=== PATIENT | female | born 1935 | race Caucasian/White ===

== ENCOUNTER 2017-10-21 15:34 | Emergency (ER) | payer OTHER, BC ==
--- OUTSIDE RECORDS SUMMARY | 2017-10-21 16:06 | XMS REPORT | Clinical Summary ---
:1935 Author Organization [facility] Address [address] [place] [address] Care Team Providers Name Role Phone Laith Dillardio Judith MARINELLI Primary Care Provider Allergies Active Allergy Reactions Severity Noted Date Comments Bacitracin 02/06/2016 Unknown rxn Codeine Shortness Of Breath High 02/06/2016 Methylchloroisothiazolinone 02/06/2016 Unknown rxn Morphine Shortness Of Breath High 02/06/2016 Neomycin 02/06/2016 Unknown rxn Opioids - Morphine Analogues 08/03/2014 Current Medications Prescription Sig. Disp. Refills Start Date End Date Status atenolol (TENORMIN) 50 Take 50 mg by Active MG tablet mouth 2 (two) times a day. benazepril (LOTENSIN) Take 40 mg by Active 40 MG tablet mouth. cyanocobalamin, vitamin Place 2,500 mcg Active B-12, 2,500 mcg tablet, under the sublingual tongue 2 (two) times a day. DULoxetine (CYMBALTA) Take 60 mg by Active 60 MG capsule mouth daily. fluticasone-salmeterol Inhale 1 puff 2 Active (ADVAIR) 100-50 (two) times a mcg/dose DISKUS day. fluticasone (FLONASE) 2 sprays by Active 50 mcg/actuation nasal Each Nare route spray 2 (two) times a day. gabapentin (NEURONTIN) Take 300 mg by Active 300 mg capsule mouth 2 (two) times a day. hydrALAZINE Take 50 mg by Active (APRESOLINE) 50 MG mouth 2 (two) tablet times a day. hydrOXYzine (ATARAX) 50 Take 50 mg by Active MG tablet mouth 2 (two) times a day. levothyroxine Take 112 mcg by Active (SYNTHROID, LEVOXYL) mouth every 112 mcg tablet morning. omeprazole (PriLOSEC) Take 20 mg by Active 20 MG capsule mouth daily. doxepin 3 mg tablet Take 1 tablet Active by mouth daily. levocetirizine (XYZAL) Take 5 mg by Active 5 MG tablet mouth every evening. loratadine (CLARITIN) Take 10 mg by Active 10 mg tablet mouth daily. montelukast (SINGULAIR) Take 10 mg by Active 10 mg tablet mouth nightly. cholecalciferol, Take 1,000 Active vitamin D3, (VITAMIN Units by mouth D3) 1,000 unit tablet daily. cyanocobalamin 1000 MCG Take 1,000 mcg Active tablet by mouth daily. clonAZEPAM (KlonoPIN) Take 1 tablet 2 02/06/2017 Active 0.5 MG tablet by mouth daily. divalproex (DEPAKOTE) Take 1 tablet 2 01/23/2017 Active 250 MG 24 hr tablet by mouth daily. donepezil (ARICEPT) 5 Take 1 tablet 30 tablet 0 02/10/2017 02/10/2018 Active MG tablet (5 mg total) by mouth nightly. 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 (Primary Dx) 01/16/2017 Hospital Encounter Radiology Nona Agrawal MD Memory loss; Gait difficulty 01/16/2017 Lab Lab Nona Agrawal MD Idiopathic peripheral neuropathy 12/06/2016 Office Visit Neurology Nona Agrawal MD Memory loss (Primary Dx); Idiopathic peripheral neuropathy; Gait difficulty 12/06/2016 Procedure Pass Radiology after 10/20/2016 Family History Medical History Relation Name Comments Prostate cancer Father Hypertension Mother Relation Name Status Comments Father Mother Social History Tobacco Use Types Packs/Day Years Used Date Former Smoker 0.25 12 Quit: 1977 Smokeless Tobacco: Never Used Alcohol Use Drinks/Week oz/Week Comments Yes 7 Shots of liquor 4.2 Sex Assigned at Date Recorded Not on file Last Filed Vital Signs Vital Sign Reading Time Taken Blood Pressure 131/61 02/10/2017 10:44 AM CDT Pulse 69 02/10/2017 10:44 AM CDT Temperature - - Respiratory Rate - - Oxygen Saturation - - Inhaled Oxygen Concentration - - Weight 54.1 kg (119 lb 4.8 oz) 02/10/2017 10:44 AM CDT Height 162.6 cm (5' 4") 02/10/2017 10:44 AM CDT Body Mass Index 20.48 02/10/2017 10:44 AM CDT Plan of Treatment Health Maintenance Due Date Last Done Comments SHINGRIX VACCINE (#1) 1984 ZOSTER VACCINE 1994 PNEUMOCOCCAL POLYSACCHARIDE VACCINE AGE 65 AND OVER 1999 PNEUMOCOCCAL-13 1999 INFLUENZA VACCINE 11/12/2017 Procedures Procedure Name Priority Date/Time Associated Comments Diagnosis MRI BRAIN W WO Routine 01/16/2017 12:27 Memory loss Results for this CONTRAST PM CDT Gait difficulty procedure are in the results section. ESTIMATED GFR Routine 01/16/2017 11:51 Results for this AM CDT procedure are in the results section. CREATININE LEVEL Routine 01/16/2017 11:51 Results for this AM CDT procedure are in the results section. METHYLMALONIC ACID, Routine 01/16/2017 11:11 Idiopathic Results for this SERUM AM CDT peripheral procedure are in neuropathy the results section. after 10/20/2016 Results MRI Brain W Wo Contrast (01/16/2017 12:27 PM) Narrative Performed At EXAMINATION:MRI BRAIN W WO CONTRAST [facility] CLINICAL HISTORY:R41.3 Other amnesia, R26.9 Unspecified abnormalities of gait and mobility, hx of concussion memory decline COMPARISON:None. TECHNIQUE: Standard brain MRI without and with intravenous gadolinium contrast. FINDINGS: The study is somewhat limited by patient motion, more on postcontrast images. There is also susceptibility artifact that appear external to the patient overlying the right frontal scalp region. There is no evidence of acute infarction, hemorrhage, mass lesion, or abnormal enhancement. There are mild nonspecific areas of T2 prolongation in the periventricular white matter, likely sequela from chronic ischemic microangiopathy. There is mild-moderate cerebral volume loss disproportionately involving bilateral parietal and occipital lobes. The right hippocampus is slightly smaller than the left hippocampus, which is of uncertai n clinical significance but not grossly abnormal. There is no gross hydrocephalus or extra-axial fluid collection. Flow voids of the major intracranial vessels are intact. Visualized paranasal sinuses and mastoid air cells are clear. There is right intraocular lens implant. Bones and soft tissues are unremarkable. IMPRESSION: 1. Mild-moderate cerebral volume loss disproportionately involving bilateral parietal and occipital lobes, correlate for underlying neurodegenerative disease such as dementia with Lewy bodies, Parkinson 's dementia, and occipital pattern of Alzheimer's disease. 2. Mild nonspecific periventricular white matter changes, likely sequela from chronic ischemic microangiopathy. [facility]-[id number] Procedure Note Interface, Radiology Results Incoming - 01/16/2017 1:12 PM CDT EXAMINATION: MRI BRAIN W WO CONTRAST CLINICAL HISTORY: R41.3 Other amnesia, R26.9 Unspecified abnormalities of gait and mobility, hx of concussion memory decline COMPARISON: None. TECHNIQUE: Standard brain MRI without and with intravenous gadolinium contrast. FINDINGS: The study is somewhat limited by patient motion, more on postcontrast images. There is also susceptibility artifact that appear external to the patient overlying the right frontal scalp region. There is no evidence of acute infarction, hemorrhage, mass lesion, or abnormal enhancement. There are mild nonspecific areas of T2 prolongation in the periventricular white matter, likely sequela from chronic ischemic microangiopathy. There is mild-moderate cerebral volume loss disproportionately involving bilateral parietal and occipital lobes. The right hippocampus is slightly smaller than the left hippocampus, which is of uncertain clinical significance but not grossly abnormal. There is no gross hydrocephalus or extra-axial fluid collection. Flow voids of the major intracranial vessels are intact. Visualized paranasal sinuses and mastoid air cells are clear. There is right intraocular lens implant. Bones and soft tissues are unremarkable. IMPRESSION: 1. Mild-moderate cerebral volume loss disproportionately involving bilateral parietal and occipital lobes, correlate for underlying neurodegenerative disease such as dementia with Lewy bodies, Parkinson's dementia, and occipital pattern of Alzheimer's disease. 2. Mild nonspecific periventricular white matter changes, likely sequela from chronic ischemic microangiopathy. [facility]-[id number] Performing Organization Address City/State/Zipcode Phone Number [facility] [address] [place] [address] Estimated GFR (01/16/2017 11:51 AM) GFR Non Af Amer 31 (A) mL/min/1.73 m2 [facility] DEPARTMENT OF PATHOLOGY AND GENOMIC MEDICINE GFR Af Amer 37 (A) mL/min/1.73 m2 [facility] DEPARTMENT OF Comment: PATHOLOGY AND GENOMIC Chronic kidney disease: <60 mL/min/1.73m2 MEDICINE Kidney failure: <15 mL/min/1.73m2 The estimated GFR is calculated from the IDMS-traceable Modification of Diet in Renal Disease Equation. The accuracy of the calculation is poor when the creatinine is normal. Calculated values >90 mL/min/1.73m2 are not reported. This equation has not been validated in children (<18 years), women, the elderly (>70 years), or ethnic groups other than Caucasians and Americans. Specimen Plasma specimen Performing Organization Address City/[facility] Phone Number [facility] DEPARTMENT OF PATHOLOGY AND [address] [place], [place] [phone] [employer] Creatinine level (01/16/2017 11:51 AM) Creatinine 1.6 (H)Comment: Testing 0.5 - 0.9 mg/dL [facility] DEPARTMENT OF PATHOLOGY performed on the [employer] AND [employer] instrument by RN [id number]. Specimen Plasma specimen Performing Organization Address [facility] Phone Number [facility] DEPARTMENT OF PATHOLOGY AND [address] [place] [phone] [employer] Methylmalonic acid, serum (01/16/2017 11:11 AM) Methylmalonic acid 0.15 0.00 - 0.40 umol/L [facility] Comment: INTERPRETIVE INFORMATION: MMA Serum/Plasma, Vitamin B12 Status Test developed and characteristics determined by [facility]. See Compliance Statement B: [facility] Performed by [facility], [address] [place] [address] [email or web address], Goyo Burrows MD - Lab. Director Specimen Serum Performing Organization Address [facility] Phone Number [facility] [address] [place] [address] after 10/20/2016 Insurance Payer Benefit Plan / Group Subscriber ID Type Phone Address MEDICARE MEDICARE PART A AND B xxxxxxxxxx Medicare [place], [place] BCBS BCBS CHOICE PPO/[employer]ERAL EMPL PPO xxxxxxxxxxxx PPO [phone] [place], [place] [phone]
[2017-10-21 17:18] LABS: Absolute Lymphocytes (CBC) 1.2 K/uL (0.7-4.9); Absolute Monocytes 1.1 K/uL (0.1-1.3); Absolute Neutrophil 3.8 K/uL (1.8-8.0); Basophils % 0.6 % (0-1.3); Eosinophils % 1.6 % (0-4.4); Hematocrit 26.4 % (36.0-45.0); Lymphocytes % 19.7 % (15.3-44.8); MCV 100.3 fL (80-100); MPV 6.9 fL (7.6-11.3); Monocytes % 17.7 % (3.3-12.3); RBC Red Blood Cell Count 2.63 M/uL (3.86-4.86)
[2017-10-21 17:35] LABS: ALT/SGPT 17 U/L (12-78); AST/SGOT 25 U/L (15-37); Albumin 2.9 g/dL (3.4-5.0); Alkaline Phosphatase 64 U/L (45-117); BUN Blood Urea Nitrogen 97 mg/dL (7-18); Bicarbonate 26 mmol/L (21-32); Bilirubin Direct < 0.1 mg/dL (0-0.2); Bilirubin Total 0.2 mg/dL (0.2-1.0); Glucose Level 99 mg/dL (74-106); Potassium 4.7 mmol/L (3.5-5.1); Protein, Total 6.8 g/dL (6.4-8.2); Sodium Level 131 mmol/L (136-145)
[2017-10-21 17:36] LABS: Lipase 339 U/L (73-393); Magnesium 2.3 mg/dL (1.8-2.4)
[2017-10-21] MEDS ORDERED: NA CHLORIDE 0.9% 1,000 ML ONE (18:04)
[2017-10-21 18:26] LABS: Urine Blood NEGATIVE (NEG); Urine Glucose NEGATIVE (NEG); Urine Protein NEGATIVE (NEG)
[2017-10-21 18:50] LABS: Urine Bacteria <20 /HPF (<20); Urine Culture Reflex Order NOT NEEDED; Urine RBC NONE SEEN /HPF (NONE SEEN)
--- NOTE | 2017-10-21 19:12 | ER ---
Nurse's Notes [facility] Name: Nena Rosario Age: 82 yrs Sex: Female : 1935 Arrival Date: 10/21/2017 Time: 15:39 Bed 24 Private MD: Randall Dillard Diagnosis: Dehydration Presentation: 10/21 16:13 Presenting complaint: Patient states: Decreased appetite and thirst, with intermittent aj vomiting for 1 week. Transition of care: patient was not received from another setting of care. Onset of symptoms was October 14, 2017. Risk Assessment: Do you want to hurt yourself or someone else? Patient reports no desire to harm self or others. Initial Sepsis Screen: Does the patient meet any 2 criteria? No. Patient's initial sepsis screen is negative. Does the patient have a suspected source of infection? No. Patient's initial sepsis screen is negative. Care prior to arrival: None. 16:13 Method Of Arrival: Wheelchair aj 16:13 Acuity: SID 3 aj Triage Assessment: 16:18 General: Appears in no apparent distress. comfortable, Behavior is calm, cooperative, aj appropriate for age. Pain: Denies pain. Neuro: Level of Consciousness is awake, alert, obeys commands, Oriented to person, place, time, situation, Appropriate for age. Respiratory: Airway is patent Respiratory effort is even, unlabored, Respiratory pattern is regular, symmetrical. GI: Reports anorexia, nausea. Derm: Skin is intact, is healthy with good turgor, Skin is pink, warm \T\ dry. normal. Historical: - Allergies: 16:18 BACITRACIN; aj 16:18 Codeine; aj 16:18 methylisothiazolinone; aj 16:18 Morphine; aj - Home Meds: 16:18 atenolol 50 mg Oral tab twice a day [Active]; fluticasone 50 mcg/actuation nasal spsn aj [Active]; hydroxyzine HCl 10 mg Oral tab three times a day [Active]; ipratropium bromide nasal [Active]; levothyroxine 112 mcg oral tab [Active]; Hydralazine Oral [Active]; omeprazole 20 mg Oral cpDR 1 cap once daily [Active]; cyanocobalamin (vitamin B-12) oral oral [Active]; Claritin 10 mg Oral tab 1 tab once daily [Active]; - PMHx: 16:18 ABNORMAL GAIT; Arthritis; Chronic Kidney disease stage 3; EDEMA OF LOWER LEG; aj Hypertension; hyponatremia; Hypothyroidism; ITCHING OF SKIN - CHRONIC; UTI; - Immunization history:: Adult Immunizations up to date. - Social history:: Smoking status: Patient/guardian denies using tobacco. - Ebola Screening: : Patient negative for fever greater than or equal to 101.5 degrees Fahrenheit, and additional compatible Ebola Virus Disease symptoms Patient denies exposure to infectious person Patient denies travel to an Ebola-affected area in the 21 days before illness onset No symptoms or risks identified at this time. Screenin:45 Abuse screen: Denies threats or abuse. Denies injuries from another. Nutritional kr2 screening: No deficits noted. Tuberculosis screening: No symptoms or risk factors identified. Fall Risk None identified. Assessment: 16:42 General: Appears in no apparent distress. comfortable, well groomed, well developed, kr2 Behavior is calm, cooperative, appropriate for age. Pain: Denies pain. Neuro: Level of Consciousness is awake, alert, obeys commands, Oriented to person, place, time, situation. Cardiovascular: Reports fatigue, Capillary refill < 3 seconds in bilateral fingers Patient's skin is warm and dry. Respiratory: Airway is patent Respiratory effort is even, unlabored, Respiratory pattern is regular, symmetrical. GI: Abdomen is flat, non-distended, Bowel sounds present X 4 quads. Reports Decreased appetite. : Denies burning with urination, inability to void. EENT: Oral mucosa is moist. Derm: Skin is intact, is healthy with good turgor, Skin is pink, warm \T\ dry. Musculoskeletal: Circulation, motion, and sensation intact. 18:04 Reassessment: Patient appears in no apparent distress at this time. Patient and/or kr2 family updated on plan of care and expected duration. Pain level reassessed. Patient is alert, oriented x 3, equal unlabored respirations, skin warm/dry/pink. Patient denies pain at this time. 19:00 Reassessment: Patient appears in no apparent distress at this time. Patient and/or kr2 family updated on plan of care and expected duration. Pain level reassessed. Patient is alert, oriented x 3, equal unlabored respirations, skin warm/dry/pink. Patient denies pain at this time. Patient states feeling better. 19:52 Reassessment: Patient appears in no apparent distress at this time. Patient and/or kr2 family updated on plan of care and expected duration. Pain level reassessed. Patient is alert, oriented x 3, equal unlabored respirations, skin warm/dry/pink. Patient denies pain at this time. Patient states feeling better. Vital Signs: 16:18 BP 139 / 63; Pulse 84; Resp 17; Temp 98.2; Pulse Ox 100% on R/A; Weight 49.9 kg; Height aj 5 ft. 3 in. (160.02 cm); 17:25 BP 144 / 58; Pulse 66; Resp 17; Pulse Ox 99% on R/A; kr2 18:04 BP 135 / 83; Pulse 68; Resp 17; Pulse Ox 99% on R/A; kr2 19:53 BP 107 / 67; Pulse 70; Resp 18; Pulse Ox 97% ; kr2 16:18 Body Mass Index 19.49 (49.90 kg, 160.02 cm) aj ED Course: 15:39 Patient arrived in ED. mr 15:39 Randall Dillard DO is Private Physician. mr 16:14 Triage completed. aj 16:18 Arm band placed on right wrist. Patient placed in an exam room. aj 16:20 Lise Owusu, LEAH is Primary Nurse. kr2 16:25 Mando Casillas PA is PHCP. jr8 16:25 Max Olivares MD is Attending Physician. jr8 16:45 Patient has correct armband on for positive identification. Bed in low position. Call kr2 light in reach. Side rails up X 1. dog bather on. Pulse ox on. NIBP on. Door closed. Warm blanket given. Head of bed elevated. 17:00 Inserted saline lock: 20 gauge in left antecubital area, using aseptic technique. kr2 ,using aseptic technique. Performed by José Miguel Godfrey Blood collected. 19:55 No provider procedures requiring assistance completed. IV discontinued, intact, kr2 bleeding controlled, No redness/swelling at site. Pressure dressing applied. Administered Medications: 18:04 Drug: NS 0.9% 1000 ml Route: IV; Rate: 1000 ml; Site: left antecubital; kr2 19:54 Follow up: Response: No adverse reaction; IV Status: Completed infusion kr2 19:14 Drug: Atarax 25 mg Route: PO; kr2 19:54 Follow up: Response: No adverse reaction; No adverse reaction, itching decreased kr2 Outcome: 19:12 Discharge ordered by . jr8 19:55 Discharged to home via wheelchair, with family. kr2 19:55 Condition: good 19:55 Discharge instructions given to patient, family, Instructed on discharge instructions, follow up and referral plans. medication usage, Demonstrated understanding of instructions, follow-up care, medications, Prescriptions given X 2. 20:03 Patient left the ED. kr2 Signatures: Lissett Alvarenga, RN RN Jojo Arce Josh, PA PA jr8 Lise Owusu RN RN kr2
--- NOTE | 2017-10-21 19:12 | EDPHYS ---
Physician Documentation [facility] Name: Nena Rosario Age: 82 yrs Sex: Female : 1935 Arrival Date: 10/21/2017 Time: 15:39 Bed 24 Private MD: Randall Dillard ED Physician Max Olivares HPI: 10/21 17:19 This 82 yrs old Female presents to ER via Wheelchair with complaints of jr8 Decreased Appetite. 17:19 Patient stated that she goes through bouts of not wanting to eat and will become jr8 nauseated. Stated that she has had to have electrolyte replacement in the past. Stated that this time has been going on for 1 week. Denies abdominal pain, fevers, diarrhea, chest pain, or shortness of breath . Onset: The symptoms/episode began/occurred acutely, 1 week(s) ago. Severity of symptoms: At their worst the symptoms were mild in the emergency department the symptoms are unchanged. The patient has not experienced similar symptoms in the past. The patient has not recently seen a physician. Historical: - Allergies: 16:18 BACITRACIN; aj 16:18 Codeine; aj 16:18 methylisothiazolinone; aj 16:18 Morphine; aj - Home Meds: 16:18 atenolol 50 mg Oral tab twice a day [Active]; fluticasone 50 mcg/actuation nasal spsn aj [Active]; hydroxyzine HCl 10 mg Oral tab three times a day [Active]; ipratropium bromide nasal [Active]; levothyroxine 112 mcg oral tab [Active]; Hydralazine Oral [Active]; omeprazole 20 mg Oral cpDR 1 cap once daily [Active]; cyanocobalamin (vitamin B-12) oral oral [Active]; Claritin 10 mg Oral tab 1 tab once daily [Active]; - PMHx: 16:18 ABNORMAL GAIT; Arthritis; Chronic Kidney disease stage 3; EDEMA OF LOWER LEG; aj Hypertension; hyponatremia; Hypothyroidism; ITCHING OF SKIN - CHRONIC; UTI; - Immunization history:: Adult Immunizations up to date. - Social history:: Smoking status: Patient/guardian denies using tobacco. - Ebola Screening: : Patient negative for fever greater than or equal to 101.5 degrees Fahrenheit, and additional compatible Ebola Virus Disease symptoms Patient denies exposure to infectious person Patient denies travel to an Ebola-affected area in the 21 days before illness onset No symptoms or risks identified at this time. ROS: 17:19 Eyes: Negative for injury, pain, redness, and discharge, ENT: Negative for injury, jr8 pain, and discharge, Neck: Negative for injury, pain, and swelling, Cardiovascular: Negative for chest pain, palpitations, and edema, Respiratory: Negative for shortness of breath, cough, wheezing, and pleuritic chest pain, Back: Negative for injury and pain, MS/Extremity: Negative for injury and deformity, Skin: Negative for injury, rash, and discoloration, Neuro: Negative for headache, weakness, numbness, tingling, and seizure. 17:19 Abdomen/GI: Positive for nausea, Negative for abdominal pain, diarrhea, constipation, abdominal cramps, abdominal distension, anorexia, dysphagia, hematemesis, black/tarry stool, rectal pain, rectal bleeding, bowel incontinence, flatulence. Exam: 17:19 Eyes: Pupils equal round and reactive to light, extra-ocular motions intact. Lids and jr8 lashes normal. Conjunctiva and sclera are non-icteric and not injected. Cornea within normal limits. Periorbital areas with no swelling, redness, or edema. ENT: Nares patent. No nasal discharge, no septal abnormalities noted. Tympanic membranes are normal and external auditory canals are clear. Oropharynx with no redness, swelling, or masses, exudates, or evidence of obstruction, uvula midline. Mucous membranes moist. Neck: Trachea midline, no thyromegaly or masses palpated, and no cervical lymphadenopathy. Supple, full range of motion without nuchal rigidity, or vertebral point tenderness. No Meningismus. Cardiovascular: Regular rate and rhythm with a normal S1 and S2. No gallops, murmurs, or rubs. Normal PMI, no JVD. No pulse deficits. Respiratory: Lungs have equal breath sounds bilaterally, clear to auscultation and percussion. No rales, rhonchi or wheezes noted. No increased work of breathing, no retractions or nasal flaring. Abdomen/GI: Soft, non-tender, with normal bowel sounds. No distension or tympany. No guarding or rebound. No evidence of tenderness throughout. Back: No spinal tenderness. No costovertebral tenderness. Full range of motion. Skin: Warm, dry with normal turgor. Normal color with no rashes, no lesions, and no evidence of cellulitis. MS/ Extremity: Pulses equal, no cyanosis. Neurovascular intact. Full, normal range of motion. Neuro: Awake and alert, GCS 15, oriented to person, place, time, and situation. Cranial nerves II-XII grossly intact. Motor strength 5/5 in all extremities. Sensory grossly intact. Cerebellar exam normal. Normal gait. Vital Signs: 16:18 BP 139 / 63; Pulse 84; Resp 17; Temp 98.2; Pulse Ox 100% on R/A; Weight 49.9 kg; Height aj 5 ft. 3 in. (160.02 cm); 17:25 BP 144 / 58; Pulse 66; Resp 17; Pulse Ox 99% on R/A; kr2 18:04 BP 135 / 83; Pulse 68; Resp 17; Pulse Ox 99% on R/A; kr2 19:53 BP 107 / 67; Pulse 70; Resp 18; Pulse Ox 97% ; kr2 16:18 Body Mass Index 19.49 (49.90 kg, 160.02 cm) MDM: 16:25 Patient medically screened. jr8 19:10 Data reviewed: vital signs, nurses notes, lab test result(s), and as a result, I will jr8 discharge patient. Data interpreted: Pulse oximetry: on room air is 99 %. Interpretation: normal. Counseling: I had a detailed discussion with the patient and/or guardian regarding: the historical points, exam findings, and any diagnostic results supporting the discharge/admit diagnosis, lab results, the need for outpatient follow up, a family practitioner, to return to the emergency department if symptoms worsen or persist or if there are any questions or concerns that arise at home. Response to treatment: the patient's symptoms have markedly improved after treatment. ED course: Discussed with patient that she is dehydrated. Would recommend observation for continued hydration to insure BUN decreases. Patient wants to go home and try out patient hydration first. Will discharge to f/u. If worse to come back which patient is good with . 10/21 16:54 Order name: Basic Metabolic Panel; Complete Time: 17:51 10/21 16:54 Order name: CBC with Diff; Complete Time: 17:23 10/21 16:54 Order name: Creatinine for Radiology; Complete Time: 17:51 10/21 16:54 Order name: Hepatic Function; Complete Time: 17:51 10/21 16:54 Order name: Lipase; Complete Time: 17:51 10/21 16:54 Order name: Urine Microscopic Only; Complete Time: 19:04 10/21 16:54 Order name: IV Saline Lock; Complete Time: 17:22 10/21 16:54 Order name: Labs collected and sent; Complete Time: 17:22 10/21 16:54 Order name: Urine Dipstick-Ancillary (obtain specimen); Complete Time: 18:04 10/21 16:54 Order name: Magnesium; Complete Time: 17:51 10/21 18:16 Order name: Urine Dipstick--Ancillary (enter results); Complete Time: 18:33 eb Administered Medications: 18:04 Drug: NS 0.9% 1000 ml Route: IV; Rate: 1000 ml; Site: left antecubital; kr2 19:54 Follow up: Response: No adverse reaction; IV Status: Completed infusion kr2 19:14 Drug: Atarax 25 mg Route: PO; kr2 19:54 Follow up: Response: No adverse reaction; No adverse reaction, itching decreased kr2 Disposition: 10/22 06:58 Co-signature as Attending Physician, Max Olivares MD. rn Disposition: 10/21/17 19:12 Discharged to Home. Impression: Dehydration. - Condition is Stable. - Discharge Instructions: Dehydration, Adult. - Prescriptions for Zofran 4 mg Oral Tablet - take 1 tablet by ORAL route every 12 hours As needed; 20 tablet. Hydroxyzine HCl 25 mg Oral Tablet - take 1 tablet by ORAL route every 6 hours As needed; 30 tablet. - Medication Reconciliation Form, Thank You Letter, Antibiotic Education, Prescription Opioid Use form. - Follow up: Private Physician; When: 1 - 2 days; Reason: Recheck today's complaints, Continuance of care, Re-evaluation by your physician. - Problem is new. - Symptoms have improved. Signatures: Dispatcher [employer] Lissett Johnson RN RN aj Nieto, Roman, MD MD rn Roszak, Josh, PA PA jr8 Lise Owusu RN RN kr2 Corrections: (The following items were deleted from the chart) 10/21 20:03 19:12 10/21/2017 19:12 Discharged to Home. Impression: Dehydration. Condition is kr2 Stable. Forms are Medication Reconciliation Form, Thank You Letter, Antibiotic Education, Prescription Opioid Use. Follow up: Private Physician; When: 1 - 2 days; Reason: Recheck today's complaints, Continuance of care, Re-evaluation by your physician. Problem is new. Symptoms have improved. jr8
[2017-10-21] MEDS ORDERED: hydrOXYzine HCl 25 MG TAB ONE (19:14)
[2017-10-21 20:14] VITALS: TEMP 98.2
[2017-10-21 20:18] VITALS: BP 107/67; O2SAT 97
== END 2017-10-21 20:03 | disposition home or self-care (01) ==
LOC: ER 15:34
DX: E86.0 Dehydration (principal); I12.9 Hypertensive chronic kidney disease with stage 1 through stage 4 chronic kidney disease, or unspecified chronic kidney disease; N18.3 Chronic kidney disease, stage 3 (moderate); E03.9 Hypothyroidism, unspecified; Z88.1 Allergy status to other antibiotic agents; Z88.5 Allergy status to narcotic agent; Z88.8 Allergy status to other drugs, medicaments and biological substances
CPT/HCPCS: 36415; 80048; 80076; 83690; 83735; 85025; 96360; 96361; 99284; J7030; 81003; 81015

== ENCOUNTER 2018-08-01 14:15 | Emergency (ER) | payer MEDICARE ==
--- OUTSIDE RECORDS SUMMARY | 2018-08-01 14:17 | XMS REPORT | Clinical Summary ---
:1935 Author Organization [facility] Address [address] [place] [address] Care Team Providers Name Role Phone Randall Dillard DO Primary Care Provider Allergies Active Allergy Reactions Severity Noted Date Comments Bacitracin 02/06/2016 Unknown rxn Codeine Shortness Of Breath High 02/06/2016 Methylchloroisothiazolinone 02/06/2016 Unknown rxn Morphine Shortness Of Breath High 02/06/2016 Neomycin 02/06/2016 Unknown rxn Opioids - Morphine Analogues 08/03/2014 Medications Medication Sig Dispensed Refills Start Date End Date Status atenolol (TENORMIN) 50 Take 50 mg by 0 Active MG tablet mouth 2 (two) times a day. benazepril (LOTENSIN) Take 40 mg by 0 Active 40 MG tablet mouth. cyanocobalamin, vitamin Place 2,500 0 Active B-12, 2,500 mcg tablet, mcg under the sublingual tongue 2 (two) times a day. DULoxetine (CYMBALTA) Take 60 mg by 0 Active 60 MG capsule mouth daily. fluticasone-salmeterol Inhale 1 puff 0 Active (ADVAIR) 100-50 2 (two) times mcg/dose DISKUS a day. fluticasone (FLONASE) 2 sprays by 0 Active 50 mcg/actuation nasal Each Nare spray route 2 (two) times a day. gabapentin (NEURONTIN) Take 300 mg by 0 Active 300 mg capsule mouth 2 (two) times a day. hydrALAZINE Take 50 mg by 0 Active (APRESOLINE) 50 MG mouth 2 (two) tablet times a day. hydrOXYzine (ATARAX) 50 Take 50 mg by 0 Active MG tablet mouth 2 (two) times a day. levothyroxine Take 112 mcg 0 Active (SYNTHROID, LEVOXYL) by mouth every 112 mcg tablet morning. omeprazole (PriLOSEC) Take 20 mg by 0 Active 20 MG capsule mouth daily. doxepin 3 mg tablet Take 1 tablet 0 Active by mouth daily. levocetirizine (XYZAL) Take 5 mg by 0 Active 5 MG tablet mouth every evening. loratadine (CLARITIN) Take 10 mg by 0 Active 10 mg tablet mouth daily. montelukast (SINGULAIR) Take 10 mg by 0 Active 10 mg tablet mouth nightly. cholecalciferol, Take 1,000 0 Active vitamin D3, (VITAMIN Units by mouth D3) 1,000 unit tablet daily. cyanocobalamin 1000 MCG Take 1,000 mcg 0 Active tablet by mouth daily. clonAZEPAM (KlonoPIN) Take 1 tablet 2 02/06/2017 Active 0.5 MG tablet by mouth daily. divalproex (DEPAKOTE) Take 1 tablet 2 01/23/2017 Active 250 MG 24 hr tablet by mouth daily. donepezil (ARICEPT) 5 Take 1 tablet 30 tablet 0 02/10/2017 02/10/2018 MG tablet (5 mg total) by mouth nightly. Active Problems No known active problems Family History Medical History Relation Name Comments Prostate cancer Father Hypertension Mother Relation Name Status Comments Father Mother Social History Tobacco Use Types Packs/Day Years Used Date Former Smoker 0.25 12 Quit: 1977 Smokeless Tobacco: Never Used Alcohol Use Drinks/Week oz/Week Comments Yes 7 Shots of liquor 4.2 Sex Assigned at Date Recorded Not on file Job Start Date Occupation Industry Not on file Not on file Not on file Travel History Travel Start Travel End No recent travel history available. Last Filed Vital Signs Not on file Plan of Treatment Health Maintenance Due Date Last Done Comments SHINGLES VACCINES (#1) 1984 65+ PNEUMOCOCCAL VACCINE (1 of 2 - PCV13) 1999 PNEUMOCOCCAL POLYSACCHARIDE VACCINE AGE 65 AND OVER 1999 INFLUENZA VACCINE 11/12/2018 Results Not on fileafter 07/31/2017 Insurance Payer Benefit Plan / Group Subscriber ID Type Phone Address MEDICARE MEDICARE PART A AND B xxxxxxxxxx Medicare [place], [place] BCBS BCBS CHOICE PPO/FEDERAL EMPL PPO xxxxxxxxxxxx PPO Advance Directives Patient has advance care planning documents on file. For more information, please contact:Alejo [id number] [place] [address]
--- OUTSIDE RECORDS SUMMARY | 2018-08-01 14:18 | XMS REPORT | Continuity of Care Document ---
:1935 Author Organization Interface Problems Problem Status Onset Classification Date Comments Source Date Reported UTI Active 09/03/19 Finding 05/10/[address] [facility] Anemia Active 09/03/19 Finding 05/10/[address] [facility] Confusion Resolved 09/03/19 Finding 05/10/[address] [facility] Leucocytosis Active 09/03/19 Finding 05/10/[address] [facility] [place] Elevated troponin Active 09/03/19 Finding 05/10/[address] [facility] [place] Hypertension Active 09/03/19 Finding 05/10/[address] [facility] [place] Hypomagnesemia Active 09/03/19 Finding 05/10/[address] [facility] [place] Chronic pruritus Active 08/21/19 Finding 05/10/[address] [facility] [place] Dizziness Active 08/21/19 Finding 05/10/[address] [facility] Hyponatremia Active 08/21/19 Finding 05/10/[address] [facility] [place] Weakness Active 08/21/19 Finding 05/10/[address] [facility] [place] GERD Active 08/21/19 Finding 05/10/[address] [facility] Falls Active 08/21/19 Finding 05/10/[address] [facility] [place] Asthma Active 08/21/19 Finding 05/10/[address] [facility] [place] Acute renal Active 03/25/20 Finding 05/10/[address] [facility] [place] High anion gap Active 03/25/20 Finding 05/10/[address] [facility] [address] [facility] acid[facility] [place] GIB Active 03/25/20 Finding 05/10/[address] [facility] [place] Hypoglycemia Active 03/25/20 Finding 05/10/[address] [facility] [place] Hypothyroidism Active 03/25/20 Finding 05/10/[address] [facility] [place] Altered mental Active 03/25/20 Finding 05/10/[address] [facility] [address] status [facility] [place] History of TIA Active Finding 05/10/2017 [facility] [place] Diarrhea Active Finding 05/10/[address] [facility] Chronic renal Active Finding 05/10/2017 [facility] [place] Medications Medication Details Route Status Patient Ordering Order Source Instructions Provider Date Collagenase AT BEDTIME Active Cruz [facility] [place] Doxycycline TWICE DAILY Active Cruz [facility] St[facility] Hyclate [facility]18 [facility] [place] Donepezil DAILY Active [facility] [place] Cyanocobalamin AT BEDTIME Active [facility] St. (Vitamin B-12) 018 [facility] [place] Divalproex Er AT BEDTIME Active [facility] [place] Loratadine DAILY Active [facility] [place] Cholecalciferol DAILY Active [facility] (Vitamin D3) [facility] [place] Gabapentin TWICE DAILY Active [facility] [place] Furosemide DAILY Active [facility] [place] Levocetirizine AT BEDTIME Active [facility] St[facility] Dihydrochloride 018 [facility] [place] Montelukast AT BEDTIME Active [facility] [place] Atenolol TWICE DAILY Active [facility] 018 [facility] [place] Pantoprazole TWICE DAILY Active Voss [facility] St[facility] Sodium 017 [facility] [place] Doxepin Hcl DAILY Active [facility] [place] Levothyroxine DAILY AT Active [facility] [place] Hydralazine TWICE DAILY Active [facility] [place] Levothyroxine DAILY AT Active Divinsky [facility] 0600 017 [facility] [place] Clonazepam AT BEDTIME Active [facility] [place] Duloxetine Hcl DAILY [facility] [place] Fluticasone TWICE DAILY Active [facility] Propionate 0[facility] [place] Fluticasone/Salme TWICE DAILY Active [facility] St. terol PRN For [facility]17 [facility] Shortness [place] Of Breath Hydroxyzine Hcl TWICE DAILY Active [facility] [place] Benazepril Hcl DAILY AT Active [facility] 0600 017 [facility] [place] Atenolol TWICE DAILY Active [facility] [place] Benazepril Hcl DAILY Active [facility] [place] Atenolol DAILY Active [facility] 0[facility] [place] Furosemide DAILY Active [facility] 0[facility] [place] Hydroxyzine DAILY Active [facility] St[facility] Pamoate 016 [facility] [place] Levothyroxine DAILY Active [facility] 0[facility] [place] Allergies, Adverse Reactions, Alerts Substance Category Reaction Severity Reaction Status Date Comments Source type Reported bacitracin Itching Allergy to Active [facility] St[facility] Substance 8 [facility] [place] codeine Itching Allergy to Active [facility] St[facility] Substance [facility] [place] methylisothia Itching Allergy to Active [facility] zolinone Substance 8 [facility] [place] morphine Itching Allergy to Active [facility] St[facility] Substance [facility] [place] Immunizations Immunization Date Given Site Status Last Updated Comments Source Results Order Name Results Value Reference Date Interpretation Comments Source Range Laboratory Hemoglobin 8.3 12.0 - 15.0 St[facility] Studies g/dL [facility] Hematocrit 25.2 % 36.0 - 45.0 St. Studies 2018 [facility] Sodium Level 140 135 - 145 St. Studies mEq/L 2018 [facility] [place] [facility] Potassium 4.7 3.6 - 5.0 [facility] Studies Level mEq/L 2018 [facility] [place] [facility] Glucose Level 100 65 - 120 [facility] Studies mg/dL 2018 [facility] [place] [facility] Estimat 27 90 [facility] [address] Studies Glomerular mL/min 2018 [facility] [place] Rate Laboratory Creatinine 1.79 0.44 - 1.00 [facility] [address] Studies mg/dL 2018 [facility] [place] [facility] Chloride Level 113 101 - 111 [facility] [address] Studies mEq/L 2018 [facility] Laboratory Carbon Dioxide 21 21 - 31 [facility] Studies Level mEq/L 2018 [facility] Calcium Level 8.6 8.5 - 10.5 [facility] [address] Studies mg/dL 2018 [facility] [place] Laboratory Blood Urea 38 6 - 20 [facility] Studies Nitrogen mg/dL 2018 [facility] [place] [facility] White Blood 8.7 4.3 - 10.9 [facility]. Studies Count K/uL 2018 [facility] [place] [facility] Red Cell 13.1 % 12.1 - 15.2 [facility] [address]. Studies Distribution 2018 [facility] Width [place] Laboratory Red Blood 2.21 3.86 - 4.86 [facility] Studies Count M/uL 2018 [facility] [place] [facility] Platelet Count 359 152 - 406 [facility] [address] Studies K/uL 2018 [facility] [place] [facility] Neutrophils % 65.6 % 41.7 - 73.7 [facility] St. Studies 2018 [facility] [place] [facility] Monocytes % 12.3 % 3.3 - 12.3 [facility] Studies 2018 [facility] [place] [facility] Mean Platelet 7.8 fL 7.6 - 11.3 [facility] [address] Studies Volume 2018 [facility] [place] Laboratory Mean 99.1 fL 80 - 100 [facility] Studies Corpuscular 2018 [facility] Volume [place] Laboratory Mean 33.3 32.0 - 36.0 [facility] St. Studies Corpuscular g/dL 2018 [facility] Hemoglobin [place] [facility] Laboratory Mean 33.0 pg 27.0 - 35.0 St. Studies Corpuscular 2017 [facility] Hemoglobin [place] Laboratory Lymphocytes % 17.5 % 15.3 - 44.8 St[facility] Studies 2018 [facility] [place] [facility] Eosinophils % 3.9 % 0 - 4.4 St[facility] Studies 2018 [facility] [place] [facility] Basophils % 0.7 % 0 - 1.3 St[facility] Studies 2018 [facility] [place] Laboratory Absolute 5.7 1.8 - 8.0 St. Studies Neutrophil K/uL 2017 [facility] [place] Laboratory Absolute 1.1 0.1 - 1.3 St. Studies Monocytes K/uL 2018 [facility] (CBC) [place] Laboratory Absolute 1.5 0.7 - 4.9 St. Studies Lymphocytes K/uL 2017 [facility] ([facility] [place] Laboratory Absolute 0.3 0 - 0.5 St. Studies Eosinophils K/uL 2018 [facility] ([facility] [place] Laboratory Absolute 0.1 0 - 0.5 St. Studies Basophils K/uL 2017 [facility] ([facility]) [place] Vital Signs Vital Sign Value Date Comments Source Heart Rate 86 05/10/2017 [facility] [place] Systolic (mm Hg) 141 05/10/[address] [facility] [place] Diastolic (mm Hg) 60 05/10/[address] [facility] [place] Temperature Oral (F) 99.5 F 05/10/[address] [facility] [place] Respitory Rate 16 05/10/[address] [facility] [place] Height 62 05/10/[address] [facility] [place] Weight 111.60 05/10/[address] [facility] [place] Encounters Location Location Encounter Encounter Reason Attending ADM DC Status Source Details Type Number For Provider Date Date Visit [facility] St. Discharged [id number] 05/08 05/[address] [facility] Procedures Procedure Code Date Perfomer Comments Source DEBRIDEMENT [id number] 05/09/2017 Anika [facility] - MULTIPLE [place] WOUNDS-.. Anaerobic Blood [id number] 05/08/2017 [facility] - Culture [place] Aerobic Blood [id number] 05/08/2017 [facility] - Culture [place] Gram Stain [id number] 05/08/2017 [facility] [address] Fl[facility] Smith Culture & [id number] 05/08/2017 [facility] Sensitivity [facility] Foot Left 2 View [id number] 05/08/2017 [facility] [address] Florencia Smith Chest Single View [id number] 05/08/2017 [facility] [address] Florencia Smith
--- NOTE | 2018-08-01 15:20 | EDPHYS ---
Physician Documentation [facility] Name: Nena Rosario Age: 83 yrs Sex: Female : 1935 Arrival Date: 08/01/2018 Time: 14:16 Bed 19 Private MD: Randall Dillard ED Physician Sunny Shea HPI: 08/01 15:17 This 83 yrs old Female presents to ER via Wheelchair with complaints of Skin pm1 Tear(s). 15:17 The patient has a laceration related to: tripped and tore her skin against home pm1 furniture occurred at home, and there are no complicating factors. The laceration(s) is(are) located on the dorsal aspect of left forearm. Onset: The symptoms/episode began/occurred 1 week(s) ago. Associated signs and symptoms: Pertinent negatives: deformity, heavy bleeding. The patient has not recently seen a physician. Patient with skin tear to left forearm 1 week ago and she was concerned that it might be getting infected. No fever, or redness to site. Historical: - Allergies: 14:42 BACITRACIN; aj1 14:42 Codeine; aj1 14:42 methylisothiazolinone; aj1 14:42 Morphine; aj1 - Home Meds: 14:42 atenolol 50 mg Oral tab twice a day [Active]; gabapentin 300 mg oral cap 1 cap twice aj1 daily [Active]; cyanocobalamin (vitamin B-12) Oral [Active]; Hydralazine Oral [Active]; hydroxyzine HCl 10 mg Oral tab three times a day [Active]; levothyroxine 112 mcg tab [Active]; omeprazole 20 mg Oral cpDR 1 cap once daily [Active]; levocetirizine 5 mg oral tab 1 tab once daily [Active]; - PMHx: 14:42 ABNORMAL GAIT; Arthritis; Chronic Kidney disease stage 3; EDEMA OF LOWER LEG; aj1 Hypertension; hyponatremia; Hypothyroidism; ITCHING OF SKIN - CHRONIC; UTI; - Immunization history:: Flu vaccine is up to date. - Social history:: Smoking status: Patient/guardian denies using tobacco. - Ebola Screening: : Patient denies travel to an Ebola-affected area in the 21 days before illness onset. ROS: 15:17 Constitutional: Negative for fever, chills, and weight loss, Eyes: Negative for injury, pm1 pain, redness, and discharge, ENT: Negative for injury, pain, and discharge, Neck: Negative for injury, pain, and swelling, Cardiovascular: Negative for chest pain, palpitations, and edema, Respiratory: Negative for shortness of breath, cough, wheezing, and pleuritic chest pain, Abdomen/GI: Negative for abdominal pain, nausea, vomiting, diarrhea, and constipation, Back: Negative for injury and pain, : Negative for injury, bleeding, discharge, and swelling, MS/Extremity: Negative for injury and deformity. 15:17 Neuro: Negative for headache, weakness, numbness, tingling, and seizure. 15:17 Skin: Positive for skin tear left forearm, Negative for abrasions, cellulitis. Exam: 15:17 Constitutional: This is a well developed, well nourished patient who is awake, alert, pm1 and in no acute distress. Head/Face: Normocephalic, atraumatic. Eyes: Pupils equal round and reactive to light, extra-ocular motions intact. Lids and lashes normal. Conjunctiva and sclera are non-icteric and not injected. Cornea within normal limits. Periorbital areas with no swelling, redness, or edema. ENT: Nares patent. No nasal discharge, no septal abnormalities noted. Tympanic membranes are normal and external auditory canals are clear. Oropharynx with no redness, swelling, or masses, exudates, or evidence of obstruction, uvula midline. Mucous membranes moist. Neck: Trachea midline, no thyromegaly or masses palpated, and no cervical lymphadenopathy. Supple, full range of motion without nuchal rigidity, or vertebral point tenderness. No Meningismus. Chest/axilla: Normal chest wall appearance and motion. Nontender with no deformity. No lesions are appreciated. Cardiovascular: Regular rate and rhythm with a normal S1 and S2. No gallops, murmurs, or rubs. Normal PMI, no JVD. No pulse deficits. Respiratory: Lungs have equal breath sounds bilaterally, clear to auscultation and percussion. No rales, rhonchi or wheezes noted. No increased work of breathing, no retractions or nasal flaring. Abdomen/GI: Soft, non-tender, with normal bowel sounds. No distension or tympany. No guarding or rebound. No evidence of tenderness throughout. Back: No spinal tenderness. No costovertebral tenderness. Full range of motion. 15:17 Skin: Appearance: normal except for affected area, abscess, not appreciated, cellulitis, is not appreciated, injury, skin tear to left forearm. No drainage or erythema. What the patient perceives to be discharge is granulation tissue. Vital Signs: 14:42 BP 149 / 79; Pulse 77; Resp 18; Pulse Ox 99% on R/A; aj1 MDM: 15:10 Patient medically screened. pm1 15:17 Data reviewed: vital signs. Data interpreted: Pulse oximetry: on room air is 99 %. pm1 Interpretation: normal. Counseling: I had a detailed discussion with the patient and/or guardian regarding: the historical points, exam findings, and any diagnostic results supporting the discharge/admit diagnosis, the need for outpatient follow up, to return to the emergency department if symptoms worsen or persist or if there are any questions or concerns that arise at home. Administered Medications: 15:20 Drug: Tetanus-Diphtheria Toxoid Adult 0.5 ml {Senior Erp Consultant: [employer]. Exp: rv 05/28/2020. Lot #: [id number]. } Route: IM; Site: right deltoid; 15:31 Follow up: Response: No adverse reaction rv Disposition: 16:26 Co-signature as Attending Physician, Sunny Shea MD I agree with the assessment and kdr plan of care. Disposition: 08/01/18 15:19 Discharged to Home. Impression: Unspecified superficial injury of left forearm - skin tear. - Condition is Stable. - Discharge Instructions: Skin Tear Care. - Prescriptions for Bactroban 2 % Topical Ointment - Apply to affected area 1 application by TOPICAL route every 12 hours; 30 gram. - Medication Reconciliation Form, Thank You Letter, Antibiotic Education, Prescription Opioid Use form. - Follow up: Emergency Department; When: As needed; Reason: Worsening of condition. Follow up: Private Physician; When: 2 - 3 days; Reason: Recheck today's complaints, Continuance of care, Re-evaluation by your physician. - Problem is new. - Symptoms have improved. Signatures: Erma Bill RN RN aj1 Sunny Shea MD MD kdr Marinas, Patrick, NP FIELDWORK COORDINATOR pm1 Jonatan Richardson RN RN rv Corrections: (The following items were deleted from the chart) 15:33 15:19 08/01/2018 15:19 Discharged to Home. Impression: Unspecified superficial injury rv of left forearm - skin tear. Condition is Stable. Forms are Medication Reconciliation Form, Thank You Letter, Antibiotic Education, Prescription Opioid Use. Follow up: Emergency Department; When: As needed; Reason: Worsening of condition. Follow up: Private Physician; When: 2 - 3 days; Reason: Recheck today's complaints, Continuance of care, Re-evaluation by your physician. Problem is new. Symptoms have improved. pm1
--- NOTE | 2018-08-01 15:20 | ER ---
Nurse's Notes [facility] Name: Nena Rosario Age: 83 yrs Sex: Female : 1935 Arrival Date: 08/01/2018 Time: 14:16 Bed 19 Private MD: Randall Dillard Diagnosis: Unspecified superficial injury of left forearm-skin tear Presentation: 08/01 14:34 Presenting complaint: Patient states: "I fell a week ago and it looks like the cut on aj1 my arm is getting infected, it's itching and its red, and it has a little pus" skin to to left forearm and right AC. Transition of care: patient was not received from another setting of care. Onset of symptoms was July 30, 2018. Risk Assessment: Do you want to hurt yourself or someone else? Patient reports no desire to harm self or others. Initial Sepsis Screen: Does the patient meet any 2 criteria? No. Patient's initial sepsis screen is negative. Does the patient have a suspected source of infection? No. Patient's initial sepsis screen is negative. Care prior to arrival: None. 14:34 Method Of Arrival: Wheelchair aj1 14:34 Acuity: SID 3 aj1 Triage Assessment: 14:42 General: Appears in no apparent distress. comfortable, Behavior is calm, cooperative, aj1 appropriate for age. Pain: Complains of pain in right arm and left arm Pain currently is 5 out of 10 on a pain scale. Neuro: Level of Consciousness is awake, alert, obeys commands, Oriented to person, place, time, situation. Cardiovascular: Patient's skin is warm and dry. Respiratory: Airway is patent Respiratory effort is even, unlabored, Respiratory pattern is regular, symmetrical. Historical: - Allergies: 14:42 BACITRACIN; aj1 14:42 Codeine; aj1 14:42 methylisothiazolinone; aj1 14:42 Morphine; aj1 - Home Meds: 14:42 atenolol 50 mg Oral tab twice a day [Active]; gabapentin 300 mg oral cap 1 cap twice aj1 daily [Active]; cyanocobalamin (vitamin B-12) Oral [Active]; Hydralazine Oral [Active]; hydroxyzine HCl 10 mg Oral tab three times a day [Active]; levothyroxine 112 mcg tab [Active]; omeprazole 20 mg Oral cpDR 1 cap once daily [Active]; levocetirizine 5 mg oral tab 1 tab once daily [Active]; - PMHx: 14:42 ABNORMAL GAIT; Arthritis; Chronic Kidney disease stage 3; EDEMA OF LOWER LEG; aj1 Hypertension; hyponatremia; Hypothyroidism; ITCHING OF SKIN - CHRONIC; UTI; - Immunization history:: Flu vaccine is up to date. - Social history:: Smoking status: Patient/guardian denies using tobacco. - Ebola Screening: : Patient denies travel to an Ebola-affected area in the 21 days before illness onset. Screenin:32 Abuse screen: Denies threats or abuse. Denies injuries from another. Nutritional rv screening: No deficits noted. Tuberculosis screening: No symptoms or risk factors identified. Fall Risk None identified. Assessment: 15:31 General: Appears in no apparent distress. comfortable, Behavior is calm, cooperative. rv Pain: Complains of pain in left arm. Neuro: Level of Consciousness is awake, alert, obeys commands, Oriented to person, place, time, situation. Cardiovascular: Capillary refill < 3 seconds. Respiratory: Airway is patent. GI: No signs and/or symptoms were reported involving the gastrointestinal system. : No signs and/or symptoms were reported regarding the genitourinary system. EENT: No signs and/or symptoms were reported regarding the EENT system. Derm: Skin with poor turgor has skin tears on left forearm. Musculoskeletal: No signs and/or symptoms reported regarding the musculoskeletal system. Vital Signs: 14:42 BP 149 / 79; Pulse 77; Resp 18; Pulse Ox 99% on R/A; aj1 ED Course: 14:16 Patient arrived in ED. mr 14:16 Randall Dillard DO is Private Physician. mr 14:38 Triage completed. aj1 14:42 Arm band placed on Patient placed in waiting room, Patient notified of wait time. aj1 14:51 Jonatan Richardson, LEAH is Primary Nurse. rv 15:09 Rajinder Arzola NP is PHCP. pm1 15:09 Sunny Shea MD is Attending Physician. pm1 15:32 Patient has correct armband on for positive identification. Bed in low position. Call rv light in reach. Side rails up X 1. Pulse ox on. NIBP on. 15:32 No provider procedures requiring assistance completed. Patient did not have IV access rv during this emergency room visit. Administered Medications: 15:20 Drug: Tetanus-Diphtheria Toxoid Adult 0.5 ml {Ground Defence Officer: [employer]. Exp: rv 05/28/2020. Lot #: [id number]. } Route: IM; Site: right deltoid; 15:31 Follow up: Response: No adverse reaction rv Outcome: 15:19 Discharge ordered by MD. pm1 15:32 Discharged to home ambulatory. rv 15:32 Condition: good 15:32 Discharge instructions given to patient, family, Instructed on discharge instructions, follow up and referral plans. medication usage, wound care, Demonstrated understanding of instructions, follow-up care, medications, wound care, Prescriptions given X 1. 15:33 Patient left the ED. rv Signatures: Erma Bill, RN RN aj1 Nena RobertsonjosselineRajinder, CARDIAC CATHETERIZATION TECHNICIAN CARDIAC CATHETERIZATION TECHNICIAN pm1 Jonatan Richardson RN RN rv
[2018-08-01] MEDS ORDERED: TETANUS & DIPHTHERIA TOX,ADULT 0.5 ML VIAL ONE (15:31)
[2018-08-01 15:48] VITALS: BP 149/79; O2SAT 99
== END 2018-08-01 15:33 | disposition home or self-care (01) ==
LOC: ER 14:15
DX: S50.912A Unspecified superficial injury of left forearm, initial encounter (principal); W22.03XA Walked into furniture, initial encounter; Y92.009 Unspecified place in unspecified non-institutional (private) residence as the place of occurrence of the external cause; E03.9 Hypothyroidism, unspecified; I12.9 Hypertensive chronic kidney disease with stage 1 through stage 4 chronic kidney disease, or unspecified chronic kidney disease; N18.3 Chronic kidney disease, stage 3 (moderate)
CPT/HCPCS: 90714; 99283

== ENCOUNTER 2018-10-14 19:45 | Inpatient (IN) | payer MEDICARE ==
--- OUTSIDE RECORDS SUMMARY | 2018-10-14 19:48 | XMS REPORT | Clinical Summary ---
:1935 Author Organization [facility] Address [address] [place] [address] Care Team Providers Name Role Phone Randall [...] VACCINE (1 of 2 - PCV13) 1999 INFLUENZA VACCINE 11/12/2018 Results Not on fileafter 10/13/2017 Insurance Payer Benefit Plan / Subscriber ID Effective Dates Phone Address Type Group MEDICARE MEDICARE PART A xxxxxxxxxx 1999-Present [place], [place] Medicare AND B BCBS BCBS CHOICE xxxxxxxxxxxx 2011-Present PPO PPO/[employer] PPO Advance Directives Patient has advance care planning documents on file. For more information, please contact:Alejo [address] [place] [address]
--- OUTSIDE RECORDS SUMMARY | 2018-10-14 19:49 | XMS REPORT | Continuity of Care Document ---
:1935 Author Organization [employer] Information [facility] Care Team Providers Name Role Phone Catbird Unavailable Unavailable Problems Problem Status Onset Classification Date Comments [...] - [place] Hypothyroidism Active 03/25/20 Finding 05/10/[address] [facility] [place] Altered mental Active 03/25/20 Finding 05/10/[address] [facility] [facility] [place] History of TIA Active Finding 05/10/[address] [facility] [place] [facility] [place] Diarrhea Active Finding 05/10/[address] [facility] [facility] [place] Chronic renal Active Finding 05/10/[address] [facility] [facility] [place] Medications Medication Details Route Status Patient Ordering Order Source Instructions Provider Date Collagenase AT BEDTIME Active [facility] [place] Doxycycline TWICE DAILY Active [facility] Hyclate [facility]18 [facility] [place] Donepezil DAILY Active [facility] [place] Cyanocobalamin AT BEDTIME Active [facility] (Vitamin B-12) 018 [facility] [place] Divalproex Er AT BEDTIME Active [facility] [place] Loratadine DAILY Active [facility] [place] Cholecalciferol DAILY Active [facility] (Vitamin D3) 018 [facility] [place] Gabapentin TWICE DAILY Active [facility] [place] Furosemide DAILY Active [facility] [place] Levocetirizine AT BEDTIME Active [facility] Dihydrochloride 018 [facility] [place] Montelukast AT BEDTIME Active [facility] [place] Atenolol TWICE DAILY Active [facility] [place] Pantoprazole TWICE DAILY Active V[facility] S[facility] [place] Doxepin Hcl DAILY Active [facility] [place] Levothyroxine DAILY AT Active [facility] [place] Hydralazine TWICE DAILY Active Div[facility] [place] Levothyroxine DAILY AT Active [facility] [place] Clonazepam AT BEDTIME Active [facility] [place] Duloxetine Hcl DAILY Active [facility] [place] Fluticasone TWICE DAILY Active [facility] Propionate 017 [facility] [place] Fluticasone/Salme TWICE DAILY Active [facility] terol PRN For [facility] Shortness [place] Of Breath Hydroxyzine Hcl TWICE DAILY Active [facility] [place] Benazepril Hcl DAILY AT Active [facility]600 017 [facility] [place] Atenolol TWICE DAILY Active [facility] [place] Benazepril Hcl DAILY Active [facility] [place] Atenolol DAILY Active [facility] [place] Furosemide DAILY Active [facility] [place] Hydroxyzine DAILY Active [facility] [place] 016 [facility] [place] Levothyroxine DAILY Active [facility] [place] Allergies, Adverse Reactions, Alerts Substance Category Reaction Severity Reaction Status Date Comments Source type Reported bacitracin Itching Allergy to Active [facility] Substance 8 [facility] [place] codeine Itching Allergy to Active [facility] Substance [facility] [place] methylisothia Itching Allergy to Active [facility] zolinone Substance 8 [facility] [place] morphine Itching Allergy to Active [facility] St[facility] Substance 8 [facility] [place] Immunizations No Data Provided for This Section Results Order Name Results Value Reference Date Interpretation Comments Source Range Laboratory Hemoglobin 8.3 12.0 - 15.0 St[facility] Studies 2018 [facility] [place] Laboratory Hematocrit 25.2 36.0 - 45.0 St[facility] Studies 2018 [facility] [place] Laboratory Sodium Level 140 135 - [address] [facility] [address] Studies 2018 [facility] [place] Laboratory Potassium 4.7 3.6 - 5.[address] [facility] [address] Studies Level 2018 [facility] [place] Laboratory Glucose Level 100 65 - [address] [facility] [address] Studies 2018 [facility] [place] Laboratory Estimat 27 [address] [facility] [address] Studies Glomerular 2018 [facility] Filtration [place] Rate Laboratory Creatinine 1.79 0.44 - 1.[address] [facility] [address] Studies 2018 [facility] [place] Laboratory Chloride Level 113 101 - [address] [facility] [address] Studies 2018 [facility] [place] Laboratory Carbon Dioxide 21 21 - [address] [facility] [address] Studies Level 2018 [facility] [place] Laboratory Calcium Level 8.6 8.5 - 10.[address] [facility] [address] Studies 2018 [facility] [place] Laboratory Blood Urea 38 6 - [address] [facility] [address] Studies Nitrogen 2018 [facility] [place] Laboratory White Blood 8.7 4.3 - 10.9 [facility] Count 2018 [facility] [place] Laboratory Red Cell 13.1 12.1 - 15.[address] [facility] [address] Studies Distribution 2018 [facility] Width [place] Laboratory Red Blood 2.21 3.86 - 4.86 [facility]. Studies Count 2018 [facility] [place] Laboratory Platelet Count 359 152 - [address] [facility] [address] Studies 2018 [facility] [place] Laboratory Neutrophils % 65.6 41.7 - 73.[address] [facility] [address] Studies 2018 [facility] [place] Laboratory Monocytes % 12.3 3.3 - 12.[address] [facility] [address] Studies 2018 [facility] [place] Laboratory Mean Platelet 7.8 7.6 - 11.[address] [facility] [address] Studies Volume 2018 [facility] [place] Laboratory Mean 99.1 80 - [address] [facility] [address] Studies Corpuscular 2018 [facility] - Volume [place] Laboratory Mean 33.3 32.0 - 36.[address] [facility] [address] Studies Corpuscular 2018 [facility] Hemoglobin [place] Concent Laboratory Mean 33.0 27.0 - 35.[address] [facility] [address] Studies Corpuscular 2018 [facility] Hemoglobin [place] Laboratory Lymphocytes % 17.5 15.3 - 44.[address] [facility] [address] Studies 2018 [facility] [place] Laboratory Eosinophils % 3.9 0 - 4.[address] [facility] [address] Studies 2018 [facility] [place] Laboratory Basophils % 0.7 0 - 1.[address] [facility] [address] Studies 2018 [facility] [place] Laboratory Absolute 5.7 1.8 - 8.[address] [facility] [address] Studies Neutrophil 2018 [facility] [place] Laboratory Absolute 1.1 0.1 - 1.[address] [facility] [address] Studies Monocytes 2018 [facility] - (CBC) [place] Laboratory Absolute 1.5 0.7 - 4.[address] [facility] [address] Studies Lymphocytes 2018 [facility] - (CBC) [place] Laboratory Absolute 0.3 0 - 0.[address] [facility] [address] Studies Eosinophils 2018 [facility] (CBC) [place] Laboratory Absolute 0.1 0 - 0.[address] [facility] [address] Studies Basophils 2018 [facility] (CBC) [place] Pathology Reports No Data Provided for This Section Diagnostic Reports No Data Provided for This Section Consultation Notes No Data Provided for This Section Discharge Summaries No Data Provided for This Section History and Physicals No Data Provided for This Section Vital Signs Vital Sign Value Date Comments Source Heart Rate 86 05/10/[address] [facility] [place] Systolic (mm Hg) 141 05/10/[address] [facility] [address] [facility] [place] Diastolic (mm Hg) 60 05/10/[address] [facility] [place] Temperature Oral (F) 99.5 F 05/10/[address] [facility] [place] Respitory Rate 16 05/10/[address] [facility] [place] Height 62 [facility] [place] Weight 111.60 05/10/[address] [facility] [place] Encounters Location Location Encounter Encounter Reason Attending ADM DC Status Source Details Type Number For Provider Date [facility] [id number]08 [facility]10 [facility] [place] Procedures Procedure Code Date Perfomer Comments Source DEBRIDEMENT [id number] 05/09/2017 [facility] - MULTIPLE [place] WOUNDS-.. Anaerobic Blood [id number] 05/08/2017 RHONDA [facility] - Culture [place] Aerobic Blood [id number] 05/08/2017 [facility] - Culture [place] Gram Stain [id number] 05/08/[address] [facility] [place] Culture & [id number] 05/08/2017 ROHNDA [facility] - Sensitivity [place] Foot Left 2 View [id number] 05/08/[address] [facility] [place] Chest Single View [id number] 05/08/[address] [facility] [place] Assessment and Plan No Data Provided for This Section Plan of Care Plan of Care Date Source Instructions 05/10/2017 [facility]ONDA [facility] - [place] DI for Cellulitis -- Adult Instructions 05/10/[address] [facility] [place] DI for Cellulitis -- Adult Social History Social History Date Source Query Response Date Recorded Comment 04/14/2049 [facility] - [place] Alcohol Use? Yes May 08, 2017 10:01pm CD- Drugs? No May 08, 2017 10:01pm Query Response Start Date Stop Date Smoking Status Former smoker April 14, 2049 [birth year], 1964 Family History Value Date Source Query Response Instance Date Recorded Comment 05/10/2017 RHONDA Andrew Nurses notes prostate cancer Father May 08, 2017 10:01pm Medical History Hypertension Mother May 08, 2017 10:01pm Medical History Cancer Father May 08, 2017 10:01pm Medical History Cancer August 20, 2016 10:05pm Advance Directives Order Name Results Value Date Source Advance Directives Advance Directives Advance Directive Response Recorded Date/Time 05/10/2017 RHONDA Jung - Does Patient Have Living Will [place] Yes May 10, 2017 6:00am Durable Power of Television Mechanic for Health Care Yes May 08, 2017 10:01pm Would you like additional information No May 08, 2017 10:01pm Functional Status No Data Provided for This Section
[2018-10-14] MEDS ORDERED: IPRATROPIUM BROM 0.5MG/2.5ML ONE (20:27)
[2018-10-14] MEDS ORDERED: ALBUTEROL 2.5 MG/3 ML NEB SOL ONE (20:27)
--- NOTE | 2018-10-14 20:45 | RAD REPORT ---
EXAM DESCRIPTION: RAD - Chest Single View - 10/14/2018 8:17 pm CLINICAL HISTORY: DYSPNEA Chest pain. COMPARISON: Chest Single View dated 05/08/2017; Chest Single View dated 09/01/2016; Chest Single View dated 08/30/2016; Chest Single View dated 08/19/2016 FINDINGS: Portable technique limits examination quality. The lungs are emphysematous but grossly clear. Lung apices partially obscured by patient's chain. The heart is normal in size. No displaced fractures. IMPRESSION: No acute intrathoracic process suspected. COPD noted.
[2018-10-14 20:54] LABS: Absolute Lymphocytes (CBC) 0.8 K/uL (0.7-4.9); Basophils % 0.4 % (0-1.3); Eosinophils % 0.7 % (0-4.4); Hematocrit 31.3 % (36.0-45.0); Lymphocytes % 5.5 % (15.3-44.8); MPV 7.5 fL (7.6-11.3); Monocytes % 7.3 % (3.3-12.3); Protime INR 0.83; RBC Red Blood Cell Count 3.07 M/uL (3.86-4.86)
[2018-10-14 21:11] LABS: ALT/SGPT 20 U/L (12-78); AST/SGOT 29 U/L (15-37); Albumin 3.5 g/dL (3.4-5.0); Alkaline Phosphatase 65 U/L (45-117); BUN Blood Urea Nitrogen 71 mg/dL (7-18); Bicarbonate 21 mmol/L (21-32); Bilirubin Direct < 0.1 mg/dL (0-0.2); Bilirubin Total 0.2 mg/dL (0.2-1.0); Creatine Phosphokinase 41 U/L (26-192); Glucose Level 133 mg/dL (74-106); Lipase 135 U/L (73-393); Potassium 4.1 mmol/L (3.5-5.1); Protein, Total 7.3 g/dL (6.4-8.2); Sodium Level 139 mmol/L (136-145); Troponin (Emerg Dept Use Only) < 0.02 ng/mL (0.0-0.045)
[2018-10-14 21:30] LABS: Blood Gas Oxyhemoglobin 92.7 % (94-97); Blood O2 Saturation 94.1 % (92-98.5)
[2018-10-14 22:29] LABS: Blood Morphology Comment NOT SEEN (NOT SEEN); Platelet Estimate ADEQ
[2018-10-14] MEDS ORDERED: NA CHLORIDE 0.9% 1,000 ML ONE (23:56)
[2018-10-15] MEDS ORDERED: predniSONE 20 MG TAB ONE (00:11)
[2018-10-15 00:31] LABS: Urine Amorphous Sediment 1+ /HPF (NONE SEEN); Urine Bacteria 20-50 /HPF (<20); Urine Culture Reflex Order REFLEXED; Urine RBC NONE SEEN /HPF (NONE SEEN)
[2018-10-15] MEDS ORDERED: ALBUTEROL 2.5 MG/3 ML NEB SOL ONE (00:48)
[2018-10-15] MEDS ORDERED: IPRATROPIUM BROM 0.5MG/2.5ML ONE (00:48)
[2018-10-15 01:22] LABS: Urine Blood NEGATIVE (NEG); Urine Glucose NEGATIVE (NEG); Urine Protein NEGATIVE (NEG)
[2018-10-15] MEDS ORDERED: METHYLPREDNISOLONE 40 MG INJ ONE (01:27)
--- NOTE | 2018-10-15 01:36 | ER ---
Nurse's Notes [facility] Name: Nena Rosario Age: 83 yrs Sex: Female : 1935 Arrival Date: 10/14/2018 Time: 19:55 Bed 7 Private MD: Diagnosis: Chronic obstructive pulmonary disease with (acute) exacerbation;Acute kidney failure;Metabolic acidemia, unspecified Presentation: 10/14 19:56 Presenting complaint: EMS states: they were toned out for report of pt having bb difficulty breathing and general weakness x 2 hours. Transition of care: patient was not received from another setting of care. Onset of symptoms was October 14, 2018. Risk Assessment: Do you want to hurt yourself or someone else? Patient reports no desire to harm self or others. Initial Sepsis Screen: Does the patient meet any 2 criteria? No. Patient's initial sepsis screen is negative. Does the patient have a suspected source of infection? No. Patient's initial sepsis screen is negative. Care prior to arrival: Medication(s) given: Albuterol Neb x 1, Atrovent Neb x 1, Glucose check: 150 Oxygen administered. via a non-rebreather mask. 19:56 Method Of Arrival: EMS: [facility] bb 19:56 Acuity: SID 1 bb 20:00 Note EMS reports that pt O2 sat was 78% room air on their arrival and after A\T\A bb treatment the pt's O2 sats remained at 78% at which time they put her on a NRB at 15 Lpm. Triage Assessment: 20:09 General: Appears in no apparent distress. uncomfortable, Behavior is calm, cooperative, cc3 appropriate for age. Respiratory: Reports shortness of breath at rest on exertion Onset: The symptoms/episode began/occurred today, the patient has moderate shortness of breath. Historical: - Allergies: 19:59 BACITRACIN; bb 19:59 Codeine; bb 19:59 methylisothiazolinone; bb 19:59 Morphine; bb - Home Meds: 19:59 atenolol 50 mg Oral tab twice a day [Active]; cyanocobalamin (vitamin B-12) Oral bb [Active]; gabapentin 300 mg Oral cap 1 cap twice daily [Active]; Hydralazine Oral [Active]; hydroxyzine HCl 10 mg Oral tab three times a day [Active]; levocetirizine 5 mg Oral tab 1 tab once daily [Active]; levothyroxine 112 mcg tab [Active]; omeprazole 20 mg Oral cpDR 1 cap once daily [Active]; - PMHx: 19:59 ABNORMAL GAIT; Arthritis; Chronic Kidney disease stage 3; EDEMA OF LOWER LEG; bb Hypertension; hyponatremia; Hypothyroidism; ITCHING OF SKIN - CHRONIC; UTI; - Immunization history:: Adult Immunizations up to date. - Social history:: Smoking status: unknown. - Ebola Screening: : No symptoms or risks identified at this time. Screenin:09 Abuse screen: Denies threats or abuse. Denies injuries from another. Nutritional cc3 screening: No deficits noted. Tuberculosis screening: No symptoms or risk factors identified. Fall Risk Ambulatory Aid- None/Bed Rest/Nurse Assist (0 pts). Gait- Normal/Bed Rest/Wheelchair (0 pts) Mental Status- Oriented to own ability (0 pts). Assessment: 20:09 General: Appears distressed, uncomfortable, Behavior is calm, cooperative, appropriate cc3 for age. Pain: Denies pain. Neuro: Level of Consciousness is awake, alert, obeys commands, Oriented to person, place, time, situation, Appropriate for age. Cardiovascular: Rhythm is regular. Respiratory: Airway is patent Respiratory effort is even, labored, Respiratory pattern is regular, symmetrical, Breath sounds with wheezes bilaterally. the patient has severe shortness of breath. GI: Abdomen is round non-distended. : No signs and/or symptoms were reported regarding the genitourinary system. EENT: No signs and/or symptoms were reported regarding the EENT system. Derm: Skin is intact, is healthy with good turgor, Skin is pale, Skin temperature is cool. Musculoskeletal: Circulation, motion, and sensation intact. Range of motion: intact in all extremities. 21:15 Reassessment: Patient appears in no apparent distress at this time. Patient and/or cc3 family updated on plan of care and expected duration. Pain level reassessed. Patient is alert, oriented x 3, equal unlabored respirations, skin warm/dry/pink. RT took ABG, results shown to Dr. Diaz. Patient denies pain at this time. Patient states feeling better. Patient states symptoms have improved. 22:18 Reassessment: Patient appears in no apparent distress at this time. Patient and/or cc3 family updated on plan of care and expected duration. Pain level reassessed. Patient is alert, oriented x 3, equal unlabored respirations, skin warm/dry/pink. Patient denies pain at this time. Patient states feeling better. Patient states symptoms have improved. 23:40 Reassessment: Patient appears in no apparent distress at this time. Patient and/or cc3 family updated on plan of care and expected duration. Pain level reassessed. Patient is alert, oriented x 3, equal unlabored respirations, skin warm/dry/pink. Patient wants to have some snacks, Dr. Diaz informed and said patient can eat. Patient now off BiPap saturating 94% on 2 LPM oxygen therapy by nasal cannula, Dr. Diaz informed. 10/15 00:25 Reassessment: Patient and/or family updated on plan of care and expected duration. Pain cc3 level reassessed. Patient is alert, oriented x 3, equal unlabored respirations, skin warm/dry/pink. 01:15 Reassessment: Patient and/or family updated on plan of care and expected duration. Pain cc3 level reassessed. Dr. Voss at bedside assessing the patient. Patient said she's having difficulty breathing now, new orders made by Dr. Voss and he increased the BiPap FiO2 to 40%. 01:35 Reassessment: Dr. Voss ordered patient for admission. cc3 02:00 Reassessment: Patient appears in no apparent distress at this time. Patient and/or cc3 family updated on plan of care and expected duration. Pain level reassessed. Patient is alert, oriented x 3, equal unlabored respirations, skin warm/dry/pink. Patient said she feels better now, Dr. Voss informed. Patient denies pain at this time. Patient states feeling better. Patient states symptoms have improved. 02:10 Reassessment: Laboratory staff named Marcell called and relayed critical lab result of 3 D-Dimer 1,249; informed Dr. Diaz and he said he'll not order for anything. Called Dr. Voss but no answer and was not able to leave a voice message because his voice mailbox is full. 02:25 Reassessment: Dr. Voss called back and relayed to him the critical result of D-Dimer, 3 relayed also to him the result of repeat H\T\H and pro-BNP. Charge nurse Juliana informed, [employer] was checked but no new orders has been made yet by Dr. Voss for the patient. 03:30 Reassessment: Patient appears in no apparent distress at this time. Patient comfortably cc3 sleeping. 04:15 Reassessment: Patient appears in no apparent distress at this time. Room available in 3 [facility], called for report but as per in charge Delmar the nurse who will receive will just call me back. 04:30 Reassessment: LEAH Lomax called and report given to her for continuity of care and cc3 management. 05:00 Reassessment: Patient appears in no apparent distress at this time. Patient and/or cc3 family updated on plan of care and expected duration. Pain level reassessed. RT came and put the patient on nasal cannula at 2 LPM saturating 98% in preparation for transfer to the telemetry unit but charge nurse Juliana said the patient will be going now to ICU as per Dr. Voss. RT kept the patient on nasal cannula as the patient tolerates without breathing difficulty. Patient denies pain at this time. 05:20 Reassessment: Room available in ICU Bed 6, report called and handed over to LEAH reddy for continuity of care. 06:10 Reassessment: Patient appears in no apparent distress at this time. Patient and/or cc3 family updated on plan of care and expected duration. Pain level reassessed. Patient is alert, oriented x 3, equal unlabored respirations, skin warm/dry/pink. Patient left ER for admission to ICU Bed 6 vitally stable by stretcher escorted by neurodiagnostic technician Godfrey and tx. Patient denies pain at this time. Patient states feeling better. Patient states symptoms have improved. Vital Signs: 10/14 19:59 BP 103 / 73; Pulse 86; Resp 20 S; Temp 96.3(A); Pulse Ox 98% on 15% Non-rebreather bb mask; Weight 57.15 kg (R); Height 5 ft. 3 in. (160.02 cm) (R); 20:15 BP 114 / 99; Pulse 86; Resp 18 S; Pulse Ox 100% ; cc3 21:00 BP 113 / 58; Pulse 79; Resp 20 S; Pulse Ox 100% ; cc3 21:30 BP 96 / 57; Pulse 100; Resp 21 S; Pulse Ox 98% ; cc3 22:18 BP 129 / 79; Pulse 116; Resp 21 S; Pulse Ox 96% ; cc3 23:30 BP 112 / 47; Pulse 82; Resp 17 S; Pulse Ox 97% ; cc3 23:45 BP 109 / 57; Pulse 92; Resp 20 S; Pulse Ox 94% on 2 lpm NC; cc3 10/15 00:30 BP 114 / 59; Pulse 86; Resp 22 S; Temp 97.3(A); Pulse Ox 94% on 2 lpm NC; cc3 01:15 BP 142 / 114; Pulse 86; Resp 21 S; Pulse Ox 100% ; cc3 02:45 BP 110 / 52; Pulse 84; Resp 19 S; Pulse Ox 100% ; cc3 03:18 BP 120 / 59; Pulse 85; Resp 21 S; Pulse Ox 100% ; cc3 04:15 BP 103 / 51; Pulse 84; Resp 14 S; Temp 97.8(A); Pulse Ox 100% ; cc3 05:00 BP 99 / 44; Pulse 75; Resp 16 S; Pulse Ox 98% on 2 lpm NC; cc3 05:15 BP 120 / 50; Pulse 77; Resp 16 S; Temp 98(O); Pulse Ox 97% on 2 lpm NC; cc3 06:00 BP 121 / 53; Pulse 75; Resp 18 S; Pulse Ox 96% on 2 lpm NC; cc3 10/14 19:59 Body Mass Index 22.32 (57.15 kg, 160.02 cm) bb 10/14 20:15 on BiPap cc3 21:00 on BiPap 12/6 FiO2 30% cc3 21:30 on BiPap 12/6 FiO2 30% cc3 22:18 on BiPap 12/6 FiO2 30% cc3 23:30 On BiPap 12/6 FiO2 30% cc3 10/15 01:15 on BiPap FiO2 40% increased by Dr. Voss cc3 02:45 on BiPap FiO2 40% cc3 03:18 on BiPap FiO2 40% cc3 04:15 on BiPap FiO2 40% cc3 ED Course: 10/14 19:55 Patient arrived in ED. bb 19:57 Triage completed. bb 19:58 Dung Diaz MD is Attending Physician. gs 19:59 Arm band placed on Patient placed in an exam room, on a stretcher, on oxygen, on bb environmental monitoring specialist, on pulse oximetry. Family accompanied patient. 20:09 Blanca Jerry is Primary Nurse. cc3 20:09 Patient has correct armband on for positive identification. Placed in gown. Bed in low cc3 position. Call light in reach. Side rails up X2. gambling monitor on. Pulse ox on. NIBP on. 20:17 Chest Single View XRAY In Process Unspecified. EDMS 20:35 Inserted saline lock: 20 gauge in right antecubital area, using aseptic technique. oe Blood collected. 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 bb 10/15 01:34 Priya Voss MD is Hospitalizing Provider. 05:20 Patient admitted, IV remains in place. cc3 Administered Medications: 10/14 20:10 Drug: Albuterol - atroVENT (3:1) (2.5 mg - 0.5 mg) 3 ml Route: Nebulizer; cc3 20:45 Follow up: Response: No adverse reaction; Marked relief of symptoms cc3 23:44 Drug: NS 0.9% 1000 ml Route: IV; Rate: 1 bolus; Site: right antecubital; ea 10/15 01:00 Follow up: Response: No adverse reaction; IV Status: Completed infusion; IV Intake: cc3 1000ml 10/14 23:58 Drug: predniSONE 40 mg Route: PO; ea 10/15 00:15 Follow up: Response: No adverse reaction cc3 00:30 Drug: Albuterol 2.5 mg Route: Inhalation; cc3 01:15 Follow up: Response: No adverse reaction cc3 00:30 Drug: AtroVENT Aerosol 0.5 mg Route: Inhalation; cc3 01:15 Follow up: Response: No adverse reaction cc3 01:10 Drug: SOLU-Medrol 60 mg Route: IVP; Site: right antecubital; cc3 02:00 Follow up: Response: No adverse reaction; Marked relief of symptoms cc3 01:30 Drug: Sodium Bicarbonate 1 amp Route: IVP; Site: right antecubital; cc3 02:00 Follow up: Response: No adverse reaction; Marked relief of symptoms cc3 01:45 Drug: Ativan 0.5 mg Route: IVP; Site: right antecubital; cc3 02:00 Follow up: Response: No adverse reaction; Marked relief of symptoms cc3 Point of Care Testing: Blood Glucose: 10/14 20:34 Blood Glucose: 152 mg/dL; oe Ranges: Intake: 10/15 01:00 IV: 1000ml; Total: 1000ml. cc3 Outcome: 01:35 Decision to Hospitalize by Provider. 05:20 Admitted to ICU accompanied by nurse, accompanied by tech, via stretcher, room 6, with cc3 oxygen, on monitor, with chart, Report called to LEAH Guerra 05:20 Condition: stable 05:20 Instructed on the need for admit, Demonstrated understanding of instructions. 06:23 Patient left the ED. cc3 Signatures: Dispatcher [employer] EDMS Juliana Wright RN RN bb Espinosa, Orlando oe Antunez, Elena, RN RN ea Starr, Gregory, MD MD gs Cordel, Charlene cc3 Corrections: (The following items were deleted from the chart) 10/14 21:52 20:09 Derm: Skin is intact, is healthy with good turgor, Skin is pale, cc3 cc3 : 21:00 BP 113 / 58; Pulse 79bpm; Resp 20bpm; Spontaneous; Pulse Ox 100%; on BiPap; cc3 cc3 22: 21:30 BP 96 / 57; Pulse 100bpm; Resp 21bpm; Spontaneous; Pulse Ox 98%; on BiPap; cc3 cc3 10/15 03:28 07 20:09 Respiratory: Airway is patent Respiratory effort is even, labored, cc3 Respiratory pattern is regular, symmetrical, Breath sounds are clear bilaterally. cc3 10/15 03:28 10/14 20:09 General: Appears in no apparent distress. uncomfortable, Behavior is calm, cc3 cooperative, appropriate for age, cc3 10/15 03:39 02:25 Reassessment: Dr. Voss called back and relayed to him the critical result of cc3 D-Dimer, relayed also to him the result of repeat H\T\H and pro-BNP. cc3 : 00:30 BP 114 / 59; Pulse 86bpm; Resp 22bpm; Spontaneous; Pulse Ox 94% 2 lpm Nasal cc3 Cannula; cc3 : 04:15 BP 103 / 51; Pulse 84bpm; Resp 14bpm; Spontaneous; Pulse Ox 100%; on BiPap FiO2 cc3 40%; cc3 05:48 05:15 BP 120 / 50; Pulse 77bpm; Resp 16bpm; Spontaneous; Pulse Ox 97% 2 lpm Nasal cc3 Cannula; cc3
--- NOTE | 2018-10-15 01:36 | EDPHYS ---
Physician Documentation [facility] Name: Nena Rosario Age: 83 yrs Sex: Female : 1935 Arrival Date: 10/14/2018 Time: 19:55 Bed 7 Private MD: ED Physician Dung Diaz HPI: 10/15 02:19 This 83 yrs old Female presents to ER via EMS with complaints of Breathing gs Difficulty. 02:19 The patient has shortness of breath at rest. Onset: The symptoms/episode began/occurred gs acutely, yesterday. Duration: The symptoms are continuous, and are steadily getting worse. The patient's shortness of breath is aggravated by exertion, talking, walking. Associated signs and symptoms: Pertinent positives: non-productive cough, diaphoresis, Pertinent negatives: dizziness, fever. Severity of symptoms: At their worst the symptoms were severe in the emergency department the symptoms are unchanged. The patient has experienced similar episodes in the past, a few times. The patient has not recently seen a physician. Historical: - Allergies: 10/14 19:59 BACITRACIN; bb 19:59 Codeine; bb 19:59 methylisothiazolinone; bb 19:59 Morphine; bb - Home Meds: 19:59 atenolol 50 mg Oral tab twice a day [Active]; cyanocobalamin (vitamin B-12) Oral bb [Active]; gabapentin 300 mg Oral cap 1 cap twice daily [Active]; Hydralazine Oral [Active]; hydroxyzine HCl 10 mg Oral tab three times a day [Active]; levocetirizine 5 mg Oral tab 1 tab once daily [Active]; levothyroxine 112 mcg tab [Active]; omeprazole 20 mg Oral cpDR 1 cap once daily [Active]; - PMHx: 19:59 ABNORMAL GAIT; Arthritis; Chronic Kidney disease stage 3; EDEMA OF LOWER LEG; bb Hypertension; hyponatremia; Hypothyroidism; ITCHING OF SKIN - CHRONIC; UTI; - Immunization history:: Adult Immunizations up to date. - Social history:: Smoking status: unknown. - Ebola Screening: : No symptoms or risks identified at this time. ROS: 10/15 02:19 All other systems are negative. gs Exam: 02:19 Head/Face: Normocephalic, atraumatic. gs 02:19 Eyes: Pupils equal round and reactive to light, extra-ocular motions intact. Lids and lashes normal. Conjunctiva and sclera are non-icteric and not injected. Cornea within normal limits. Periorbital areas with no swelling, redness, or edema. ENT: Nares patent. No nasal discharge, no septal abnormalities noted. Tympanic membranes are normal and external auditory canals are clear. Oropharynx with no redness, swelling, or masses, exudates, or evidence of obstruction, uvula midline. Mucous membranes moist. Neck: Trachea midline, no thyromegaly or masses palpated, and no cervical lymphadenopathy. Supple, full range of motion without nuchal rigidity, or vertebral point tenderness. No Meningismus. Chest/axilla: Normal chest wall appearance and motion. Nontender with no deformity. No lesions are appreciated. 02:19 Abdomen/GI: Soft, non-tender, with normal bowel sounds. No distension or tympany. No guarding or rebound. No evidence of tenderness throughout. Back: No spinal tenderness. No costovertebral tenderness. Full range of motion. Skin: Warm, dry with normal turgor. Normal color with no rashes, no lesions, and no evidence of cellulitis. MS/ Extremity: Pulses equal, no cyanosis. Neurovascular intact. Full, normal range of motion. Neuro: Awake and alert, GCS 15, oriented to person, place, time, and situation. Cranial nerves II-XII grossly intact. Motor strength 5/5 in all extremities. Sensory grossly intact. Cerebellar exam normal. Normal gait. 02:19 Constitutional: The patient appears alert, awake, in obvious distress, severely distressed. 02:19 Cardiovascular: Rate: tachycardic, Rhythm: regular, Pulses: no pulse deficits are appreciated, Edema: 1+ edema to level of left ankle and right ankle. 02:19 ECG was reviewed by the Attending Physician. 02:19 Respiratory: severe repiratory distress is noted, Respirations: normal, tachypnea, that is moderate, Breath sounds: wheezing: that is moderate, is heard diffusely. 02:19 Abdomen/GI: Rectal exam: Stool: normal, guaiac positive. Vital Signs: 10/14 19:59 BP 103 / 73; Pulse 86; Resp 20 S; Temp 96.3(A); Pulse Ox 98% on 15% Non-rebreather bb mask; Weight 57.15 kg (R); Height 5 ft. 3 in. (160.02 cm) (R); 20:15 BP 114 / 99; Pulse 86; Resp 18 S; Pulse Ox 100% ; cc3 21:00 BP 113 / 58; Pulse 79; Resp 20 S; Pulse Ox 100% ; cc3 21:30 BP 96 / 57; Pulse 100; Resp 21 S; Pulse Ox 98% ; cc3 22:18 BP 129 / 79; Pulse 116; Resp 21 S; Pulse Ox 96% ; cc3 23:30 BP 112 / 47; Pulse 82; Resp 17 S; Pulse Ox 97% ; cc3 23:45 BP 109 / 57; Pulse 92; Resp 20 S; Pulse Ox 94% on 2 lpm NC; cc3 10/15 00:30 BP 114 / 59; Pulse 86; Resp 22 S; Temp 97.3(A); Pulse Ox 94% on 2 lpm NC; cc3 01:15 BP 142 / 114; Pulse 86; Resp 21 S; Pulse Ox 100% ; cc3 02:45 BP 110 / 52; Pulse 84; Resp 19 S; Pulse Ox 100% ; cc3 03:18 BP 120 / 59; Pulse 85; Resp 21 S; Pulse Ox 100% ; cc3 04:15 BP 103 / 51; Pulse 84; Resp 14 S; Temp 97.8(A); Pulse Ox 100% ; cc3 05:00 BP 99 / 44; Pulse 75; Resp 16 S; Pulse Ox 98% on 2 lpm NC; cc3 05:15 BP 120 / 50; Pulse 77; Resp 16 S; Temp 98(O); Pulse Ox 97% on 2 lpm NC; cc3 06:00 BP 121 / 53; Pulse 75; Resp 18 S; Pulse Ox 96% on 2 lpm NC; cc3 10/14 19:59 Body Mass Index 22.32 (57.15 kg, 160.02 cm) bb 10/14 20:15 on BiPap cc3 21:00 on BiPap 12/6 FiO2 30% cc3 21:30 on BiPap 12/6 FiO2 30% cc3 22:18 on BiPap 12/6 FiO2 30% cc3 23:30 On BiPap 12/6 FiO2 30% cc3 10/15 01:15 on BiPap FiO2 40% increased by Dr. Voss cc3 02:45 on BiPap FiO2 40% cc3 03:18 on BiPap FiO2 40% cc3 04:15 on BiPap FiO2 40% cc3 MDM: 10/14 20:02 Patient medically screened. 10/15 02:19 Differential diagnosis: CHF exacerbation, Chronic Obstructive Pulmonary Disease gs Myocardial Infarction pneumonia, pulmonary edema, Pulmonary Embolism. Data reviewed: vital signs, nurses notes, lab test result(s), EKG, radiologic studies. Data interpreted: Pulse oximetry: Interpretation: hypoxia. Test interpretation: by ED physician or midlevel provider: ECG. Response to treatment: the patient's symptoms have markedly improved after treatment, and as a result, I will admit patient. 10/14 20:02 Order name: Basic Metabolic Panel 10/14 20:02 Order name: Blood Culture Adult (2) 10/14 20:02 Order name: CBC with Diff 10/14 20:02 Order name: CPK 10/14 20:02 Order name: Lactate 10/14 20:02 Order name: LFT's 10/14 20:02 Order name: Lipase; Complete Time: 23:11 10/14 20:02 Order name: Procalcitonin; Complete Time: 23:11 10/14 20:02 Order name: Protime (+inr); Complete Time: 23:11 10/14 20:02 Order name: Troponin (emerg Dept Use Only); Complete Time: 23:11 10/14 20:02 Order name: Urine Microscopic Only 10/14 20:02 Order name: ABG; Complete Time: 23:11 10/14 20:03 Order name: Basic Metabolic Panel; Complete Time: 23:11 [facility] 10/14 20:03 Order name: Blood Culture [facility] 10/14 20:03 Order name: CBC with Automated Diff; Complete Time: 23:11 [facility] 10/14 20:04 Order name: Creatine Phosphokinase; Complete Time: 23:11 [facility] 10/14 20:04 Order name: Lactate; Complete Time: 23:11 [facility] 10/14 20:04 Order name: Liver (Hepatic) Function; Complete Time: 23:11 [facility] 10/14 21:00 Order name: Manual Differential; Complete Time: 23:11 [facility] 10/14 22:36 Order name: Urine Dipstick--Ancillary (enter results) ar5 10/15 00:33 Order name: Urine Culture EDMS 10/15 01:19 Order name: Hematocrit EDMS 10/15 01:19 Order name: Hemoglobin EDMS 10/15 01:38 Order name: D-Dimer EDMS 10/15 01:38 Order name: NT PRO-BNP EDMS 10/15 04:01 Order name: Vitamin B12 Level EDMS 10/15 04:02 Order name: Lipid Profile EDMS 10/15 04:02 Order name: Retic Count EDMS 10/15 04:02 Order name: T4 Free EDMS 10/15 04:02 Order name: Thyroid Stimulating Hormone EDMS 10/14 20:02 Order name: Chest Single View XRAY; Complete Time: 23:11 gs 10/14 20:02 Order name: Accucheck; Complete Time: 21:59 gs 10/14 20:02 Order name: Cardiac monitoring; Complete Time: 20:17 10/14 20:02 Order name: EKG - Nurse/Tech; Complete Time: 20:17 10/14 20:02 Order name: IV Saline Lock - Large Bore; Complete Time: 20:17 10/14 20:02 Order name: Labs collected and sent; Complete Time: 22:00 gs 10/14 20:02 Order name: O2 Per Protocol; Complete Time: 20:17 gs 10/14 20:02 Order name: O2 Sat Monitoring; Complete Time: 20:17 gs 10/14 20:02 Order name: Urine Dipstick-Ancillary (obtain specimen); Complete Time: 22:54 10/14 20:02 Order name: BIPAP 10/15 03:50 Order name: CONS Physician Consult EDAZ 10/15 03:50 Order name: CONS Physician Consult EDAZ 10/15 03:50 Order name: NPO EDAZ 10/15 03:53 Order name: Echo with Doppler EDMS 10/15 03:54 Order name: Extrem Venous W Compress [place] EDMS 10/15 03:55 Order name: Renal Ultrasound-Complete EDMS 10/15 04:02 Order name: Folic Acid, (Folate) EDMS 10/15 04:02 Order name: Basic Metabolic Panel EDMS 10/15 04:02 Order name: CBC with Automated Diff EDMS EC:19 Rate is 80 beats/min. Rhythm is regular. [place] interval is normal. QRS interval is normal. gs T waves are Normal. No ST changes noted. Clinical impression: Abnormal EKG without significant change. Interpreted by me. Administered Medications: 10/14 20:10 Drug: Albuterol - atroVENT (3:1) (2.5 mg - 0.5 mg) 3 ml Route: Nebulizer; cc3 20:45 Follow up: Response: No adverse reaction; Marked relief of symptoms cc3 23:44 Drug: NS 0.9% 1000 ml Route: IV; Rate: 1 bolus; Site: right antecubital; ea 10/15 01:00 Follow up: Response: No adverse reaction; IV Status: Completed infusion; IV Intake: cc3 1000ml 10/14 23:58 Drug: predniSONE 40 mg Route: PO; ea 10/15 00:15 Follow up: Response: No adverse reaction cc3 00:30 Drug: Albuterol 2.5 mg Route: Inhalation; cc3 01:15 Follow up: Response: No adverse reaction cc3 00:30 Drug: AtroVENT Aerosol 0.5 mg Route: Inhalation; cc3 01:15 Follow up: Response: No adverse reaction cc3 01:10 Drug: SOLU-Medrol 60 mg Route: IVP; Site: right antecubital; cc3 02:00 Follow up: Response: No adverse reaction; Marked relief of symptoms cc3 01:30 Drug: Sodium Bicarbonate 1 amp Route: IVP; Site: right antecubital; cc3 02:00 Follow up: Response: No adverse reaction; Marked relief of symptoms cc3 01:45 Drug: Ativan 0.5 mg Route: IVP; Site: right antecubital; cc3 02:00 Follow up: Response: No adverse reaction; Marked relief of symptoms cc3 Point of Care Testing: Blood Glucose: 10/14 20:34 Blood Glucose: 152 mg/dL; oe Ranges: Critical Glucose Levels:Adult <50 mg/dl or >400 mg/dl <40 mg/dl or >180 mg/dl Disposition: 10/15 02:19 Critical Care:. Disposition: 10/15/18 01:35 Hospitalization ordered by Priya Voss for Inpatient Admission. Preliminary diagnosis are Chronic obstructive pulmonary disease with (acute) exacerbation, Acute kidney failure, Metabolic acidemia, unspecified. - Bed requested for Intensive Care Unit. - Status is Inpatient Admission. cc3 - Condition is Stable. - Problem is new. - Symptoms have improved. UTI on Admission? No Critical care time excluding procedures: 02:19 Critical care time: Bedside Care: 10 minutes, Consultation: 10 minutes, Family gs Intervention: 10 minutes. Total time: 30 minutes Signatures: Dispatcher [employer] Juliana Yadav RN Anastasia Dempsey RN RN cg Antunez, Elena, RN RN ea Starr, Gregory, MD MD gs Cordel, Charlene cc3 Corrections: (The following items were deleted from the chart) 04:03 01:35 Hospitalization Ordered by Priya Voss MD for Inpatient Admission. Preliminary cg diagnosis is Chronic obstructive pulmonary disease with (acute) exacerbation; Acute kidney failure; Metabolic acidemia, unspecified. Bed requested for Telemetry/MedSurg (Inpatient). Status is Inpatient Admission. Condition is Stable. Problem is new. Symptoms have improved. UTI on Admission? No. gs 04:59 04:03 10/15/2018 01:35 Hospitalization Ordered by Priya Voss MD for Inpatient cg Admission. Preliminary diagnosis is Chronic obstructive pulmonary disease with (acute) exacerbation; Acute kidney failure; Metabolic acidemia, unspecified. Bed requested for Telemetry/MedSurg (Inpatient). Status is Inpatient Admission. Condition is Stable. Problem is new. Symptoms have improved. UTI on Admission? No. cg 06:23 04:59 10/15/2018 01:35 Hospitalization Ordered by Priya Voss MD for Inpatient cc3 Admission. Preliminary diagnosis is Chronic obstructive pulmonary disease with (acute) exacerbation; Acute kidney failure; Metabolic acidemia, unspecified. Bed requested for Intensive Care Unit. Status is Inpatient Admission. Condition is Stable. Problem is new. Symptoms have improved. UTI on Admission? No. cg
[2018-10-15] MEDS ORDERED: LORazepam 2 MG/ML VIAL ONE (01:57)
[2018-10-15 02:06] LABS: Hematocrit 29.4 % (36.0-45.0)
[2018-10-15] MEDS ORDERED: ACETAMINOPHEN 500 MG TAB PO PRN (03:39)
[2018-10-15] MEDS ORDERED: ONDANSETRON 4 MG/2 ML VIAL IV PRN (03:39)
[2018-10-15] MEDS ORDERED: D5W 1,000 ML with NA BICARB 8.4% 50 MEQ IV SCH ×4 (04:00→08:00)
[2018-10-15] MEDS ORDERED: CEFTRIAXONE/SWI 1gm 1 GM/10 ML SYR IV SCH (05:00)
[2018-10-15] MEDS ORDERED: ENOXAPARIN 60 MG/0.6 ML SQ ONE (05:00)
[2018-10-15] MEDS: IPRATROPIUM BROM 0.5MG/2.5ML NEB SCH ×4 (06:00→19:50)
[2018-10-15] MEDS: ALBUTEROL 2.5 MG/3 ML NEB SOL NEB SCH ×2 (06:00→07:38)
[2018-10-15] MEDS ORDERED: METHYLPREDNISOLONE 125 MG INJ IV SCH (06:00)
[2018-10-15] MEDS: ATENOLOL 50 MG TAB PO SCH ×2 (06:39→17:13)
[2018-10-15] MEDS: LEVOTHYROXINE SOD 0.112 MG TAB PO SCH (06:40)
[2018-10-15 07:56] LABS: Absolute Lymphocytes (CBC) 0.4 K/uL (0.7-4.9); Hematocrit 30.2 % (36.0-45.0); Lymphocytes % 1.9 % (15.3-44.8); MPV 7.6 fL (7.6-11.3); Monocytes % 1.9 % (3.3-12.3); RBC Red Blood Cell Count 3.02 M/uL (3.86-4.86)
[2018-10-15 08:44] LABS: Blood Morphology Comment NOT SEEN (NOT SEEN); Platelet Estimate ADEQ
[2018-10-15] MEDS: DOXEPIN HCL 3 MG PO SCH (09:00)
[2018-10-15 09:15] LABS: BUN Blood Urea Nitrogen 67 mg/dL (7-18); Bicarbonate 22 mmol/L (21-32); Glucose Level 211 mg/dL (74-106); HDL Cholesterol 102 mg/dL (40-60); LDL Cholesterol, Calculated 69 (<130); Potassium 4.1 mmol/L (3.5-5.1); Sodium Level 141 mmol/L (136-145)
--- NOTE | 2018-10-15 09:34 | P.HP ---
Certification for Inpatient Patient admitted to: Inpatient With expected LOS: >2 Midnights Patient will require the following post-hospital care: Home Health Services Practitioner: I am a practitioner with admitting privileges, knowledge of patient current condition, hospital course, and medical plan of care. Services: Services provided to patient in accordance with Admission requirements found in Title 42 Section 412.3 of the Code of Federal Regulations Patient History Date of Service: 10/15/18 Reason for admission: Respiratory distress History of Present Illness: Patient is an 83-year-old female who presents to the hospital with shortness of breath. Patient has a history of COPD and she uses a Combivent inhaler daily. She also has some renal insufficiency. Her primary care provider is Dr. Dillard. He also follows her for her renal insufficiency. Her renal function has been stable; however, over the last few days her respiratory status has worsened and she has not been feeling like herself. She came into the emergency room and her workup revealed that she was hypoxic and tachycardic. Blood gases showed that she had metabolic acidosis. This is most likely from her renal insufficiency. She also has some chronic anemia with macrocytosis. Will check vitamin B12 and folate level. She she denies any active bleeding. Otherwise, patient was placed on BiPAP. She is still complaining of difficulty with breathing. Will add IV steroids and IV antibiotics to her regimen. She may also need an anxiolytic. She will be admitted to the hospital on BiPAP and to the intensive care unit for further evaluation. Allergies bacitracin Allergy (Verified 05/08/17 21:01) Itching codeine Allergy (Verified 05/08/17 21:01) Itching methylisothiazolinone Allergy (Verified 05/08/17 21:01) Itching morphine Allergy (Verified 05/08/17 21:01) Itching Home Medications: Atenolol 1 tab PO BID 10/15/18 Bromfenac Sodium [Prolensa] 1 gtt EACH EYE DAILY 10/15/18 Cyanocobalamin (Vitamin B-12) [Vitamin B12] 2,500 mcg PO BID 10/15/18 Dexlansoprazole [Dexilant] 1 cap PO DAILY 10/15/18 Difluprednate [Durezol 0.05%] 1 gtt LEFT EYE TID 10/15/18 Divalproex Sodium [Divalproex Sodium ER] 250 mg PO BEDTIME 10/15/18 Gabapentin 2 cap PO BID 10/15/18 Hydralazine HCl 2 tab PO BID 10/15/18 Hydroxyzine HCl [Atarax] 1 tab PO BID 10/15/18 Levocetirizine Dihydrochloride [24Hr Allergy Relief] 1 tab PO BEDTIME 10/15/18 Levothyroxine Sodium 1 tab PO DAILY 10/15/18 Omeprazole 20 mg PO BIDP PRN 10/15/18 Polymyxin B Sulf/Trimethoprim [Polymyxin B-Tmp Eye Drops] 1 gtt LEFT EYE TID 07/31 - Past Medical/Surgical History Has patient received pneumonia vaccine in the past: Yes Diabetic: No -: Hypothyroidism -: HTN -: Chronic hyponatremia -: Chronic pruritus -: Arthritis -: Edema of right lower extemity -: History of UTIs -: History of TIAs -: Chronic renal disease -: Asthma -: High risk for falls -: Back Surgery -: hysterectomy -: neck sx -: R eye sx for shingles Psychosocial/ Personal History: Patient is of 59 years. She has 3 children. She does not work - Family History Father Medical History: Cancer Notes: prostate cancer Mother Medical History: Hypertension - Social History Smoking Status: Former smoker Alcohol use: No CD- Drugs: No Caffeine use: Yes Place of Residence: Home Review of Systems 10-point ROS is otherwise unremarkable Physical Examination - Vital Signs Temperature: 97.8 F Blood Pressure: 132/61 Pulse: 79 Respirations: 21 Pulse Ox (%): 99 - Physical Exam General: Alert, In no apparent distress, Oriented x3, Moderate distress HEENT: Atraumatic, PERRLA, Mucous membr. moist/pink, EOMI, Sclerae nonicteric Neck: Supple, 2+ carotid pulse no bruit, No LAD, Without JVD or thyroid abnormality Respiratory: Diminished, Expiratory wheezes Cardiovascular: Regular rate/rhythm, Normal S1 S2, No murmurs Gastrointestinal: Normal bowel sounds, Soft and benign, Non-distended, No tenderness Musculoskeletal: No clubbing, No swelling, No tenderness Integumentary: No rashes Neurological: Normal gait, Normal speech, Normal tone, Sensation intact, Cranial nerves 3-12 intact, Normal affect, Abnormal strength Lymphatics: No axilla or inguinal lymphadenopathy - Studies Laboratory Data (last 24 hrs) 10/15/18 01:49: Hgb 10.2 L, Hct 29.4 L 10/14/18 20:30: PT 9.9, INR 0.83 10/14/18 20:30: WBC 14.9 H, Hgb 10.2 L, Hct 31.3 L, Plt Count 374 10/14/18 20:30: Sodium 139, Potassium 4.1, BUN 71 H, Creatinine 2.41 H, Glucose 133 H, Total Bilirubin 0.2, AST 29, ALT 20, Alkaline Phosphatase 65, Lipase 135 Assessment & Plan - Problems (Diagnosis) (1) Acute respiratory distress Current Visit: Yes Status: Acute (2) COPD with acute exacerbation Current Visit: Yes Status: Acute (3) Metabolic acidosis Current Visit: Yes Status: Acute (4) Anemia, chronic renal failure Current Visit: Yes Status: Acute (5) Macrocytic anemia Current Visit: Yes Status: Acute (6) Hypothyroidism Onset Date: 03/25/16 Current Visit: No Status: Chronic Qualifiers: Hypothyroidism type: acquired Qualified Code(s): E03.9 - Hypothyroidism, unspecified - Plan 1. Continue with IV antibiotics 2. Awaiting sputum and blood culture 3. Repeat chest x-ray 4. Will proceed with CT scan of the chest if pneumonia is not improved 5. Pulmonary consultation 6. Continue with nebs as needed 7. O2 per protocol 8. Continue with gentle hydration 9. Repeat labs including CBC and renal function in a.m. 10. Wean off BiPAP 11. GI and DVT prophylaxis Discharge Plan: Home Plan to discharge in: Greater than 2 days - Advance Directives Does patient have a Living Will: Yes Does patient have a Durable POA for Healthcare: Yes - Code Status/Comfort Care Code Status Assessed: Yes Code Status: Full Code Critical Care: No Time Spent Managing PTS Care (In Minutes): 45
[2018-10-15] MEDS ORDERED: CALCIUM CARBONATE CHEW 500MG TAB PO PRN (10:31)
[2018-10-15] MEDS: DULOXETINE 30 MG CAP PO SCH (10:35)
--- NOTE | 2018-10-15 10:35 | P.CNS ---
Date of Consult: 10/15/18 patient seen/examined. briefly discussed with pulmonary and rounding hospitalist and Patient's RN. her creatinine is reasonablly stable from 2018. she is alert but hard of hearing and poor historian (? memory/? baseline). looks comfortable. breathing comfortably. o2 sats are good on 2 litre nc. cxray without any clear pneumonia or chf reported. allergies: reviewed meds: reviewed. labs: reviewed socail: no ivda/no alcohol abuse family hx: non-contributory vs: stable. sbp 110-120 range. lungs: decreased bs b/l. cvs: regular abd: nt/nd/bs+ ext: no edema labs/cxray report/ua report reviewed. cultures pending. a/p: ckd/creatinine seems stable. resp distress...? due to copd/bronchitis...s/ p steroids. bp is ok currently and breathing comfortably. avoid nephrotoxins/ and dye (unless necessary for critical evaluation). may need PE eval if sob worsens, re-occurs...pulmonary to opine. does not look septic clinically. volume status close to euvolemic...consider ivf if patient stays npo. d/c ivf with bicarb for now...discussed with RN. once acute issues resolved, would benefit from baseline monitoring of renal function for CKD. Thanks for consultation and do not hesitate to call if any questions. .
[2018-10-15] MEDS: DONEPEZIL HCL 5 MG TAB PO SCH (10:36)
[2018-10-15] MEDS: FUROSEMIDE 20 MG TABLET PO SCH (10:36)
[2018-10-15] MEDS: PANTOPRAZOLE 40MG TABLET PO SCH ×2 (10:36→20:55)
[2018-10-15] MEDS: GABAPENTIN 300 MG CAP PO SCH ×2 (10:36→20:55)
--- NOTE | 2018-10-15 10:41 | P.CNS ---
Date of Consult: 10/15/18 Chief Complaint: Respiratory distress History of Present Illness: Patient is 83 years of age, presented to the emergency room with shortness of breath. History of COPD is quit smoking has chronic renal insufficiency patient was hypoxic tachycardic currently stable here in the ICU not responding patient's white count is mildly elevated appears to have a metabolic acidosis normal CO2 Allergies bacitracin Allergy (Verified 05/08/17 21:01) Itching codeine Allergy (Verified 05/08/17 21:01) Itching methylisothiazolinone Allergy (Verified 05/08/17 21:01) Itching morphine Allergy (Verified 05/08/17 21:01) Itching Home Medications: Atenolol 1 tab PO BID 10/15/18 Cyanocobalamin (Vitamin B-12) [Vitamin B12] 2,500 mcg PO BID 10/15/18 Dexlansoprazole [Dexilant] 1 cap PO DAILY 10/15/18 Divalproex Sodium [Divalproex Sodium ER] 250 mg PO BEDTIME 10/15/18 Gabapentin 2 cap PO BID 10/15/18 Hydralazine HCl 2 tab PO BID 10/15/18 Hydroxyzine HCl [Atarax] 1 tab PO BID 10/15/18 Levocetirizine Dihydrochloride [24Hr Allergy Relief] 1 tab PO BEDTIME 10/15/18 Levothyroxine Sodium 1 tab PO DAILY 10/15/18 Omeprazole 20 mg PO BIDP PRN 10/15/18 - Past Medical/Surgical History Diabetic: No -: Hypothyroidism -: HTN -: Chronic hyponatremia -: Chronic pruritus -: Arthritis -: Edema of right lower extemity -: History of UTIs -: History of TIAs -: Chronic renal disease -: Asthma -: High risk for falls -: Back Surgery -: hysterectomy -: neck sx -: R eye sx for shingles Psychosocial/ Personal History: Patient is of 59 years. She has 3 children. She does not work - Family History Father Medical History: Cancer Notes: prostate cancer Mother Medical History: Hypertension - Social History Smoking Status: Unknown if ever smoked Alcohol use: No CD- Drugs: No Caffeine use: Yes Place of Residence: Home Review of Systems is unable to be obtained Physical Examination Temp Pulse Resp BP Pulse Ox 97.8 F 79 21 H 132/61 99 10/15/18 09:48 10/15/18 09:48 10/15/18 09:48 10/15/18 09:48 10/15/18 09:48 General: Unresponsive Respiratory: Clear to auscultation bilaterally, Diminished Cardiovascular: No edema, Regular rate/rhythm, Normal S1 S2 Gastrointestinal: Normal bowel sounds, Soft and benign Laboratory Data (last 24 hrs) 10/15/18 01:49: Hgb 10.2 L, Hct 29.4 L 10/14/18 20:30: PT 9.9, INR 0.83 10/14/18 20:30: WBC 14.9 H, Hgb 10.2 L, Hct 31.3 L, Plt Count 374 10/14/18 20:30: Sodium 139, Potassium 4.1, BUN 71 H, Creatinine 2.41 H, Glucose 133 H, Total Bilirubin 0.2, AST 29, ALT 20, Alkaline Phosphatase 65, Lipase 135 - Problems (1) COPD exacerbation Current Visit: Yes Status: Acute Plan: Patient is 83 years of age admitted with respiratory distress presume COPD exacerbation white count is mildly elevated. Patient has chronic renal insufficiency baseline anemia D-dimer is significantly elevated chest x-rays clear urinalysis no evidence of sepsis vital signs satisfactory is possible that she had a pulmonary embolism venous Dopplers and echocardiogram has been ordered empiric anticoagulation patient is stable to be transferred to the floor continue with Rocephin cultures pending
--- NOTE | 2018-10-15 11:34 | RAD REPORT ---
EXAM DESCRIPTION: USExtrem Venous W Compress Bil10/15/2018 11:25 am CLINICAL HISTORY: Leg pain COMPARISON: none FINDINGS: The common femoral, superficial femoral, popliteal and posterior tibial veins bilaterally are compressible and demonstrate augmentation. Doppler demonstrates good flow. A 5 centimeter left Horn's cyst IMPRESSION: No evidence of deep venous thrombosis involving either lower extremity. A 5 centimeter left Horn's cyst
--- NOTE | 2018-10-15 11:36 | RAD REPORT ---
EXAM DESCRIPTION: US - Renal Ultrasound-Complete - 10/15/2018 11:25 am CLINICAL HISTORY: Acute renal insufficiency COMPARISON: None. FINDINGS: The right kidney measures 10 cm with an increased echotexture. The left kidney measures 8 cm with an increased echotexture. Mild renal cortical thinning bilaterally Hydronephrosis is not seen. No gross abnormality of bladder is seen IMPRESSION: Increased renal echotexture consistent with parenchymal disease
[2018-10-15] MEDS: METHYLPREDNISOLONE 125 MG INJ IV SCH (17:13)
[2018-10-15] MEDS: ARFORMOTEROL TARTRATE 15 MCG/2 ML VIAL.NEB NEB SCH (19:50)
[2018-10-15] MEDS: DIVALPROEX ER 250 MG TAB PO SCH (20:55)
[2018-10-16] MEDS: METHYLPREDNISOLONE 125 MG INJ IV SCH ×2 (00:58→08:05)
[2018-10-16] MEDS: IPRATROPIUM BROM 0.5MG/2.5ML NEB SCH ×2 (01:00→09:40)
[2018-10-16] MEDS: LORazepam 2 MG/ML VIAL IV PRN ×2 (01:00→13:46)
[2018-10-16] MEDS: ALBUTEROL 2.5 MG/3 ML NEB SOL NEB PRN ×2 (01:00→17:45)
[2018-10-16] MEDS: ATENOLOL 50 MG TAB PO SCH ×2 (05:48→17:42)
[2018-10-16] MEDS: LEVOTHYROXINE SOD 0.112 MG TAB PO SCH (05:48)
[2018-10-16 06:04] LABS: Absolute Lymphocytes (CBC) 0.7 K/uL (0.7-4.9); Hematocrit 27.1 % (36.0-45.0); Lymphocytes % 3.1 % (15.3-44.8); MPV 7.8 fL (7.6-11.3); Monocytes % 2.6 % (3.3-12.3); RBC Red Blood Cell Count 2.72 M/uL (3.86-4.86)
[2018-10-16 06:07] LABS: Protime INR 0.79
[2018-10-16 06:18] LABS: Albumin 3.2 g/dL (3.4-5.0); Bilirubin Total 0.3 mg/dL (0.2-1.0); Magnesium 2.2 mg/dL (1.8-2.4); Phosphorus 3.8 mg/dL (2.5-4.9); Potassium 3.9 mmol/L (3.5-5.1); Protein, Total 6.8 g/dL (6.4-8.2)
[2018-10-16 06:34] VITALS: BMI 19.8
[2018-10-16] MEDS: MAGNESIUM HYDROXIDE 8% 30 ML PO PRN (08:05)
[2018-10-16] MEDS: FUROSEMIDE 20 MG TABLET PO SCH (08:06)
[2018-10-16] MEDS: PANTOPRAZOLE 40MG TABLET PO SCH ×2 (08:06→20:14)
[2018-10-16] MEDS: DONEPEZIL HCL 5 MG TAB PO SCH (08:06)
[2018-10-16] MEDS: GABAPENTIN 300 MG CAP PO SCH ×2 (08:06→20:08)
[2018-10-16] MEDS: DULOXETINE 30 MG CAP PO SCH (08:06)
--- NOTE | 2018-10-16 08:57 | EKG ---
Test Date: 2018-10-14 Test Time: 20:01:30 Information Management Specialist: BONG MEASUREMENT RESULTS: Intervals: Rate: 80 VT: 228 QRSD: 66 QT: 410 QTc: 472 [place]: P: 75 VT: 228 QRS: 63 T: 75 INTERPRETIVE STATEMENTS: Sinus rhythm with 1st degree AV block Otherwise normal ECG Compared to ECG 05/08/2017 13:30:18 No significant changes Electronically Signed On 10-16-18 08:53:45 CDT by Arnaldo Link
[2018-10-16] MEDS: DOXEPIN HCL 3 MG PO SCH (09:00)
[2018-10-16] MEDS ORDERED: POTASSIUM CL SA 10 MEQ TAB PO ONE (09:00)
[2018-10-16] MEDS: ARFORMOTEROL TARTRATE 15 MCG/2 ML VIAL.NEB NEB SCH ×2 (09:40→20:50)
--- NOTE | 2018-10-16 11:55 | P.PN ---
Subjective Date of Service: 10/16/18 Primary Care Provider: Dr. Dillard Chief Complaint: Respiratory distress Subjective: Improving Physical Examination - Vital Signs Temperature: 97.8 F Blood Pressure: 132/61 Pulse: 79 Respirations: 21 Pulse Ox (%): 99 - Physical Exam General: Alert, In no apparent distress, Oriented x3, Cooperative HEENT: Atraumatic Neck: Supple Respiratory: Clear to auscultation bilaterally, Normal air movement Cardiovascular: Normal pulses, Regular rate/rhythm Gastrointestinal: Normal bowel sounds, Soft and benign, Non-distended Neurological: Normal speech, Normal strength at 5/5 x4 extr, Normal tone, Normal affect - Studies Medications List Reviewed: Yes Assessment & Plan Discharge Plan: Home Plan to discharge in: 24 Hours Physician Review Additional Text: Impression: Acute respiratory failure with hypoxia secondary to COPD exacerbation HTN Hypothyroidism Chronic renal disease, stage IV Depression with anxiety Plan: Acute respiratory failure with hypoxia secondary to COPD exacerbation: Will change IV steroids to oral. Case discussed with pulmonology. Will try to wean off oxygen. Patient not on oxygen at home. Will have physical therapy and occupational therapy evaluate patient. Patient will likely require home health and physical therapy at discharge. Anticipate discharge in the next 24-48 hr once the patient is off oxygen. Will check chest x-ray. HTN: Continue the medication. Will monitor and adjust appropriately. Hypothyroidism: Continue medication. Chronic renal disease, stage IV: Overall stable. Will monitor this closely. Will adjust medication per renal function. Depression with anxiety: Continue medication. Anemia likely of chronic disease: Will check iron and B12 studies. Time Spent Managing Pts Care (In Minutes): 55
--- NOTE | 2018-10-16 12:39 | RAD REPORT ---
EXAM DESCRIPTION: [facility] Single View10/16/2018 12:33 pm CLINICAL HISTORY: Chest pain COMPARISON: October 15, 2018 FINDINGS: The lungs appear clear of acute infiltrate. The heart is normal size Moderate hiatal hernia is present IMPRESSION: No acute abnormalities displayed
[2018-10-16] MEDS: POLYMYXIN B SULF LEFT EYE SCH ×2 (13:34→20:10)
[2018-10-16] MEDS: TRIMETHOPRIM LEFT EYE SCH ×2 (13:34→20:10)
[2018-10-16] MEDS ORDERED: DIFLUPREDNATE OPHTHALMIC 5 ML BOT LEFT EYE SCH (14:00)
--- NOTE | 2018-10-16 17:23 | ECHO ---
HEIGHT: 5 ft 3 in WEIGHT: 112 lb 0 oz DATE OF STUDY: 10/16/[address]: Priya Voss MD 2-DIMENSIONAL: YES M.MODE: YES DOPPLER: YES COLOR FLOW: YES TDS: NO PORTABLE: NO DEFINITY: NO BUBBLE STUDY: NO DIAGNOSIS: RESPIRATORY DISTRESS CARDIAC HISTORY: CATHERIZATION: NO SURGERY: NO PROSTHETIC VALVE: NO PACEMAKER: NO MEASUREMENTS (cm) DIASTOLIC (NORMALS) SYSTOLIC (NORMALS) IVSd 1.0 (0.6-1.2) LA Diam (1.9-4.0) LVEF 79% LVIDd 4.1 (3.5-5.7) LVIDs 2.1 (2.0-3.5) %FS 48% LVPWd 1.0 (0.6-1.2) Ao Diam 2.4 (2.0-3.7) 2 DIMENSIONAL ASSESSMENT: RIGHT ATRIUM: NORMAL LEFT ATRIUM: NORMAL RIGHT VENTRICLE: NORMAL LEFT VENTRICLE: NORMAL TRICUSPID VALVE: NORMAL MITRAL VALVE: NORMAL PULMONIC VALVE: NORMAL AORTIC VALVE: NORMAL PERICARDIAL EFFUSION: NONE AORTIC ROOT: NORMAL LEFT VENTRICULAR WALL MOTION: NORMAL. DOPPLER/COLOR FLOW: MILD TRICUSPID REGURGITATION. COMMENTS: MILD TRICUSPID REGURGITATION- NORMAL RIGHT VENTRICULAR SYSTOLIC PRESSURE. NORMAL LEFT VENTRICULAR SIZE AND FUNCTION. NO WALL MOTION ABNORMALITIES. NO EFFUSION. TECHNOLOGIST: OSEI AGARWAL
[2018-10-16] MEDS: IPRATROPIUM BROM 0.5MG/2.5ML NEB PRN (17:45)
[2018-10-16] MEDS: predniSONE 20 MG TAB PO SCH (20:08)
[2018-10-16] MEDS: DIVALPROEX ER 250 MG TAB PO SCH (20:09)
[2018-10-16] MEDS: HYDRALAZINE HCL 25 MG TABLET PO SCH (20:09)
[2018-10-16] MEDS: HOME MED 1 EA UNK (Levocetirizine Dihydrochloride [24hr Allergy Relief] 1 TAB) PO SCH (20:09)
[2018-10-16] MEDS: CYANOCOBALAMIN 1,000 MCG TAB PO SCH (20:14)
[2018-10-17] MEDS: IPRATROPIUM BROM 0.5MG/2.5ML NEB PRN ×3 (05:05→13:50)
[2018-10-17] MEDS: ALBUTEROL 2.5 MG/3 ML NEB SOL NEB PRN ×3 (05:05→13:50)
[2018-10-17 05:40] LABS: Absolute Lymphocytes (CBC) 0.4 K/uL (0.7-4.9); Basophils % 0.1 % (0-1.3); Hematocrit 30.8 % (36.0-45.0); Lymphocytes % 2.3 % (15.3-44.8); MPV 7.3 fL (7.6-11.3); Monocytes % 4.9 % (3.3-12.3); RBC Red Blood Cell Count 3.08 M/uL (3.86-4.86)
[2018-10-17 05:59] LABS: Magnesium 2.6 mg/dL (1.8-2.4); Potassium 4.5 mmol/L (3.5-5.1)
[2018-10-17] MEDS: LEVOTHYROXINE SOD 0.112 MG TAB PO SCH (06:10)
[2018-10-17] MEDS: ATENOLOL 50 MG TAB PO SCH ×2 (06:10→17:18)
[2018-10-17] MEDS: PANTOPRAZOLE 40MG TABLET PO SCH ×2 (08:34→21:33)
[2018-10-17] MEDS: GABAPENTIN 300 MG CAP PO SCH ×2 (08:34→21:33)
[2018-10-17] MEDS: CYANOCOBALAMIN 1,000 MCG TAB PO SCH ×2 (08:35→21:33)
[2018-10-17] MEDS: FUROSEMIDE 20 MG TABLET PO SCH (08:35)
[2018-10-17] MEDS: DULOXETINE 30 MG CAP PO SCH (08:36)
[2018-10-17] MEDS: HYDRALAZINE HCL 25 MG TABLET PO SCH ×2 (08:36→21:33)
[2018-10-17] MEDS: DONEPEZIL HCL 5 MG TAB PO SCH (08:36)
[2018-10-17] MEDS: TRIMETHOPRIM LEFT EYE SCH (08:37)
[2018-10-17] MEDS: POLYMYXIN B SULF LEFT EYE SCH (08:37)
[2018-10-17] MEDS: predniSONE 20 MG TAB PO SCH ×2 (08:37→21:32)
[2018-10-17] MEDS: DOXEPIN HCL 3 MG PO SCH (08:37)
[2018-10-17] MEDS: ARFORMOTEROL TARTRATE 15 MCG/2 ML VIAL.NEB NEB SCH ×2 (08:45→20:25)
--- NOTE | 2018-10-17 08:53 | P.PN ---
Date of Service: 10/16/18 Vital Signs Temp Pulse Resp BP Pulse Ox 98.6 F 93 H 16 154/81 H 95 10/17/18 04:00 10/17/18 08:35 10/17/18 04:00 10/17/18 08:35 10/17/18 04:00 Medications Acetaminophen (Tylenol -Extra Strength) 500 mg PO Q4HP PRN PRN Reason: pain/fever Stop: 11/14/18 03:40 Albuterol Sulfate (Proventil 0.083% Neb Soln) 2.5 mg NEB Q6HP PRN PRN Reason: SHORTNESS OF BREATH Stop: 11/14/18 10:42 Last Admin: 10/17/18 05:05 Dose: 2.5 mg Arformoterol Tartrate (Brovana) 15 mcg NEB BIDRESP [facility]Z Stop: 11/14/18 20:01 Last Admin: 10/16/18 20:50 Dose: 15 mcg Atenolol (Tenormin) 50 mg PO BID 6AM 6PM [facility] Stop: 11/14/18 06:01 Last Admin: 10/17/18 06:10 Dose: 50 mg Calcium Carbonate/Glycine (Tums Regular) 500 mg PO QID PRN PRN Reason: INDIGESTION Stop: 11/14/18 10:32 Cyanocobalamin (Vitamin B-12) 2,500 mcg PO BID [facility] Stop: 11/15/18 21:01 Last Admin: 10/17/18 08:35 Dose: 2,500 mcg Divalproex Sodium (Depakote *Er*) 250 mg PO BEDTIME [facility] Stop: 11/14/18 21:01 Last Admin: 10/16/18 20:09 Dose: 250 mg Donepezil HCl (Aricept) 5 mg PO DAILY [facility] Stop: 11/14/18 09:01 Last Admin: 10/17/18 08:36 Dose: 5 mg Duloxetine HCl (Cymbalta Delayed Release Pellets) 60 mg PO DAILY [facility] Stop: 11/14/18 09:01 Last Admin: 10/17/18 08:36 Dose: 60 mg Furosemide (Lasix) 20 mg PO DAILY [facility] Stop: 11/14/18 09:01 Last Admin: 10/17/18 08:35 Dose: 20 mg Gabapentin (Neurontin) 300 mg PO BID [facility] Stop: 11/14/18 09:01 Last Admin: 10/17/18 08:34 Dose: 300 mg Home Med (Doxepin Hcl [Silenor]) 3 mg PO DAILY [facility] Stop: 11/14/18 09:01 Last Admin: 10/17/18 08:37 Dose: Not Given Home Med (Bromfenac Sodium [Prolensa]) 1 gtt EACH EYE DAILY [facility] Stop: 11/16/18 09:01 Home Med (Levocetirizine Dihydrochloride [24hr Allergy Relief]) 1 tab PO BEDTIME [facility] Stop: 11/15/18 21:01 Last Admin: 10/16/18 20:09 Dose: Not Given Home Med (Polymyxin B Sulf/Trimethoprim [Polymyxin B-Tmp Eye Drops]) 1 gtt LEFT EYE TID [facility] Stop: 11/15/18 14:01 Last Admin: 10/17/18 08:37 Dose: Not Given Hydralazine HCl (Apresoline) 50 mg PO BID [facility] Stop: 11/15/18 21:01 Last Admin: 10/17/18 08:36 Dose: 50 mg Ipratropium Zenia (Atrovent Neb) 0.5 mg NEB Q6HP PRN PRN Reason: SHORTNESS OF BREATH Stop: 11/15/18 11:55 Last Admin: 10/17/18 05:05 Dose: 0.5 mg Levothyroxine Sodium (Synthroid) 0.112 mg PO [id number] [facility] Stop: 11/14/18 06:01 Last Admin: 10/17/18 06:10 Dose: 0.112 mg Lorazepam (Ativan) 0.5 mg IV Q12H PRN PRN Reason: AGITATION Stop: 11/14/18 03:54 Last Admin: 10/16/18 13:46 Dose: 0.5 mg Magnesium Hydroxide (Milk Of Magnesia) 30 ml PO DAILYPRN PRN PRN Reason: CONSTIPATION Stop: 11/14/18 03:40 Last Admin: 10/16/18 08:05 Dose: 30 ml Ondansetron HCl (Zofran) 4 mg IV Q6HP PRN PRN Reason: NAUSEA / VOMITING Stop: 11/14/18 03:40 Pantoprazole Sodium (Protonix Tab) 40 mg PO BID [facility]; Protocol Stop: 11/14/18 09:01 Last Admin: 10/17/18 08:34 Dose: 40 mg Prednisone (Deltasone) 20 mg PO BID [facility] Stop: 11/15/18 21:01 Last Admin: 10/17/18 08:37 Dose: 20 mg Sodium Chloride (Normal Saline Flush) 10 ml IV BID [facility] Stop: 11/14/18 09:01 Last Admin: 10/17/18 08:37 Dose: 10 ml Microbiology Results 10/14/18 22:32 Clean Catch Urine [place] Count - Final 10/14/18 22:32 Clean Catch Urine - Final No growth. 10/14/18 20:50 Blood - Blood Aerobic Blood Culture - Preliminary No growth in 24 hours. 10/14/18 20:50 Blood - Blood Anaerobic Blood Culture - Preliminary No growth in 24 hours. 10/14/18 20:30 Blood - Blood Aerobic Blood Culture - Preliminary No growth in 24 hours. 10/14/18 20:30 Blood - Blood Anaerobic Blood Culture - Preliminary No growth in 24 hours. Assessment/ Plan: Nephrology. Feeling better today. CPS improved without CP or SOB. No acute events overnight. Vitals, medications, blood work and imaging reviewed in the chart. NAD. Cachectic. MMM. Neck supple. CTA. RRR. Soft Abd. No C/C/E. No rash. AAO. Normal speech. A/ CKD IV. HTN with CKD/ CHF. DM II with CKD. Diastolic CHF, chronic. Anemia in chronic illness. Iron deficiency. Acute respiratory failure/ COPD exacerbation. P/ Continue current POC and Medications. Continue furosemide. Potassium as ordered. Monitor potassium. Continue abx. Continue prednisone therapy. No NSAIDs. AM labs. Daily weight.
[2018-10-17] MEDS ORDERED: DEXLANSOPRAZOLE PO SCH (09:00)
[2018-10-17] MEDS ORDERED: BROMFENAC SODIUM EACH EYE SCH (09:00)
[2018-10-17] MEDS: MAGNESIUM HYDROXIDE 8% 30 ML PO PRN (09:02)
--- NOTE | 2018-10-17 10:04 | P.PN ---
Subjective Date of Service: 10/17/18 Primary Care Provider: Dr. Dillard Chief Complaint: Respiratory distress Subjective: Improving (Patient is slowly improving. Patient still requiring oxygen.) Physical Examination - Vital Signs Temperature: 97.8 F Blood Pressure: 154/81 Pulse: 93 Respirations: 16 Pulse Ox (%): 94 - Physical Exam General: Alert, In no apparent distress, Cooperative, Other (Room-air saturations around 86%) HEENT: Atraumatic Neck: Supple Respiratory: Clear to auscultation bilaterally, Normal air movement Cardiovascular: Normal pulses, Regular rate/rhythm Gastrointestinal: Normal bowel sounds, Soft and benign, Non-distended, No tenderness, No masses, No rebound, No guarding Musculoskeletal: No erythema, No tenderness, No warmth Neurological: Normal speech, Normal strength at 5/5 x4 extr, Normal tone, Normal affect - Studies Microbiology Data (last 24 hrs): 10/14/18 22:32 Clean Catch Urine [place] Count - Final 10/14/18 22:32 Clean Catch Urine - Final No growth. Medications List Reviewed: Yes Assessment & Plan Discharge Plan: Home Plan to discharge in: 24 Hours Physician Review Additional Text: Impression: Acute respiratory failure with hypoxia secondary to COPD exacerbation HTN Hypothyroidism Chronic renal disease, stage IV Depression with anxiety Plan: Acute respiratory failure with hypoxia secondary to COPD exacerbation: Continue with oral steroids and COPD medication. Room-air saturations around 86 %. Patient may require home oxygen at discharge. If home oxygen and home health/physical therapy can be arranged today then possible discharge later today if improved after lunch. Otherwise patient to remain in the hospital for another 1-2 more days. Will continue to monitor closely. Will continue with physical therapy. Chest x-ray unremarkable. Will continue to reassess. HTN: Continue the medication. Will monitor and adjust appropriately. Hypothyroidism: Continue medication. Chronic renal disease, stage IV: Overall stable. Will monitor this closely. Continue to adjust medication per renal function. Depression with anxiety: Continue medication. Anemia likely of chronic disease: Will check iron and B12 studies. Time Spent Managing Pts Care (In Minutes): 55
[2018-10-17] MEDS: HOME MED 1 EA UNK (Levocetirizine Dihydrochloride [24hr Allergy Relief] 1 TAB) PO SCH (19:39)
[2018-10-17] MEDS: DIVALPROEX ER 250 MG TAB PO SCH (21:34)
[2018-10-18] MEDS: LEVOTHYROXINE SOD 0.112 MG TAB PO SCH (06:00)
[2018-10-18] MEDS: ATENOLOL 50 MG TAB PO SCH ×2 (06:00→17:39)
[2018-10-18 06:54] LABS: Absolute Lymphocytes (CBC) 0.5 K/uL (0.7-4.9); Basophils % 0.2 % (0-1.3); Hematocrit 28.3 % (36.0-45.0); Lymphocytes % 4.7 % (15.3-44.8); MPV 8.1 fL (7.6-11.3); Monocytes % 4.1 % (3.3-12.3); RBC Red Blood Cell Count 2.83 M/uL (3.86-4.86)
[2018-10-18 07:09] LABS: Magnesium 2.6 mg/dL (1.8-2.4)
[2018-10-18] MEDS: ARFORMOTEROL TARTRATE 15 MCG/2 ML VIAL.NEB NEB SCH (08:40)
[2018-10-18] MEDS ORDERED: PROLENSA EYE OPTH SCH (09:00)
[2018-10-18] MEDS: DOXEPIN HCL 3 MG PO SCH (09:00)
[2018-10-18] MEDS: GABAPENTIN 300 MG CAP PO SCH (09:10)
[2018-10-18] MEDS: HYDRALAZINE HCL 25 MG TABLET PO SCH (09:11)
[2018-10-18] MEDS: FUROSEMIDE 20 MG TABLET PO SCH (09:11)
[2018-10-18] MEDS: PANTOPRAZOLE 40MG TABLET PO SCH (09:12)
[2018-10-18] MEDS: DULOXETINE 30 MG CAP PO SCH (09:12)
[2018-10-18] MEDS: CYANOCOBALAMIN 1,000 MCG TAB PO SCH (09:12)
[2018-10-18] MEDS: DONEPEZIL HCL 5 MG TAB PO SCH (09:12)
[2018-10-18] MEDS: predniSONE 20 MG TAB PO SCH (09:27)
--- NOTE | 2018-10-18 10:22 | P.DS ---
Admission Date: 10/15/18 Discharge Date: 10/18/18 Primary Care Provider: Dr. Dillard Disposition: ROUTINE DISCHARGE Discharge Condition: GOOD Reason for Admission: Respiratory distress Consultations: Pulmonary-Dr. Lopes Nephrology-Dr. Dillard Procedures: ECHO: Ejection fraction 79% LEFT VENTRICULAR WALL MOTION: NORMAL. DOPPLER/COLOR FLOW: MILD TRICUSPID REGURGITATION. COMMENTS: MILD TRICUSPID REGURGITATION- NORMAL RIGHT VENTRICULAR SYSTOLIC PRESSURE. NORMAL LEFT VENTRICULAR SIZE AND FUNCTION. NO WALL MOTION ABNORMALITIES. NO EFFUSION. CXR: COMPARISON: October 15, 2018 FINDINGS: The lungs appear clear of acute infiltrate. The heart is normal size Moderate hiatal hernia is present IMPRESSION: No acute abnormalities displayed Renal US: FINDINGS: The right kidney measures 10 cm with an increased echotexture. The left kidney measures 8 cm with an increased echotexture. Mild renal cortical thinning bilaterally Hydronephrosis is not seen. No gross abnormality of bladder is seen IMPRESSION: Increased renal echotexture consistent with parenchymal disease Venous doppler: FINDINGS: The common femoral, superficial femoral, popliteal and posterior tibial veins bilaterally are compressible and demonstrate augmentation. Doppler demonstrates good flow. A 5 centimeter left Horn's cyst IMPRESSION: No evidence of deep venous thrombosis involving either lower extremity. A 5 centimeter left Horn's cyst Medical Problem List: Acute respiratory failure with hypoxia secondary to COPD exacerbation HTN Hypothyroidism Chronic renal disease, stage IV Depression with anxiety 5 cm left Horn's cyst GERD Brief History of Present Illness: 83-year-old female with history of COPD, hypertension, hypothyroidism , and chronic renal disease. Patient presented with shortness of breath. Patient was admitted for COPD exacerbation. Hospital Course: Patient presented with shortness of breath secondary to acute respiratory failure with hypoxia secondary to COPD exacerbation. Patient was admitted for further evaluation and treatment. Patient seen and evaluated by pulmonology. Patient was weaned from a BiPAP to oxygen per nasal cannula. Patient has responded well to therapy. At discharge patient without any significant shortness of breath. Patient requires home oxygen at discharge. This will be set up to maintain sats above 90%. At discharge she will continue with prednisone 20 mg 1 pill twice daily for 5 days then 1 pill once daily for 5 days. Patient will continue with COPD medication-Symbicort 2 puffs twice daily and Pro air 2 puffs 3 times a day as needed for shortness of breath. Recommend follow up with her manager front in 1 week to follow up this hospitalization. Oxygen can be further weaned off as an outpatient by manager front. Patient with hypertension. This has remained stable. Patient will continue with her medications-hydralazine 50 mg 1 pill twice daily and atenolol 50 mg 1 pill twice daily. Recommend to maintain blood pressures less 150/80. Further adjustment can be done by her PCP. Patient with hypothyroidism. This has remained stable. Patient will continue with her medication-levothyroxine 112 mcg daily. Patient with chronic renal disease, stage IV. Patient seen and evaluated by her sueding machine operator. This has remained stable. Recommend no further use of nonsteroidal anti-inflammatories in the future. Future medications will need to be renally dosed. Recommend to recheck lab-BMP in 1 week and follow up with nephrology in 1-2 weeks. Patient with anemia of chronic disease. This be further monitored as an outpatient. Patient with GERD. Patient will continue with Dexilant 30 mg daily. Venous Doppler showed left Horn cyst. This can be further evaluated by orthopedics as an outpatient. Vital Signs/Physical Exam: Temp Pulse Resp BP Pulse Ox 96.8 F 67 16 189/83 H 99 10/18/18 04:00 10/18/18 09:11 10/18/18 04:00 10/18/18 09:11 10/18/18 04:00 General: Alert, In no apparent distress, Oriented x3, Cooperative HEENT: Atraumatic Neck: Supple Respiratory: Clear to auscultation bilaterally, Normal air movement Cardiovascular: Normal pulses, Regular rate/rhythm Gastrointestinal: Normal bowel sounds, Soft and benign, Non-distended Neurological: Normal speech, Normal strength at 5/5 x4 extr, Normal tone, Normal affect Laboratory Data at Discharge: WBC 11.6 K/uL (4.3-10.9) H D 10/18/18 05:40 Hgb 9.5 g/dL (12.0-15.0) L 10/18/18 05:40 Hct 28.3 % (36.0-45.0) L 10/18/18 05:40 Plt Count 324 K/uL (152-406) 10/18/18 05:40 PT 9.4 SECONDS (9.5-12.5) L 10/16/18 05:41 INR 0.79 10/16/18 05:41 APTT 24.1 SECONDS (24.3-36.9) L 10/16/18 05:41 Sodium 137 mmol/L (136-145) 10/18/18 05:40 Potassium 4.0 mmol/L (3.5-5.1) 10/18/18 05:40 BUN 65 mg/dL (7-18) H 10/18/18 05:40 Creatinine 2.03 mg/dL (0.55-1.3) H 10/18/18 05:40 Glucose 136 mg/dL (74-106) H 10/18/18 05:40 Phosphorus 3.8 mg/dL (2.5-4.9) 10/16/18 05:41 Magnesium 2.6 mg/dL (1.8-2.4) H 10/18/18 05:40 Total Bilirubin 0.3 mg/dL (0.2-1.0) 10/16/18 05:41 AST 19 U/L (15-37) 10/16/18 05:41 ALT 18 U/L (12-78) 10/16/18 05:41 Alkaline Phosphatase 58 U/L (45-117) 10/16/18 05:41 Triglycerides 59 mg/dL (<150) 10/15/18 07:26 Cholesterol 183 mg/dL (<200) 10/15/18 07:26 HDL Cholesterol 102 mg/dL (40-60) H 10/15/18 07:26 Cholesterol/HDL Ratio 1.79 10/15/18 07:26 Lipase 135 U/L (73-393) 10/14/18 20:30 Home Medications: Atenolol 1 tab PO BID 10/15/18 Bromfenac Sodium [Prolensa] 1 gtt EACH EYE DAILY 10/15/18 Cyanocobalamin (Vitamin B-12) [Vitamin B12] 2,500 mcg PO BID 10/15/18 Dexlansoprazole [Dexilant] 1 cap PO DAILY 10/15/18 Difluprednate [Durezol 0.05%] 1 gtt LEFT EYE TID 10/15/18 Divalproex Sodium [Divalproex Sodium ER] 250 mg PO BEDTIME 10/15/18 Gabapentin 2 cap PO BID 10/15/18 Hydralazine HCl 2 tab PO BID 10/15/18 Hydroxyzine HCl [Atarax] 1 tab PO BID 10/15/18 Levocetirizine Dihydrochloride [24Hr Allergy Relief] 1 tab PO BEDTIME 10/15/18 Levothyroxine Sodium 1 tab PO DAILY 10/15/18 Polymyxin B Sulf/Trimethoprim [Polymyxin B-Tmp Eye Drops] 1 gtt LEFT EYE TID 07/31 Albuterol Sulfate [Proair Hfa] 8.5 gm IH TID PRN #1 hfa.aer.ad 10/18/18 Budesonide/Formoterol Fumarate [Symbicort 160-4.5 Mcg Inhaler] 2 puff IH BID #1 hfa.aer.ad 10/18/18 predniSONE [Prednisone*] 20 mg PO SEECOM #15 tab 10/18/18 New Medications: Albuterol Sulfate [Proair Hfa] 8.5 gm IH TID PRN #1 hfa.aer.ad PRN Reason: Shortness Of Breath Budesonide/Formoterol Fumarate [Symbicort 160-4.5 Mcg Inhaler] 2 puff IH BID #1 hfa.aer.ad predniSONE [Prednisone*] 20 mg PO SEECOM #15 tab Patient Discharge Instructions: 1. Recommend follow up with her PCP in 1 week to follow up this hospitalization. 2. Patient presented with shortness of breath secondary to acute respiratory failure with hypoxia secondary to COPD exacerbation. Patient was admitted for further evaluation and treatment. Patient seen and evaluated by pulmonology. Patient was weaned from a BiPAP to oxygen per nasal cannula. Patient has responded well to therapy. At discharge patient without any significant shortness of breath. Patient requires home oxygen at discharge. This will be set up to maintain sats above 90%. At discharge she will continue with prednisone 20 mg 1 pill twice daily for 5 days then 1 pill once daily for 5 days. Patient will continue with COPD medication- Symbicort 2 puffs twice daily and Pro air 2 puffs 3 times a day as needed for shortness of breath. Recommend follow up with her manager front in 1 week to follow up this hospitalization. Oxygen can be further weaned off as an outpatient by manager front. Will recommend home health and physical therapy at discharge. This will be arranged by her PCP as an outpatient. 3. Patient with hypertension. This has remained stable. Patient will continue with her medications-hydralazine 50 mg 1 pill twice daily and atenolol 50 mg 1 pill twice daily. Recommend to maintain blood pressures less 150/80. Further adjustment can be done by her PCP. 4. Patient with hypothyroidism. This has remained stable. Patient will continue with her medication-levothyroxine 112 mcg daily. 5. Patient with chronic renal disease, stage IV. Patient seen and evaluated by her sueding machine operator. This has remained stable. Recommend no further use of nonsteroidal anti-inflammatories in the future. Future medications will need to be renally dosed. Recommend to recheck lab-BMP in 1 week and follow up with nephrology in 1-2 weeks. 6. Patient with anemia of chronic disease. This be further monitored as an outpatient. 7. Patient with GERD. Patient will continue with Dexilant 30 mg daily. Diet: Renal Activity: Fall precautions Time spent managing pt's care (in minutes): 55
[2018-10-18 10:50] VITALS: O2SAT 88
[2018-10-18 17:40] VITALS: TEMP 97.9
[2018-10-18 17:49] VITALS: BP 139/67
== END 2018-10-18 18:50 | disposition home or self-care (01) | DRG 190 ==
LOC: ER 19:45 → 4TH 10-15 04:18 → 3RD-ICU 10-15 04:56 → 4TH 10-15 14:15
PROVIDERS: ADMIT Hospitalist; ATTEND Hospitalist
PROC: 5A09357 Assistance with Respiratory Ventilation, Less than 24 Consecutive Hours, Continuous Positive Airway Pressure (ICD-10-PCS; principal; 2018-10-15)
DX: J44.1 Chronic obstructive pulmonary disease with (acute) exacerbation (principal); J96.01 Acute respiratory failure with hypoxia; N18.4 Chronic kidney disease, stage 4 (severe); I13.0 Hypertensive heart and chronic kidney disease with heart failure and stage 1 through stage 4 chronic kidney disease, or unspecified chronic kidney disease; I50.32 Chronic diastolic (congestive) heart failure; E03.9 Hypothyroidism, unspecified; I12.9 Hypertensive chronic kidney disease with stage 1 through stage 4 chronic kidney disease, or unspecified chronic kidney disease; F41.8 Other specified anxiety disorders; M71.20 Synovial cyst of popliteal space [Baker], unspecified knee; K21.9 Gastro-esophageal reflux disease without esophagitis; D63.1 Anemia in chronic kidney disease; E11.22 Type 2 diabetes mellitus with diabetic chronic kidney disease
CPT/HCPCS: 36415; 71045; 76770; 80048; 80053; 80061; 80076; 81003; 81015; 82550; 82607; 82746; 82805; 82962; 83605; 83690; 83735; 83880; 84100; 84145; 84439; 84443; 84484; 85014; 85018; 85025; 85044; 85379; 85610; 85730; 87040; 87070; 87077; 87086; 87088; 87186; 87205; 93005; 93306; 93970; 94640; 94660; 96361; 96374; 96375; 97116; 97161; 99291; 99292; J0696; J1650; J2920; J2930; J7030; J7512; J7605

== ENCOUNTER 2018-11-09 11:40 | Emergency (ER) | payer MEDICARE ==
--- OUTSIDE RECORDS SUMMARY | 2018-11-09 11:42 | XMS REPORT | Clinical Summary ---
:[address] [facility] Address [address] [place] [address] Care Team Providers Name Role Phone Carter Zhao MD Primary Care Provider Allergies Active Allergy Reactions Severity Noted Date Comments Bacitracin 02/06/2016 Unknown rxn Codeine Shortness Of Breath High 02/06/2016 Methylchloroisothiazolinone 02/06/2016 Unknown rxn Methylisothiazolinone 02/06/2016 Unknown rxn Morphine Shortness Of Breath High 02/06/2016 Neomycin 02/06/2016 Unknown rxn Medications Medication Sig Dispensed Refills Start Date End Date Status fluticasone-salmeterol Inhale 2 puffs 0 Active (ADVAIR HFA) 115-21 by mouth via mcg/actuation inhaler inhaler 2 (two) times daily. atenolol (TENORMIN) 50 Take 50 mg by 0 Active MG tablet mouth daily. benazepril (LOTENSIN) Take 40 mg by 0 Active 40 MG tablet mouth daily. difluprednate (DUREZOL) Apply to eye(s). 0 Active 0.05 % Drop fluticasone (FLONASE) 1 spray by Nasal 0 Active 50 mcg/actuation nasal route daily. spray clonazePAM (KLONOPIN) Take 0.5 mg by 0 Active 0.5 MG tablet mouth 2 (two) times daily as needed for Anxiety. valACYclovir (VALTREX) Take 500 mg by 0 Active 500 MG tablet mouth. levothyroxine Take 100 mcg by 0 Active (SYNTHROID, LEVOTHROID) mouth Every 100 MCG tablet morning on an empty stomach. montelukast (SINGULAIR) Take 10 mg by 0 Active 10 mg tablet mouth nightly. hydrOXYzine (ATARAX) 10 Take 1 tablet 30 tablet 3 02/08/2016 Active MG tablet (10 mg total) by mouth 3 (three) times daily as needed for Itching. pregabalin (LYRICA) 25 Take 1 capsule 90 capsule 3 02/08/2016 Active MG capsule (25 mg total) by mouth 3 (three) times daily. Max Daily Amount: 75 mg Active Problems Problem Noted Date Anemia of chronic disease 02/08/2016 CKD (chronic kidney disease) stage 3, GFR 30-59 ml/min 02/08/2016 Gait disturbance 02/07/2016 General weakness 02/06/2016 Pruritic condition 02/06/2016 Rash 02/06/2016 Ataxia 02/06/2016 Encounters Date Type Specialty Care Team Description 10/14/2018 Hospital Encounter after 11/08/2017 Immunizations Name Dates Previously Given Next Due Influenza High Dose Preservative Free IM 02/08/2016 Social History Tobacco Use Types Packs/Day Years Used Date Former Smoker Alcohol Use Drinks/Week oz/Week Comments Yes 5 Glasses of wine 3.0 Sex Assigned at Date Recorded Not on file Job Start Date Occupation Industry Not on file Not on file Not on file Travel History Travel Start Travel End No recent travel history available. Last Filed Vital Signs Not on file Plan of Treatment Not on file Results Not on fileafter 11/08/2017 Insurance Payer Benefit Plan / Group Subscriber ID Type Phone Address MEDICARE MEDICARE A B xxxxxxxxxx Medicare (Home) [place] [address] [id number] Advance Directives For more information, please contact:[place] [address] [address] [facility] [place] [phone] Code Status Date Activated Date Inactivated Comments Full Code 02/06/2016 10:28 PM 02/09/2016 4:26 PM This code status was determined by: Patient
--- OUTSIDE RECORDS SUMMARY | 2018-11-09 11:42 | XMS REPORT | Clinical Summary ---
:1935 Author Organization [facility] Address [address] [place] [address] Care Team Providers Name Role Phone Randall [...] INFLUENZA VACCINE 11/12/2018 Results Not on fileafter 11/08/2017 Insurance Payer Benefit Plan / Subscriber ID Effective Dates Phone Address Type Group MEDICARE MEDICARE PART A xxxxxxxxxx 1999-Present [place], [place] Medicare AND B BCBS BCBS CHOICE xxxxxxxxxxxx 2011-Present PPO PPO/[employer] PPO Advance Directives Patient has advance care planning documents on file. For more information, please contact:[address] [place] [address]
--- OUTSIDE RECORDS SUMMARY | 2018-11-09 11:44 | XMS REPORT | Continuity of Care Document ---
:1935 Author Organization [employer] [facility] Care Team Providers Name Role Phone [employer] Unavailable Unavailable Problems Problem Status Onset Classification Date Comments Source Date Reported Osteoarthritis, Active 05/12/19 Finding 10/18/[address] [facility] generalized [facility] [place] Cellulitis of Active 05/12/19 Finding 10/18/[address] [facility] left lower 18 [facility] [place] Hypertension, Active 05/12/19 Finding 10/18/[address] [facility] essential 18 [facility] [place] Recurrent falls Active 05/12/19 Finding 10/18/[address] [facility] [place] Skin laceration Active 05/12/19 Finding 10/18/[address] [facility] [place] Skin avulsion Active 05/12/19 Finding 10/18/[address] [facility] [place] UTI Active 09/03/19 Finding 10/18/[address] [facility] [place] Anemia Active 09/03/19 Finding 10/18/[address] [facility] [place] Confusion Resolved 09/03/19 Finding 10/18/[address] [facility] [place] Leucocytosis Active 09/03/19 Finding 10/18/[address] [facility] [place] Elevated troponin Active 09/03/19 Finding 10/18/[address] [facility] [place] Hypertension Active 09/03/19 Finding 10/18/[address] [facility] [place] Hypomagnesemia Active 09/03/19 Finding 10/18/[address] [facility] [place] Chronic pruritus Active 08/21/19 Finding 10/18/[address] [facility] [place] Dizziness Active 08/21/19 Finding 10/18/[address] [facility] [place] Hyponatremia Active 08/21/19 Finding 10/18/[address] [facility] [place] Weakness Active 08/21/19 Finding 10/18/[address] [facility] [place] GERD Active 08/21/19 Finding 10/18/[address] [facility] [place] Falls Active 08/21/19 Finding 10/18/[address] [facility] [place] Asthma Active 08/21/19 Finding 10/18/[address] [facility] [place] Acute renal Active 03/25/20 Finding 10/18/[address] [facility] injury 16 [facility] [place] High anion gap Active 03/25/20 Finding 10/18/[address] [facility] metabolic 16 [facility] acidosis [place] GIB Active 03/25/20 Finding 10/18/[address] [facility] [place] Hypoglycemia Active 03/25/20 Finding 10/18/[address] [facility] [place] Hypothyroidism Active 03/25/20 Finding 10/18/[address] [facility] [facility] [place] Altered mental Active 03/25/20 Finding 10/18/2018 [facility] status 16 [facility] [place] History of TIA Active Finding 10/18/2018 [facility] [place] Diarrhea Active Finding 10/18/2018 [facility] [place] Chronic renal Active Finding 10[facility]18/2018 [facility] disease [facility] [place] COPD with acute Active Finding 10/18/2018 [facility] exacerbation [facility] [place] Macrocytic anemia Active Finding 10[facility]18/2018 [facility] [place] Anemia, chronic Active Finding 10/18/2018 [facility] renal failure [facility] [place] Metabolic Active Finding 10/18/2018 [facility] acidosis [facility] [place] Acute respiratory Active Finding 10/18/2018 [facility] distress [facility] [place] COPD exacerbation Active Finding 10/18/2018 [facility] [place] Anemia of chronic Active Finding 10/18/2018 [facility] renal failure [facility] [place] Acute Active Finding 10/18/2018 [facility] exacerbation of [facility] chronic [place] obstructive pulmonary disease Chronic Active Finding 10/18/2018 [facility] obstructive [facility] - pulmonary disease [place] with acute exacerbation Medications Medication Details Route Status Patient Ordering Order Source Instructions Provider Date Prednisone SEE COMMENT ORAL Active Prezas 10/18/ [facility] 2019 [facility] [place] Albuterol THREE TIMES INHALATION Active [facility] Sulfate A DAY PRN 2019 [facility] - Melissa Smith Shortness Of Breath Budesonide/Formo TWICE DAILY INHALATION Active [facility] terol Fumarate 2019 Fl[facility] - Sarah Atenolol TWICE DAILY ORAL Active St. 2019 [facility] - Sarah Cyanocobalamin TWICE DAILY ORAL Active St. (Vitamin B-12) 2019 [facility] - Erlindat Gabapentin TWICE DAILY ORAL Active St. 2019 Fl[facility] - Sarah Hydralazine Hcl TWICE DAILY ORAL Active St. 2019 Florencia - Sarah Dexlansoprazole DAILY ORAL Active St. 2019 Florencia Smith Divalproex AT BEDTIME ORAL Active St. Sodium 2019 Florencia - Sarah Hydroxyzine Hcl TWICE DAILY ORAL Active St. 2019 Florencia Smith Levothyroxine DAILY ORAL Active St. Sodium 2019 Florencia - Sarah Levocetirizine AT BEDTIME ORAL Active St. Dihydrochloride 2019 Florencia Smith Omeprazole TWICE DAILY ORAL Active [facility] NEEDED 2019 Florencia - PRN For Sarah Indigestion Bromfenac Sodium DAILY EACH EYE Active [facility] 2019 Florencia Smith Difluprednate THREE TIMES LEFT EYE Active St. A DAY 2019 Florencia Smith Polymyxin B THREE TIMES LEFT EYE Active St. Sulf/Trimethopri A DAY 2019 Florencia Smith Collagenase AT BEDTIME Active [facility] 2018 [facility] - Sarah Doxycycline TWICE DAILY Active [facility] Hyclate 2018 Florencia Smith Donepezil DAILY Active [facility] 2018 Fl[facility] - Sarah Cyanocobalamin AT BEDTIME Active [facility] (Vitamin B-12) 2018 Florencia Smith Divalproex Er AT BEDTIME Active [facility] 2018 Florencia Smith Loratadine DAILY Active [facility] 2018 [facility] [place] Cholecalciferol DAILY Active [facility]. (Vitamin D3) 2018 [facility] [place] Gabapentin TWICE DAILY Active [facility] 2018 [facility] [place] Furosemide DAILY Active [facility] 2018 [facility] [place] Levocetirizine AT BEDTIME Active [facility] Dihydrochloride 2018 [facility] [place] Montelukast AT BEDTIME Active [facility] 2018 [facility] [place] Atenolol TWICE DAILY Active [facility] 2018 [facility] [place] Pantoprazole TWICE DAILY Active Voss [facility] Sodium 2017 [facility] [place] Doxepin Hcl DAILY Active [facility] [place] Levothyroxine DAILY AT Active [facility] 0600 2017 [facility] [place] Hydralazine TWICE DAILY Active Divinsky [facility] 2017 [facility] [place] Levothyroxine DAILY AT ORAL Active Divinsky [facility] 0600 2017 [facility] [place] Clonazepam AT BEDTIME ORAL Active [facility] 2017 [facility] [place] Duloxetine Hcl DAILY Active [facility] 2017 [facility] [place] Fluticasone TWICE DAILY Active [facility] Propionate 2017 [facility] [place] Fluticasone/Salm TWICE DAILY Active [facility] eterol PRN For 2017 Lumarcie - Shortness Of [place] Breath Hydroxyzine Hcl TWICE DAILY Active [facility] 2017 [facility] [place] Benazepril Hcl DAILY AT Active [facility] 0600 2017 [facility] [place] Atenolol TWICE DAILY ORAL Active [facility] 2017 [facility] [place] Benazepril Hcl DAILY ORAL Active [facility] 2016 [facility] [place] Atenolol DAILY ORAL Active [facility] 2016 [facility] [place] Furosemide DAILY Active [facility] 2016 [facility] [place] Hydroxyzine DAILY ORAL Active [facility] Pamoate 2016 [facility] [place] Levothyroxine DAILY ORAL Active [facility] 2015 [facility] [place] Furosemide DAILY ORAL Active [facility] 2016 [facility] [place] Allergies, Adverse Reactions, Alerts Substance Category Reaction Severity Reaction Status Date Comments Source type Reported bacitracin Itching Allergy to Active [facility] Substance 8 [facility] [place] codeine Itching Allergy to Active [facility] Substance 8 [facility] [place] methylisothia Itching Allergy to Active [facility] zolinone Substance 8 [facility] [place] morphine Itching Allergy to Active [facility]. Substance 8 [facility] [place] Immunizations No Data Provided for This Section Results Order Name Results Value Reference Date Interpretation Comments Source Range Laboratory White Blood 11.6 4.3 - 10.9 10/18 [facility]. Studies Count /2018 [facility] [place] Laboratory Red Cell 12.7 12.1 - 10/18 [facility] Studies Distribution 15.2 [facility] - Width [place] Laboratory Red Blood 2.83 3.86 - 10/18 [facility] Studies Count 4.86 [facility] [place] Laboratory Platelet 324 152 - 406 10/18 [facility]. Studies Count /2018 [facility] [place] Laboratory Neutrophils % 91.0 41.7 - 10/18 [facility]. Studies 73.7 /2018 [facility] [place] Laboratory Monocytes % 4.1 3.3 - 12.3 10/18 [facility]. Studies /2018 [facility] [place] Laboratory Mean Platelet 8.1 7.6 - 11.3 10/18 [facility] Studies Volume /2019 [facility] [place] Laboratory Mean 99.9 80 - 100 10/18 [facility] Studies Corpuscular /2019 [facility] Volume [place] Laboratory Mean 33.5 32.0 - 10/18 [facility] Studies Corpuscular 36.0 /2018 [facility] - Hemoglobin [place] Concent Laboratory Mean 33.5 27.0 - 10/18 [facility] Studies Corpuscular 35.0 /2018 [facility] - Hemoglobin [place] Laboratory Lymphocytes % 4.7 15.3 - 10/18 [facility]. Studies 44.8 /2018 [facility] [place] Laboratory Hemoglobin 9.5 12.0 - 10/18 [facility] Studies 15.0 /2018 [facility] [place] Laboratory Hematocrit 28.3 36.0 - 10/18 [facility] St[facility] Studies 45.0 /2018 [facility] [place] Laboratory Eosinophils % 0.0 0 - 4.4 10/[address] Studies /2019 [facility] [place] Laboratory Basophils % 0.2 0 - 1.3 10/18 [facility] Studies /2019 [facility] [place] Laboratory Absolute 10.6 1.8 - 8.0 10/18 [facility] Studies Neutrophil /2019 [facility] [place] Laboratory Absolute 0.5 0.1 - 1.3 10/18 [facility]. Studies Monocytes /2019 [facility] - (CBC) [place] Laboratory Absolute 0.5 0.7 - 4.9 10/18 [facility]. Studies Lymphocytes /2018 [facility] (CBC) [place] Laboratory Absolute 0.0 0 - 0.5 10/18 [facility]. Studies Eosinophils /2018 [facility] (CBC) [place] Laboratory Absolute 0.0 0 - 0.5 10/18 [facility]. Studies Basophils /2018 [facility] (CBC) [place] Laboratory Sodium Level 137 136 - 145 10/18 [facility] Studies /2019 [facility] [place] Laboratory Potassium 4.0 3.5 - 5.1 10/18 [facility]. Studies Level /2018 [facility] [place] Laboratory Magnesium 2.6 1.8 - 2.4 10/18 [facility]. Studies Level /2019 [facility] [place] Laboratory Glucose Level 136 74 - 106 10/18 [facility] Studies /2019 [facility] [place] Laboratory Estimat 23 90 10/18 [facility]. Studies Glomerular /2018 [facility] - Filtration [place] Rate Laboratory Creatinine 2.03 0.55 - 1.3 10/18 [facility]. Studies /2019 [facility] [place] Laboratory Chloride 105 98 - 107 10/18 [facility]. Studies Level /2019 [facility] [place] Laboratory Carbon 25 21 - 32 10/18 [facility]. Studies Dioxide Level /2019 [facility] [place] Laboratory Calcium Level 8.2 8.5 - 10.1 10/18 [facility] Studies /2019 [facility] [place] Laboratory Blood Urea 65 7 - 18 10/18 [facility] Studies Nitrogen /2019 [facility] [place] Laboratory Bedside 151 65 - 120 10/[address] Studies Glucose /2018 [facility] [place] Laboratory Total 0.3 0.2 - 1.0 10/16 [facility]. Studies Bilirubin /2018 [facility] [place] Laboratory Serum Total 6.8 6.4 - 8.2 10/16 [facility] Studies Protein /2018 [facility] [place] Laboratory Phosphorus 3.8 2.5 - 4.9 10/16 [facility]. Studies Level /2018 [facility] [place] Laboratory Globulin 3.6 2.3 - 3.5 10/16 [facility] Studies /2018 [facility] [place] Laboratory Aspartate 19 15 - 37 10/16 [facility]. Studies Amino Transf /2018 [facility] - (AST/SGOT) [place] Laboratory Alkaline 58 45 - 117 10/16 [facility]. Studies Phosphatase /2018 [facility] [place] Laboratory Albumin/Globu 0.9 1.1 - 1.8 10/16 [facility] Studies thomas Ratio /2018 [facility] [place] Laboratory Albumin 3.2 3.4 - 5.0 10/16 [facility]. Studies /2018 [facility] [place] Laboratory Alanine 18 12 - 78 10/16 [facility] Studies Aminotransfer /2018 [facility] ase [place] (ALT/SGPT) Laboratory Prothrombin 9.4 9.5 - 12.5 10/16 [facility]. Studies Time /2018 [facility] [place] Laboratory INR 0.79 10/16 [facility]. Studies International /2018 [facility] Normalized [place] Ratio Laboratory Activated 24.1 24.3 - 10/16 [facility] Studies Partial 36.9 [facility] - Thromboplast [place] Time Laboratory Vitamin B12 >2000 193 - 986 10/15 [facility]. Studies Level /2018 [facility] [place] Laboratory Triglycerides 59 07 [facility]. Studies Level /2018 [facility] [place] Laboratory Thyroid 1.230 0.360 - 07 [facility] Studies Stimulating 3.740 /2018 [facility] - Hormone (TSH) [place] Laboratory Serum Folate 11.0 3.1 - 17.5 10/15 [facility] Studies /2018 [facility] [place] Laboratory LDL 69 07/ [facility]. Studies Cholesterol, /2018 [facility] Calculated [place] Laboratory HDL 102 40 - 60 07 [facility]. Studies Cholesterol /2018 [facility] [place] Laboratory Free 0.95 0.76 - 07 [facility] Studies Thyroxine 1.46 /2018 [facility] [place] Laboratory Cholesterol/H 1.79 10/15 [facility]. Studies DL Ratio /2018 [facility] [place] Laboratory Cholesterol 183 10/15 [facility]. Studies Level /2018 [facility] [place] Laboratory Segmented 97 40 - 80 10/15 [facility]. Studies Neutrophils /2018 [facility] [place] Laboratory Percent 1.14 0.4 - 2.05 10/15 [facility]. Studies Reticulocyte /2018 [facility] - Count [place] Laboratory Monocytes 1 0 - 10 10/15 [facility]. Studies /2018 [facility] [place] Laboratory Lymphocytes 2 15 - 42 10/15 [facility]. Studies /2018 [facility] [place] Laboratory Blood Blood 10/15 [facility] Studies Morphology Morphology /2018 [facility] - Comment Comment [place] Laboratory Absolute 0.03 0.02 - 10/15 [facility] Studies Reticulocyte 0.11 [facility] - Count [place] Laboratory LC-Sab-E-Type 309 10/15 [facility] Studies Natriuretic [facility] - Peptide [place] Laboratory D-Dimer 1249 0 - 500 10/15 [facility]. Studies [facility] [place] Laboratory Urine pH 5.0 10/14 [facility]. Studies [facility] [place] Laboratory Urine Total Urine Total 10/14 [facility] Studies Protein Protein /2018 [facility] [place] Laboratory Urine 1.020 10/14 [facility] Studies Specific /2018 [facility] - [place] Laboratory Urine Nitrite Urine 10/14 [facility] Studies Nitrite /2018 [facility] [place] Laboratory Urine Urine 10/14 [facility] Studies Leukocyte Leukocyte [facility] - Esterase Esterase [place] Laboratory Urine Ketones Urine 10/14 [facility] Studies Ketones /2018 [facility] [place] Laboratory Urine Glucose Urine 10/14 [facility] Studies Glucose [facility] [place] Laboratory Urine Blood Urine Blood 10/14 [facility]. Studies [facility] [place] Laboratory Urine WBC <5 10/14 [facility]. Studies /2018 [facility] [place] Laboratory Urine <5 10/14 [facility]. Studies Urothelial /2018 [facility] - Cells [place] Laboratory Urine <5 10/14 [facility]. Studies Squamous [facility] Epithelial [place] Cells Laboratory Urine RBC Urine RBC 10/14 [facility] Studies [facility] [place] Laboratory Urine Hyaline >20 10/14 [facility]. Studies Casts [facility] [place] Laboratory Urine Culture Urine 10/14 [facility]. Studies Reflexed Culture [facility] - Reflexed [place] Laboratory Urine Urine 10/14 [facility]. Studies Bacteria Bacteria [facility] [place] Laboratory Urine Urine 10/14 [facility]. Studies Amorphous Amorphous [facility] - Sediment Sediment [place] Laboratory Other Total 10.1 12 - 18 10/14 [facility]. Studies Hemoglobin [facility] - (Blood Gas) [place] Laboratory Blood Gas pH 7.27 7.35 - 07 [facility] Studies 7.45 [facility] [place] Laboratory Blood Gas PO2 81.2 75 - 100 10/14 [facility] Studies /2018 [facility] [place] Laboratory Blood Gas 38.1 35 - 45 10/14 [facility]. Studies PCO2 [facility] [place] Laboratory Blood Gas 92.7 94 - 97 10/14 [facility]. Studies Oxyhemoglobin [facility] [place] Laboratory Blood Gas 30.0 10/14 [facility]. Studies Inspired [email or web address] - Oxygen [place] Laboratory Blood Gas 16.9 22 - 28 10/14 [facility]. Studies HCO3 [facility] [place] Laboratory Blood Gas -8.7 10/14 [facility]. Studies Base Excess [facility] [place] Laboratory Arterial 0.5 0 - 1.5 10/14 [facility]. Studies Blood [facility] - Methemoglobin [place] Laboratory Arterial 1.0 0 - 1.5 10/14 [facility]. Studies Blood [employer] - Carboxyhemogl [place] obin Laboratory Arterial Bld 94.1 92 - 98.5 10/14 [facility]. Studies O2 Saturation /2018 [facility] - (Measur) [place] Laboratory Band 2 0 - 1 10/14 [facility]. Studies Neutrophils [facility] [place] Laboratory Procalcitonin 0.07 10/14 [facility] Studies /2018 [facility] [place] Laboratory Rapid <0.02 0.0 - 10/14 [facility]. Studies Troponin I 0.045 [facility] [place] Laboratory Lipase 135 73 - 393 10/14 [facility] Studies /2018 [facility] [place] Laboratory Direct <0.1 0 - 0.2 10/14 [facility] Studies Bilirubin /2019 [facility] [place] Laboratory Creatine 41 26 - 192 10/14 [facility]. Studies Kinase /2018 [facility] [place] Laboratory Lactic Acid 1.1 0.4 - 2.0 10/14 [facility]. Studies Level /2018 [facility] [place] Laboratory Hemoglobin 8.3 12.0 - 05/10 [facility]. Studies 15.0 /2017 [facility] [place] Laboratory Hematocrit 25.2 36.0 - 05/10 [facility]. Studies 45.0 /2017 [facility] [place] Laboratory Sodium Level 140 135 - 145 05/10 [facility]. Studies /2017 [facility] [place] Laboratory Potassium 4.7 3.6 - 5.0 05/10 [facility] Studies Level /2017 [facility] [place] Laboratory Glucose Level 100 65 - 120 05/10 [facility]. Studies /2017 [facility] [place] Laboratory Estimat 27 90 05/10 [facility] Studies Glomerular /2017 [facility] - Filtration [place] Rate Laboratory Creatinine 1.79 0.44 - 05/10 [facility] Studies 1.00 /2017 [facility] [place] Laboratory Chloride 113 101 - 111 05/10 [facility]. Studies Level /2017 [facility] [place] Laboratory Carbon 21 21 - 31 05/10 [facility] Studies Dioxide Level /2017 [facility] [place] Laboratory Calcium Level 8.6 8.5 - 10.5 05/10 [facility]. Studies /2017 [facility] [place] Laboratory Blood Urea 38 6 - 20 05/10 [facility]. Studies Nitrogen /2017 [facility] [place] Laboratory White Blood 8.7 4.3 - 10.9 05/10 [facility] Studies Count /2017 [facility] [place] Laboratory Red Cell 13.1 12.1 - 05/10 [facility]. Studies Distribution 15.2 /2017 [facility] - Width [place] Laboratory Red Blood 2.21 3.86 - 05/10 [facility] Studies Count 4.86 /2017 [facility] [place] Laboratory Platelet 359 152 - 406 05/10 [facility]. Studies Count /2017 [facility] [place] Laboratory Neutrophils % 65.6 41.7 - 05/10 [facility]. Studies 73.7 /2017 [facility] [place] Laboratory Monocytes % 12.3 3.3 - 12.3 05/10 [facility] Studies [facility] [place] Laboratory Mean Platelet 7.8 7.6 - 11.3 05/10 [facility] Studies Volume [facility] [place] Laboratory Mean 99.1 80 - 100 05/10 [facility]. Studies Corpuscular /2017 [facility] - Volume [place] Laboratory Mean 33.3 32.0 - 05/10 [facility]. Studies Corpuscular 36.0 [facility] - Hemoglobin [place] Concent Laboratory Mean 33.0 27.0 - 05/10 [facility]. Studies Corpuscular 35.0 [facility] - Hemoglobin [place] Laboratory Lymphocytes % 17.5 15.3 - 05/10 [facility] Studies 44.8 [facility] [place] Laboratory Eosinophils % 3.9 0 - 4.4 05/10 [facility]. Studies [facility] [place] Laboratory Basophils % 0.7 0 - 1.3 05/10 [facility]. Studies [facility] [place] Laboratory Absolute 5.7 1.8 - 8.0 05/10 [facility] Studies Neutrophil [facility] [place] Laboratory Absolute 1.1 0.1 - 1.3 05/10 [facility] [facility] Monocytes [facility] - (CBC) [place] [facility] Absolute 1.5 0.7 - 4.9 05/10 [facility]. Studies Lymphocytes [facility] - (CBC) [place] [facility] Absolute 0.3 0 - 0.5 05/10 [facility]. Studies Eosinophils [facility] - (CBC) [place] [facility] Absolute 0.1 0 - 0.5 05/10 [facility]. Studies Basophils [facility] - (CBC) [place] Pathology Reports No Data Provided for This Section Diagnostic Reports No Data Provided for This Section Consultation Notes No Data Provided for This Section Discharge Summaries No Data Provided for This Section History and Physicals No Data Provided for This Section Vital Signs Vital Sign Value Date Comments Source Heart Rate 64 10/18/2018 [facility] [place] Systolic (mm Hg) 139 10/18/2018 [facility] [place] Diastolic (mm Hg) 67 10/18/2018 [facility] [place] Temperature Oral (F) 97.9 F 10/18/2018 [facility] [place] Respitory Rate 16 10/18/2018 [facility] [place] Height 63 10/17/2018 [facility] [place] Weight 112 10/17/2018 [facility] [place] Heart Rate 86 05/10/2017 [facility] [place] Systolic (mm Hg) 141 05/10/2017 [facility] [place] Diastolic (mm Hg) 60 05/10/2017 [facility] [place] Temperature Oral (F) 99.5 F 05/10/2017 [facility] [place] Respitory Rate 16 05/10/2017 [facility] [place] Height 62 05/10/2017 [facility] [place] Weight 111.60 05/10/2017 [facility] [place] Encounters Location Location Encounter Encounter Reason Attending ADM DC Status Source Details Type Number For Provider Date Date Visit [facility] Discharged [id number] 05/08 05/10 [facility] 53 /2017 [facility] [place] [facility] Registered [id number] 07/30 [facility] [place] [facility] Departed [id number] 08/01 08/01 [facility] Emergency [facility] [place] [facility] Discharged [id number] 10/15 10/18 [facility] Inpatient 57 /2018 [facility] [place] Procedures Procedure Code Date Perfomer Comments Source Gram Stain [id number] 10/17/2018 [facility] [place] Culture & [id number] 10/17/2018 [facility] [place] - Sensitivity [place] Chest Single View [id number] 10/16/2018 [facility] [place] Anaerobic Blood [id number] 10/14/2018 [facility] - [facility] [place] Aerobic Blood [id number] 10/14/2018 [facility] - [facility] [place] [id number] 10/14/2018 [facility] [place] Count [id number] 10/14/2018 [facility] [place] Chest Single View [id number] 10/14/2018 [facility] [place] DEBRIDEMENT [id number] 05/09/2017 [facility] - MULTIPLE [place] WOUNDS-.. Anaerobic Blood [id number] 05/08/2017 [facility] - Culture [place] Aerobic Blood [id number] 05/08/2017 [facility] - Culture [place] Gram Stain [id number] 05/08/2017 [facility] - [place] Culture & [id number] 05/08/2017 [facility] - Sensitivity [place] Foot Left 2 View [id number] 05/08/2017 [facility] [place] Chest Single View [id number] 05/08/2017 [facility] - [place] Assessment and Plan No Data Provided for This Section Plan of Care Plan of Care Date Source Instructions 10/18/2018 RHONDA Jung - [place] Chronic Obstructive Pulmonary Disease Exacerbation, Qfti-[id number] Budesonide; Formoterol Inhalation Albuterol inhalation aerosol Prednisone tablets PROBLEM: COPD with Acute Exacerbation GOAL: Clear understanding of disease process INSTRUCTIONS: 1. Recommend follow up with her PCP in 1 week to follow up this hospitalization. 2. Patient presented with shortness of breath secondary to acute respiratory failure with hypoxia secondary to COPD exacerbation. Patient was admitted for further evaluation and treatment. Patient se en and evaluated by pulmonology. Patient was weaned from a BiPAP to oxygen per nasal cannula. Patient has responded well to therapy. At discharge patient without any significant shortness of breath. Patient requires home oxygen at discharge. This will be set up to maintain sats above 90 %. At discharge she will continue with prednisone 20 mg 1 pill twice daily for 5 days then 1 pill once daily for 5 days. Patient will continue with COPD medication-Symbicort 2 puffs twice daily and Pro ai r 2 puffs 3 times a day as needed for shortness of breath. Recommend follow up with her recreation worker in 1 week to follow up this hospitalization. Oxygen can be further weaned off as an outpatient by recreation worker. Will recommend home health and geophysical observer apy at discharge. This will be arranged by her PCP as an outpatient. 3. Patient with hypertension. This has remained stable. Patient will continue with her medications-hydralazine 50 mg 1 pill twice daily and atenolol 50 mg 1 pill twice daily. Recommend to maintain b lood pressures less 150/80. Further adjustment can be done by her PCP. 4. Patient with hypothyroidism. This has remained stable. Patient will continue with her medication-levothyroxine 112 mcg daily. 5. Patient with chronic renal disease, stage IV. Patient seen and evaluated by her hay chopper. This has remained stable. Recommend no further use of nonsteroidal anti-inflammatories in the future. Future medications will need to be renally dosed. Recommend to recheck lab- BMP in 1 week and follow up with nephrology in 1-2 weeks. 6. Patient with anemia of chronic disease. This be further monitored as an outpatient. 7. Patient with GERD. Patient will continue with Dexilant 30 mg daily. Diet: Renal Activity: Fall precautions DME DME: Home Oxygen Date Ordered: 10/18/18 Name of Company: [employer] Patient Instructions 10/18/2018 RHONDA Andrew Chronic Obstructive Pulmonary Disease Exacerbation, Rjwc-[id number] Budesonide; Formoterol Inhalation Albuterol inhalation aerosol Prednisone tablets PROBLEM: COPD with Acute Exacerbation GOAL: Clear understanding of disease process INSTRUCTIONS: 1. Recommend follow up with her PCP in 1 week to follow up this hospitalization. 2. Patient presented with shortness of breath secondary to acute respiratory failure with hypoxia secondary to COPD exacerbation. Patient was admitted for further evaluation and treatment. Patient se en and evaluated by pulmonology. Patient was weaned from a BiPAP to oxygen per nasal cannula. Patient has responded well to therapy. At discharge patient without any significant shortness of breath. Patient requires home oxygen at discharge. This will be set up to maintain sats above 90 %. At discharge she will continue with prednisone 20 mg 1 pill twice daily for 5 days then 1 pill once daily for 5 days. Patient will continue with COPD medication-Symbicort 2 puffs twice daily and Pro ai r 2 puffs 3 times a day as needed for shortness of breath. Recommend follow up with her recreation worker in 1 week to follow up this hospitalization. Oxygen can be further weaned off as an outpatient by recreation worker. Will recommend home health and geophysical observer apy at discharge. This will be arranged by her PCP as an outpatient. 3. Patient with hypertension. This has remained stable. Patient will continue with her medications-hydralazine 50 mg 1 pill twice daily and atenolol 50 mg 1 pill twice daily. Recommend to maintain b lood pressures less 150/80. Further adjustment can be done by her PCP. 4. Patient with hypothyroidism. This has remained stable. Patient will continue with her medication-levothyroxine 112 mcg daily. 5. Patient with chronic renal disease, stage IV. Patient seen and evaluated by her hay chopper. This has remained stable. Recommend no further use of nonsteroidal anti-inflammatories in the future. Future medications will need to be renally dosed. Recommend to recheck lab- BMP in 1 week and follow up with nephrology in 1-2 weeks. 6. Patient with anemia of chronic disease. This be further monitored as an outpatient. 7. Patient with GERD. Patient will continue with Dexilant 30 mg daily. Diet: Renal Activity: Fall precautions DME DME: Home Oxygen Date Ordered: 10/18/18 Name of Company: [employer] Patient Instructions 05/10/2017 RHONDA Jung - [facility] for Cellulitis -- Adult Instructions 05/10/2017 [facility] [place] [facility] for Cellulitis -- Adult Social History Social History Date Source Query Response Date Recorded Comment 04/14/2049 RHONDA Andrew Alcohol Use? No October 16, 2018 9:19am CD- Drugs? No October 16, 2018 9:19am Query Response Start Date Stop Date Smoking Status Former smoker April 14, 2049 [birth year] 14, 1960 Family History Value Date Source Query Response Instance Date Recorded Comment 10/18/2018 RHONDA Andrew Nurses notes prostate cancer Father October 16, 2018 9:19am Medical History Hypertension Mother October 16, 2018 9:19am Medical History Cancer Father October 16, 2018 9:19am Nurses notes prostate cancer May 08, 2017 10:01pm Medical History Cancer August 20, 2016 10:05pm Query Response Instance Date Recorded Comment 05/10/2017 RHONDA Andrew Nurses notes prostate cancer Father May 08, 2017 10:01pm Medical History Hypertension Mother May 08, 2017 10:01pm Medical History Cancer Father May 08, 2017 10:01pm Medical History Cancer August 20, 2016 10:05pm Advance Directives Order Name Results Value Date Source Advance Directives Advance Directives Advance Directive Response Recorded Date/Time 10/18/2018 RHONDA Jung - Does Patient Have Living Will [place] Yes October 18, 2018 5:31am Durable Power of Lead Ingot Molder for Health Care Yes October 16, 2018 9:19am Would you like additional information No October 15, 2018 6:29am Advance Directives Advance Directives Advance Directive Response Recorded Date/Time 05/10/2017 RHONDA Jung - Does Patient Have Living Will [place] Yes May 10, 2017 6:00am Durable Power of Lead Ingot Molder for Health Care Yes May 08, 2017 10:01pm Would you like additional information No May 08, 2017 10:01pm Functional Status No Data Provided for This Section
--- NOTE | 2018-11-09 12:50 | EDPHYS ---
Physician Documentation [facility] Name: Nena Rosario Age: 83 yrs Sex: Female : 1935 Arrival Date: 11/09/2018 Time: 11:42 Bed 20 Private MD: Randall Dillard ED Physician Sunny Shea HPI: 11/09 12:40 This 83 yrs old Female presents to ER via Wheelchair with complaints of Back kdr Pain - fell x2 days ago, Itching. 12:40 The patient presents with pain that is acute, and an abrasion, and contusion, and an kdr injury, and tenderness. The symptoms are located in the left scapular area, left subscapular area and left mid back. Onset: The symptoms/episode began/occurred suddenly, 2 day(s) ago. The pain does not radiate. Associated signs and symptoms: The patient has no apparent associated signs or symptoms. The problem was sustained during a fall, while standing, scrapped down wall on her back. Modifying factors: The patient symptoms are alleviated by nothing, the patient symptoms are aggravated by nothing. Severity of symptoms: At their worst the symptoms were mild, in the emergency department the symptoms are unchanged. The patient has not experienced similar symptoms in the past. The patient has not recently seen a physician. ROS: 12:40 Constitutional: Negative for fever, chills, and weight loss, Eyes: Negative for injury, kdr pain, redness, and discharge, Neck: Negative for injury, pain, and swelling, Cardiovascular: Negative for chest pain, palpitations, and edema, Respiratory: Negative for shortness of breath, cough, wheezing, and pleuritic chest pain, Abdomen/GI: Negative for abdominal pain, nausea, vomiting, diarrhea, and constipation, Back: Negative for injury and pain, : Negative for injury, bleeding, discharge, and swelling, MS/Extremity: Negative for injury and deformity, Neuro: Negative for headache, weakness, numbness, tingling, and seizure activity. Psych: Negative for depression, anxiety, suicide ideation, homicidal ideation, and hallucinations, Allergy/Immunology: Negative for hives, rash, and allergies, Endocrine: Negative for neck swelling, polydipsia, polyuria, polyphagia, and marked weight changes, Hematologic/Lymphatic: Negative for swollen nodes, abnormal bleeding, and unusual bruising. 12:40 Skin: Positive for abrasion(s), multiple small skin tears on her upper extremities and left back. Exam: 12:40 Constitutional: This is a well developed, well nourished patient who is awake, alert, kdr and in no acute distress. Head/Face: Normocephalic, atraumatic. Eyes: Pupils equal round and reactive to light, extra-ocular motions intact. Lids and lashes normal. Conjunctiva and sclera are non-icteric and not injected. Cornea within normal limits. Periorbital areas with no swelling, redness, or edema. Neck: Trachea midline, no thyromegaly or masses palpated, and no cervical lymphadenopathy. Supple, full range of motion without nuchal rigidity, or vertebral point tenderness. No Meningismus. 12:40 Skin: Appearance: normal except for affected area, injury, abrasion(s), moderate sized abrasion noted, large abrasion noted, laceration(s), The patient has multiple small skin tears on her upper extremities. All look in good condition without evidence of infection. Vital Signs: 11:49 BP 196 / 99; Pulse 105; Resp 20; Temp 98.6; Pulse Ox 97% on R/A; Weight 51.26 kg; aj Height 5 ft. 1 in. (154.94 cm); 11:49 Body Mass Index 21.35 (51.26 kg, 154.94 cm) aj Hal Coma Score: 11:49 Eye Response: spontaneous(4). Verbal Response: oriented(5). Motor Response: obeys aj commands(6). Total: 15. Trauma Score (Adult): 11:49 Eye Response: spontaneous(1); Verbal Response: oriented(1); Motor Response: obeys aj commands(2); Systolic BP: > 89 mm Hg(4); Respiratory Rate: 10 to 29 per min(4); Hal Score: 15; Trauma Score: 12 MDM: 12:40 Data reviewed: vital signs, nurses notes. Counseling: I had a detailed discussion with kdr the patient and/or guardian regarding: the historical points, exam findings, and any diagnostic results supporting the discharge/admit diagnosis, the need for outpatient follow up. 12:48 Patient medically screened. [facility] 11/09 12:47 Order name: [facility] [place], [place]. Order: Clean and dress all wounds kdr Administered Medications: No medications were administered Disposition: 11/09/18 12:48 Discharged to Home. Impression: Abrasion of back wall of thorax. - Condition is Stable. - Discharge Instructions: Abrasion, Nlvo-[id number]-Dlyu, Skin Tear Care, Akat-[id number]-Gyqp. - Prescriptions for Keflex 500 mg Oral Capsule - take 1 capsule by ORAL route every 6 hours for 3 days; 12 capsule. Zyrtec 10 mg Oral Tablet - take 1 tablet by ORAL route once daily As needed; 20 tablet. - Medication Reconciliation Form, Thank You Letter, Antibiotic Education form. - Follow up: Randall Dillard DO; When: 2 - 3 days; Reason: If symptoms return, Further diagnostic work-up, Recheck today's complaints, Continuance of care, Re-evaluation by your physician. - Problem is new. - Symptoms have improved. Signatures: Lewis Neil RN RN sg Sunny Shea MD MD kdr Corrections: (The following items were deleted from the chart) 13:32 12:48 11/09/2018 12:48 Discharged to Home. Impression: Abrasion of back wall of thorax. sg Condition is Stable. Forms are Medication Reconciliation Form, Thank You Letter, Antibiotic Education, Prescription Opioid Use. Follow up: Randall Dillard; When: 2 - 3 days; Reason: If symptoms return, Further diagnostic work-up, Recheck today's complaints, Continuance of care, Re-evaluation by your physician. Problem is new. Symptoms have improved. kdr
--- NOTE | 2018-11-09 12:50 | ER ---
Nurse's Notes [facility] Name: Nena Rosario Age: 83 yrs Sex: Female : 1935 Arrival Date: 11/09/2018 Time: 11:42 Bed 20 Private MD: Randall Dillard Diagnosis: Abrasion of back wall of thorax Presentation: 11/09 11:49 Presenting complaint: Patient states: Patient fell backwards into a rock wall scraping aj her back 2 days ago. Also reports feeling as if her left leg is twisted. Care prior to arrival: None. Mechanism of Injury: Fall. Trauma event details: Injury occurred in the [facility], Injury occurred: at home. Injury occurred: November 07, 2018. 11:49 Acuity: SID 2 aj 11:49 Method Of Arrival: Wheelchair aj Trauma Activation: Not Applicable Physician: ED Physician; Name: ; Notified At: ; Arrived At: Physician: General Surgeon; Name: ; Notified At: ; Arrived At: Physician: Radiology; Name: ; Notified At: ; Arrived At: Physician: Respiratory; Name: ; Notified At: ; Arrived At: Physician: Lab; Name: ; Notified At: ; Arrived At: Assessment: 11:49 General: Appears in no apparent distress. uncomfortable, Behavior is calm, cooperative, aj appropriate for age. Pain: Complains of pain in back, right hand and left leg. Respiratory: Airway is patent Respiratory effort is even, unlabored, Respiratory pattern is regular, symmetrical. Injury Description: Abrasion sustained to back. Vital Signs: 11:49 BP 196 / 99; Pulse 105; Resp 20; Temp 98.6; Pulse Ox 97% on R/A; Weight 51.26 kg; aj Height 5 ft. 1 in. (154.94 cm); 11:49 Body Mass Index 21.35 (51.26 kg, 154.94 cm) aj Rainelle Coma Score: 11:49 Eye Response: spontaneous(4). Verbal Response: oriented(5). Motor Response: obeys aj commands(6). Total: 15. Trauma Score (Adult): 11:49 Eye Response: spontaneous(1); Verbal Response: oriented(1); Motor Response: obeys aj commands(2); Systolic BP: > 89 mm Hg(4); Respiratory Rate: 10 to 29 per min(4); Hal Score: 15; Trauma Score: 12 ED Course: 11:42 Patient arrived in ED. as 11:43 Randall Dillard DO is Private Physician. as 11:49 Patient has correct armband on for positive identification. aj 11:50 Triage completed. aj 11:52 Arm band placed on left wrist. Patient placed in an exam room. aj 11:59 Sunny Shea MD is Attending Physician. kdr 12:09 Lewis Neil, LEAH is Primary Nurse. sg 12:48 Randall Dillard DO is Referral Physician. kdr Administered Medications: No medications were administered Outcome: 12:48 Discharge ordered by MD. kdr 13:32 Patient left the ED. sg Signatures: Lewis Neil RN RN sg Lissett Alvarenga RN RN Sunny Ramirez MD MD kdr Ashlee Robles as
[2018-11-09 13:34] VITALS: BP 196/99; TEMP 98.6; O2SAT 97
== END 2018-11-09 13:32 | disposition home or self-care (01) ==
LOC: ER 11:40
DX: S20.419A Abrasion of unspecified back wall of thorax, initial encounter (principal); W19.XXXA Unspecified fall, initial encounter; Y93.9 Activity, unspecified; Y92.9 Unspecified place or not applicable
CPT/HCPCS: 99281

== ENCOUNTER 2019-03-17 14:05 | Emergency (ER) | payer MEDICARE ==
--- NOTE | 2019-03-17 15:35 | RAD REPORT ---
EXAM DESCRIPTION: US - Extremity Nonvascular Limited - 03/17/2019 3:02 pm CLINICAL HISTORY: PAIN COMPARISON: No comparisons TECHNIQUE: Real-time sonographic evaluation of the area of interest was performed left popliteal reg ion. FINDINGS: Left popliteal vein is compressible without thrombus. A moderate sized cyst is present in the popliteal region measuring 4.9 x 2.7 cm. IMPRESSION: Left popliteal cyst.
--- NOTE | 2019-03-17 16:01 | ER ---
Nurse's Notes [facility] Name: Nena Rosario Age: 83 yrs Sex: Female : 1935 Arrival Date: 03/17/2019 Time: 14:10 Bed 25 Private MD: Randall Dillard Diagnosis: Synovial cyst of popliteal space [Horn], left knee Presentation: 03/17 14:15 Presenting complaint: Pain behind left knee x 3-4 days. Denies fever/injury. Transition hb of care: patient was not received from another setting of care. Onset of symptoms was March 14, 2019. Risk Assessment: Do you want to hurt yourself or someone else? Patient reports no desire to harm self or others. Initial Sepsis Screen:. Care prior to arrival: None. 14:15 Method Of Arrival: Wheelchair hb 14:15 Acuity: SID 3 hb Historical: - Allergies: 14:17 BACITRACIN; hb 14:17 Codeine; hb 14:17 methylisothiazolinone; hb 14:17 Morphine; hb - Home Meds: 14:17 atenolol 50 mg Oral tab twice a day [Active]; cyanocobalamin (vitamin B-12) Oral hb [Active]; gabapentin 300 mg Oral cap 1 cap twice daily [Active]; Hydralazine Oral [Active]; hydroxyzine HCl 10 mg Oral tab three times a day [Active]; levocetirizine 5 mg Oral tab 1 tab once daily [Active]; levothyroxine 112 mcg tab [Active]; omeprazole 20 mg Oral cpDR 1 cap once daily [Active]; - PMHx: 14:17 Arthritis; Chronic Kidney disease stage 3; EDEMA OF LOWER LEG; Hypertension; ABNORMAL hb GAIT; Hypothyroidism; hyponatremia; ITCHING OF SKIN - CHRONIC; UTI; - Immunization history:: Adult Immunizations up to date. - Social history:: Smoking status: Patient/guardian denies using tobacco. - Ebola Screening: : No symptoms or risks identified at this time. Screenin:25 Abuse screen: Denies threats or abuse. Denies injuries from another. Nutritional aj1 screening: No deficits noted. Tuberculosis screening: No symptoms or risk factors identified. Assessment: 14:25 General: Appears in no apparent distress. comfortable, Behavior is calm, cooperative, aj1 appropriate for age. Pain: Complains of pain in posterior aspect of left knee. Neuro: Level of Consciousness is awake, alert, obeys commands, Oriented to person, place, time, situation. Cardiovascular: Patient's skin is warm and dry. Respiratory: Airway is patent Respiratory effort is even, unlabored, Respiratory pattern is regular, symmetrical. GI: No signs and/or symptoms were reported involving the gastrointestinal system. : No signs and/or symptoms were reported regarding the genitourinary system. EENT: No signs and/or symptoms were reported regarding the EENT system. Derm: No signs and/or symptoms reported regarding the dermatologic system. Skin is pink, warm \T\ dry. normal. Musculoskeletal: Range of motion: intact in all extremities. 15:07 Reassessment: Patient appears in no apparent distress at this time. No changes from aj1 previously documented assessment. Patient and/or family updated on plan of care and expected duration. Pain level reassessed. Patient is alert, oriented x 3, equal unlabored respirations, skin warm/dry/pink. Vital Signs: 14:17 BP 127 / 68; Pulse 75; Resp 20; Temp 97.7; Pulse Ox 100% on R/A; Weight 44.45 kg; hb Height 5 ft. 3 in. (160.02 cm); Pain 6/10; 14:17 Body Mass Index 17.36 (44.45 kg, 160.02 cm) hb ED Course: 14:10 Patient arrived in ED. mr 14:11 Randall Dillard DO is Private Physician. mr 14:15 Triage completed. hb 14:17 Arm band placed on. hb 14:25 Patient has correct armband on for positive identification. Bed in low position. Call aj1 light in reach. 14:25 No provider procedures requiring assistance completed. aj1 14:28 Devon Quesada MD is Attending Physician. ps1 14:58 rEma Bill, LEAH is Primary Nurse. aj1 15:03 Extrmty Nonvasular Limited In Process Unspecified. EDMS 16:00 Randall Dillard DO is Referral Physician. ps1 16:21 Patient did not have IV access during this emergency room visit. tr5 Administered Medications: No medications were administered Outcome: 16:00 Discharge ordered by . ps1 16:21 Discharged to home ambulatory. tr5 16:21 Condition: stable 16:21 Discharge instructions given to patient, Instructed on discharge instructions, follow up and referral plans. Demonstrated understanding of instructions, follow-up care. 16:31 Patient left the ED. tr5 Signatures: Dispatcher [employer] Erma Fajardo, RN RN aj1 Nena Robertson mr AnivalSasha RN RN hb Devon Quesada MD MD ps1 Rodriguez, Tommie, RN RN tr5 Corrections: (The following items were deleted from the chart) 14:18 14:15 Acuity: SID 4 hb hb
--- NOTE | 2019-03-17 16:01 | EDPHYS ---
Physician Documentation [facility] Name: Nena Rosario Age: 83 yrs Sex: Female : 1935 Arrival Date: 03/17/2019 Time: 14:10 Bed 25 Private MD: Randall Dillard ED Physician Devon Quesada HPI: 03/17 15:57 This 83 yrs old Female presents to ER via Wheelchair with complaints of Cyst. ps1 15:57 patient has a left cyst on back of knee. intermittent pain. No fever. No swelling. Pain ps1 moderate. . Historical: - Allergies: 14:17 BACITRACIN; hb 14:17 Codeine; hb 14:17 methylisothiazolinone; hb 14:17 Morphine; hb - Home Meds: 14:17 atenolol 50 mg Oral tab twice a day [Active]; cyanocobalamin (vitamin B-12) Oral hb [Active]; gabapentin 300 mg Oral cap 1 cap twice daily [Active]; Hydralazine Oral [Active]; hydroxyzine HCl 10 mg Oral tab three times a day [Active]; levocetirizine 5 mg Oral tab 1 tab once daily [Active]; levothyroxine 112 mcg tab [Active]; omeprazole 20 mg Oral cpDR 1 cap once daily [Active]; - PMHx: 14:17 Arthritis; Chronic Kidney disease stage 3; EDEMA OF LOWER LEG; Hypertension; ABNORMAL hb GAIT; Hypothyroidism; hyponatremia; ITCHING OF SKIN - CHRONIC; UTI; - Immunization history:: Adult Immunizations up to date. - Social history:: Smoking status: Patient/guardian denies using tobacco. - Ebola Screening: : No symptoms or risks identified at this time. ROS: 15:57 Constitutional: Negative for fever, chills, and weight loss, Cardiovascular: Negative ps1 for chest pain, palpitations, and edema, Respiratory: Negative for shortness of breath, cough, wheezing, and pleuritic chest pain, Abdomen/GI: Negative for abdominal pain, nausea, vomiting, diarrhea, and constipation, Skin: Negative for injury, rash, and discoloration. 15:57 MS/extremity: Positive for horn cyst. Exam: 15:57 Constitutional: This is a well developed, well nourished patient who is awake, alert, ps1 and in no acute distress. Head/Face: Normocephalic, atraumatic. Eyes: Pupils equal round and reactive to light, extra-ocular motions intact. Lids and lashes normal. Conjunctiva and sclera are non-icteric and not injected. Cardiovascular: Regular rate and rhythm. No gallops, murmurs, or rubs. Normal PMI, no JVD. No pulse deficits. Respiratory: Lungs have equal breath sounds bilaterally, clear to auscultation and percussion. No rales, rhonchi or wheezes noted. No increased work of breathing, no retractions or nasal flaring. Abdomen/GI: Soft, non-tender, with normal bowel sounds. No distension or tympany. No guarding or rebound. No evidence of tenderness throughout. 15:57 Musculoskeletal/extremity: Extremities: grossly normal except: noted in the posterior aspect of left knee: appears to be 4cm horn cyst. Vital Signs: 14:17 BP 127 / 68; Pulse 75; Resp 20; Temp 97.7; Pulse Ox 100% on R/A; Weight 44.45 kg; hb Height 5 ft. 3 in. (160.02 cm); Pain 6/10; 14:17 Body Mass Index 17.36 (44.45 kg, 160.02 cm) hb MDM: 14:36 Patient medically screened. ps1 03/17 14:37 Order name: US Decker Nonvasular Limited; Complete Time: 15:55 ps1 Administered Medications: No medications were administered Disposition: 03/17/19 16:00 Discharged to Home. Impression: Synovial cyst of popliteal space [Horn], left knee. - Condition is Stable. - Discharge Instructions: Horn Cyst. - Medication Reconciliation Form, Thank You Letter, Antibiotic Education, Prescription Opioid Use form. - Follow up: Emergency Department; When: As needed; Reason: Fever > 102 F, Worsening of condition. Follow up: Randall Dillard DO; When: As needed; Reason: Recheck today's complaints, Continuance of care, Re-evaluation by your physician. - Problem is new. - Symptoms are unchanged. Signatures: Dispatcher [employer] EDMS Sasha Florian RN RN Devon Quesada MD MD ps1 Rodo Odom RN RN tr5 Corrections: (The following items were deleted from the chart) 16:31 16:00 03/17/2019 16:00 Discharged to Home. Impression: Synovial cyst of popliteal space tr5 [Horn], left knee. Condition is Stable. Forms are Medication Reconciliation Form, Thank You Letter, Antibiotic Education, Prescription Opioid Use. Follow up: Emergency Department; When: As needed; Reason: Fever > 102 F, Worsening of condition. Follow up: Randall Dillard; When: As needed; Reason: Recheck today's complaints, Continuance of care, Re-evaluation by your physician. Problem is new. Symptoms are unchanged. ps1
[2019-03-17 17:25] VITALS: BP 127/68; TEMP 97.7; O2SAT 100
== END 2019-03-17 16:31 | disposition home or self-care (01) ==
LOC: ER 14:05
DX: I77.89 Other specified disorders of arteries and arterioles (principal); M71.22 Synovial cyst of popliteal space [Baker], left knee; Z88.6 Allergy status to analgesic agent; Z88.1 Allergy status to other antibiotic agents; N18.3 Chronic kidney disease, stage 3 (moderate); I10 Essential (primary) hypertension; E03.9 Hypothyroidism, unspecified
CPT/HCPCS: 76882; 99283

== ENCOUNTER 2019-04-22 11:51 | Emergency (ER) | payer MEDICARE ==
[2019-04-22] MEDS ORDERED: METHYLPREDNISOLONE 125 MG INJ ONE (14:05)
[2019-04-22] MEDS ORDERED: DIPHENHYDRAMINE 50 MG/ML VIAL ONE ×2 (14:05→14:39)
[2019-04-22 14:28] LABS: Basophils % 1.2 % (0-1.3); Hematocrit 27.1 % (36.0-45.0); Lymphocytes % 15.6 % (15.3-44.8); MPV 7.1 fL (7.6-11.3); RBC Red Blood Cell Count 2.63 M/uL (3.86-4.86)
[2019-04-22 14:47] LABS: Albumin 3.3 g/dL (3.4-5.0); Bilirubin Direct 0.3 mg/dL (0-0.2); Bilirubin Total 0.7 mg/dL (0.2-1.0); Potassium 4.2 mmol/L (3.5-5.1); Protein, Total 6.6 g/dL (6.4-8.2)
[2019-04-22 15:41] LABS: Urine Blood NEGATIVE (NEG); Urine Glucose NEGATIVE (NEG); Urine Protein NEGATIVE (NEG); Urine Specific Gravity 1.015 (1.005-1.030)
[2019-04-22 16:06] LABS: Urine Bacteria <20 /HPF (<20); Urine Culture Reflex Order NOT NEEDED; Urine RBC NONE SEEN /HPF (NONE SEEN)
--- NOTE | 2019-04-22 16:24 | ER ---
Nurse's Notes [facility] Name: Nena Rosario Age: 83 yrs Sex: Female : 1935 Arrival Date: 04/22/2019 Time: 12:00 Bed 27 Private MD: Randall Dillard Diagnosis: Pruritus Presentation: 04/22 12:31 Presenting complaint: Patient states: Itching skin, denies any rash or bumps, reports sg having the itchiness off and on for about 4 years, the itching is causing her to stay up at night with discomfort, pt reports feeling weak and believes that may be related to her infection in her liver, pt denies any pain nausea vomiting or diarrhea at this time. Transition of care: patient was not received from another setting of care. Onset of symptoms was April 22, 2019. Risk Assessment: Do you want to hurt yourself or someone else? Patient reports no desire to harm self or others. Initial Sepsis Screen: Does the patient meet any 2 criteria? No. Patient's initial sepsis screen is negative. Does the patient have a suspected source of infection? No. Patient's initial sepsis screen is negative. Care prior to arrival: None. 12:31 Method Of Arrival: Wheelchair sg 12:31 Acuity: SID 3 sg Historical: - Allergies: 12:25 BACITRACIN; sg 12:25 methylisothiazolinone; sg 12:25 Codeine; sg 12:25 Morphine; sg - PMHx: 12:25 ABNORMAL GAIT; Arthritis; Chronic Kidney disease stage 3; EDEMA OF LOWER LEG; sg Hypertension; hyponatremia; Hypothyroidism; ITCHING OF SKIN - CHRONIC; UTI; - Immunization history:: Adult Immunizations up to date. - Social history:: Smoking status: Patient/guardian denies using tobacco. - Ebola Screening: : Patient negative for fever greater than or equal to 101.5 degrees Fahrenheit, and additional compatible Ebola Virus Disease symptoms Patient denies exposure to infectious person Patient denies travel to an Ebola-affected area in the 21 days before illness onset No symptoms or risks identified at this time. Screenin:10 Abuse screen: Denies threats or abuse. Nutritional screening: No deficits noted. aa5 Tuberculosis screening: No symptoms or risk factors identified. 14:00 Fall Risk Fall in past 12 months (25 points). Secondary diagnosis (15 points) impaired aa5 mobility, IV access (20 points). Assessment: 13:10 General: Appears comfortable, Behavior is calm, cooperative. Pain: Denies pain. Neuro: aa5 Level of Consciousness is awake, alert, obeys commands, Oriented to person, place, time, situation, Hydrology Teacher are equal bilaterally Moves all extremities. Speech is normal, Facial symmetry appears normal, Reports generalized weakness . Cardiovascular: Heart tones S1 S2 present Rhythm is regular. Respiratory: Airway is patent Respiratory effort is even, unlabored, Respiratory pattern is regular, symmetrical, Breath sounds are clear bilaterally. GI: Abdomen is flat, non-distended, Bowel sounds present X 4 quads. Abd is soft and non tender X 4 quads. : Reports urinary frequency, Denies burning with urination. EENT: No signs and/or symptoms were reported regarding the EENT system. Derm: Skin is pink, warm \T\ dry. Redness noted to left flank area. Musculoskeletal: Range of motion: intact in all extremities. 14:36 Reassessment: Patient is alert, oriented x 3, equal unlabored respirations, skin aa5 warm/dry/pink. Pt reports itching has not improved, PA was notified . 15:30 Reassessment: Patient is alert, oriented x 3, equal unlabored respirations, skin aa5 warm/dry/pink. Patient states feeling better. 16:45 Reassessment: Patient is alert, oriented x 3, equal unlabored respirations, skin aa5 warm/dry/pink. Patient states feeling better. Vital Signs: 12:32 BP 131 / 79; Pulse 72; Resp 17; Temp 98.7; Pulse Ox 100% on R/A; Weight 47.63 kg (R); sg Height 5 ft. 3 in. (160.02 cm); Pain 0/10; 13:20 BP 170 / 77; Pulse 85; Resp 16 S; Pulse Ox 98% on R/A; aa5 15:00 BP 174 / 78; Pulse 68; Resp 16 S; Pulse Ox 98% on R/A; aa5 16:20 BP 158 / 78; Pulse 73; Resp 18 S; Temp 98.0(TE); Pulse Ox 98% on R/A; aa5 12:32 Body Mass Index 18.60 (47.63 kg, 160.02 cm) ED Course: 12:00 Patient arrived in ED. am2 12:00 Randall Dillard DO is Private Physician. am2 12:25 Arm band placed on. sg 12:32 Triage completed. sg 13:10 [facility]illas [facility]. jr8 13:10 Leonardo Cramer MD is Attending Physician. jr8 13:10 Miroslava Salas, RN is Primary Nurse. aa5 13:10 Patient has correct armband on for positive identification. Placed in gown. Bed in low aa5 position. Call light in reach. Side rails up X2. 14:00 Initial lab(s) drawn, by me, sent to lab. Inserted saline lock: 22 gauge in right aa5 forearm, using aseptic technique. Blood collected. 16:23 Randall Dillard DO is Referral Physician. jr8 16:40 IV discontinued, intact, bleeding controlled, No redness/swelling at site. Pressure aa5 dressing applied. 16:40 No provider procedures requiring assistance completed. aa5 Administered Medications: 14:04 Drug: Benadryl 12.5 mg Route: IVP; Site: right forearm; aa5 14:15 Follow up: Response: No adverse reaction aa5 14:05 Drug: SOLU-Medrol 125 mg Route: IVP; Site: right forearm; aa5 14:15 Follow up: Response: No adverse reaction aa5 14:38 Drug: Benadryl 12.5 mg Route: IVP; Site: right forearm; aa5 15:30 Follow up: Response: No adverse reaction; Marked relief of symptoms aa5 Outcome: 16:23 Discharge ordered by . jr8 16:45 Discharged to home via wheelchair, with significant other. aa5 16:45 Condition: improved 16:45 Discharge instructions given to patient, Instructed on discharge instructions, follow up and referral plans. medication usage, Demonstrated understanding of instructions, follow-up care, medications, Prescriptions given X 1. 16:50 Patient left the ED. Signatures: Lewis Neil RN RN sg Miroslava Salas, RN RN aa5 Mando Casillas PA PA jr8 Lissett Shultz am2 Corrections: (The following items were deleted from the chart) 18:42 18:42 No provider procedures requiring assistance completed. aa5 aa5 18:42 18:42 IV discontinued, intact, bleeding controlled, No redness/swelling at site. aa5 Pressure dressing applied, aa5
--- NOTE | 2019-04-22 16:24 | EDPHYS ---
Physician Documentation [facility] Name: Nena Rosario Age: 83 yrs Sex: Female : 1935 Arrival Date: 04/22/2019 Time: 12:00 Bed 27 Private MD: Randall Dillard ED Physician Leonardo Cramer HPI: 04/22 13:57 This 83 yrs old Female presents to ER via Wheelchair with complaints of jr8 itching, unable to sleep. 13:57 Patient stated that she has on/off itching episodes that are not going away. Causing jr8 her not to sleep. Severity of symptoms: At their worst the symptoms were moderate in the emergency department the symptoms are unchanged. The patient has experienced similar episodes in the past, several times. The patient has not recently seen a physician. Historical: - Allergies: 12:25 BACITRACIN; sg 12:25 methylisothiazolinone; sg 12:25 Codeine; sg 12:25 Morphine; sg - PMHx: 12:25 ABNORMAL GAIT; Arthritis; Chronic Kidney disease stage 3; EDEMA OF LOWER LEG; sg Hypertension; hyponatremia; Hypothyroidism; ITCHING OF SKIN - CHRONIC; UTI; - Immunization history:: Adult Immunizations up to date. - Social history:: Smoking status: Patient/guardian denies using tobacco. - Ebola Screening: : Patient negative for fever greater than or equal to 101.5 degrees Fahrenheit, and additional compatible Ebola Virus Disease symptoms Patient denies exposure to infectious person Patient denies travel to an Ebola-affected area in the 21 days before illness onset No symptoms or risks identified at this time. ROS: 13:57 Eyes: Negative for injury, pain, redness, and discharge, ENT: Negative for injury, jr8 pain, and discharge, Neck: Negative for injury, pain, and swelling, Cardiovascular: Negative for chest pain, palpitations, and edema, Respiratory: Negative for shortness of breath, cough, wheezing, and pleuritic chest pain, Abdomen/GI: Negative for abdominal pain, nausea, vomiting, diarrhea, and constipation, Back: Negative for injury and pain, MS/Extremity: Negative for injury and deformity, Neuro: Negative for headache, weakness, numbness, tingling, and seizure. 13:57 Skin: Negative for erythema, jaundice, rash. Exam: 13:57 Eyes: Pupils equal round and reactive to light, extra-ocular motions intact. Lids and jr8 lashes normal. Conjunctiva and sclera are non-icteric and not injected. Cornea within normal limits. Periorbital areas with no swelling, redness, or edema. ENT: Nares patent. No nasal discharge, no septal abnormalities noted. Tympanic membranes are normal and external auditory canals are clear. Oropharynx with no redness, swelling, or masses, exudates, or evidence of obstruction, uvula midline. Mucous membranes moist. Neck: Trachea midline, no thyromegaly or masses palpated, and no cervical lymphadenopathy. Supple, full range of motion without nuchal rigidity, or vertebral point tenderness. No Meningismus. Cardiovascular: Regular rate and rhythm with a normal S1 and S2. No gallops, murmurs, or rubs. Normal PMI, no JVD. No pulse deficits. Respiratory: Lungs have equal breath sounds bilaterally, clear to auscultation and percussion. No rales, rhonchi or wheezes noted. No increased work of breathing, no retractions or nasal flaring. Abdomen/GI: Soft, non-tender, with normal bowel sounds. No distension or tympany. No guarding or rebound. No evidence of tenderness throughout. Back: No spinal tenderness. No costovertebral tenderness. Full range of motion. MS/ Extremity: Pulses equal, no cyanosis. Neurovascular intact. Full, normal range of motion. Neuro: Awake and alert, GCS 15, oriented to person, place, time, and situation. Cranial nerves II-XII grossly intact. Motor strength 5/5 in all extremities. Sensory grossly intact. Cerebellar exam normal. Normal gait. 13:57 Skin: Patient has generalized dry skin noted to chest and back without specific erythema or rash noted . Vital Signs: 12:32 BP 131 / 79; Pulse 72; Resp 17; Temp 98.7; Pulse Ox 100% on R/A; Weight 47.63 kg (R); sg Height 5 ft. 3 in. (160.02 cm); Pain 0/10; 13:20 BP 170 / 77; Pulse 85; Resp 16 S; Pulse Ox 98% on R/A; aa5 15:00 BP 174 / 78; Pulse 68; Resp 16 S; Pulse Ox 98% on R/A; aa5 16:20 BP 158 / 78; Pulse 73; Resp 18 S; Temp 98.0(TE); Pulse Ox 98% on R/A; aa5 12:32 Body Mass Index 18.60 (47.63 kg, 160.02 cm) sg MDM: 13:17 Patient medically screened. 16:22 Data reviewed: vital signs, nurses notes, lab test result(s), and as a result, I will jr8 discharge patient. Data interpreted: Pulse oximetry: on room air is 100 %. Interpretation: normal. Counseling: I had a detailed discussion with the patient and/or guardian regarding: the historical points, exam findings, and any diagnostic results supporting the discharge/admit diagnosis, lab results, the need for outpatient follow up, a family practitioner, to return to the emergency department if symptoms worsen or persist or if there are any questions or concerns that arise at home. Response to treatment: the patient's symptoms have markedly improved after treatment. 04/22 13:55 Order name: Basic Metabolic Panel; Complete Time: 14:58 04/22 13:55 Order name: CBC with Diff; Complete Time: 14:31 04/22 13:55 Order name: Creatinine for Radiology; Complete Time: 14:58 04/22 13:55 Order name: Hepatic Function; Complete Time: 14:58 04/22 13:55 Order name: Lipase; Complete Time: 14:58 04/22 15:22 Order name: Urine Dipstick--Ancillary (enter results); Complete Time: 16:03 04/22 13:55 Order name: IV Saline Lock; Complete Time: 14:16 04/22 13:55 Order name: Labs collected and sent; Complete Time: 14:16 04/22 15:28 Order name: Urine Microscopic Only; Complete Time: 16:22 04/22 15:28 Order name: Urine Dipstick-Ancillary (obtain specimen); Complete Time: 15:32 Administered Medications: 14:04 Drug: Benadryl 12.5 mg Route: IVP; Site: right forearm; aa5 14:15 Follow up: Response: No adverse reaction aa5 14:05 Drug: SOLU-Medrol 125 mg Route: IVP; Site: right forearm; aa5 14:15 Follow up: Response: No adverse reaction aa5 14:38 Drug: Benadryl 12.5 mg Route: IVP; Site: right forearm; aa5 15:30 Follow up: Response: No adverse reaction; Marked relief of symptoms aa5 Disposition: 04/23 08:04 Co-signature as Attending Physician, Leonardo Cramer MD I agree with the assessment and [place] plan of care. Disposition: 04/22/19 16:23 Discharged to Home. Impression: Pruritus. - Condition is Stable. - Discharge Instructions: Pruritus. - Prescriptions for Hydroxyzine HCl 25 mg Oral Tablet - take 1 tablet by ORAL route every 6 hours As needed; 30 tablet. - Medication Reconciliation Form, Thank You Letter, Antibiotic Education, Prescription Opioid Use form. - Follow up: Randall Dillard DO; When: 2 - 3 days; Reason: Recheck today's complaints, Continuance of care, Re-evaluation by your physician. - Problem is new. - Symptoms have improved. Signatures: Dispatcher [employer] EDMS Lewis Neil RN RN sg Anderson, Corey, MD MD cha Calderon, Audri RN RN aa5 Mando Casillas PA PA jr8 Corrections: (The following items were deleted from the chart) 04/22 16:50 16:23 04/22/2019 16:23 Discharged to Home. Impression: Pruritus. Condition is Stable. sg Forms are Medication Reconciliation Form, Thank You Letter, Antibiotic Education, Prescription Opioid Use. Follow up: Randall Dillard; When: 2 - 3 days; Reason: Recheck today's complaints, Continuance of care, Re-evaluation by your physician. Problem is new. Symptoms have improved. jr8
[2019-04-22 16:57] VITALS: BP 131/79; TEMP 98.7; O2SAT 100
== END 2019-04-22 16:50 | disposition home or self-care (01) ==
LOC: ER 11:51
DX: L29.9 Pruritus, unspecified (principal); I12.9 Hypertensive chronic kidney disease with stage 1 through stage 4 chronic kidney disease, or unspecified chronic kidney disease; N18.3 Chronic kidney disease, stage 3 (moderate); Z88.1 Allergy status to other antibiotic agents; Z88.5 Allergy status to narcotic agent; Z88.8 Allergy status to other drugs, medicaments and biological substances
CPT/HCPCS: 85025; 80048; 36415; 80076; 83690; 96375; 96374; 99284; J1200 ×2; J2930; 81003; 81015

== ENCOUNTER 2019-04-23 07:18 | Observation (INO) | payer MEDICARE ==
[2019-04-23 07:54] LABS: Absolute Lymphocytes (CBC) 0.4 K/uL (0.7-4.9); Basophils % 0.3 % (0-1.3); Hematocrit 27.4 % (36.0-45.0); Lymphocytes % 3.3 % (15.3-44.8); MPV 7.1 fL (7.6-11.3); Protime INR 0.85; RBC Red Blood Cell Count 2.62 M/uL (3.86-4.86)
[2019-04-23 08:12] LABS: ALT/SGPT 44 U/L (12-78); AST/SGOT 66 U/L (15-37); Albumin 3.3 g/dL (3.4-5.0); Alkaline Phosphatase 84 U/L (45-117); BUN Blood Urea Nitrogen 56 mg/dL (7-18); Bicarbonate 18 mmol/L (21-32); Bilirubin Direct 0.2 mg/dL (0-0.2); Bilirubin Total 0.5 mg/dL (0.2-1.0); Glucose Level 177 mg/dL (74-106); Magnesium 1.6 mg/dL (1.8-2.4); NT PRO-BNP 2495 pg/mL (<450); Potassium 4.3 mmol/L (3.5-5.1); Protein, Total 7.1 g/dL (6.4-8.2); Sodium Level 127 mmol/L (136-145); Troponin (Emerg Dept Use Only) < 0.02 ng/mL (0.0-0.045)
--- NOTE | 2019-04-23 08:30 | RAD REPORT ---
EXAM DESCRIPTION: CT - [id number] - 04/23/2019 8:01 am CLINICAL HISTORY: Fall, head and neck injury COMPARISON: CT head and cervical July 2016 stomach: MRI cervical spine August 2016 TECHNIQUE: Axial 5 mm thick images of the head were obtained. Axial 2 mm thick images of the cervic al spine were obtained with sagittal and coronal reconstruction images generated and reviewed. All CT scans are performed using dose optimization technique as appropriate and may include automated exposure control or mA/KV adjustment according to patient size. FINDINGS: No intracranial hemorrhage, mass, edema or acute intracranial finding. No acute cortical based infarc tion. No cortical edema or sulcal effacement. Patient has prominent atrophy and chronic ischemic wong ge. Ventricles are in proportion to the volume loss. Both atrophy and chronic ischemic change have sh own measurable progression from 2017. No extra-axial fluid collections. Mastoid air cells and paranas al sinuses are clear. No globe or orbit abnormality seen. Cervical bodies are normal in height. C4-C7 fusion changes are present matching comparison. There is very slight anterior subluxation of C7 on T1. This matches the comparison CT study. Wedge compression of T2 is present believed stable compared to the MRI examination of 2017. Facet joint degenerative c hanges are present at multiple levels. Mild left foraminal encroachment at C3-4. Left foraminal encro achment present at C4-5 and bilaterally at C5-6. More mild foraminal encroachment at C6-7. No paraspinal mass or hematoma. IMPRESSION: No hemorrhage, edema or acute intracranial finding. Patient has significant atrophy and chronic ischemic change that are progressive from 2017. Cervical spine degenerative and surgical changes similar to comparison. No acute finding . Negative CT cervical spine examination for acute or significant finding.
--- NOTE | 2019-04-23 09:19 | ER ---
Nurse's Notes [facility] Name: Nena Rosario Age: 83 yrs Sex: Female : 1935 Arrival Date: 04/23/2019 Time: 07:21 Bed 5 Private MD: Diagnosis: Syncope and collapse Presentation: 04/23 07:16 Presenting complaint: EMS states: pt was seen here yesterday for her fall, was sv discharged and stated she had a syncopal episode about 2 hours after being home. Pt went to lay down and thought she would feel better but has been having increasing generalized weakness. Transition of care: patient was not received from another setting of care. Onset of symptoms was April 23, 2019. Risk Assessment: Do you want to hurt yourself or someone else? Patient reports no desire to harm self or others. Initial Sepsis Screen: Does the patient meet any 2 criteria? No. Patient's initial sepsis screen is negative. Does the patient have a suspected source of infection? No. Patient's initial sepsis screen is negative. Care prior to arrival: None. 07:16 Method Of Arrival: EMS: [facility] sv 07:16 Acuity: SID 3 sv Triage Assessment: 07:20 General: Appears in no apparent distress. uncomfortable, Behavior is calm, cooperative, sv appropriate for age. Pain: Complains of pain in right arm and left arm Pain currently is 5 out of 10 on a pain scale. Quality of pain is described as tender, throbbing, Pain began 2-3 days ago. Is intermittent. Neuro: Level of Consciousness is awake, alert, obeys commands, Oriented to person, place, time, situation, Moves all extremities. Reports a syncopal episode yesterday. Neuro: Reports weakness. Cardiovascular: Patient's skin is warm and dry. Pulses are palpable in right radial artery and left radial artery. Respiratory: Airway is patent Respiratory effort is even, unlabored, Respiratory pattern is regular, symmetrical. Derm: Skin is fragile, is thin, with poor turgor has skin tears on left and right upper arms Skin is pale. Musculoskeletal: Range of motion: intact in all extremities. Injury Description: Laceration sustained to left bicep is full thickness, 2.6 to 7.5 cm long, was sustained unknown, pt does not remember if this is a new laceration from her syncopal episode yesterday after being discharged. moderate bleeding noted at this time. Pt has non-adherent dressing applied to left and right upper arms. Historical: - Allergies: 07:24 BACITRACIN; sv 07:24 Codeine; sv 07:24 methylisothiazolinone; sv 07:24 Morphine; sv - PMHx: 07:24 ABNORMAL GAIT; Chronic Kidney disease stage 3; Arthritis; EDEMA OF LOWER LEG; sv Hypertension; hyponatremia; Hypothyroidism; ITCHING OF SKIN - CHRONIC; UTI; - Immunization history:: Adult Immunizations up to date. - Social history:: Smoking status: Patient/guardian denies using tobacco. - Ebola Screening: : No symptoms or risks identified at this time. Screenin:24 Abuse screen: Denies threats or abuse. Denies injuries from another. Nutritional sv screening: No deficits noted. Tuberculosis screening: No symptoms or risk factors identified. Fall Risk Fall in past 12 months (25 points). No secondary diagnosis (0 pts). No IV (0 pts). Ambulatory Aid- None/Bed Rest/Nurse Assist (0 pts). Gait- Weak (10 pts.). Mental Status- Oriented to own ability (0 pts). Total Jimenez Fall Scale indicates Low Risk Score (25-44 pts). Fall prevention measures have been instituted. Side Rails Up X 2 Placed close to Nursing Station Frequent Obs/Assesments occuring As available Patient and Family Educated on Fall Prevention Program and strategies. Assessment: 08:20 Reassessment: Patient appears in no apparent distress at this time. No changes from sv previously documented assessment. Patient and/or family updated on plan of care and expected duration. Pain level reassessed. Patient is alert, oriented x 3, equal unlabored respirations, skin warm/dry/pink. 09:38 Reassessment: Patient appears in no apparent distress at this time. No changes from sv previously documented assessment. Patient and/or family updated on plan of care and expected duration. Pain level reassessed. Patient is alert, oriented x 3, equal unlabored respirations, skin warm/dry/pink. 10:30 Reassessment: Patient appears in no apparent distress at this time. No changes from sv previously documented assessment. Patient and/or family updated on plan of care and expected duration. Pain level reassessed. Patient is alert, oriented x 3, equal unlabored respirations, skin warm/dry/pink. 11:53 Reassessment: Patient appears in no apparent distress at this time. No changes from previously documented assessment. Patient and/or family updated on plan of care and expected duration. Pain level reassessed. Patient is alert, oriented x 3, equal unlabored respirations, skin warm/dry/pink. Vital Signs: 07:24 BP 125 / 54; Pulse 72; Resp 16; Temp 97.6(TE); Pulse Ox 100% on R/A; Weight 47.63 kg; sv Height 5 ft. 3 in. (160.02 cm); Pain 3/10; 08:43 BP 148 / 75; Pulse 81; Resp 17; Pulse Ox 95% on 2 lpm NC; sv 09:15 BP 126 / 84; Pulse 76; Resp 17; Pulse Ox 100% ; sv 10:00 BP 131 / 81; Pulse 79; Resp 18; Pulse Ox 100% ; sv 10:46 BP 120 / 88; Pulse 79; Resp 18; Pulse Ox 100% on R/A; sv 11:30 BP 136 / 59; Pulse 72; Resp 16; Pulse Ox 100% ; sv 12:15 BP 152 / 74; Pulse 78; Resp 18; Pulse Ox 100% ; sv 07:24 Body Mass Index 18.60 (47.63 kg, 160.02 cm) sv ED Course: 07:21 Patient arrived in ED. sv 07:21 Cornelia Heard, RN is Primary Nurse. sv 07:22 Leonardo Cramer MD is Attending Physician. [place] 07:23 Triage completed. sv 07:24 Nurse Practitioner and/or Physician Bobbin Washer to see patient. sv 07:24 Arm band placed on. sv 07:25 Patient has correct armband on for positive identification. Bed in low position. Call light in reach. Side rails up X2. Pulse ox on. NIBP on. Door closed. Head of bed elevated. 07:29 Leonardo Baker PA is PHCP. cp 07:40 Inserted saline lock: 22 gauge in right forearm, using aseptic technique. ,using aseptic technique. diffusics Blood collected. Flushed right forearm with 5 ml normal saline. 07:47 XRAY Chest (1 view) In Process Unspecified. EDMS 07:55 EKG done, by ED staff, reviewed by Leonardo Cramer MD. ms 08:01 CT Head C Spine In Process Unspecified. EDMS 09:18 Buzombo, Dio, MD is Hospitalizing Provider. cp 09:35 Urine collected: straight cath specimen, clear, Amount Returned: 20mL. Straight cath ms inserted, using sterile technique, 16 Fr. Specimen obtained. Returned clear yellow urine. Patient tolerated well. 10:30 Assist provider with laceration repair on left bicep that was between 2.6 to 7.5 cm sv using sutures. Set up tray. Performed by Leonardo RASHID Dressed with Adaptic, Ellyn, and steri strips applied to the areas that could use where the skin tears were on the left and right upper arm. Pt had multiple skin tears. Patient tolerated well. 11:53 Patient admitted, IV remains in place. intact. sv Administered Medications: 09:38 Drug: Magnesium Sulfate 1 grams Route: IVPB; Infused Over: 1 hrs; Site: right forearm; sv 10:35 Follow up: Response: No adverse reaction; IV Status: Completed infusion; IV Intake: ss 100ml 10:30 Drug: Lidocaine-Epinephrine -1%: (1:100,000) 10 ml {Note: given to Leonardo RASHID for sv procedure.} Volume: 20 ml; Route: Infiltration; 11:23 Drug: NS 0.9% 250 ml Route: IV; Rate: bolus; Site: right forearm; sv 11:30 Follow up: Response: No adverse reaction; IV Status: Completed infusion; IV Intake: ss 250ml 11:23 Drug: NS 0.9% 1000 ml Route: IV; Rate: 75 ml/hr; Site: right forearm; sv 11:53 Follow up: Response: No adverse reaction; IV Status: Infusion continued upon admission sv Intake: 10:35 IV: 100ml; Total: 100ml. ss 11:30 IV: 250ml; Total: 350ml. ss Outcome: 09:19 Decision to Hospitalize by Provider. cp 11:53 Admitted to Tele accompanied by tech, via stretcher, room 429, with chart, Report sv called to Elle LYNN 11:53 Condition: stable 11:53 Instructed on the need for admit. 12:30 Patient left the ED. sv Signatures: Dispatcher [employer] Cornelia Miranda RN RN sv Anderson, Corey, MD MD cha Villarreal, Maria ms Smirch, Shelby, RN RN ss Page, Corey, PA PA cp Corrections: (The following items were deleted from the chart) 09:39 09:38 Magnesium Sulfate 1 grams IVPB in right wrist over 1 hrs sv sv 19:40 11:53 No provider procedures requiring assistance completed. sv sv
--- NOTE | 2019-04-23 09:20 | EDPHYS ---
Physician Documentation [facility] Name: Nena Rosario Age: 83 yrs Sex: Female : 1935 Arrival Date: 04/23/2019 Time: 07:21 Bed 5 Private MD: SARAH Physician Leonardo Cramer HPI: 04/23 07:50 This 83 yrs old Female presents to ER via EMS with complaints of Syncope, cp Fall and General Weakness. 07:50 The patient has experienced syncope, lost consciousness. Onset: The symptoms/episode cp began/occurred yesterday. Duration: This was a single episode, that lasted an unknown period of time. 07:50 Context: occurred at home, occurred while the patient was sitting, Just prior to the cp episode the patient experienced dizziness, lightheadedness. Associated injury: Left upper extremity: laceration, Right upper extremity: laceration. Associated signs and symptoms: Pertinent positives: weakness, Pertinent negatives: abdominal pain, chest pain, seizure, vomiting. Current symptoms: general weakness. Historical: - Allergies: 07:24 BACITRACIN; sv 07:24 Codeine; sv 07:24 methylisothiazolinone; sv 07:24 Morphine; sv - PMHx: 07:24 ABNORMAL GAIT; Chronic Kidney disease stage 3; Arthritis; EDEMA OF LOWER LEG; sv Hypertension; hyponatremia; Hypothyroidism; ITCHING OF SKIN - CHRONIC; UTI; - Immunization history:: Adult Immunizations up to date. - Social history:: Smoking status: Patient/guardian denies using tobacco. - Ebola Screening: : No symptoms or risks identified at this time. ROS: 07:55 Constitutional: Negative for body aches, chills, fever, poor PO intake. cp 07:55 Eyes: Negative for injury, pain, redness, and discharge. cp 07:55 ENT: Negative for drainage from ear(s), ear pain, sore throat, difficulty swallowing, difficulty handling secretions. 07:55 Cardiovascular: Negative for chest pain, edema, palpitations. 07:55 Respiratory: Negative for cough, shortness of breath, wheezing. 07:55 Abdomen/GI: Negative for abdominal pain, vomiting, diarrhea, constipation, black/tarry stool, rectal bleeding. 07:55 Back: Negative for pain at rest, pain with movement. 07:55 : Negative for urinary symptoms. 07:55 Skin: Positive for of the right arm and left arm, skin tears. 07:55 Neuro: Positive for syncope, weakness, Negative for altered mental status, headache, speech changes. 07:55 All other systems are negative. Exam: 08:03 ECG was reviewed by the Attending Physician. cp 08:05 Constitutional: The patient appears in no acute distress, alert, awake, cp non-diaphoretic, non-toxic, well developed, frail. 08:05 Head/Face: Normocephalic, atraumatic. cp 08:05 Eyes: Periorbital structures: appear normal, Pupils: equal, round, and reactive to light and accomodation, Extraocular movements: intact throughout, Conjunctiva: normal, no exudate, no injection, Sclera: no appreciated abnormality, Lids and lashes: appear normal, bilaterally. 08:05 ENT: External ear(s): are unremarkable, Ear canal(s): are normal, clear, TM's: Nose: is normal, Mouth: Lips: moist, Oral mucosa: moist, Posterior pharynx: is normal, airway is patent, no erythema, no exudate. 08:05 Neck: C-spine: vertebral tenderness, is not appreciated, diffusely, crepitus, is not appreciated, ROM/movement: pain, that is mild, with flexion, limited range of motion, is not appreciated, nuchal rigidity, is not appreciated. 08:05 Chest/axilla: Inspection: normal, Palpation: is normal, no crepitus, no tenderness. 08:05 Cardiovascular: Rate: normal, Rhythm: regular, Edema: is not appreciated, JVD: is not appreciated. 08:05 Respiratory: the patient does not display signs of respiratory distress, Respirations: normal, no use of accessory muscles, no retractions, no splinting, no tachypnea, labored breathing, is not present, Breath sounds: are clear throughout, no decreased breath sounds, no stridor, no wheezing. 08:05 Abdomen/GI: Inspection: abdomen appears normal, Bowel sounds: active, all quadrants, Palpation: abdomen is soft and non-tender, in all quadrants, voluntary guarding, is not appreciated, involuntary guarding, is not appreciated. 08:05 Back: pain, is absent, vertebral tenderness, is not appreciated. 08:05 Musculoskeletal/extremity: Exam is negative for bony tenderness, deformity. 08:05 Skin: injury, laceration(s), the wound is approximately 6 cm(s), of the left lateral upper arm, that can be described as no foreign body, irregular, with mild bleeding, large skin tears noted right elbow and left upper arm. 08:05 Neuro: Orientation: to person, place \T\ time. Mentation: is normal. Vital Signs: 07:24 BP 125 / 54; Pulse 72; Resp 16; Temp 97.6(TE); Pulse Ox 100% on R/A; Weight 47.63 kg; sv Height 5 ft. 3 in. (160.02 cm); Pain 3/10; 08:43 BP 148 / 75; Pulse 81; Resp 17; Pulse Ox 95% on 2 lpm NC; sv 09:15 BP 126 / 84; Pulse 76; Resp 17; Pulse Ox 100% ; sv 10:00 BP 131 / 81; Pulse 79; Resp 18; Pulse Ox 100% ; sv 10:46 BP 120 / 88; Pulse 79; Resp 18; Pulse Ox 100% on R/A; sv 11:30 BP 136 / 59; Pulse 72; Resp 16; Pulse Ox 100% ; sv 12:15 BP 152 / 74; Pulse 78; Resp 18; Pulse Ox 100% ; sv 07:24 Body Mass Index 18.60 (47.63 kg, 160.02 cm) sv Laceration: 10:00 Wound Repair of 6cm ( 2.4in ) subcutaneous laceration to left lateral upper arm. cp Irregularly shaped.. Distal neuro/vascular/tendon intact. Anesthesia: Wound infiltrated with 8 mls of 1% lidocaine w/ Epi. Wound prep: Moderate cleansing by nurse, Wound irrigation by nurse. Subcutaneous tissue closed with 2 4-0 Vicryl using running sutures. Dressed with non-adherent dressing. Patient tolerated well. MDM: 07:22 Patient medically screened. [place] 09:00 Data reviewed: vital signs, nurses notes, lab test result(s), EKG, radiologic studies, cp CT scan, plain films. 09:00 Test interpretation: by ED physician or midlevel provider: ECG, plain radiologic cp studies. Counseling: I had a detailed discussion with the patient and/or guardian regarding: the historical points, exam findings, and any diagnostic results supporting the discharge/admit diagnosis, lab results, radiology results, the need for further work-up and treatment in the hospital. Response to treatment: the patient's symptoms have mildly improved after treatment. 04/23 07:31 Order name: Basic Metabolic Panel; Complete Time: 08:45 cp 04/23 08:50 Interpretation: Normal except: NA 127; CL 91; CO2 18; GLUC 177; BUN 56; CRE 3.04; GFR cp 15; CA 8.1. 04/23 07:31 Order name: CBC with Diff cp 04/23 08:46 Interpretation: Normal except: WBC 10.6; RBC 2.62; HGB 9.3; HCT 27.4; MCV 104.5; MCH cp 35.6; MPV 7.1; WOODY% 91.9; LYM% 3.3; NEUT A 9.7; LYMA 0.4. 04/23 07:31 Order name: LFT's; Complete Time: 08:45 cp 04/23 07:31 Order name: Magnesium; Complete Time: 08:45 cp 04/23 07:31 Order name: NT PRO-BNP; Complete Time: 08:45 cp 04/23 07:32 Order name: PT-INR; Complete Time: 08:45 cp 04/23 07:32 Order name: Troponin (emerg Dept Use Only); Complete Time: 08:45 cp 04/23 08:50 Interpretation: Within normal limits: TROPED < 0.02. cp 04/23 07:32 Order name: XRAY Chest (1 view) cp 04/23 07:32 Order name: CT Head C Spine; Complete Time: 08:45 cp 04/23 07:32 Order name: Urine Microscopic Only cp 04/23 09:18 Order name: CK cp 04/23 09:38 Order name: Urine Dipstick--Ancillary (enter results) eb 04/23 10:02 Order name: CBC Smear Scan EDMS 04/23 07:32 Order name: EKG; Complete Time: 07:32 cp 04/23 07:32 Order name: Cardiac monitoring; Complete Time: 07:56 cp 04/23 07:32 Order name: EKG - Nurse/Tech; Complete Time: 07:56 cp 04/23 07:32 Order name: IV Saline Lock; Complete Time: 07:45 cp 04/23 07:32 Order name: Labs collected and sent; Complete Time: 07:45 cp 04/23 07:32 Order name: O2 Per Protocol; Complete Time: 07:33 cp 04/23 07:32 Order name: O2 Sat Monitoring; Complete Time: 07:33 cp 04/23 07:32 Order name: Urine Dipstick-Ancillary (obtain specimen); Complete Time: 09:35 cp 04/23 07:39 Order name: Wound dressing: dress skin tears; Complete Time: 07:45 cp 04/23 08:50 Order name: Dressing - Wound; Complete Time: 09:21 cp 04/23 08:50 Order name: Gloves, Sterile; Complete Time: 09:21 cp 04/23 08:50 Order name: Setup Suture Tray; Complete Time: 09:21 cp 04/23 11:30 Order name: Diet Heart Healthy; Complete Time: 11:30 ss 04/23 09:18 Order name: Cath; Complete Time: 09:35 cp EC:03 Rate is 72 beats/min. Rhythm is regular. UT interval is normal. QRS interval is normal. cp QT interval is normal. Interpreted by me. Reviewed by me. Administered Medications: 09:38 Drug: Magnesium Sulfate 1 grams Route: IVPB; Infused Over: 1 hrs; Site: right forearm; sv 10:35 Follow up: Response: No adverse reaction; IV Status: Completed infusion; IV Intake: ss 100ml 10:30 Drug: Lidocaine-Epinephrine -1%: (1:100,000) 10 ml {Note: given to Leonardo RASHID for sv procedure.} Volume: 20 ml; Route: Infiltration; 11:23 Drug: NS 0.9% 250 ml Route: IV; Rate: bolus; Site: right forearm; sv 11:30 Follow up: Response: No adverse reaction; IV Status: Completed infusion; IV Intake: ss 250ml 11:23 Drug: NS 0.9% 1000 ml Route: IV; Rate: 75 ml/hr; Site: right forearm; sv 11:53 Follow up: Response: No adverse reaction; IV Status: Infusion continued upon admission sv Disposition: 12:38 Co-signature as Attending Physician, Leonardo Cramer MD I agree with the assessment and [place] plan of care. Disposition: 04/23/19 09:19 Hospitalization ordered by Prince Valery for Observation. Preliminary diagnosis is Syncope and collapse. - Bed requested for Telemetry/MedSurg (Inpatient). - Status is Observation. sv - Condition is Stable. - Problem is new. - Symptoms have improved. UTI on Admission? No Signatures: Dispatcher [employer] Cornelia Miranda RN RN Leonardo Gao MD MD cha Page, Corey, PA PA cp Botello, Elizabeth eb Smirch, Shelby RN ss Corrections: (The following items were deleted from the chart) 08:50 08:45 Normal except: NA 127; CL 91; CO2 18; GLUC 177; BUN 56; CRE 3.04; GFR 15. cp cp 09:35 09:19 Hospitalization Ordered by Prince Valery COTE for Observation. Preliminary eb diagnosis is Syncope and collapse. Bed requested for Telemetry/MedSurg (observation). Status is Observation. Condition is Stable. Problem is new. Symptoms have improved. UTI on Admission? No. cp 11:35 09:35 04/23/2019 09:19 Hospitalization Ordered by Prince Valery COTE for Observation. eb Preliminary diagnosis is Syncope and collapse. Bed requested for [facility] ER HOLD. Status is Observation. Condition is Stable. Problem is new. Symptoms have improved. UTI on Admission? No. eb 12:30 11:35 04/23/2019 09:19 Hospitalization Ordered by Prince Valery COTE for Observation. sv Preliminary diagnosis is Syncope and collapse. Bed requested for Telemetry/MedSurg (Inpatient). Status is Observation. Condition is Stable. Problem is new. Symptoms have improved. UTI on Admission? No. eb
[2019-04-23] MEDS ORDERED: MAGNESIUM SULFATE 1 gm IVPB 1 GM/100 ML BAG IV ONE (09:24)
--- NOTE | 2019-04-23 09:50 | RAD REPORT ---
EXAM DESCRIPTION: RAD - Chest Single View - 04/23/2019 7:49 am CLINICAL HISTORY: Fall, syncope COMPARISON: October 2018 TECHNIQUE: AP portable chest image was obtained 0745 hours . FINDINGS: Lungs are clear. Heart and vasculature are normal. No measurable pleural effusion and no p neumothorax. No acute bone findings seen. Old rib trauma noted on the right. Fusion hardware the cerv ical spine noted. Mediastinal silhouette is similar to comparison. No acute aortic findings suspected . IMPRESSION: No acute cardiopulmonary process. No significant change from comparison.
[2019-04-23 10:01] LABS: Blood Morphology Comment NOT SEEN (NOT SEEN); Platelet Estimate ADEQ; Urine White Blood Cell Casts OK
[2019-04-23] MEDS ORDERED: NA CHLORIDE 0.9% 1,000 ML ONE (10:33)
[2019-04-23 10:57] LABS: Urine Blood NEGATIVE (NEG); Urine Glucose NEGATIVE (NEG); Urine Protein 1+ (NEG); Urine Specific Gravity 1.015 (1.005-1.030); Urine pH 5.5 (5.0-7.0)
--- NOTE | 2019-04-23 12:18 | EKG ---
Test Date: 2019-04-23 Test Time: 07:49:19 Incoming Freight Clerk: FRANCISCO MEASUREMENT RESULTS: Intervals: Rate: 72 DE: 200 QRSD: 74 QT: 432 QTc: 473 [place]: P: 81 DE: 200 QRS: 52 T: 63 INTERPRETIVE STATEMENTS: Normal sinus rhythm Normal ECG Compared to ECG 10/14/2018 20:01:30 First degree AV block no longer present Electronically Signed On 04-23-19 12:16:41 JOURNALIST by Gio Morrison
--- NOTE | 2019-04-23 14:54 | P.HP ---
Certification for Inpatient Patient admitted to: Observation With expected LOS: <2 Midnights Practitioner: I am a practitioner with admitting privileges, knowledge of patient current condition, hospital course, and medical plan of care. Services: Services provided to patient in accordance with Admission requirements found in Title 42 Section 412.3 of the Code of Federal Regulations Patient History Date of Service: 04/23/19 Reason for admission: recurrent fall, possibly syncope History of Present Illness: Patient is a 83-year-old female with a past medical history of dementia and chronic kidney disease who presents to the ER from home following an episode of recurrent falls. The patient had an episode of unwitnessed fall 1 day prior to presentation. , who was next door, came. She had evidence of bilateral upper extremity lacerations and skin tear. She is a poor historian. Therefore it is unclear to determine whether this was also a syncopal episode. Allergies bacitracin Allergy (Verified 05/08/17 21:01) Itching codeine Allergy (Verified 05/08/17 21:01) Itching methylisothiazolinone Allergy (Verified 05/08/17 21:01) Itching morphine Allergy (Verified 05/08/17 21:01) Itching Home Medications: Divalproex Sodium [Divalproex Sodium ER] 250 mg PO BEDTIME 10/15/18 Gabapentin 1 cap PO BID 10/15/18 Hydroxyzine HCl [Atarax] 1 tab PO BID 10/15/18 Levocetirizine Dihydrochloride [24Hr Allergy Relief] 1 tab PO BEDTIME 10/15/18 Levothyroxine Sodium 1 tab PO DAILY 10/15/18 atenoloL [Atenolol] 1 tab PO BID 10/15/18 Hydralazine HCl 1 tab PO BID 04/23/19 Montelukast [Singulair*] 1 tab PO BEDTIME 04/23/19 - Past Medical/Surgical History Has patient received pneumonia vaccine in the past: Yes Diabetic: No -: Hypothyroidism -: HTN -: Chronic hyponatremia -: Chronic pruritus -: Arthritis -: Edema of right lower extemity -: History of UTIs -: History of TIAs -: Chronic renal disease -: Asthma -: High risk for falls -: Back Surgery -: hysterectomy -: neck sx -: R eye sx for shingles Psychosocial/ Personal History: Patient is of 59 years. She has 3 children. She does not work - Family History Father -: Cancer Notes: prostate cancer Mother -: Hypertension - Social History Smoking Status: Never smoker Alcohol use: No CD- Drugs: No Caffeine use: Yes Place of Residence: Home Review of Systems 10-point ROS is otherwise unremarkable Physical Examination - Vital Signs Temperature: 98.2 F Blood Pressure: 157/65 Pulse: 69 Respirations: 18 Pulse Ox (%): 98 - Physical Exam General: Alert, In no apparent distress HEENT: Atraumatic, Normocephalic, Other (alopecia), EOMI Neck: Supple Respiratory: Clear to auscultation bilaterally, Normal air movement Cardiovascular: No edema, Normal pulses, Regular rate/rhythm, Normal S1 S2 Gastrointestinal: Normal bowel sounds, Soft and benign, Non-distended Musculoskeletal: No swelling, No contractures, No erythema, Tenderness, Other ( Upper extremity abrasions) Integumentary: Warmth (Upper extremity skin tears) Neurological: Normal speech, Normal affect - Studies Laboratory Data (last 24 hrs) 04/23/19 07:40: PT 10.1, INR 0.85 04/23/19 07:40: WBC 10.6 D, Hgb 9.3 L, Hct 27.4 L, Plt Count 331 04/23/19 07:40: Sodium 127 L, Potassium 4.3, BUN 56 H, Creatinine 3.04 H, Glucose 177 H, Magnesium 1.6 L D, Total Bilirubin 0.5, AST 66 H, ALT 44, Alkaline Phosphatase 84 Assessment and Plan - Problems (Diagnosis) (1) Dementia Current Visit: Yes Status: Acute (2) Anemia, chronic renal failure Current Visit: No Status: Acute (3) Dizziness Onset Date: 08/20/16 Current Visit: No Status: Acute (4) Falls Onset Date: 08/20/16 Current Visit: No Status: Acute Qualifiers: (5) Osteoarthritis, generalized Onset Date: 05/12/17 Current Visit: No Status: Acute (6) Recurrent falls Onset Date: 05/12/17 Current Visit: No Status: Acute (7) Skin avulsion Onset Date: 05/12/17 Current Visit: No Status: Acute (8) Skin laceration Onset Date: 05/12/17 Current Visit: No Status: Acute (9) Chronic pruritus Onset Date: 08/20/16 Current Visit: No Status: Chronic (10) Hypertension Onset Date: 09/02/16 Current Visit: No Status: Chronic Qualifiers: (11) Hyponatremia Current Visit: Yes Status: Acute - Advance Directives Does patient have a Living Will: Yes Does patient have a Durable POA for Healthcare: Yes Physician Review Additional Text: Impression: Patient is a 83-year-old female with a known past medical history of hypertension, CKD and recurrent fall so presented with another traumatic for the resulted in bilateral upper extremity abrasions. She presented to the ER hemodynamically stable. EKG was unremarkable except for mildly elevated QTC at 473. Basic labs was significant for acute on chronic CKD 4 and hyponatremia with a sodium 127. Last echocardiogram from October 2018 revealed a normal RVSP and ejection fraction. 1. Recurrent fall with possible syncope 2. Hyponatremia 3. Acute on chronic CKD 4 4. Hypertension 5. Possible dementia 6. Chronic pruritus Plan: 1. Admit with telemetry 2. Check orthostatics hypotension Q shift and treat as indicated 3. Start patient on IV normal saline infusion 4. Resume home dose of hydroxyzine for itching 5. Check thyroid function test, vitamins D and B12. 6. PT/OT
[2019-04-23] MEDS: NA CHLORIDE 0.9% 1,000 ML IV SCH ×2 (16:00→20:31)
[2019-04-23 16:18] LABS: Thyroid Stimulating Hormone 3.74 uIU/mL (0.360-3.740)
[2019-04-23] MEDS ORDERED: DIVALPROEX ER 250 MG TAB PO SCH (21:00)
[2019-04-23] MEDS ORDERED: MONTELUKAST 10 MG TAB PO SCH (21:00)
[2019-04-24] MEDS ORDERED: ACETAMINOPHEN 500 MG TAB PO PRN (00:20)
[2019-04-24] MEDS ORDERED: MAGNESIUM HYDROXIDE 8% 30 ML PO ONE (00:21)
[2019-04-24] MEDS: LEVOTHYROXINE SOD 0.112 MG TAB PO SCH (05:36)
--- NOTE | 2019-04-24 10:23 | P.CNS ---
Date of Consult: 04/24/19 Reason for Consult: JOY/ CKD Requesting Physician: Prince Sigrid Rasmussen Chief Complaint: recurrent fall, possibly syncope History of Present Illness: Patient is a 83-year-old female with a past medical history of dementia and chronic kidney disease who presents to the ER from home following an episode of recurrent falls. The patient had an episode of unwitnessed fall 1 day prior to presentation. , who was next door, came. She had evidence of bilateral upper extremity lacerations and skin tear. She is a poor historian. Therefore it is unclear to determine whether this was also a syncopal episode. 07:50 This 83 yrs old Female presents to ER via EMS with complaints of Syncope, cp Fall and General Weakness. Allergies bacitracin Allergy (Verified 05/08/17 21:01) Itching codeine Allergy (Verified 05/08/17 21:01) Itching methylisothiazolinone Allergy (Verified 05/08/17 21:01) Itching morphine Allergy (Verified 05/08/17 21:01) Itching Home medications list reviewed: Yes Home Medications: Divalproex Sodium [Divalproex Sodium ER] 250 mg PO BEDTIME 10/15/18 Gabapentin 1 cap PO BID 10/15/18 Hydroxyzine HCl [Atarax] 1 tab PO TID PRN 10/15/18 Levocetirizine Dihydrochloride [24Hr Allergy Relief] 1 tab PO BEDTIME 10/15/18 Levothyroxine Sodium 1 tab PO DAILY 10/15/18 atenoloL [Atenolol] 1 tab PO BID 10/15/18 Galantamine HBr [Razadyne] 4 mg PO BID 04/23/19 Hydralazine HCl 1 tab PO BID 04/23/19 Montelukast [Singulair*] 1 tab PO BEDTIME 04/23/19 - Past Medical/Surgical History Diabetic: No -: Hypothyroidism -: HTN -: Chronic hyponatremia -: Chronic pruritus -: Arthritis -: Edema of right lower extemity -: History of UTIs -: History of TIAs -: Chronic renal disease -: Asthma -: High risk for falls -: Back Surgery -: hysterectomy -: neck sx -: R eye sx for shingles Psychosocial/ Personal History: Patient is of 59 years. She has 3 children. She does not work - Family History Father Medical History: Cancer Notes: prostate cancer Mother Medical History: Hypertension - Social History Smoking Status: Unknown if ever smoked Alcohol use: No CD- Drugs: No Caffeine use: Yes Place of Residence: Home Review of Systems 10-point ROS is otherwise unremarkable General: Weakness, Malaise Cardiovascular: Edema Musculoskeletal: Back Pain Physical Examination Temp Pulse Resp BP Pulse Ox 97.6 F 77 16 152/72 H 94 04/24/19 08:00 04/24/19 08:00 04/24/19 08:00 04/24/19 08:00 04/24/19 08:00 General: Oriented x3, Cooperative HEENT: Atraumatic Neck: Supple Respiratory: Clear to auscultation bilaterally Cardiovascular: Regular rate/rhythm Gastrointestinal: Soft and benign, Non-distended Musculoskeletal: No clubbing, No contractures Integumentary: No rashes, No cyanosis Neurological: Normal speech Blood work reviewed in the chart. Imagings Data: EXAM DESCRIPTION: CT - [id number] - 04/23/2019 8:01 am CLINICAL HISTORY: Fall, head and neck injury COMPARISON: CT head and cervical July 2016 stomach: MRI cervical spine August 2016 TECHNIQUE: Axial 5 mm thick images of the head were obtained. Axial 2 mm thick images of the cervical spine were obtained with sagittal and coronal reconstruction images generated and reviewed. All CT scans are performed using dose optimization technique as appropriate and may include automated exposure control or mA/KV adjustment according to patient size. FINDINGS: No intracranial hemorrhage, mass, edema or acute intracranial finding. No acute cortical based infarction. No cortical edema or sulcal effacement. Patient has prominent atrophy and chronic ischemic change. Ventricles are in proportion to the volume loss. Both atrophy and chronic ischemic change have shown measurable progression from 2017. No extra-axial fluid collections. Mastoid air cells and paranasal sinuses are clear. No globe or orbit abnormality seen. Cervical bodies are normal in height. C4-C7 fusion changes are present matching comparison. There is very slight anterior subluxation of C7 on T1. This matches the comparison CT study. Wedge compression of T2 is present believed stable compared to the MRI examination of 2017. Facet joint degenerative changes are present at multiple levels. Mild left foraminal encroachment at C3-4. Left foraminal encroachment present at C4-5 and bilaterally at C5-6. More mild foraminal encroachment at C6-7. No paraspinal mass or hematoma. IMPRESSION: No hemorrhage, edema or acute intracranial finding. Patient has significant atrophy and chronic ischemic change that are progressive from 2017. Cervical spine degenerative and surgical changes similar to comparison. No acute finding . Negative CT cervical spine examination for acute or significant finding. EXAM DESCRIPTION: RAD - Chest Single View - 04/23/2019 7:49 am CLINICAL HISTORY: Fall, syncope COMPARISON: October 2018 TECHNIQUE: AP portable chest image was obtained 0745 hours . FINDINGS: Lungs are clear. Heart and vasculature are normal. No measurable pleural effusion and no pneumothorax. No acute bone findings seen. Old rib trauma noted on the right. Fusion hardware the cervical spine noted. Mediastinal silhouette is similar to comparison. No acute aortic findings suspected. IMPRESSION: No acute cardiopulmonary process. No significant change from comparison. Conclusions/Impression: A/ JOY likely due to hypovolemia. Hyponatremia Acidosis Hypomagnesemia. CKD IV with proteinuria. DM II with CKD. HTN with CKD. Anemia in chronic illness. P/ Continue current POC and Medications. Continue IVF. Oral fluid restriction. Start oral bicarb. Start Vitamin D3. No NSIADs. AM labs. Daily weight. Thank you kindly for the consultation. Case reviewed with Dr. Rasmussen.
[2019-04-24] MEDS: CALCITROL 0.25 MCG CAP PO SCH (11:24)
[2019-04-24] MEDS: VITAMIN D 5,000 UNIT CAP PO SCH (11:24)
[2019-04-24] MEDS: SODIUM CHLORIDE 1 GM TAB PO SCH ×3 (11:24→17:00)
[2019-04-24] MEDS: NA CHLORIDE 0.9% 1,000 ML IV SCH ×2 (12:00→14:05)
--- NOTE | 2019-04-24 14:54 | P.PN ---
Subjective Date of Service: 04/24/19 Chief Complaint: recurrent fall, possibly syncope Subjective: No new changes, Tolerating diet (seen , no new issues) Review of Systems 10-point ROS is otherwise unremarkable Physical Examination - Vital Signs Temperature: 97.3 F Blood Pressure: 189/77 Pulse: 62 Respirations: 16 Pulse Ox (%): 98 - Physical Exam General: Alert, Oriented x3, Other HEENT: Normocephalic, PERRLA Neck: Supple, 2+ carotid pulse no bruit Respiratory: Clear to auscultation bilaterally, Normal air movement Cardiovascular: No edema, Regular rate/rhythm, Normal S1 S2 Gastrointestinal: Normal bowel sounds, Soft and benign, Non-distended Musculoskeletal: No clubbing, No swelling Neurological: Normal speech, Normal strength at 5/5 x4 extr Assessment & Plan - Problems (Diagnosis) (1) Dementia Current Visit: Yes Status: Acute (2) Hyponatremia Current Visit: Yes Status: Acute (3) Acute renal injury Onset Date: 03/25/16 Current Visit: No Status: Acute (4) Anemia, chronic renal failure Current Visit: No Status: Acute (5) COPD exacerbation Current Visit: No Status: Acute Physician Review: Patient Assessed, Agree with Above Assessment and Plan Physician Review Additional Text: hypertension, CKD and recurrent fall so presented with another traumatic for the resulted in bilateral upper extremity abrasions. She presented to the ER hemodynamically stable. EKG was unremarkable except for mildly elevated QTC at 473. Basic labs was significant for acute on chronic CKD 4 and hyponatremia with a sodium 127. Last echocardiogram from October 2018 revealed a normal RVSP and ejection fraction. A/P 1. Recurrent fall with possible syncope- may be due to hyponatremia - follow gait after sodium corrected -follow pt/ot 2. Hyponatremia- follow repeat -- START LASIX WITH THE SALT TABS TO increase free water loss -c/w salt tabs - possible cardiorenal compoent since elvated bnp , follow echo 3. Acute on chronic CKD 4- follow repeat today 4. Hypertension 5. Possible dementia 6. Chronic pruritus Plan: - follow repeat labs today - restart BP meds , avoid ACEI - obtain PT/ot
[2019-04-24 15:46] LABS: Potassium 3.5 mmol/L (3.5-5.1)
[2019-04-24] MEDS: FUROSEMIDE 40 MG/4 ML VIAL IV SCH (18:13)
[2019-04-24] MEDS ORDERED: POTASSIUM 25 MEQ EFFERV TAB PO ONE (18:24)
[2019-04-24] MEDS ORDERED: DIVALPROEX ER 250 MG TAB PO SCH (21:00)
[2019-04-24] MEDS ORDERED: MONTELUKAST 10 MG TAB PO SCH (21:00)
[2019-04-24 22:02] VITALS: O2SAT 95
[2019-04-25 04:22] LABS: Absolute Lymphocytes (CBC) 0.9 K/uL (0.7-4.9); Basophils % 0.5 % (0-1.3); Hematocrit 26.9 % (36.0-45.0); Lymphocytes % 12.9 % (15.3-44.8); MPV 7.4 fL (7.6-11.3); RBC Red Blood Cell Count 2.63 M/uL (3.86-4.86)
[2019-04-25 04:35] LABS: Albumin 3.1 g/dL (3.4-5.0); Bilirubin Total 0.5 mg/dL (0.2-1.0)
[2019-04-25] MEDS: LEVOTHYROXINE SOD 0.112 MG TAB PO SCH (05:39)
[2019-04-25 07:33] VITALS: BMI 20.5
[2019-04-25] MEDS: VITAMIN D 5,000 UNIT CAP PO SCH (09:46)
[2019-04-25] MEDS: CALCITROL 0.25 MCG CAP PO SCH (09:46)
[2019-04-25] MEDS: SODIUM CHLORIDE 1 GM TAB PO SCH ×3 (09:46→16:54)
[2019-04-25] MEDS: FUROSEMIDE 40 MG/4 ML VIAL IV SCH ×2 (09:47→16:54)
--- NOTE | 2019-04-25 13:52 | P.DS ---
Admission Date: 04/23/19 Discharge Date: 04/25/19 Disposition: DC HOME/HOME HEALTH CARE Discharge Condition: GOOD Reason for Admission: recurrent fall, possibly syncope - Problems (1) Dementia Current Visit: Yes Status: Acute (2) Hyponatremia Current Visit: Yes Status: Acute (3) Acute renal injury Onset Date: 03/25/16 Current Visit: No Status: Acute (4) Anemia, chronic renal failure Current Visit: No Status: Acute (5) COPD exacerbation Current Visit: No Status: Acute Brief History of Present Illness: History of Present Illness: Patient is a 83-year-old female with a past medical history of dementia and chronic kidney disease who presents to the ER from home following an episode of recurrent falls. The patient had an episode of unwitnessed fall 1 day prior to presentation. , who was next door, came. She had evidence of bilateral upper extremity lacerations and skin tear. She is a poor historian. Therefore it is unclear to determine whether this was also a syncopal episode. Hospital Course: Patient on admission was moderate with hyponatremia, history of recurrent falls. She was initially placed on telemetry but was not noted with any cardiac arrhythmia. Her sodium improved with normal saline. She was noted with mild elevated pro BNP. Furosemide was added to her medications for mild SOB and NS switched to salt tabs . patient diereses well with continued improvement in serum sodium to 135 today. She also have a potassium repleted. Since she have baseline dementia , we will hold off diuretics for now and patient will be discharged with sodium tablets. She was also noted with a total chronic renal insufficiency with syndromes creatinine of 3.0. Her creatinine continued to improve to 1.93 now which is within her baseline of 1.9-2.2. She continued to have intermittent confusion but was stable and self ambulating . She will be discharged home today to continue follow up with Nephrology Vital Signs/Physical Exam: Temp Pulse Resp BP Pulse Ox 97.5 F 98 H 18 146/69 H 96 04/25/19 12:00 04/25/19 12:00 04/25/19 12:00 04/25/19 12:00 04/25/19 12:00 General: Alert, Oriented x3, Cooperative HEENT: Atraumatic, Normocephalic, Other (dry mouth , bald scalp ) Neck: Supple, 2+ carotid pulse no bruit Respiratory: Clear to auscultation bilaterally, Normal air movement Cardiovascular: Normal pulses, Regular rate/rhythm, Normal S1 S2 Gastrointestinal: Normal bowel sounds, Soft and benign Musculoskeletal: No clubbing, No swelling, Erythema (fading ecchymosis over elbow and chest) Neurological: Normal gait, Normal speech, Sensation intact Laboratory Data at Discharge: WBC 6.8 K/uL (4.3-10.9) D 04/25/19 03:58 Hgb 9.3 g/dL (12.0-15.0) L 04/25/19 03:58 Hct 26.9 % (36.0-45.0) L 04/25/19 03:58 Plt Count 293 K/uL (152-406) 04/25/19 03:58 PT 10.1 SECONDS (9.5-12.5) 04/23/19 07:40 INR 0.85 04/23/19 07:40 Sodium 135 mmol/L (136-145) L 04/25/19 03:58 Potassium 4.0 mmol/L (3.5-5.1) 04/25/19 03:58 BUN 42 mg/dL (7-18) H 04/25/19 03:58 Creatinine 1.97 mg/dL (0.55-1.3) H 04/25/19 03:58 Glucose 99 mg/dL (74-106) 04/25/19 03:58 Magnesium 1.9 mg/dL (1.8-2.4) 04/24/19 15:15 Total Bilirubin 0.5 mg/dL (0.2-1.0) 04/25/19 03:58 AST 45 U/L (15-37) H 04/25/19 03:58 ALT 33 U/L (12-78) 04/25/19 03:58 Alkaline Phosphatase 73 U/L (45-117) 04/25/19 03:58 Home Medications: Divalproex Sodium [Divalproex Sodium ER] 250 mg PO BEDTIME 10/15/18 Gabapentin 1 cap PO BID 10/15/18 Hydroxyzine HCl [Atarax] 1 tab PO TID PRN 10/15/18 Levocetirizine Dihydrochloride [24Hr Allergy Relief] 1 tab PO BEDTIME 10/15/18 Levothyroxine Sodium 1 tab PO DAILY 10/15/18 atenoloL [Atenolol] 1 tab PO BID 10/15/18 Galantamine HBr [Razadyne] 4 mg PO BID 04/23/19 Hydralazine HCl 1 tab PO BID 04/23/19 Montelukast [Singulair*] 1 tab PO BEDTIME 04/23/19 Calcitrol [Rocaltrol*] 0.5 mcg PO DAILY #30 cap 04/25/19 Cholecalciferol (Vitamin D3) [Vitamin D 5,000 IU Cap*] 5,000 unit PO DAILY #30 cap 04/25/19 Sodium Chloride Tab [Sodium Chloride*] 1 gm PO TIDWM #90 tab 04/25/19 New Medications: Calcitrol [Rocaltrol*] 0.5 mcg PO DAILY #30 cap Cholecalciferol (Vitamin D3) [Vitamin D 5,000 IU Cap*] 5,000 unit PO DAILY #30 cap Sodium Chloride Tab [Sodium Chloride*] 1 gm PO TIDWM #90 tab Patient Discharge Instructions: follow up with your primary MD in 1 week for repeat sodium check Diet: Regular Activity: Ad gricelda Followup: Randall Dillard DO [Primary Care Provider] - 1 Week Physician Review: Patient Assessed, Agree with Above Assessment and Plan Time spent managing pt's care (in minutes): 40
[2019-04-25 16:24] VITALS: BP 138/89; TEMP 97.4
[2019-04-28 11:38] LABS: Vitamin D 1,25-Dihydroxy Total 40 pg/mL (18-72); Vitamin D,1,25-OH2, D2 <8 pg/mL
== END 2019-04-25 18:29 | disposition home health service (06) ==
LOC: ER 07:18 → ERHOLD 10:22 → 4TH 11:40
PROVIDERS: ADMIT Internal Medicine; ATTEND Internal Medicine
DX: N17.9 Acute kidney failure, unspecified (principal); E87.1 Hypo-osmolality and hyponatremia; E87.2 Acidosis; E83.42 Hypomagnesemia; D64.9 Anemia, unspecified; I12.9 Hypertensive chronic kidney disease with stage 1 through stage 4 chronic kidney disease, or unspecified chronic kidney disease; E11.22 Type 2 diabetes mellitus with diabetic chronic kidney disease; N18.4 Chronic kidney disease, stage 4 (severe); E03.9 Hypothyroidism, unspecified; L29.9 Pruritus, unspecified; M19.90 Unspecified osteoarthritis, unspecified site
CPT/HCPCS: 96365; 93005; 85025 ×2; 80048 ×2; 36415 ×3; 83735 ×3; 82550; 85610; 80076; 82652; 84443; 81003; 84484; 84439; 82607; 80053; 82306; 83880; 70450; 72125; 71045; 97116; 97161; 97165; 97530; 51702; 99285; J1940 ×2; J3475; G0378 ×5; J7030 ×3

== ENCOUNTER 2019-05-17 09:06 | Emergency (ER) | payer MEDICARE ==
--- NOTE | 2019-05-17 09:37 | RAD REPORT ---
EXAM DESCRIPTION: RAD - Chest Single View - 05/17/2019 9:27 am CLINICAL HISTORY: CHEST PAIN COMPARISON: Chest Single View dated 04/23/2019 TECHNIQUE: AP portable chest image was obtained 05/17/2019 9:27 am . FINDINGS: Lungs are clear. Heart and vasculature are normal. No measurable pleural effusion and no p neumothorax. No acute bony abnormality seen. No acute aortic findings suspected. IMPRESSION: No acute cardiopulmonary process. No significant change from comparison.
--- NOTE | 2019-05-17 09:46 | RAD REPORT ---
EXAM DESCRIPTION: CT - Head C Spine Cap Wo Con - 05/17/2019 9:27 am CLINICAL HISTORY: fall from bed, head, neck, chest and abdomen pain COMPARISON: Chest Single View dated 05/17/2019; Head C Spine Mpr Wo Con dated 04/23/2019; Abdomen Pel vis Wo Contrast dated 08/30/2016 TECHNIQUE: Axial [address] head images were obtained. Axial [address] cervical spine images were obtain ed with sagittal and coronal reconstruction images reviewed. Axial 5 mm images of the chest, abdomen and pelvis were obtained. All CT scans are performed using dose optimization technique as appropriate and may include automated exposure control or mA/KV adjustment according to patient size. FINDINGS: No intracranial hemorrhage, mass or edema. No midline shift or abnormal fluid collection. Mastoid air cells and paranasal sinuses are clear. No skull fracture. Patient has underlying promine nt atrophy and chronic ischemic change similar to comparison. Ventricles are in proportion. Arterial tree calcifications are present. Scalp hematoma seen lateral right temporal and periorbital region. U nderlying bone is intact. Small calcific density in the soft tissues precedes the trauma. Cervical bodies are normal in height. There is a very slight anterior subluxation of C7 on T1. This i s stable from comparison. Degenerative change at the dens C1 level also unchanged.C4-7 fusion hardwar e is in place.No fracture or acute bone finding.No disk space narrowing.No prevertebral soft tissue t hickening or paraspinal mass.Central canal detail is inherently limited on CT imaging. CT chest shows no pneumothorax, pulmonary contusion or pleural fluid collection. Calcified granuloma is present posterior right midlung field. Scarring changes are present in the lateral gutter on the r ight. These are benign or stable findings. No mediastinal hematoma and the aorta and pulmonary arteri es are unremarkable. No chest will mass or abnormal axillary finding. No displaced rib fracture or ot her significant bony finding. CT abdomen and pelvis show no injury to solid abdominal viscera. Gallbladder and biliary tree are unr emarkable. No bowel injury or acute bowel finding. Patient has a moderate size hiatal hernia. No free air, free fluid or abnormal stranding. No hernia, mass or bulky lymphadenopathy. No urinary bladder abnormality. Accentuated thoracic kyphosis noted. Lumbosacral postsurgical changes are present with hardware in pl [place]. IMPRESSION: Prominent atrophy and chronic ischemic change similar to comparison. No acute intracrani al finding. Lateral right periorbital scalp hematoma with underlying bone intact. Cervical spine degenerative change and postsurgical change as detailed. No acute finding or interval change. No traumatic injury to the chest. No significant CT Abdomen and Pelvis finding.
[2019-05-17 10:06] LABS: Basophils % 0.4 % (0-1.3); Hematocrit 30.8 % (36.0-45.0); Lymphocytes % 9.1 % (15.3-44.8); MPV 7.6 fL (7.6-11.3); RBC Red Blood Cell Count 3.05 M/uL (3.86-4.86)
[2019-05-17 10:07] LABS: Protime INR 0.81
[2019-05-17 10:19] LABS: Potassium 4.3 mmol/L (3.5-5.1)
--- NOTE | 2019-05-17 11:02 | ER ---
Nurse's Notes [facility] Name: Nena Rosario Age: 84 yrs Sex: Female : 1935 Arrival Date: 05/17/2019 Time: 09:08 Bed 16 Private MD: Diagnosis: Fall from bed;Cellulitis of left upper limb;Superficial injury of other parts of head-hematoma;Skin tear of right shoulder and right wrist Presentation: 05/17 09:10 Presenting complaint: EMS states: Pt reports she was sleeping and unsure what caused jl7 her to thrash about and fall out of bed at about 0200 this morning. large hematoma to right temporal/forehead, skin tear to right shoulder, right wrist, left wrist. C/o pain to right ribs. Pt reports she feels loopy, EMS did not administer medications. Care prior to arrival: None. Mechanism of Injury: Fall out of bed. Trauma event details: Injury occurred in the [facility], Injury occurred: at home. Injury occurred: May 17, 2019 Injury occurred at: 02:00. 09:10 Acuity: SID 2 jl7 09:10 Method Of Arrival: EMS: [facility] jl7 09:21 Transition of care: patient was not received from another setting of care. Onset of jl7 symptoms was May 17, 2019 at 02:00. Risk Assessment: Do you want to hurt yourself or someone else? Patient reports no desire to harm self or others. Initial Sepsis Screen: Does the patient meet any 2 criteria? No. Patient's initial sepsis screen is negative. Does the patient have a suspected source of infection? No. Patient's initial sepsis screen is negative. Trauma Activation: Alert Physician: ED Physician; Name: RACHID Phillips; Notified At: 09:05; Arrived At: 09:05 Physician: General Surgeon; Name: ; Notified At: 09:05; Arrived At: Physician: Radiology; Name: ; Notified At: 09:05; Arrived At: Physician: Respiratory; Name: ; Notified At: 09:05; Arrived At: Physician: Lab; Name: ; Notified At: 09:05; Arrived At: Historical: - Allergies: 09:27 BACITRACIN; jl7 09:27 Codeine; jl7 09:27 methylisothiazolinone; jl7 09:27 Morphine; jl7 - Home Meds: 09:27 atenolol 50 mg Oral tab twice a day [Active]; Hydralazine Oral [Active]; hydroxyzine jl7 HCl 10 mg Oral tab three times a day [Active]; levothyroxine 112 mcg tab [Active]; cyanocobalamin (vitamin B-12) Oral [Active]; levocetirizine 5 mg Oral tab 1 tab once daily [Active]; montelukast 10 mg oral tab 1 tab once daily [Active]; divalproex 250 mg oral Tb24 [Active]; omeprazole 20 mg Oral cpDR 1 cap once daily [Active]; galentamine [Active]; - PMHx: 09:27 ABNORMAL GAIT; Arthritis; Chronic Kidney disease stage 3; EDEMA OF LOWER LEG; jl7 Hypertension; hyponatremia; Hypothyroidism; ITCHING OF SKIN - CHRONIC; UTI; Migraines; Seizures; Depression; - Immunization history: Last tetanus immunization: - up to date. - Coronavirus screen:: The patient has NOT traveled to [place], [place], or [place] in the past 14 days. Proceed with normal triage process as indicated. - Social history:: Smoking status: Patient denies any tobacco usage or history of. - Ebola Screening: : No symptoms or risks identified at this time. Screenin:10 Abuse screen: Denies threats or abuse. Denies injuries from another. Tuberculosis jl7 screening: No symptoms or risk factors identified. 10:00 Nutritional screening: No deficits noted. Fall Risk Fall in past 12 months (25 points). jl7 IV access (20 points). Total Jimenez Fall Scale indicates Low Risk Score (25-44 pts). Primary Survey: 09:10 NO uncontrolled hemorrhage observed. Breathing/Chest: Respiratory pattern: regular, jl7 Respiratory effort: spontaneous, unlabored, Breath sounds: clear, Chest inspection: symmetrical rise and fall of the chest. Circulation: Heart tones present. Skin color: pink, Skin temperature: warm. Disability Alert. Exposure/Environment: All clothing and personal items were removed. Forensic evidence collection is not deemed to be indicated at this time. Items placed in patient belonging bag. There is no evidence of uncontrolled external bleeding. Obvious injury(ies) are noted at this time: skin tear to right shoulder, wrist, left wrist, hematoma to right temporal area A warming method has been applied: A warm blanket has been provided to the patient. 10:00 Reassessment Airway Airway Patent Breathing/Chest Respiratory pattern Regular jl7 Respiratory effort Spontaneous Unlabored Breath sounds Clear Diminished Chest inspection Symmetrical Circulation Color [place] Temperature Warm Disability Alert. Secondary Survey: 10:00 HEENT: Head Other hematoma to right temporal area. Gastrointestinal: No deficits noted. jl7 : No signs and/or symptoms were reported regarding the genitourinary system. Musculoskeletal: No signs and/or symptoms reported regarding the musculoskeletal system. Injury Description: Skin tears sustained to anterior aspect of right shoulder and lateral aspect of right wrist,left wrist. Assessment: 09:10 General: Appears in no apparent distress. uncomfortable, Behavior is calm, cooperative, jl7 appropriate for age. Pain: Complains of pain in right orthodox. Pain: Complains of pain in right ribs. Pain: Complains of pain in lateral aspect of right wrist. Neuro: Level of Consciousness is awake, alert, obeys commands, Oriented to person, place, time, situation, Speech is normal, Facial symmetry appears normal. Cardiovascular: Heart tones present Patient's skin is warm and dry. Respiratory: Airway is patent Respiratory effort is even, unlabored, Respiratory pattern is regular, symmetrical, Breath sounds are clear. Derm: Skin is pink, warm \T\ dry. 09:20 Reassessment: To CT via stretcher. jl7 10:24 Reassessment: Patient appears in no apparent distress at this time. No changes from jl7 previously documented assessment. Patient and/or family updated on plan of care and expected duration. Pain level reassessed. Patient is alert, oriented x 3, equal unlabored respirations, skin warm/dry/pink. Family at bedside. 10:55 Reassessment: Redness and warmth noted to left upper arm, pt reports falling 2 weeks jl7 ago and then about 6 days ago the area turned red. ERP notified and to bedside to assess. Vital Signs: 09:10 BP 133 / 77; Pulse 57; Resp 16 S; Pulse Ox 100% on R/A; Pain 5/10; jl7 09:35 Temp 97.5(O); jl7 10:00 BP 133 / 71; Pulse 57; Resp 15 S; Pulse Ox 100% on R/A; jl7 10:30 BP 137 / 76; Pulse 65; Resp 16 S; Pulse Ox 100% on R/A; jl7 Hal Coma Score: 09:10 Eye Response: spontaneous(4). Verbal Response: oriented(5). Motor Response: obeys jl7 commands(6). Total: 15. 10:00 Eye Response: spontaneous(4). Verbal Response: oriented(5). Motor Response: obeys jl7 commands(6). Total: 15. 10:30 Eye Response: spontaneous(4). Verbal Response: oriented(5). Motor Response: obeys jl7 commands(6). Total: 15. Trauma Score (Adult): 09:10 Eye Response: spontaneous(1); Verbal Response: oriented(1); Motor Response: obeys jl7 commands(2); Systolic BP: > 89 mm Hg(4); Respiratory Rate: 10 to 29 per min(4); Hal Score: 15; Trauma Score: 12 ED Course: 09:08 Patient arrived in ED. jl7 09:10 Patient has correct armband on for positive identification. Placed in gown. Bed in low jl7 position. Call light in reach. Side rails up X2. 09:10 bus monitor on. Pulse ox on. NIBP on. Warm blanket given. jl7 09:10 Patient maintains SpO2 saturation greater than 95% on room air. Thermoregulation: warm jl7 blanket given to patient. 09:14 Sunny Shea MD is Attending Physician. kdr 09:14 Triage completed. jl7 09:17 Leonardo Baker PA is PHCP. cp 09:27 Arm band placed on right wrist. jl7 09:46 Belle Garcia RN is Primary Nurse. jl7 09:54 Initial lab(s) drawn, by me, sent to lab. Inserted saline lock: 22 gauge in left dh3 antecubital area, using aseptic technique. Blood collected. 11:32 No provider procedures requiring assistance completed. IV discontinued, intact, jl7 bleeding controlled, No redness/swelling at site. Pressure dressing applied. Administered Medications: 11:06 Not Given (pt tetnus up to date): Tetanus-Diphtheria Toxoid Adult 0.5 ml IM once jl7 Intake: 11:33 PO: 0ml; IV: 0ml; Tubes: 0ml (); Total: 0ml. jl7 Output: 11:33 Urine: 0ml; Gastric: 0ml; Stool: 0; EBL: 0ml; Drainage: 0ml; Other: 0; Total: 0ml. jl7 Outcome: 11:02 Discharge ordered by . cp 11:32 Discharged to home via wheelchair, with family. jl7 11:32 Condition: stable 11:32 Discharge instructions given to patient, family, Instructed on discharge instructions, follow up and referral plans. medication usage, Demonstrated understanding of instructions, follow-up care, medications, Prescriptions given X 1. 11:34 Patient's length of stay was not longer than 2 hours. jl7 11:34 Patient left the ED. jl7 Signatures: Sunny Shea MD MD kdr Page, Corey, PA PA cp Leal, Jahala RN RN jl7 Sierra Laurent 3
--- NOTE | 2019-05-17 11:02 | EDPHYS ---
Physician Documentation [facility] Name: Nena Rosario Age: 84 yrs Sex: Female : 1935 Arrival Date: 05/17/2019 Time: 09:08 Bed 16 Private MD: ED Physician Sunny Shea HPI: 05/17 09:25 This 84 yrs old Female presents to ER via EMS with complaints of Fall Injury. cp 09:25 Details of fall: The patient fell from a supine position, out of bed. Onset: The cp symptoms/episode began/occurred this morning, at 02:00. Associated injuries: The patient sustained injury to the head, hematoma, swelling, tenderness, injury to the chest, specifically the below right breast, pain with movement, tenderness, skin tears to right shoulder and right wrist. Patient reports she was sleeping when she began "thrashing about". Patient reports she fell from bed onto floor. Patient reports she was on floor from about 0200 until being found by who called EMS. Historical: - Allergies: 09:27 BACITRACIN; jl7 09:27 Codeine; jl7 09:27 methylisothiazolinone; jl7 09:27 Morphine; jl7 - Home Meds: 09:27 atenolol 50 mg Oral tab twice a day [Active]; Hydralazine Oral [Active]; hydroxyzine jl7 HCl 10 mg Oral tab three times a day [Active]; levothyroxine 112 mcg tab [Active]; cyanocobalamin (vitamin B-12) Oral [Active]; levocetirizine 5 mg Oral tab 1 tab once daily [Active]; montelukast 10 mg oral tab 1 tab once daily [Active]; divalproex 250 mg oral Tb24 [Active]; omeprazole 20 mg Oral cpDR 1 cap once daily [Active]; galentamine [Active]; - PMHx: 09:27 ABNORMAL GAIT; Arthritis; Chronic Kidney disease stage 3; EDEMA OF LOWER LEG; jl7 Hypertension; hyponatremia; Hypothyroidism; ITCHING OF SKIN - CHRONIC; UTI; Migraines; Seizures; Depression; - Immunization history: Last tetanus immunization: - up to date. - Coronavirus screen:: The patient has NOT traveled to [place], [place], or [place] in the past 14 days. Proceed with normal triage process as indicated. - Social history:: Smoking status: Patient denies any tobacco usage or history of. - Ebola Screening: : No symptoms or risks identified at this time. ROS: 09:30 Constitutional: Negative for body aches, chills, fever, poor PO intake. cp 09:30 Eyes: Negative for injury, pain, redness, and discharge. cp 09:30 Cardiovascular: Positive for chest pain, of the below right breast. cp 09:30 Respiratory: Negative for cough, shortness of breath, wheezing. cp 09:30 Abdomen/GI: Negative for abdominal pain, nausea, vomiting, and diarrhea. 09:30 Back: Negative for pain at rest, pain with movement. 09:30 Skin: Positive for multiple skin tears. 09:30 Neuro: Negative for altered mental status, headache, loss of consciousness, syncope. 09:30 All other systems are negative. Exam: 09:40 Constitutional: The patient appears in no acute distress, alert, awake, cp non-diaphoretic, non-toxic, well developed, well nourished. 09:40 Head/face: Noted is ecchymosis, that is mild, hematoma, that is moderate, of the cp forehead and right scientology. 09:40 Eyes: Periorbital structures: appear normal, Pupils: equal, round, and reactive to light and accomodation, Extraocular movements: intact throughout, Conjunctiva: normal, no exudate, no injection, Lids and lashes: appear normal, bilaterally. 09:40 ENT: External ear(s): are unremarkable, Ear canal(s): are normal, clear, TM's: dullness, bilaterally, Nose: is normal, Mouth: Lips: moist, Oral mucosa: moist, Posterior pharynx: is normal, airway is patent, no erythema, no exudate. 09:40 Neck: C-spine: vertebral tenderness, is not appreciated, crepitus, is not appreciated. 09:40 Chest/axilla: Inspection: normal, Palpation: crepitus, is not appreciated, tenderness, that is mild, of the below right breast. 09:40 Cardiovascular: Rate: bradycardic, Rhythm: regular, Edema: is not appreciated, JVD: is not appreciated. 09:40 Respiratory: the patient does not display signs of respiratory distress, Respirations: normal, no use of accessory muscles, no retractions, no splinting, no tachypnea, labored breathing, is not present, Breath sounds: are clear throughout, no decreased breath sounds, no stridor, no wheezing. 09:40 Abdomen/GI: Inspection: abdomen appears normal, Palpation: abdomen is soft and non-tender, in all quadrants. 09:40 Back: vertebral tenderness, is not appreciated. 09:40 Skin: cellulitis, that is mild, irregular, on the left upper arm. 09:40 Neuro: Orientation: to person, place \\T\\ time. Mentation: is normal, Motor: moves all fours, strength is normal. 09:45 ECG was reviewed by the Attending Physician. Vital Signs: 09:10 BP 133 / 77; Pulse 57; Resp 16 S; Pulse Ox 100% on R/A; Pain 5/10; jl7 09:35 Temp 97.5(O); jl7 10:00 BP 133 / 71; Pulse 57; Resp 15 S; Pulse Ox 100% on R/A; jl7 10:30 BP 137 / 76; Pulse 65; Resp 16 S; Pulse Ox 100% on R/A; jl7 Hal Coma Score: 09:10 Eye Response: spontaneous(4). Verbal Response: oriented(5). Motor Response: obeys jl7 commands(6). Total: 15. 10:00 Eye Response: spontaneous(4). Verbal Response: oriented(5). Motor Response: obeys jl7 commands(6). Total: 15. 10:30 Eye Response: spontaneous(4). Verbal Response: oriented(5). Motor Response: obeys jl7 commands(6). Total: 15. Trauma Score (Adult): 09:10 Eye Response: spontaneous(1); Verbal Response: oriented(1); Motor Response: obeys jl7 commands(2); Systolic BP: > 89 mm Hg(4); Respiratory Rate: 10 to 29 per min(4); Hal Score: 15; Trauma Score: 12 MDM: 09:17 Patient medically screened. cp 11:01 Data reviewed: vital signs, nurses notes, lab test result(s), EKG, radiologic studies, cp CT scan, plain films. 11:01 Differential diagnosis: closed head injury, contusion, fracture, laceration, multiple cp trauma. Test interpretation: by ED physician or midlevel provider: ECG, plain radiologic studies, chest xray negative for infiltrates. Counseling: I had a detailed discussion with the patient and/or guardian regarding: the historical points, exam findings, and any diagnostic results supporting the discharge/admit diagnosis, lab results, radiology results, the need for outpatient follow up, an clinical psychology professor, to return to the emergency department if symptoms worsen or persist or if there are any questions or concerns that arise at home. Response to treatment: the patient's symptoms have markedly improved after treatment, and as a result, I will discharge patient. 05/17 09:16 Order name: Basic Metabolic Panel 05/17 09:16 Order name: CBC with Diff cp 05/17 09:16 Order name: PT-INR cp 05/17 09:16 Order name: CK cp 05/17 10:13 Order name: CBC with Automated Diff; Complete Time: 10:19 EDMS 05/17 10:20 Interpretation: Normal except: WBC 11.2; RBC 3.05; HGB 10.2; HCT 30.8; MCV 100.9; WOODY% cp 78.4; LYM% 9.1; NEUT A 8.7. 05/17 10:15 Order name: Protime (+INR); Complete Time: 10:19 EDMS 05/17 09:16 Order name: XRAY Chest (1 view) 05/17 09:16 Order name: EKG; Complete Time: 09:17 05/17 09:16 Order name: CT Traumagram (Head C Spine CAP wo con) 05/17 09:38 Order name: RAD; Complete Time: 10:19 EDMS 05/17 09:48 Order name: CT; Complete Time: 10:19 EDMS 05/17 10:19 Order name: Basic Metabolic Panel; Complete Time: 10:21 EDMS 05/17 10:21 Interpretation: Normal except: NA 135; BUN 45; CRE 2.25; GFR 21. cp 05/17 10:19 Order name: Creatine Phosphokinase; Complete Time: 10:21 EDMS 05/17 09:16 Order name: Cardiac monitoring; Complete Time: 09:53 05/17 09:16 Order name: EKG - Nurse/Tech; Complete Time: 10:02 cp 05/17 09:16 Order name: IV Saline Lock; Complete Time: 09:53 cp 05/17 09:16 Order name: Labs collected and sent; Complete Time: 09:53 cp 05/17 09:16 Order name: O2 Per Protocol; Complete Time: 09:53 cp 05/17 09:16 Order name: O2 Sat Monitoring; Complete Time: 09:53 cp 05/17 10:25 Order name: Wound dressing; Complete Time: 11:05 cp 05/17 11:07 Order name: Wound Care: please outline area of redness left upper arm; Complete Time: cp 11:31 EC:45 Rate is 59 beats/min. Rhythm is regular. AL interval is normal. QRS interval is normal. cp QT interval is normal. T waves are Inverted in lead aVL. Interpreted by me. Reviewed by me. Administered Medications: 11:06 Not Given (pt tetnus up to date): Tetanus-Diphtheria Toxoid Adult 0.5 ml IM once jl7 Disposition: 12:00 Chart complete. cp 16:49 Co-signature as Attending Physician, Sunny Shea MD I agree with the assessment and kdr plan of care. Disposition: 05/17/19 11:02 Discharged to Home. Impression: Fall from bed, Cellulitis of left upper limb, Superficial injury of other parts of head - hematoma, Skin tear of right shoulder and right wrist. - Condition is Stable. - Discharge Instructions: Cellulitis, Adult, Head Injury, Adult, Fall Prevention in the Home, Skin Tear Care. - Prescriptions for Doxycycline Hyclate 100 mg Oral Tablet - take 1 tablet by ORAL route every 12 hours; 20 tablet. - Medication Reconciliation Form, Thank You Letter, Antibiotic Education, Prescription Opioid Use form. - Follow up: Private Physician; When: 2 - 3 days; Reason: Wound Recheck, Recheck today's complaints. - Problem is new. - Symptoms have improved. Signatures: Dispatcher [employer] EDMS Sunny Shea MD MD kdr Page, Corey, PA PA cp Belle Garcia RN RN jl7 Corrections: (The following items were deleted from the chart) 10:53 05/16 09:30 Constitutional: Negative for body aches, chills, fever, poor PO intake, cp 05/17 10:53 05/16 09:30 Eyes: Negative for injury, pain, redness, and discharge, [facility] 05/17 11:34 11:02 05/17/2019 11:02 Discharged to Home. Impression: Fall from bed; Cellulitis of jl7 left upper limb; Superficial injury of other parts of head - hematoma; Skin tear of right shoulder and right wrist. Condition is Stable. Forms are Medication Reconciliation Form, Thank You Letter, Antibiotic Education, Prescription Opioid Use. Follow up: Private Physician; When: 2 - 3 days; Reason: Wound Recheck, Recheck today's complaints. Problem is new. Symptoms have improved. cp
[2019-05-17] MEDS ORDERED: DOXYCYCLINE 100 MG CAP PO ONE (11:12)
[2019-05-17 11:41] VITALS: O2SAT 100
[2019-05-17 11:42] VITALS: TEMP 97.5
[2019-05-17 11:45] VITALS: BP 137/76
--- NOTE | 2019-05-17 12:27 | EKG ---
Test Date: 2019-05-17 Test Time: 09:36:46 Second Facing Baster: MARTINA MEASUREMENT RESULTS: Intervals: Rate: 59 OH: 172 QRSD: 66 QT: 466 QTc: 461 [place]: P: 64 OH: 172 QRS: 62 T: 72 INTERPRETIVE STATEMENTS: Sinus bradycardia Otherwise normal ECG Compared to ECG 04/23/2019 07:49:19 Sinus rhythm no longer present Electronically Signed On 05-17-19 12:26:24 [employer] SPECIALIST by Gio Morrison
== END 2019-05-17 11:34 | disposition home or self-care (01) ==
LOC: ER 09:06
DX: S00.83XA Contusion of other part of head, initial encounter (principal); L03.114 Cellulitis of left upper limb; S41.011A Laceration without foreign body of right shoulder, initial encounter; S61.511A Laceration without foreign body of right wrist, initial encounter; W06.XXXA Fall from bed, initial encounter; Y93.89 Activity, other specified; Y92.9 Unspecified place or not applicable; Z23 Encounter for immunization; Z88.1 Allergy status to other antibiotic agents; Z88.5 Allergy status to narcotic agent; Z88.8 Allergy status to other drugs, medicaments and biological substances; I12.9 Hypertensive chronic kidney disease with stage 1 through stage 4 chronic kidney disease, or unspecified chronic kidney disease; N18.3 Chronic kidney disease, stage 3 (moderate); E03.9 Hypothyroidism, unspecified; F32.9 Major depressive disorder, single episode, unspecified; G40.909 Epilepsy, unspecified, not intractable, without status epilepticus
CPT/HCPCS: 36415; 70450; 71045; 71250; 72125; 80048; 82550; 85025; 85610; 93005; 99285

== ENCOUNTER 2019-05-27 15:09 | Emergency (ER) | payer MEDICARE ==
[2019-05-27] MEDS ORDERED: DIPHENHYDRAMINE 25 MG TAB/CAP ONE (16:42)
[2019-05-27 17:25] LABS: Basophils % 0.9 % (0-1.3); Hematocrit 26.3 % (36.0-45.0); Lymphocytes % 20.1 % (15.3-44.8); MPV 7.1 fL (7.6-11.3); RBC Red Blood Cell Count 2.56 M/uL (3.86-4.86)
[2019-05-27] MEDS ORDERED: NA CHLORIDE 0.9% 500 ML ONE (17:26)
[2019-05-27 17:43] LABS: Bilirubin Direct 0.1 mg/dL (0-0.2); Bilirubin Total 0.3 mg/dL (0.2-1.0); Protein, Total 6.3 g/dL (6.4-8.2)
[2019-05-27] MEDS ORDERED: LEVALBUTEROL 1.25 MG/3 ML NEB ONE (18:32)
[2019-05-27 18:53] LABS: Blood Morphology Comment NOT SEEN (NOT SEEN); Platelet Estimate ADEQ; Urine White Blood Cell Casts OK
--- NOTE | 2019-05-27 18:59 | RAD REPORT ---
EXAM DESCRIPTION: RAD - Chest Single View - 05/27/2019 6:49 pm CLINICAL HISTORY: SOB COMPARISON: Chest Single View dated 05/17/2019; Chest Single View dated 04/23/2019 TECHNIQUE: AP portable chest image was obtained 05/27/2019 6:49 pm . FINDINGS: No focal lung parenchymal process. Chronic interstitial lung pattern matches comparison. H iatal hernia is seen in the midline lower chest. Heart and vasculature are normal. No measurable pleu ral effusion and no pneumothorax. Mediastinal and hilar regions match comparison. Old rib trauma note d on the right. No acute aortic findings suspected. IMPRESSION: No acute cardiopulmonary process. Above detailed chest findings match comparison.
[2019-05-27] MEDS ORDERED: METHYLPREDNISOLONE 125 MG INJ ONE (19:16)
[2019-05-27] MEDS ORDERED: FUROSEMIDE 20 MG/ 2ML VIAL ONE (19:16)
--- NOTE | 2019-05-27 19:38 | ER ---
Nurse's Notes [facility] Name: Nena Rosario Age: 84 yrs Sex: Female : 1935 Arrival Date: 05/27/2019 Time: 15:10 Bed 6 Private MD: Diagnosis: Pruritus;Encounter for change or removal of nonsurgical wound dressing-right shoulder and right wrist;Anemia in chronic diseases classified elsewhere Presentation: 05/27 15:44 Presenting complaint: states: About 2 wks ago, he had 2-3 lacerations. Most of ca1 the things are healing, but the one on his R hand seems to not been healing. She also has a pretty bad cough for almost a week. Denies fever. Pt states, "I am very tired. I know I am not young, but I feel very exhausted for the about 4 days now". Transition of care: patient was not received from another setting of care. Onset of symptoms was May 27, 2019. Risk Assessment: Do you want to hurt yourself or someone else? Patient reports no desire to harm self or others. Initial Sepsis Screen: Does the patient meet any 2 criteria? No. Patient's initial sepsis screen is negative. Does the patient have a suspected source of infection? No. Patient's initial sepsis screen is negative. Care prior to arrival: None. 15:44 Method Of Arrival: Wheelchair ca1 15:44 Acuity: SID 3 ca1 Historical: - Allergies: 15:50 BACITRACIN; ca1 15:50 Codeine; ca1 15:50 methylisothiazolinone; ca1 15:50 Morphine; ca1 - Home Meds: 15:50 atenolol 50 mg Oral tab twice a day [Active]; ca1 - PMHx: 15:50 ABNORMAL GAIT; Arthritis; Chronic Kidney disease stage 3; EDEMA OF LOWER LEG; ca1 Hypertension; hyponatremia; Hypothyroidism; ITCHING OF SKIN - CHRONIC; Migraines; Depression; UTI; Seizures; - Immunization history:: Adult Immunizations up to date, Pneumococcal vaccine is up to date, Flu vaccine is up to date. - Coronavirus screen:: The patient has NOT traveled to [place] in the past 14 days. The patient has NOT had contact with known/suspected case of Coronavirus?. - Social history:: Smoking status: Patient denies any tobacco usage or history of. - Ebola Screening: : Patient negative for fever greater than or equal to 101.5 degrees Fahrenheit, and additional compatible Ebola Virus Disease symptoms Patient denies exposure to infectious person Patient denies travel to an Ebola-affected area in the 21 days before illness onset No symptoms or risks identified at this time. Screenin:45 Abuse screen: Denies threats or abuse. Nutritional screening: No deficits noted. rb1 Tuberculosis screening: No symptoms or risk factors identified. 19:20 Fall Risk Fall in past 12 months (25 points). IV access (20 points). Total Jimenez Fall rr5 Scale indicates High Risk Score (45 or more points). Fall prevention measures have been instituted. Side Rails Up X 2 Placed Close to Nursing Station Frequent Obs/Assessments Occuring Family Present and informed to notify staff if the need to leave the bedside As available patient and family educated on Fall Prevention Program and Strategies. Assessment: 16:10 General: Appears in no apparent distress. comfortable, Behavior is calm, cooperative, rb1 Denies fever. General: Pt. reports falling a week ago and landed on her right side.. Pain: Complains of pain in generalized Pain currently is 4 out of 10 on a pain scale. Neuro: Level of Consciousness is awake, alert, obeys commands, Oriented to person, place, time, situation. Cardiovascular: Capillary refill < 3 seconds is brisk in bilateral fingers. Respiratory: Airway is patent Respiratory effort is even, unlabored, Respiratory pattern is regular, symmetrical. Respiratory: Reports cough that is x one week. GI: No signs and/or symptoms were reported involving the gastrointestinal system. : No signs and/or symptoms were reported regarding the genitourinary system. Derm: Skin is pink, warm \\T\\ dry. skin tear noted to the right forearm. 17:10 Reassessment: Patient appears in no apparent distress at this time. No changes from rb1 previously documented assessment. 17:33 Reassessment: Performed wound care on right shoulder and right forearm. Applied rb1 Xeroform, non-adherent gauze, and wrapped right forearm with Kerlix. Applied gauze and tape to the right shoulder. Pt. tolerated well. 18:30 Reassessment: Patient appears in no apparent distress at this time. Patient and/or rb1 family updated on plan of care and expected duration. Pain level reassessed. Patient is alert, oriented x 3, equal unlabored respirations, skin warm/dry/pink. at the bedside. 19:20 General: Appears in no apparent distress. comfortable, Behavior is calm, cooperative, rr5 appropriate for age. Pain: Complains of pain in genralized. Neuro: Level of Consciousness is awake, alert, obeys commands, Oriented to person, place, time, situation. Cardiovascular: Capillary refill < 3 seconds in bilateral Patient's skin is warm and dry. Respiratory: Airway is patent Respiratory effort is even, unlabored, Respiratory pattern is regular, symmetrical. GI: No signs and/or symptoms were reported involving the gastrointestinal system. : No signs and/or symptoms were reported regarding the genitourinary system. EENT: No signs and/or symptoms were reported regarding the EENT system. Derm: Skin is pink, warm \\T\\ dry. Wound noted dorsal aspect of right forearm Wound is skin tear. Musculoskeletal: Circulation, motion, and sensation intact. Capillary refill < 3 seconds. 19:55 Reassessment: Patient appears in no apparent distress at this time. Patient is alert, rr5 oriented x 3, equal unlabored respirations, skin warm/dry/pink. for discharge,awaiting for her for the transport. 20:40 Reassessment: Patient appears in no apparent distress at this time. patient urinate on rr5 the bed. after care done, gown and bed linen changed. awaiting for her bulldozer press operator to come. 21:00 Reassessment: Patient appears in no apparent distress at this time. Patient is alert, rr5 oriented x 3, equal unlabored respirations, skin warm/dry/pink. discharge instruction given and explained to patient and bulldozer press operator without complaints made. Vital Signs: 15:50 BP 127 / 72; Pulse 97; Resp 16 S; Temp 97.7(O); Pulse Ox 95% on R/A; Weight 47.63 kg ca1 (R); Height 5 ft. 3 in. (160.02 cm) (R); 16:50 BP 162 / 75; Pulse 90; Resp 17; Pulse Ox 100% on R/A; rb1 17:50 BP 162 / 75; Pulse 90; Resp 20; Pulse Ox 100% on R/A; rb1 18:50 BP 159 / 89; Pulse 99; Resp 25; Pulse Ox 100% ; rb1 19:25 BP 113 / 62; Pulse 90; Resp 24; Temp 97.8; Pulse Ox 99% on R/A; rr5 20:20 BP 118 / 79; Pulse 89; Resp 18; Pulse Ox 97% on R/A; rr5 21:00 BP 121 / 70; Pulse 85; Resp 19; Temp 98; Pulse Ox 99% on R/A; rr5 15:50 Body Mass Index 18.60 (47.63 kg, 160.02 cm) ca1 ED Course: 15:10 Patient arrived in ED. as 15:48 Triage completed. ca1 15:50 Arm band placed on right wrist. ca1 16:10 Patient has correct armband on for positive identification. Placed in gown. Bed in low rb1 position. Call light in reach. Side rails up X 1. Pulse ox on. NIBP on. Warm blanket given. 16:21 Leonardo Baker PA is PHCP. cp 16:21 Sunny Shea MD is Attending Physician. cp 16:35 Sandra Werner, LEAH is Primary Nurse. rb1 18:35 EKG done, by ED staff, reviewed by Leonardo RASHID. dh3 19:20 Inserted saline lock: 22 gauge in right antecubital area, using aseptic technique. rr5 ,using aseptic technique. received from AM shift. 21:00 No provider procedures requiring assistance completed. IV discontinued, intact, rr5 bleeding controlled, No redness/swelling at site. Pressure dressing applied. Administered Medications: Discontinued: NS 0.9% 500 ml IV at 500 ml/hr once 16:44 Drug: Benadryl 25 mg Route: PO; rb1 17:15 Follow up: Response: No adverse reaction rb1 17:15 Drug: NS 0.9% 500 ml Route: IV; Rate: 500 ml/hr; Site: right antecubital; rb1 19:00 Drug: Xopenex 1.25 mg Route: Inhalation; rb1 20:00 Follow up: Response: No adverse reaction rr5 19:25 Drug: Lasix 20 mg Route: IVP; Site: right antecubital; rr5 20:25 Follow up: Response: No adverse reaction rr5 19:27 Drug: SOLU-Medrol 60 mg Route: IVP; Site: right antecubital; rr5 20:30 Follow up: Response: No adverse reaction rr5 Outcome: 19:38 Discharge ordered by . cp 21:00 Discharged to home via wheelchair, with family. rr5 21:00 Condition: stable 21:00 Discharge instructions given to patient, family, Instructed on discharge instructions, follow up and referral plans. medication usage, Demonstrated understanding of instructions, follow-up care, medications, Prescriptions given X 1. 21:09 Patient left the ED. rr5 Signatures: Ashlee Robles Corey, PA PA cp Sandra Werner, RN RN rb1 Sierra Laurent 3 Isacc Ortega RN RN rr5 Chen Garcia RN RN ca1 Corrections: (The following items were deleted from the chart) 16:56 16:45 General: Appears in no apparent distress. comfortable, Behavior is calm, rb1 cooperative, Denies fever, rb1 16: 16:45 Neuro: Level of Consciousness is awake, alert, obeys commands, Oriented to rb1 person, place, time, situation, rb1 16: 16:45 Pain: Complains of pain in generalized Pain currently is 4 out of 10 on a pain rb1 scale. rb1 16: 16:45 General: Pt. reports falling a week ago and landed on her right side.. rb1 rb1 16: 16:45 Cardiovascular: Capillary refill < 3 seconds is brisk in bilateral fingers rb1 rb1 16:56 16:45 Respiratory: Airway is patent Respiratory effort is even, unlabored, Respiratory rb1 pattern is regular, symmetrical, rb1 16: 16:45 GI: No signs and/or symptoms were reported involving the gastrointestinal system. rb1 rb1 16:56 16:45 Respiratory: Reports cough that is x one week rb1 rb1 16: 16:45 : No signs and/or symptoms were reported regarding the genitourinary system. rb1rb1 16:56 16:45 Derm: Skin is pink, warm \\T\\ dry. skin tear noted to the right forearm rb1 rb1 16:57 16:45 Patient has correct armband on for positive identification. Placed in gown. Bed rb1 in low position. Call light in reach. Side rails up X 1. rb1 : 16:45 Pulse ox on. NIBP on. rb1 rb1 16: 16:45 Warm blanket given. rb1 rb1
--- NOTE | 2019-05-27 19:38 | EDPHYS ---
Physician Documentation [facility] Name: Nena Rosario Age: 84 yrs Sex: Female : 1935 Arrival Date: 05/27/2019 Time: 15:10 Bed 6 Private MD: ED Physician Sunny Shea HPI: 05/27 16:30 This 84 yrs old Female presents to ER via Wheelchair with complaints of wound cp check. 16:30 Patient reports fall from bed 1 week ago causing skin tears to right shoulder and right cp wrist. Patient concerned today that wound on right wrist is infected. Patient's has been cleaning and dressing wounds. Historical: - Allergies: 15:50 BACITRACIN; ca1 15:50 Codeine; ca1 15:50 methylisothiazolinone; ca1 15:50 Morphine; ca1 - Home Meds: 15:50 atenolol 50 mg Oral tab twice a day [Active]; ca1 - PMHx: 15:50 ABNORMAL GAIT; Arthritis; Chronic Kidney disease stage 3; EDEMA OF LOWER LEG; ca1 Hypertension; hyponatremia; Hypothyroidism; ITCHING OF SKIN - CHRONIC; Migraines; Depression; UTI; Seizures; - Immunization history:: Adult Immunizations up to date, Pneumococcal vaccine is up to date, Flu vaccine is up to date. - Coronavirus screen:: The patient has NOT traveled to [place] in the past 14 days. The patient has NOT had contact with known/suspected case of Coronavirus?. - Social history:: Smoking status: Patient denies any tobacco usage or history of. - Ebola Screening: : Patient negative for fever greater than or equal to 101.5 degrees Fahrenheit, and additional compatible Ebola Virus Disease symptoms Patient denies exposure to infectious person Patient denies travel to an Ebola-affected area in the 21 days before illness onset No symptoms or risks identified at this time. ROS: 16:35 Constitutional: Negative for chills, fever, poor PO intake. cp 16:35 Eyes: Negative for injury, pain, redness, and discharge. cp 16:35 ENT: Negative for drainage from ear(s), ear pain, sore throat, difficulty swallowing, difficulty handling secretions. 16:35 Cardiovascular: Negative for chest pain, edema. 16:35 Respiratory: Negative for cough, shortness of breath, wheezing. 16:35 Abdomen/GI: Negative for abdominal pain, vomiting, diarrhea, constipation, black/tarry stool, rectal bleeding. 16:35 MS/extremity: Positive for pain, of the generalized, Negative for paresthesias. 16:35 Neuro: Negative for altered mental status, headache, weakness. 16:35 All other systems are negative. Exam: 16:40 Constitutional: The patient appears in no acute distress, alert, awake, cp non-diaphoretic, non-toxic, well developed, frail. 16:40 Head/Face: Normocephalic, atraumatic. cp 16:40 Eyes: Periorbital structures: appear normal, Conjunctiva: normal, no exudate, no injection, Sclera: no appreciated abnormality, Lids and lashes: appear normal, bilaterally. 16:40 ENT: External ear(s): are unremarkable, Nose: is normal, Mouth: Lips: moist, Oral mucosa: pink and intact, moist, Posterior pharynx: is normal, airway is patent, no erythema, no exudate. 16:40 Neck: ROM/movement: is normal, is supple, no range of motions limitations, no nuchal rigidity. 16:40 Chest/axilla: Inspection: normal, Palpation: is normal, no crepitus, no tenderness. 16:40 Cardiovascular: Rate: normal, Rhythm: regular, Edema: is not appreciated, JVD: is not appreciated. 16:40 Respiratory: the patient does not display signs of respiratory distress, Respirations: normal, no use of accessory muscles, labored breathing, is not present, Breath sounds: decreased breath sounds, that are mild, throughout, wheezing: is not appreciated. 16:40 Abdomen/GI: Inspection: abdomen appears normal, Palpation: abdomen is soft and non-tender, in all quadrants, voluntary guarding, is not appreciated, involuntary guarding, is not appreciated. 16:40 Back: ROM is normal, CVA tenderness, is absent. 16:40 Skin: Wound recheck: skin tears to right shoulder and right wrist appear to be healing well without erythema or swelling noted. 16:40 Neuro: Orientation: to person, place \T\ time. Mentation: is normal, Motor: moves all fours, strength is normal. 18:36 ECG was reviewed by the Attending Physician. cp Vital Signs: 15:50 BP 127 / 72; Pulse 97; Resp 16 S; Temp 97.7(O); Pulse Ox 95% on R/A; Weight 47.63 kg ca1 (R); Height 5 ft. 3 in. (160.02 cm) (R); 16:50 BP 162 / 75; Pulse 90; Resp 17; Pulse Ox 100% on R/A; rb1 17:50 BP 162 / 75; Pulse 90; Resp 20; Pulse Ox 100% on R/A; rb1 18:50 BP 159 / 89; Pulse 99; Resp 25; Pulse Ox 100% ; rb1 19:25 BP 113 / 62; Pulse 90; Resp 24; Temp 97.8; Pulse Ox 99% on R/A; rr5 20:20 BP 118 / 79; Pulse 89; Resp 18; Pulse Ox 97% on R/A; rr5 21:00 BP 121 / 70; Pulse 85; Resp 19; Temp 98; Pulse Ox 99% on R/A; rr5 15:50 Body Mass Index 18.60 (47.63 kg, 160.02 cm) ca1 MDM: 16:28 Patient medically screened. cp 17:00 Differential diagnosis: UTI, cellulitis, electrolyte abnormality. cp 19:38 Data reviewed: vital signs, nurses notes, lab test result(s), EKG, radiologic studies, cp plain films. 19:38 Test interpretation: by ED physician or midlevel provider: ECG, plain radiologic cp studies, chest xray negative for infiltrates. 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 Response to treatment: the patient's symptoms have markedly improved after treatment, and as a result, I will discharge patient. 05/27 16:54 Order name: Basic Metabolic Panel cp 05/27 16:54 Order name: CBC with Diff cp 05/27 16:54 Order name: LFT's cp 05/27 16:54 Order name: Magnesium cp 05/27 16:54 Order name: Urine Microscopic Only cp 05/27 17:29 Order name: CBC with Automated Diff; Complete Time: 19:04 EDMS 05/27 18:05 Interpretation: Normal except: WBC 4.9; RBC 2.56; HGB 8.7; HCT 26.3; MCV 102.5; MPV cp 7.1; MN% 15.6. 05/27 17:47 Order name: Basic Metabolic Panel; Complete Time: 18:04 EDMS 05/27 18:05 Interpretation: Normal except: NA 135; CO2 18; BUN 46; CRE 1.96; GFR 24. cp 05/27 17:47 Order name: Liver (Hepatic) Function; Complete Time: 18:04 EDMS 05/27 18:08 Interpretation: Normal except: TP 6.3; ALB 3.0; A/G 0.9. cp 05/27 17:47 Order name: Magnesium; Complete Time: 18:04 EDMS 05/27 18:27 Order name: XRAY Chest (1 view) cp 05/27 18:56 Order name: CBC Smear Scan; Complete Time: 19:04 EDMS 05/27 19:52 Order name: RAD; Complete Time: 20:45 EDMS 05/27 20:45 Interpretation: Report reviewed. cp 05/27 16:28 Order name: Wound dressing; Complete Time: 17:44 cp 05/27 16:54 Order name: Cardiac monitoring; Complete Time: 17:30 cp 05/27 16:54 Order name: IV Saline Lock; Complete Time: 17:17 cp 05/27 16:54 Order name: Labs collected and sent; Complete Time: 17:17 cp 05/27 16:54 Order name: O2 Per Protocol; Complete Time: 17:17 cp 05/27 16:54 Order name: O2 Sat Monitoring; Complete Time: 17:17 cp 05/27 18:27 Order name: EKG; Complete Time: 18:29 cp 05/27 18:27 Order name: EKG - Nurse/Tech; Complete Time: 18:40 cp EC:36 Rate is 83 beats/min. Rhythm is regular. CO interval is normal. QRS interval is normal. cp QT interval is normal. T waves are Inverted in lead aVL. Interpreted by me. Reviewed by me. Administered Medications: Discontinued: NS 0.9% 500 ml IV at 500 ml/hr once 16:44 Drug: Benadryl 25 mg Route: PO; rb1 17:15 Follow up: Response: No adverse reaction rb1 17:15 Drug: NS 0.9% 500 ml Route: IV; Rate: 500 ml/hr; Site: right antecubital; rb1 19:00 Drug: Xopenex 1.25 mg Route: Inhalation; rb1 20:00 Follow up: Response: No adverse reaction rr5 19:25 Drug: Lasix 20 mg Route: IVP; Site: right antecubital; rr5 20:25 Follow up: Response: No adverse reaction rr5 19:27 Drug: SOLU-Medrol 60 mg Route: IVP; Site: right antecubital; rr5 20:30 Follow up: Response: No adverse reaction rr5 Disposition: 05/28 07:06 Co-signature as Attending Physician, Sunny Shea MD I agree with the assessment and kdr plan of care. Disposition: 05/27/19 19:38 Discharged to Home. Impression: Pruritus, Encounter for change or removal of nonsurgical wound dressing - right shoulder and right wrist, Anemia in chronic diseases classified elsewhere. - Condition is Stable. - Discharge Instructions: Anemia, Nonspecific, How to Change Your Dressing, Wound Check, Pruritus, Wound Care. - Prescriptions for Vistaril 25 mg Oral capsule - take 1 capsule by ORAL route 3 times per day As needed; 60 capsule. - Medication Reconciliation Form, Thank You Letter, Antibiotic Education, Prescription Opioid Use form. - Follow up: Private Physician; When: 2 - 3 days; Reason: Recheck today's complaints. - Problem is an ongoing problem. - Symptoms have improved. Signatures: Dispatcher [employer] EDND Sunny Shea MD MD kdr Leonardo Baker PA PA cp Sandra Werner RN RN rb1 Isacc Ortega RN RN rr5 Chen Garcia RN RN ca1 Corrections: (The following items were deleted from the chart) 05/27 21:09 19:38 05/27/2019 19:38 Discharged to Home. Impression: Pruritus; Encounter for change rr5 or removal of nonsurgical wound dressing - right shoulder and right wrist; Anemia in chronic diseases classified elsewhere. Condition is Stable. Forms are Medication Reconciliation Form, Thank You Letter, Antibiotic Education, Prescription Opioid Use. Follow up: Private Physician; When: 2 - 3 days; Reason: Recheck today's complaints. Problem is an ongoing problem. Symptoms have improved. cp
[2019-05-28 13:23] VITALS: BP 113/62; TEMP 97.8; O2SAT 99
--- NOTE | 2019-05-28 13:36 | EKG ---
Test Date: 2019-05-27 Test Time: 18:30:26 Financial Systems Manager: JONO MEASUREMENT RESULTS: Intervals: Rate: 83 [place]: 144 QRSD: 78 QT: 394 QTc: 462 [place]: P: 47 NJ: 144 QRS: 70 T: 87 INTERPRETIVE STATEMENTS: Normal sinus rhythm Normal ECG Compared to ECG 05/17/2019 09:36:46 Sinus bradycardia no longer present Electronically Signed On 05-28-19 13:35:55 COMMUNITY EDUCATOR by Gio Morrison
== END 2019-05-27 21:09 | disposition home or self-care (01) ==
LOC: ER 15:09
DX: Z48.00 Encounter for change or removal of nonsurgical wound dressing (principal); I12.9 Hypertensive chronic kidney disease with stage 1 through stage 4 chronic kidney disease, or unspecified chronic kidney disease; N18.3 Chronic kidney disease, stage 3 (moderate); D63.1 Anemia in chronic kidney disease; Z88.1 Allergy status to other antibiotic agents; Z88.5 Allergy status to narcotic agent; Z88.8 Allergy status to other drugs, medicaments and biological substances
CPT/HCPCS: 93005; 85025; 80048; 36415; 83735; 80076; 71045; 96375; 96374; 99284; J1940; J7040; J2930

== ENCOUNTER 2019-07-08 20:20 | Emergency (ER) | payer MEDICARE ==
--- NOTE | 2019-07-08 21:13 | RAD REPORT ---
EXAM DESCRIPTION: CT - Head Brain Wo Cont - 07/08/2019 9:04 pm CLINICAL HISTORY: CONFUSED Headache, drowsiness COMPARISON: Head Brain Wo Cont dated 09/01/2016; Head Brain Wo Cont dated 08/19/2016 TECHNIQUE: All CT scans are performed using dose optimization technique as appropriate and may inclu de automated exposure control or mA/KV adjustment according to patient size. FINDINGS: No intracranial hemorrhage, hydrocephalus or extra-axial fluid collection.Mild generalized brain atrophy is present with mild periventricular and deep white matter chronic microvascular ische eliza changes.No areas of brain edema or evidence of midline shift. The paranasal sinuses and mastoids are clear. The calvarium is intact. IMPRESSION: No acute intracranial abnormality.
[2019-07-08 21:20] LABS: Basophils % 0.6 % (0-1.3); MPV 7.4 fL (7.6-11.3); RBC Red Blood Cell Count 3.79 M/uL (3.86-4.86)
--- NOTE | 2019-07-08 21:26 | RAD REPORT ---
EXAM DESCRIPTION: RAD - Chest Single View - 07/08/2019 9:18 pm CLINICAL HISTORY: CONGESTION Chest pain. COMPARISON: Chest Single View dated 05/27/2019; Chest Single View dated 05/17/2019; Chest Single View d ated 04/23/2019; Chest Single View dated 10/16/2018 FINDINGS: Portable technique limits examination quality. The lungs are grossly clear. The heart is normal in size. No displaced fractures.Cervical hardware pl ate. IMPRESSION: No acute intrathoracic process suspected.
[2019-07-08 21:39] LABS: Protime INR 0.82
[2019-07-08] MEDS ORDERED: NA CHLORIDE 0.9% 500 ML ONE (21:48)
[2019-07-08 21:58] LABS: ALT/SGPT 12 U/L (12-78); Albumin 3.1 g/dL (3.4-5.0); Alkaline Phosphatase 95 U/L (45-117); Amylase Level 46 U/L (25-115); BUN Blood Urea Nitrogen 79 mg/dL (7-18); Bicarbonate 21 mmol/L (21-32); Bilirubin Direct 0.1 mg/dL (0-0.2); Bilirubin Total 0.5 mg/dL (0.2-1.0); CKMB Creatine Kinase MB < 1.0 ng/mL (0.3-3.6); Creatine Phosphokinase 28 U/L (26-192); Glucose Level 150 mg/dL (74-106); Lipase 89 U/L (73-393); Protein, Total 7.9 g/dL (6.4-8.2); Sodium Level 140 mmol/L (136-145); Troponin (Emerg Dept Use Only) < 0.02 ng/mL (0.0-0.045)
[2019-07-08 22:02] LABS: AST/SGOT 23 U/L (15-37); Potassium 4.3 mmol/L (3.5-5.1)
[2019-07-08] MEDS ORDERED: CEFTRIAXONE/SWI 1gm 1 GM/10 ML SYR ONE (22:43)
[2019-07-08 22:51] LABS: Urine Blood NEGATIVE (NEG); Urine Glucose NEGATIVE (NEG); Urine Protein 1+ (NEG)
[2019-07-08 22:59] LABS: Urine Amorphous Sediment 2+ /HPF (NONE SEEN); Urine Bacteria <20 /HPF (<20); Urine Culture Reflex Order NOT NEEDED; Urine RBC NONE SEEN /HPF (NONE SEEN)
--- NOTE | 2019-07-08 23:17 | ER ---
Nurse's Notes [facility] Name: Nena Rosario Age: 84 yrs Sex: Female : 1935 Arrival Date: 07/08/2019 Time: 20:21 Bed 17 Private MD: Diagnosis: Acute bronchitis Presentation: 07/07 20:32 Chief complaint: Patient states: PT STATES SHE HAS HAD A COUGH FOR 3 DAYS. PT DENIES ls4 ANY OTHER SYMPTOMS. Coronavirus screen: Patient reports a cough. Patient reports shortness of breath or difficulty breathing. Patient denies measured and/or subjective temperature greater than 100.4F. Patient denies travel on a cruise ship or to a country the [facility] currently lists as an affected area. Patient denies contact with known and/or suspected case of COVID-19. Infection Prevention Nurse has been notified of patient in isolation for probable COVID-19. 20:32 Method Of Arrival: EMS ls4 20:32 Ebola Screen: Patient negative for fever greater than or equal to 101.5 degrees ls4 Fahrenheit, and additional compatible Ebola Virus Disease symptoms Patient denies exposure to infectious person. Patient denies travel to an Ebola-affected area in the 21 days before illness onset. No symptoms or risks identified at this time. No acute neurological deficit is noted. The patients blood glucose was checked before arriving to the hospital and was found to be normal. Initial Sepsis Screen: Does the patient meet any 2 criteria? No. Patient's initial sepsis screen is negative. Does the patient have a suspected source of infection? No. Patient's initial sepsis screen is negative. Risk Assessment: Do you want to hurt yourself or someone else? Patient reports no desire to harm self or others. 20:32 Acuity: SID 3 ls4 22:10 Onset of symptoms is unknown. vc Triage Assessment: 22:05 The onset of the patients symptoms was more than six hours ago. General: Appears in no vc apparent distress. uncomfortable, ill, slender, Behavior is calm, cooperative, appropriate for age. Pain: Complains of pain in generalized body aches. Neuro:. Historical: - Allergies: 20:42 BACITRACIN; ls4 20:42 Codeine; ls4 20:42 methylisothiazolinone; ls4 20:42 Morphine; ls4 - Home Meds: 20:42 atenolol 50 mg Oral tab twice a day [Active]; ls4 - PMHx: 20:42 ABNORMAL GAIT; Arthritis; Chronic Kidney disease stage 3; Depression; EDEMA OF LOWER ls4 LEG; Hypertension; hyponatremia; Hypothyroidism; ITCHING OF SKIN - CHRONIC; Migraines; Seizures; UTI; - Immunization history:: Adult Immunizations up to date. - Social history:: Smoking status: Patient denies any tobacco usage or history of. Screenin:54 Abuse screen: Denies threats or abuse. Nutritional screening: No deficits noted. vc Nutritional screening:. Tuberculosis screening: No symptoms or risk factors identified. Fall Risk Fall in past 12 months (25 points). Secondary diagnosis (15 points) impaired mobility, IV access (20 points). Ambulatory Aid- Crutches/Cane/Walker (15 pts). Gait- Weak (10 pts.). Mental Status- Oriented to own ability (0 pts). Total Jimenez Fall Scale indicates High Risk Score (45 or more points). Side Rails Up X 2 Placed Close to Nursing Station Frequent Obs/Assessments Occuring. Assessment: 21:00 General: Appears in no apparent distress. uncomfortable, ill, Behavior is calm, vc cooperative, appropriate for age. Pain: Complains of pain in generalized body pain. Neuro: Level of Consciousness is awake, obeys commands, lethargic, listless, Oriented to person, place, situation, Application Packaging Specialist are weak bilaterally Weakness. Cardiovascular: Capillary refill < 3 seconds Patient's skin is warm and dry. Respiratory: Airway is patent Respiratory effort is even, unlabored, Respiratory pattern is regular, symmetrical. GI: No signs and/or symptoms were reported involving the gastrointestinal system. : No signs and/or symptoms were reported regarding the genitourinary system. EENT: No signs and/or symptoms were reported regarding the EENT system. Derm: Skin is fragile, is thin, Skin temperature is cool Bruising that is dark purple. Musculoskeletal: Range of motion: limited in all extremities. 22:00 Reassessment: Patient appears in no apparent distress at this time. No changes from vc previously documented assessment. Patient and/or family updated on plan of care and expected duration. Pain level reassessed. 23:30 Reassessment: Provider at bedside. vc Vital Signs: 20:32 BP 192 / 98; Pulse 98; Resp 14; Temp 98.1(O); Pulse Ox 100% on R/A; Weight 45.36 kg; ls4 Pain 0/10; 22:00 BP 164 / 99; Pulse 105; Resp 19; Pulse Ox 99% on R/A; Pain 3/10; ls4 22:57 BP 189 / 104; Pulse 95; Resp 14; Pulse Ox 99% on R/A; Pain 3/10; ls4 23:00 BP 197 / 110; Pulse 81; Resp 20; Pulse Ox 100% on R/A; vc ED Course: 20:21 Patient arrived in ED. ds1 20:24 Priya Frances MD is Attending Physician. ma2 20:31 Yusra Moreno, LEAH is Primary Nurse. ls4 20:38 Triage completed. ls4 20:40 Arm band placed on right wrist. vc 21:00 Patient has correct armband on for positive identification. Bed in low position. vc court monitor on. Pulse ox on. Warm blanket given. 21:05 CT Head Brain wo Cont In Process Unspecified. EDMS 21:19 Chest Single View XRAY In Process Unspecified. EDMS 21:35 Missed attempt(s): 22 gauge in right upper arm. vc 21:40 Missed attempt(s): 24 gauge in left forearm. Bleeding controlled, band aid applied, vc catheter tip intact. 21:45 Missed attempt(s): 22 gauge in right antecubital area. Bleeding controlled, band aid vc applied, catheter tip intact. 21:54 Inserted saline lock: 22 gauge in right forearm, using aseptic technique. vc 22:59 No provider procedures requiring assistance completed. ls4 23:29 Called patient's to notify him that she is being discharged. stated he mw2 will be on his way to come get her. Administered Medications: 22:14 Drug: NS 0.9% 500 ml Route: IV; Rate: 1 bolus; Site: right forearm; vc 23:00 Follow up: IV Status: Completed infusion; IV Intake: 500ml vc 22:30 Drug: Rocephin 1 grams Route: IV; Rate: calculated rate; Site: right forearm; vc 23:25 Follow up: IV Status: Completed infusion; IV Intake: 20ml vc Point of Care Testin:57 see bmp ls4 Ranges: Intake: 23:00 IV: 500ml; Total: 500ml. vc 23:25 IV: 20ml; Total: 520ml. vc Outcome: 23:16 Discharge ordered by . rebeca 07/08 00:19 Patient left the ED. mw2 Signatures: Dispatcher [employer] EDMarion Chowdhury ds1 Priya Frances MD MD ma2 Ponce Contreras mw2 Yusra Moreno RN RN ls4 Shelby Lobo RN RN vc Corrections: (The following items were deleted from the chart) 07/07 20:38 20:32 Coronavirus screen: Patient reports a cough. Patient reports shortness of breath ls4 or difficulty breathing. Patient denies measured and/or subjective temperature greater than 100.4F. Patient denies travel on a cruise ship or to a country the [facility] currently lists as an affected area. Patient denies contact with known and/or suspected case of COVID-19. ls4
--- NOTE | 2019-07-08 23:18 | EDPHYS ---
Physician Documentation [facility] Name: Nena Rosario Age: 84 yrs Sex: Female : 1935 Arrival Date: 07/08/2019 Time: 20:21 Bed 17 Private MD: ED Physician Priya Frances HPI: 07/07 22:35 This 84 yrs old Female presents to ER via EMS with complaints of Cough. ma2 22:35 Onset: The symptoms/episode began/occurred gradually, 1 day(s) ago. Associated signs ma2 and symptoms: Pertinent negatives: dizziness, headache, nausea, paresthesias, visual field changes, weakness. Severity of symptoms: At their worst the symptoms were mild in the emergency department the symptoms are unchanged. Onset: The symptoms/episode began/occurred today. Severity of symptoms: At their worst the symptoms were mild, in the emergency department the symptoms have improved, are actually worse. Historical: - Allergies: 20:42 BACITRACIN; ls4 20:42 Codeine; ls4 20:42 methylisothiazolinone; ls4 20:42 Morphine; ls4 - Home Meds: 20:42 atenolol 50 mg Oral tab twice a day [Active]; ls4 - PMHx: 20:42 ABNORMAL GAIT; Arthritis; Chronic Kidney disease stage 3; Depression; EDEMA OF LOWER ls4 LEG; Hypertension; hyponatremia; Hypothyroidism; ITCHING OF SKIN - CHRONIC; Migraines; Seizures; UTI; - Immunization history:: Adult Immunizations up to date. - Social history:: Smoking status: Patient denies any tobacco usage or history of. ROS: 22:35 Constitutional: Negative for fever, chills, and weight loss. ma2 22:35 All other systems are negative. Exam: 22:35 Constitutional: This is a well developed, well nourished patient who is awake, alert, ma2 and in no acute distress. Head/Face: Normocephalic, atraumatic. Eyes: Pupils equal round and reactive to light, extra-ocular motions intact. Lids and lashes normal. Conjunctiva and sclera are non-icteric and not injected. Cornea within normal limits. Periorbital areas with no swelling, redness, or edema. ENT: Nares patent. No nasal discharge, no septal abnormalities noted. Tympanic membranes are normal and external auditory canals are clear. Oropharynx with no redness, swelling, or masses, exudates, or evidence of obstruction, uvula midline. Mucous membranes moist. Neck: Trachea midline, no thyromegaly or masses palpated, and no cervical lymphadenopathy. Supple, full range of motion without nuchal rigidity, or vertebral point tenderness. No Meningismus. Chest/axilla: Normal chest wall appearance and motion. Nontender with no deformity. No lesions are appreciated. Cardiovascular: Regular rate and rhythm with a normal S1 and S2. No gallops, murmurs, or rubs. Normal PMI, no JVD. No pulse deficits. Respiratory: Lungs have equal breath sounds bilaterally, clear to auscultation and percussion. No rales, rhonchi or wheezes noted. No increased work of breathing, no retractions or nasal flaring. Abdomen/GI: Soft, non-tender, with normal bowel sounds. No distension or tympany. No guarding or rebound. No evidence of tenderness throughout. Vital Signs: 20:32 BP 192 / 98; Pulse 98; Resp 14; Temp 98.1(O); Pulse Ox 100% on R/A; Weight 45.36 kg; ls4 Pain 0/10; 22:00 BP 164 / 99; Pulse 105; Resp 19; Pulse Ox 99% on R/A; Pain 3/10; ls4 22:57 BP 189 / 104; Pulse 95; Resp 14; Pulse Ox 99% on R/A; Pain 3/10; ls4 23:00 BP 197 / 110; Pulse 81; Resp 20; Pulse Ox 100% on R/A; vc MDM: 20:24 Medical screening is not applicable. ma2 23:14 Differential Diagnosis: Bronchitis Influenza Upper Respiratory Infection Sinusitis. ma2 Data reviewed: vital signs, nurses notes. Counseling: I had a detailed discussion with the patient and/or guardian regarding: the historical points, exam findings, and any diagnostic results supporting the discharge/admit diagnosis, the presence of at least one elevated blood pressure reading (>120/80) during this emergency department visit, the need for outpatient follow up. Response to treatment: the patient's symptoms have markedly improved after treatment. ED course: has elevated WBC no other component of sirs, + cough , cxr wnl and vs wnl, likely bronchitis she will return to er for any worsening of symptoms and see her pcp. . 07/07 20:26 Order name: Amylase, Serum; Complete Time: 22:06 07/07 20:26 Order name: Basic Metabolic Panel; Complete Time: 22:06 07/07 20:26 Order name: Blood Culture Adult (2) 07/07 20:26 Order name: CBC with Diff; Complete Time: 21:32 07/07 20:26 Order name: Ckmb; Complete Time: 22:06 07/07 20:26 Order name: CPK; Complete Time: 22:06 07/07 20:26 Order name: Lactate; Complete Time: 22:06 07/07 20:26 Order name: LFT's; Complete Time: 22:07/07 20:26 Order name: Lipase; Complete Time: 22:06 07/07 20:26 Order name: Procalcitonin; Complete Time: 22:06 07/07 20:26 Order name: Protime (+inr); Complete Time: 22:06 07/07 20:26 Order name: Ptt, Activated; Complete Time: 22:06 07/07 20:26 Order name: Troponin (emerg Dept Use Only); Complete Time: 22:06 07/07 20:26 Order name: Urine Microscopic Only; Complete Time: 23:14 07/07 20:26 Order name: Chest Single View XRAY; Complete Time: 21:32 07/07 20:26 Order name: Accucheck; Complete Time: 23:24 07/07 20:26 Order name: Cardiac monitoring; Complete Time: 23:24 07/07 20:26 Order name: EKG - Nurse/Tech; Complete Time: 23:24 07/07 20:26 Order name: IV Saline Lock - Large Bore; Complete Time: 21:03 07/07 20:26 Order name: Labs collected and sent; Complete Time: 21:03 07/07 20:26 Order name: O2 Per Protocol; Complete Time: 21:02 07/07 20:26 Order name: O2 Sat Monitoring; Complete Time: 21:02 07/07 20:26 Order name: Urine Dipstick-Ancillary (obtain specimen); Complete Time: 23:25 /26 20:26 Order name: CT Head Brain wo Cont; Complete Time: 21:32 wi2 07/07 22:43 Order name: Urine Dipstick--Ancillary (enter results); Complete Time: 22:55 [facility] Administered Medications: 22:14 Drug: NS 0.9% 500 ml Route: IV; Rate: 1 bolus; Site: right forearm; vc 23:00 Follow up: IV Status: Completed infusion; IV Intake: 500ml vc 22:30 Drug: Rocephin 1 grams Route: IV; Rate: calculated rate; Site: right forearm; vc 23:25 Follow up: IV Status: Completed infusion; IV Intake: 20ml vc Point of Care Testin:57 see bmp ls4 Ranges: Critical Glucose Levels:Adult <50 mg/dl or >400 mg/dl <40 mg/dl or >180 mg/dl Disposition: 07/08/19 23:16 Discharged to Home. Impression: Acute bronchitis. - Condition is Stable. - Discharge Instructions: Acute Bronchitis, Adult. - Prescriptions for Zithromax Z- Neptali 250 mg Oral Tablet - take 1 tablet by ORAL route as directed for 5 days Day 1 - take two (2) tablets one time. Day 2, 3, 4 , 5 take one (1) tablet once daily.; 6 tablet. - Medication Reconciliation Form, Thank You Letter, Antibiotic Education, Prescription Opioid Use form. - Follow up: Private Physician; When: Tomorrow; Reason: Continuance of care. Signatures: Dispatcher [employer] EDMS Priya Frances MD MD wi2 Ponce Contreras 2 Yusra Moreno RN RN ls4 Shelby Lobo RN RN vc Corrections: (The following items were deleted from the chart) 07/08 00:19 07/07 23:16 07/08/2019 23:16 Discharged to Home. Impression: Acute bronchitis. mw2 Condition is Stable. Forms are Medication Reconciliation Form, Thank You Letter, Antibiotic Education, Prescription Opioid Use. Follow up: Private Physician; When: Tomorrow; Reason: Continuance of care. ma2
[2019-07-09 01:15] VITALS: TEMP 98.1
[2019-07-09 01:18] VITALS: BP 197/110; O2SAT 100
--- NOTE | 2019-07-09 11:21 | EKG ---
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
--- NOTE | 2019-07-09 11:21 | EKG ---
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
== END 2019-07-09 00:19 | disposition home or self-care (01) ==
LOC: ER 20:20
DX: J20.9 Acute bronchitis, unspecified (principal); I12.9 Hypertensive chronic kidney disease with stage 1 through stage 4 chronic kidney disease, or unspecified chronic kidney disease; N18.3 Chronic kidney disease, stage 3 (moderate); F32.9 Major depressive disorder, single episode, unspecified; Z88.1 Allergy status to other antibiotic agents; Z88.5 Allergy status to narcotic agent; Z88.8 Allergy status to other drugs, medicaments and biological substances
CPT/HCPCS: 96365; 93005 ×2; 87040 ×2; 85025; 80048; 36415; 82150; 82550; 85610; 80076; 83605; 85730; 84484; 82553; 83690; 84145; 70450; 71045; 99284; J0696; J7040; 81003; 81015

== ENCOUNTER 2019-07-10 17:26 | Observation (INO) | payer MEDICARE ==
[2019-07-10 18:11] LABS: Arterial Blood Carboxyhemoglob 1.6 % (0-1.5); Blood Gas Oxyhemoglobin 94.2 % (94-97); Blood O2 Saturation 96.6 % (92-98.5)
--- NOTE | 2019-07-10 18:11 | ER ---
Nurse's Notes [facility] Name: Nena Rosario Age: 84 yrs Sex: Female : 1935 Arrival Date: 07/10/2019 Time: 17:28 Bed 13 Private MD: Diagnosis: Dyspnea;Anorexia;Chronic obstructive pulmonary disease with (acute) exacerbation;Cellulitis and acute lymphangitis of other parts of limb-right wrist;Elevated white blood cell count;Unspecified kidney failure;Atrial fibrillation and flutter-with rvr Presentation: 07/09 17:28 Chief complaint: EMS states: MALAISE AND ANOREXIA x1 WEEK, RIGHT WRIST EDEMA. bp Coronavirus screen: Patient denies fever greater than 100.4F, cough, shortness of breath, or difficulty breathing. Proceed with normal triage process. Ebola Screen: No symptoms or risks identified at this time. Initial Sepsis Screen: Does the patient meet any 2 criteria? HR > 90 bpm. Does the patient have a suspected source of infection? No. Patient's initial sepsis screen is negative. Risk Assessment: Do you want to hurt yourself or someone else? Patient reports no desire to harm self or others. 17:28 Method Of Arrival: EMS: [facility] bp 17:28 Acuity: SID 3 bp 20:10 Onset of symptoms. mg2 Triage Assessment: 17:28 General: Appears in no apparent distress. comfortable, unkempt, Behavior is bp cooperative, CONFUSED. Pain: Complains of pain in dorsal aspect of right forearm and right wrist. EENT: No deficits noted. Neuro: No deficits noted. Cardiovascular: No deficits noted. Respiratory: No deficits noted. GI: No signs and/or symptoms were reported involving the gastrointestinal system. : No signs and/or symptoms were reported regarding the genitourinary system. Derm: No deficits noted. Musculoskeletal: Swelling present in right arm. Historical: - Allergies: 17:40 BACITRACIN; bp 17:40 Codeine; bp 17:40 methylisothiazolinone; bp 17:40 Morphine; bp - Home Meds: 17:40 atenolol 50 mg Oral tab twice a day [Active]; bp - PMHx: 17:40 ABNORMAL GAIT; Arthritis; UTI; Seizures; Migraines; ITCHING OF SKIN - CHRONIC; bp Hypothyroidism; hyponatremia; Hypertension; EDEMA OF LOWER LEG; Depression; Chronic Kidney disease stage 3; - Immunization history:: Adult Immunizations unknown. - Social history:: Smoking status: Patient denies any tobacco usage or history of. - Family history:: not pertinent. Screenin:42 Abuse screen: Denies threats or abuse. Denies injuries from another. Nutritional bp screening: No deficits noted. Tuberculosis screening: No symptoms or risk factors identified. Fall Risk None identified. Assessment: 17:42 General: SEE TRIAGE NOTE. bp 19:30 General: Appears in no apparent distress. comfortable, Behavior is calm, cooperative, rr5 appropriate for age, Reports malaise. 19:30 Pain: Denies pain. Neuro: Level of Consciousness is awake, alert, obeys commands, rr5 Oriented to person, place, time. Cardiovascular: Capillary refill < 3 seconds Patient's skin is warm and dry. Respiratory: Airway is patent Respiratory effort is even, unlabored, Respiratory pattern is regular, symmetrical. GI: No signs and/or symptoms were reported involving the gastrointestinal system. : No signs and/or symptoms were reported regarding the genitourinary system. EENT: No signs and/or symptoms were reported regarding the EENT system. Derm: Skin is fragile, is thin, Skin temperature is warm. Musculoskeletal: Swelling present in right hand and right arm. 20:00 Reassessment: Patient appears in no apparent distress at this time. Patient is alert, rr5 oriented x 3, equal unlabored respirations, skin warm/dry/pink. ECg done ED provider aware and asses the patient with order made and carried out. 20:30 Cardiovascular: Rhythm is atrial fibrillation. rr5 21:20 Reassessment: Patient appears in no apparent distress at this time. Patient is alert, rr5 oriented x 3, equal unlabored respirations, skin warm/dry/pink. for transfer to 4th floor. awake conscious and coherent not in distress, no complaints made. Vital Signs: 17:28 BP 172 / 102; Pulse 55; Resp 22; Temp 97.7; Pulse Ox 94% on R/A; bp 17:44 Weight 45.36 kg; ms 19:27 Temp 98.1(TE); jp3 19:52 BP 154 / 102; Pulse 124; Resp 23; Temp 97.7; Pulse Ox 99% ; rr5 20:25 BP 161 / 92; Pulse 84; Resp 22; Temp 98; Pulse Ox 97% ; rr5 21:20 BP 163 / 86; Pulse 94; Resp 21; Pulse Ox 99% ; rr5 ED Course: 17:28 Patient arrived in ED. bp 17:28 Leonardo Cramer MD is Attending Physician. [place] 17:31 Triage completed. bp 17:40 Arm band placed on. EKG completed in triage. Results shown to MD. EKG completed in bp triage. Results shown to MD. 17:42 Patient has correct armband on for positive identification. Bed in low position. Call bp light in reach. Side rails up X2. 17:45 Silvio Wong, LEAH is Primary Nurse. bp 18:04 XRAY Chest (1 view) In Process Unspecified. EDMS 18:04 Wrist Right 3 View XRAY In Process Unspecified. EDMS 18:06 Marion Ingram MD is Hospitalizing Provider. [place] 18:10 ABG drawn. by RT staff, on room air. X-ray(s) taken. jp3 18:15 Inserted saline lock: 20 gauge in left Blood collected. jp3 18:15 Initial lab(s) drawn, by me, sent to lab. First set of blood cultures drawn by me. jp3 18:30 CT completed. Patient tolerated procedure well. Patient moved back from CT. mw3 18:32 CT Chest Abdomen Pelvis W/O Contrast: no iv no oral In Process Unspecified. EDMS 19:15 Second set of blood cultures drawn by me. jp3 19:27 Warm blanket given. Verbal reassurance given. Pulse ox on. NIBP on. jp3 20:10 No provider procedures requiring assistance completed. Valdovinos cath inserted, using mg2 sterile technique, 18 Fr., by me, balloon inflated, urine specimen collected. 100 ml returned. Patient admitted, IV remains in place. Administered Medications: 18:10 Drug: SOLU-Medrol 2 mg/kg Route: IVP; Site: left antecubital; bp 19:15 Follow up: Response: No adverse reaction rr5 18:10 Drug: Xopenex 2.5 mg Route: Inhalation; bp 19:30 Follow up: Response: No adverse reaction rr5 18:10 Drug: AtroVENT Aerosol 0.5 mg Route: Inhalation; bp 19:30 Follow up: Response: No adverse reaction rr5 18:10 Drug: Pepcid 20 mg Route: IVP; Site: left antecubital; bp 19:10 Follow up: Response: No adverse reaction rr5 19:00 Drug: Cefepime 1 grams Route: IVPB; Rate: 200 ml/hr; Infused Over: 30 mins; Site: left bp antecubital; 20:00 Follow up: Response: No adverse reaction; IV Status: Completed infusion; IV Intake: rr5 100ml 20:18 Drug: Lopressor 25 mg Route: PO; rr5 21:14 Follow up: Response: No adverse reaction rr5 20:20 Drug: Lopressor 2.5 mg Route: IVP; Site: left antecubital; rr5 21:15 Follow up: Response: No adverse reaction rr5 20:24 Drug: Lovenox 45 mg Route: Sub-Q; Site: right lower abdomen; rr5 21:13 Follow up: Response: No adverse reaction rr5 21:00 Dru mg/kg of (vancoMYCIN 20 mg/kg, NS 0.9% 250 ml) Route: IVPB; Site: left rr5 antecubital; 21:19 Follow up: Response: No adverse reaction; IV Status: Infusion continued upon admission rr5 21:13 Not Given (Hemodynamic Parameters): Lopressor 2.5 mg IVP once; Hold for SBP <100 or HR rr5 <60. Intake: 20:00 IV: 100ml; Total: 100ml. rr5 Outcome: 18:09 Decision to Hospitalize by Provider. [place] 21:20 Admitted to Tele accompanied by tech, via stretcher, room 403, with chart, Report rr5 called to nicol 21:20 Condition: stable 21:20 Instructed on the need for admit. 21:25 Patient left the ED. rr5 Signatures: Dispatcher [employer] Leonardo Anthony MD MD cha Villarreal, Maria ms Peltier, Brian RN RN Olegario Brown RN RN [facility] Lisa Cedeno 3 Naeem Kevin 3 Isacc Ortega RN RN rr5
--- NOTE | 2019-07-10 18:11 | EDPHYS ---
Physician Documentation [facility] Name: Nena Rosario Age: 84 yrs Sex: Female : 1935 Arrival Date: 07/10/2019 Time: 17:28 Bed 13 Private MD: ED Physician Leonardo Cramer HPI: 07/09 17:47 This 84 yrs old Female presents to ER via EMS with complaints of MALAISE. [place] 17:47 The patient has shortness of breath at rest. Onset: The symptoms/episode began/occurred pho[place] 3 day(s) ago. Duration: The symptoms are continuous, and are steadily getting worse. The patient's shortness of breath is aggravated by nothing. weak, right wrist pain, no truma, sob... increasing rr x 2 days. Associated signs and symptoms: Pertinent positives: non-productive cough. Severity of symptoms: At their worst the symptoms were moderate in the emergency department the symptoms are unchanged. The patient or guardian reports decreased range of motion, pain, swelling, tenderness. The complaints affect the right wrist diffusely. Historical: - Allergies: 17:40 BACITRACIN; bp 17:40 Codeine; bp 17:40 methylisothiazolinone; bp 17:40 Morphine; bp - Home Meds: 17:40 atenolol 50 mg Oral tab twice a day [Active]; bp - PMHx: 17:40 ABNORMAL GAIT; Arthritis; UTI; Seizures; Migraines; ITCHING OF SKIN - CHRONIC; bp Hypothyroidism; hyponatremia; Hypertension; EDEMA OF LOWER LEG; Depression; Chronic Kidney disease stage 3; - Immunization history:: Adult Immunizations unknown. - Social history:: Smoking status: Patient denies any tobacco usage or history of. - Family history:: not pertinent. ROS: 17:48 Constitutional: Negative for fever, chills, and weight loss, Eyes: Negative for injury, [place] pain, redness, and discharge, ENT: Negative for injury, pain, and discharge, Neck: Negative for injury, pain, and swelling, Cardiovascular: Negative for chest pain, palpitations, and edema, Abdomen/GI: Negative for abdominal pain, nausea, vomiting, diarrhea, and constipation, Back: Negative for injury and pain, : Negative for injury, bleeding, discharge, and swelling, Neuro: Negative for headache, weakness, numbness, tingling, and seizure, Psych: Negative for depression, anxiety, suicide ideation, homicidal ideation, and hallucinations, Allergy/Immunology: Negative for hives, rash, and allergies, Endocrine: Negative for neck swelling, polydipsia, polyuria, polyphagia, and marked weight changes, Hematologic/Lymphatic: Negative for swollen nodes, abnormal bleeding, and unusual bruising. 17:48 Respiratory: Positive for cough, shortness of breath. 17:48 MS/extremity: Positive for erythema, pain, swelling, tenderness, of the right wrist and right hand. Exam: 17:48 Constitutional: This is a well developed, well nourished patient who is awake, alert, [place] and in no acute distress. Head/Face: Normocephalic, atraumatic. Eyes: Pupils equal round and reactive to light, extra-ocular motions intact. Lids and lashes normal. Conjunctiva and sclera are non-icteric and not injected. Cornea within normal limits. Periorbital areas with no swelling, redness, or edema. ENT: Nares patent. No nasal discharge, no septal abnormalities noted. Tympanic membranes are normal and external auditory canals are clear. Oropharynx with no redness, swelling, or masses, exudates, or evidence of obstruction, uvula midline. Mucous membranes moist. Neck: Trachea midline, no thyromegaly or masses palpated, and no cervical lymphadenopathy. Supple, full range of motion without nuchal rigidity, or vertebral point tenderness. No Meningismus. Chest/axilla: Normal chest wall appearance and motion. Nontender with no deformity. No lesions are appreciated. Cardiovascular: Regular rate and rhythm with a normal S1 and S2. No gallops, murmurs, or rubs. Normal PMI, no JVD. No pulse deficits. Abdomen/GI: Soft, non-tender, with normal bowel sounds. No distension or tympany. No guarding or rebound. No evidence of tenderness throughout. Back: No spinal tenderness. No costovertebral tenderness. Full range of motion. Skin: Warm, dry with normal turgor. Normal color with no rashes, no lesions, and no evidence of cellulitis. Neuro: Awake and alert, GCS 15, oriented to person, place, time, and situation. Cranial nerves II-XII grossly intact. Motor strength 5/5 in all extremities. Sensory grossly intact. Cerebellar exam normal. Normal gait. Psych: Awake, alert, with orientation to person, place and time. Behavior, mood, and affect are within normal limits. 17:48 Respiratory: mild respiratory distress is noted, Respirations: labored breathing, that is mild, Breath sounds: decreased breath sounds, that are mild, are located in both bases. Vital Signs: 17:28 BP 172 / 102; Pulse 55; Resp 22; Temp 97.7; Pulse Ox 94% on R/A; bp 17:44 Weight 45.36 kg; ms 19:27 Temp 98.1(TE); jp3 19:52 BP 154 / 102; Pulse 124; Resp 23; Temp 97.7; Pulse Ox 99% ; rr5 20:25 BP 161 / 92; Pulse 84; Resp 22; Temp 98; Pulse Ox 97% ; rr5 21:20 BP 163 / 86; Pulse 94; Resp 21; Pulse Ox 99% ; rr5 MDM: 17:28 Patient medically screened. [facility] 17:48 Data reviewed: vital signs, nurses notes, lab test result(s), EKG, radiologic studies, [place] plain films. 07/09 17:44 Order name: Basic Metabolic Panel [facility] 07/09 17:44 Order name: CBC with Diff; Complete Time: 19:30 [facility] 07/09 17:44 Order name: LFT's [facility] 07/09 17:44 Order name: Magnesium [facility] 07/09 17:44 Order name: NT PRO-BNP; Complete Time: 19:30 [facility] 07/09 17:44 Order name: PT-INR; Complete Time: 19:30 [facility] 07/09 17:44 Order name: Troponin (emerg Dept Use Only); Complete Time: 19:30 [facility] 07/09 17:44 Order name: ABG; Complete Time: 18:22 [facility] 07/09 17:44 Order name: Blood Culture Adult (2) [facility] 07/09 17:44 Order name: Lactate; Complete Time: 19:30 [facility] 07/09 17:44 Order name: Influenza Screen (a \T\ B); Complete Time: 19:30 [facility] 07/09 17:44 Order name: Urine Culture [facility] 07/09 17:45 Order name: Basic Metabolic Panel; Complete Time: 19:30 [facility] 07/09 17:45 Order name: Liver (Hepatic) Function; Complete Time: 19:30 [facility] 07/09 17:44 Order name: XRAY Chest (1 view); Complete Time: 18:22 [facility] 07/09 17:44 Order name: Wrist Right 3 View XRAY; Complete Time: 18:22 [facility] 07/09 17:45 Order name: Magnesium; Complete Time: 19:30 [facility] 07/09 18:10 Order name: CT Chest Abdomen Pelvis W/O Contrast: no iv no oral; Complete Time: 19:30 [facility] 07/09 18:25 Order name: Basic Metabolic Panel [facility] 07/09 18:25 Order name: Basic Metabolic Panel [facility] 07/09 18:25 Order name: CBC with Automated Diff [facility] 07/09 18:25 Order name: CBC with Automated Diff [facility] 07/09 19:44 Order name: Urine Dipstick--Ancillary (enter results) [place] 07/09 19:48 Order name: Urine Dipstick-Ancillary; Complete Time: 19:52 [facility] 07/09 20:02 Order name: Echo w/ Doppler [facility] 07/09 17:44 Order name: EKG; Complete Time: 17:46 [facility] 07/09 17:44 Order name: Cardiac monitoring; Complete Time: 19:43 [facility] 07/09 17:44 Order name: EKG - Nurse/Tech; Complete Time: 20:09 [facility] 07/09 17:44 Order name: IV Saline Lock; Complete Time: 20:09 [facility] 07/09 17:44 Order name: Labs collected and sent; Complete Time: 20:09 [facility] 07/09 17:44 Order name: O2 Per Protocol; Complete Time: 20:09 [facility] 07/09 17:44 Order name: O2 Sat Monitoring; Complete Time: 20:09 [facility] 07/09 17:44 Order name: Urine Dipstick-Ancillary (obtain specimen); Complete Time: 19:43 [facility] 07/09 17:45 Order name: Valdovinos; Complete Time: 20:08 [facility] 07/09 18:25 Order name: CONS Pharmacy Consult [facility] 07/09 18:25 Order name: Heart Healthy [facility] 07/09 19:55 Order name: Vital Signs; Complete Time: 20:09 [facility] Administered Medications: 18:10 Drug: SOLU-Medrol 2 mg/kg Route: IVP; Site: left antecubital; bp 19:15 Follow up: Response: No adverse reaction rr5 18:10 Drug: Xopenex 2.5 mg Route: Inhalation; bp 19:30 Follow up: Response: No adverse reaction rr5 18:10 Drug: AtroVENT Aerosol 0.5 mg Route: Inhalation; bp 19:30 Follow up: Response: No adverse reaction rr5 18:10 Drug: Pepcid 20 mg Route: IVP; Site: left antecubital; bp 19:10 Follow up: Response: No adverse reaction rr5 19:00 Drug: Cefepime 1 grams Route: IVPB; Rate: 200 ml/hr; Infused Over: 30 mins; Site: left bp antecubital; 20:00 Follow up: Response: No adverse reaction; IV Status: Completed infusion; IV Intake: rr5 100ml 20:18 Drug: Lopressor 25 mg Route: PO; rr5 21:14 Follow up: Response: No adverse reaction rr5 20:20 Drug: Lopressor 2.5 mg Route: IVP; Site: left antecubital; rr5 21:15 Follow up: Response: No adverse reaction rr5 20:24 Drug: Lovenox 45 mg Route: Sub-Q; Site: right lower abdomen; rr5 21:13 Follow up: Response: No adverse reaction rr5 21:00 Dru mg/kg of (vancoMYCIN 20 mg/kg, NS 0.9% 250 ml) Route: IVPB; Site: left rr5 antecubital; 21:19 Follow up: Response: No adverse reaction; IV Status: Infusion continued upon admission rr5 21:13 Not Given (Hemodynamic Parameters): Lopressor 2.5 mg IVP once; Hold for SBP <100 or HR rr5 <60. Disposition: 07/10/19 18:09 Hospitalization ordered by Marion Ingram for Inpatient Admission. Preliminary diagnosis are Dyspnea, Anorexia, Chronic obstructive pulmonary disease with (acute) exacerbation, Cellulitis and acute lymphangitis of other parts of limb - right wrist, Elevated white blood cell count, Unspecified kidney failure, Atrial fibrillation and flutter - with rvr. - Bed requested for Telemetry/MedSurg (Inpatient). - Status is Inpatient Admission. rr5 - Condition is Fair. - Problem is new. - Symptoms have improved. Signatures: Dispatcher [employer] EDNieves Jean-Baptiste RN RN dw Anderson, Corey, MD MD cha Peltier, Brian, RN RN bp Roque, Raymond, RN RN rr5 Corrections: (The following items were deleted from the chart) 18:32 18:09 Hospitalization Ordered by Marion Ingram MD for Inpatient Admission. Preliminary dw diagnosis is Dyspnea; Anorexia; Chronic obstructive pulmonary disease with (acute) exacerbation; Cellulitis and acute lymphangitis of other parts of limb - right wrist; Elevated white blood cell count; Unspecified kidney failure. Bed requested for Telemetry/MedSurg (Inpatient). Status is Inpatient Admission. Condition is Fair. Problem is new. Symptoms have improved. [facility] 19:56 18:32 07/10/2019 18:09 Hospitalization Ordered by Marion Ingram MD for Inpatient dw Admission. Preliminary diagnosis is Dyspnea; Anorexia; Chronic obstructive pulmonary disease with (acute) exacerbation; Cellulitis and acute lymphangitis of other parts of limb - right wrist; Elevated white blood cell count; Unspecified kidney failure. Bed requested for Telemetry/MedSurg (Inpatient). Status is Inpatient Admission. Condition is Fair. Problem is new. Symptoms have improved. 19:59 19:56 07/10/2019 18:09 Hospitalization Ordered by Marion Ingram MD for Inpatient dw Admission. Preliminary diagnosis is Dyspnea; Anorexia; Chronic obstructive pulmonary disease with (acute) exacerbation; Cellulitis and acute lymphangitis of other parts of limb - right wrist; Elevated white blood cell count; Unspecified kidney failure. Bed requested for Telemetry/MedSurg (Inpatient). Status is Inpatient Admission. Condition is Fair. Problem is new. Symptoms have improved. 20:03 19:59 07/10/2019 18:09 Hospitalization Ordered by Marion Ingram MD for Inpatient [place] Admission. Preliminary diagnosis is Dyspnea; Anorexia; Chronic obstructive pulmonary disease with (acute) exacerbation; Cellulitis and acute lymphangitis of other parts of limb - right wrist; Elevated white blood cell count; Unspecified kidney failure. Bed requested for Telemetry/MedSurg (Inpatient). Status is Inpatient Admission. Condition is Fair. Problem is new. Symptoms have improved. 21:25 20:03 07/10/2019 18:09 Hospitalization Ordered by Marion Ingram MD for Inpatient rr5 Admission. Preliminary diagnosis is Dyspnea; Anorexia; Chronic obstructive pulmonary disease with (acute) exacerbation; Cellulitis and acute lymphangitis of other parts of limb - right wrist; Elevated white blood cell count; Unspecified kidney failure; Atrial fibrillation and flutter - with rvr. Bed requested for Telemetry/MedSurg (Inpatient). Status is Inpatient Admission. Condition is Fair. Problem is new. Symptoms have improved. [place]
--- NOTE | 2019-07-10 18:15 | RAD REPORT ---
EXAM DESCRIPTION: RAD - Chest Single View - 07/10/2019 6:04 pm CLINICAL HISTORY: COUGH Chest pain. COMPARISON: Chest Single View dated 07/08/2019; Chest Single View dated 05/27/2019; Chest Single View dated 05/17/2019; Chest Single View dated 04/23/2019 FINDINGS: Portable technique limits examination quality. The lungs are emphysematous but grossly clear. The heart is normal in size. No displaced fractures.Ce rvical spine hardware is present. IMPRESSION: No acute intrathoracic process suspected.
--- NOTE | 2019-07-10 18:16 | RAD REPORT ---
EXAM DESCRIPTION: RAD - Wrist Right 3 View - 07/10/2019 6:04 pm CLINICAL HISTORY: Pain;Swelling Pain COMPARISON: No comparisons FINDINGS: Diffuse osteopenia is seen. Prominent degenerative changes are noted involving the radioca rpal joint as well as the first carpal/metacarpal joint. No acute fractures demonstrated.
--- NOTE | 2019-07-10 18:19 | P.HP ---
Certification for Inpatient Patient admitted to: Observation Practitioner: I am a practitioner with admitting privileges, knowledge of patient current condition, hospital course, and medical plan of care. Services: Services provided to patient in accordance with Admission requirements found in Title 42 Section 412.3 of the Code of Federal Regulations Patient History Date of Service: 07/10/19 Reason for admission: "I want to go home" History of Present Illness: Ms Rosario is 84-year-old female with history of dementia and CKD who was brought to the ER with complaints of right wrist swelling and redness. She was unable to tell me when the symptoms started. Patient was seen in emergency room yesterday for cough or shortness of breath, diagnosis of bronchitis. She is a poor historian unable to provide much history. I called her spouse who reported that patient's R wrist redness started prior to presentation to the hospital 48 hours ago; however, worsened since dc She has had significant decline in her health in the last 3 days, unable to eat. Patient lives alone with her spouse at home, whom she is totally dependent on with minimal hours of caregivers. He feels like he cannot take care of her alone at home. Patient has limited hours of caregivers a week. Allergies bacitracin Allergy (Verified 05/08/17 21:01) Itching codeine Allergy (Verified 05/08/17 21:01) Itching methylisothiazolinone Allergy (Verified 05/08/17 21:01) Itching morphine Allergy (Verified 05/08/17 21:01) Itching Home Medications: Divalproex Sodium [Divalproex Sodium ER] 250 mg PO BEDTIME 10/15/18 Gabapentin 1 cap PO BID 10/15/18 Hydroxyzine HCl [Atarax] 1 tab PO TID PRN 10/15/18 Levocetirizine Dihydrochloride [24Hr Allergy Relief] 1 tab PO BEDTIME 10/15/18 Levothyroxine Sodium 1 tab PO DAILY 10/15/18 atenoloL [Atenolol] 1 tab PO BID 10/15/18 Galantamine HBr [Razadyne] 4 mg PO BID 04/23/19 Hydralazine HCl 1 tab PO BID 04/23/19 Montelukast [Singulair*] 1 tab PO BEDTIME 04/23/19 Calcitrol [Rocaltrol*] 0.5 mcg PO DAILY #30 cap 04/25/19 Cholecalciferol (Vitamin D3) [Vitamin D 5,000 IU Cap*] 5,000 unit PO DAILY #30 cap 04/25/19 Sodium Chloride Tab [Sodium Chloride*] 1 gm PO TIDWM #90 tab 04/25/19 - Past Medical/Surgical History Diabetic: No -: Hypothyroidism -: HTN -: Chronic hyponatremia -: Chronic pruritus -: Arthritis -: Edema of right lower extemity -: History of UTIs -: History of TIAs -: Chronic renal disease -: Asthma -: High risk for falls -: Back Surgery -: hysterectomy -: neck sx -: R eye sx for shingles Psychosocial/ Personal History: Patient is of 59 years. She has 3 children. She does not work - Family History Father -: Cancer Notes: prostate cancer Mother -: Hypertension - Social History Smoking Status: Never smoker Alcohol use: No CD- Drugs: No Caffeine use: Yes Review of Systems is unable to be obtained Physical Examination - Vital Signs Temperature: 97.7 F Blood Pressure: 172/102 Pulse: 55 Respirations: 22 - Physical Exam General: Alert, In no apparent distress, Demented, Confused HEENT: Atraumatic, PERRLA, Mucous membr. moist/pink, EOMI, Sclerae nonicteric Neck: Supple, 2+ carotid pulse no bruit, No LAD, Without JVD or thyroid abnormality Respiratory: Diminished, Crackles/rales Cardiovascular: Regular rate/rhythm, Normal S1 S2 Gastrointestinal: Normal bowel sounds, No tenderness Integumentary: Rash(es), Tenderness/swelling, Erythema, Warmth, Other (R wrist) Neurological: Dementia Lymphatics: No axilla or inguinal lymphadenopathy - Studies Pending Assessment and Plan - Plan Ms Rosario is 84-year-old female presented with us cellulitis. #R wrist Cellulitis-labs pending. Leukocytosis from labs yesterday. -IV antibiotics with vanc and cefepime. -monitor blood pressure closely -culture sent. -rule out septic joint. #CKD 3-labs from today pending. Her creatinine yesterday at 2.92 -avoid nephrotoxins. -trend creatinine #Chronic hyponatremia-Na was 140. Pending labs today #Dementia-resume home medications #Chronic pruritis- resume hydroxyzine. #Seasonal allergies- resume montelukast #Failure to thrive- encourage po intake. PT/OT -consult CM for SNF or placement. DVT prophylaxis-SCD pending lab Patient is a DNR/DNI; Spouse is NOK - Advance Directives Does patient have a Living Will: Yes Does patient have a Durable POA for Healthcare: Yes - Code Status/Comfort Care Code Status Assessed: Yes Code Status: Do Not Attempt Resuscitat
[2019-07-10] MEDS ORDERED: ACETAMINOPHEN 500 MG TAB PO PRN (18:20)
[2019-07-10] MEDS ORDERED: HOME MED 1 EA UNK (Hydroxyzine Hcl [Atarax] 1 TAB) PO PRN (18:23)
[2019-07-10] MEDS ORDERED: hydrOXYzine HCL 25 MG TAB PO PRN (18:36)
[2019-07-10] MEDS ORDERED: HYDROXYZINE HCL 10 MG/5 ML SYRUP UD PO PRN (18:38)
--- NOTE | 2019-07-10 18:41 | RAD REPORT ---
EXAM DESCRIPTION: CT - Chest Abd Pelvis Wo Con - 07/10/2019 6:31 pm CLINICAL HISTORY: Chest and abdomen pain. COPD;Cough;Dyspnea;Fever COMPARISON: No comparisons TECHNIQUE: A limited noncontrast study was performed. All CT scans are performed using dose optimization technique as appropriate and may include automated exposure control or mA/KV adjustment according to patient size. FINDINGS: The lungs appear mildly emphysematous. Benign calcified granuloma noted right lung.No foca l infiltrate detected.No pleural or pericardial effusion.Small hiatal hernia.No intrathoracic adenopa thy. The liver, spleen, pancreas, adrenal glands and kidneys are within normal limits. Aortic atherosclero sis. No bowel obstruction, free air, free fluid or abscess. Sigmoid diverticulosis coli is present without diverticulitis. Moderate stool is present in the rectum. The appendix is not identified as a discret e structure, however, no secondary findings of appendicitis are identified. No pathologic lymphadeno lavelle in the abdomen or pelvis. Postsurgical changes are present lumbar spine. Chronic anterolisthesis of L5 on S1 is seen. IMPRESSION: No acute finding is demonstrated.
[2019-07-10 18:44] LABS: Absolute Lymphocytes (CBC) 1.1 K/uL (0.7-4.9); Basophils % 0.3 % (0-1.3); Hematocrit 38.4 % (36.0-45.0); Lymphocytes % 6.2 % (15.3-44.8); MPV 8.1 fL (7.6-11.3); RBC Red Blood Cell Count 4.02 M/uL (3.86-4.86)
[2019-07-10 18:45] LABS: ALT/SGPT 15 U/L (12-78); AST/SGOT 24 U/L (15-37); Albumin 2.9 g/dL (3.4-5.0); Alkaline Phosphatase 112 U/L (45-117); BUN Blood Urea Nitrogen 69 mg/dL (7-18); Bicarbonate 26 mmol/L (21-32); Bilirubin Direct 0.2 mg/dL (0-0.2); Bilirubin Total 0.5 mg/dL (0.2-1.0); Glucose Level 144 mg/dL (74-106); Magnesium 2.5 mg/dL (1.8-2.4); NT PRO-BNP 7652 pg/mL (<450); Potassium 3.9 mmol/L (3.5-5.1); Protein, Total 8.4 g/dL (6.4-8.2); Protime INR 0.98; Sodium Level 140 mmol/L (136-145); Troponin (Emerg Dept Use Only) < 0.02 ng/mL (0.0-0.045)
[2019-07-10] MEDS ORDERED: METHYLPREDNISOLONE 125 MG INJ ONE (18:51)
[2019-07-10] MEDS ORDERED: IPRATROPIUM BROM 0.5MG/2.5ML ONE (18:51)
[2019-07-10] MEDS ORDERED: LEVALBUTEROL 1.25 MG/3 ML NEB ONE (18:51)
[2019-07-10] MEDS ORDERED: FAMOTIDINE 20 MG/2 ML VIAL IV ONE (18:52)
[2019-07-10] MEDS ORDERED: VANCOMYCIN/NS 1 gm 1 GM/250 ML BAG IVPB ONE (19:00)
[2019-07-10] MEDS ORDERED: FUROSEMIDE 20 MG/ 2ML VIAL ONE (19:37)
[2019-07-10 19:47] LABS: Urine Glucose NEGATIVE (NEG)
[2019-07-10 19:48] LABS: Urine Blood NEGATIVE (NEG); Urine Protein 2+ (NEG)
[2019-07-10] MEDS ORDERED: METOPROLOL TAR 25 MG TAB ONE (20:17)
[2019-07-10] MEDS ORDERED: METOPROLOL TARTRATE 5 MG/5 ML INJ IV ONE (20:17)
[2019-07-10] MEDS ORDERED: ENOXAPARIN 60 MG/0.6 ML SQ ONE (20:18)
[2019-07-10] MEDS ORDERED: Pharmacy Consult 1 EA XX PRN (20:59)
[2019-07-10] MEDS ORDERED: ENOXAPARIN 40 MG/0.4 ML SQ SCH (21:00)
[2019-07-10] MEDS: HYDRALAZINE HCL 25 MG TABLET PO SCH ×2 (21:00→23:59)
[2019-07-10] MEDS: GABAPENTIN 300 MG CAP PO SCH (21:00)
[2019-07-10] MEDS: MONTELUKAST 10 MG TAB PO SCH (21:00)
[2019-07-10] MEDS ORDERED: GALANTAMINE 4 MG TAB PO SCH (21:00)
[2019-07-10] MEDS ORDERED: HOME MED 1 EA UNK (Levocetirizine Dihydrochloride [24hr Allergy Relief] 1 TAB) PO SCH (21:00)
[2019-07-10] MEDS: CETIRIZINE HCL 5 MG TABLET PO SCH (21:00)
[2019-07-10] MEDS ORDERED: FAMOTIDINE 20 MG/2 ML VIAL IV SCH (21:00)
[2019-07-10 22:02] VITALS: BMI 21.2
[2019-07-10] MEDS ORDERED: WATER FOR INJ,STERILE 10 ML IM PRN (22:40)
[2019-07-10] MEDS ORDERED: ZIPRASIDONE MESYLA 20 MG/VIAL IM ONE (22:40)
[2019-07-11] MEDS: LEVOTHYROXINE SOD 0.112 MG TAB PO SCH (05:26)
[2019-07-11] MEDS: METOPROLOL TAR 25 MG TAB PO SCH ×2 (05:26→18:38)
[2019-07-11 05:55] LABS: Absolute Lymphocytes (CBC) 0.7 K/uL (0.7-4.9); Basophils % 0.2 % (0-1.3); Hematocrit 33.1 % (36.0-45.0); Lymphocytes % 4.6 % (15.3-44.8)
[2019-07-11 06:48] LABS: Blood Morphology Comment NOT SEEN (NOT SEEN); Platelet Estimate ADEQ; Urine White Blood Cell Casts OK
[2019-07-11] MEDS ORDERED: atenoloL 50 MG TAB PO SCH (09:00)
[2019-07-11] MEDS ORDERED: HOME MED 1 EA UNK (Omeprazole [Omeprazole] 1 TAB) PO SCH (09:00)
[2019-07-11] MEDS: CEFTRIAXONE/SWI 1gm 1 GM/10 ML SYR IV SCH (09:02)
[2019-07-11] MEDS: HYDRALAZINE HCL 25 MG TABLET PO SCH ×3 (09:03→20:53)
[2019-07-11] MEDS: VITAMIN D 5,000 UNIT CAP PO SCH (09:03)
[2019-07-11] MEDS: CALCITROL 0.25 MCG CAP PO SCH (09:03)
[2019-07-11] MEDS: GABAPENTIN 300 MG CAP PO SCH ×2 (09:03→20:53)
--- NOTE | 2019-07-11 09:17 | EKG ---
Test Date: 2019-07-10 Test Time: 19:45:34 Insecticide Mixer: MG MEASUREMENT RESULTS: Intervals: Rate: 124 DC: QRSD: 76 QT: 340 QTc: 488 [place]: P: DC: QRS: 57 T: 110 INTERPRETIVE STATEMENTS: Atrial fibrillation with rapid ventricular response ST & T wave abnormality, consider lateral ischemia Abnormal ECG Compared to ECG 07/08/2019 22:51:32 ST (T wave) deviation now present Possible ischemia now present Sinus rhythm no longer present Atrial premature complex(es) no longer present Myocardial infarct finding no longer present Electronically Signed On 07-11-19 09:16:15 CDT by Arnaldo Link
[2019-07-11] MEDS ORDERED: NA CHLORIDE 0.9% 1,000 ML IV SCH (10:00)
--- NOTE | 2019-07-11 10:52 | P.PN ---
Subjective Date of Service: 07/11/19 Chief Complaint: "I want to go home" Subjective: Improving Intermittent episodes of agitation and confusion Physical Examination - Vital Signs Temperature: 97.7 F Blood Pressure: 130/70 Pulse: 79 Respirations: 16 Pulse Ox (%): 94 - Physical Exam General: Alert, In no apparent distress HEENT: Atraumatic, PERRLA, EOMI Neck: Supple, JVD not distended Respiratory: Clear to auscultation bilaterally, Normal air movement Cardiovascular: Regular rate/rhythm, Normal S1 S2 Gastrointestinal: Normal bowel sounds, No tenderness Musculoskeletal: No tenderness Integumentary: No rashes Neurological: Normal speech, Normal tone, Normal affect Lymphatics: No axilla or inguinal lymphadenopathy - Studies Laboratory Data (last 24 hrs) 07/10/19 18:15: PT 11.6, INR 0.98 07/10/19 18:15: WBC 17.8 H, Hgb 12.6, Hct 38.4, Plt Count 410 H 07/10/19 18:15: Sodium 140, Potassium 3.9, BUN 69 H, Creatinine 2.90 H, Glucose 144 H, Magnesium 2.5 H D, Total Bilirubin 0.5, AST 24, ALT 15, Alkaline Phosphatase 112 Laboratory Tests 07/11/19 07/11/19 05:24 05:24 WBC 15.2 H D RBC 3.40 L Hgb 10.8 L Neutrophils % 92.7 H Lymphocytes % 4.6 L Sodium 141 Potassium 4.0 Chloride 109 H BUN 71 H Creatinine 2.86 H Estimated GFR 16 L Glucose 165 H Microbiology Data (last 24 hrs): 07/10/19 18:00 Nasopharnyx Influenza Type A Antigen Screen - Final 07/10/19 18:00 Nasopharnyx Influenza Type B Antigen Screen - Final Assessment & Plan Physician Review Additional Text: Ms Rosario is 84-year-old female presented with cellulitis. #R wrist Cellulitis-leukocytosis is resolving. -deescalate abx to ceftriaxone. -monitor blood pressure closely -culture sent. -rule out septic joint. #CKD 3-Cr close to baseline. pt is hypovolemic clinically. Will initiate NS IV. -Elevated BUN. -avoid nephrotoxins. -trend creatinine #Afib with RVR- unclear if any prior history. EKG noted. - rate controlled. - check TSH & Echo -cardio consulted -high fall risk for oac. #Chronic hyponatremia-Na was 141. Hold salt tabs. -Mft on consult. #Dementia-resumed home medications - geodon prn for agitation #Chronic pruritis- resumed hydroxyzine. #Seasonal allergies- resumed montelukast #Failure to thrive- encourage po intake. PT/OT -consult CM for SNF or placement. DVT prophylaxis-SCD. Patient is a DNR/DNI; Spouse is NOK
[2019-07-11] MEDS ORDERED: ZIPRASIDONE MESYLA 20 MG/VIAL IM ONE (10:59)
[2019-07-11] MEDS ORDERED: WATER FOR INJ,STERILE 10 ML IM PRN (10:59)
--- NOTE | 2019-07-11 11:23 | CON ---
Date of Consultation: 07/11/2019 Patient was admitted to Dr. Ingram on 07/10/2019, I saw the patient on 07/11/2019. Reason For Consultation: Rapid atrial fibrillation with rapid ventricular response, new onset. History Of Present Illness: Ms. Rosario is an 84-year-old white woman. She is a do not resuscitate . She has multiple past medical history issues including hypertension, seizure disorders, chronic hy ponatremia, chronic edema, depression, chronic renal disease. She came into the hospital with malais e, was found to have cellulitis of her right wrist and was being given antibiotics. But when she cam e into the emergency room she was initially in sinus rhythm and had 1 episode of atrial fibrillation at rate of 128. She was given IV Lopressor and she converted to sinus rhythm. She recalls having oc casional palpitations in the past. She denied any syncope. Denied any chest pain, nausea, vomiting, diaphoresis, PND, orthopnea, or palpitations. She has chronic trace pedal edema. Past Medical History: As stated above. Allergies: SHE IS ALLERGIC TO MORPHINE, BACTRIM AND CODEINE. Review of Systems: Negative. Social History: Negative. Family History: Negative. Medications: At home, include Norvasc, atenolol, Synthroid, Singulair, Protonix, hydralazine, Neuron tin, and Depakote. Physical Examination: General: She is actually a very pleasant lady. She was in sinus rhythm this morning. Afebrile. No specific complaint. HEENT: Negative. Neck: Supple. No bruit, lymphadenopathy, JVD, or thyromegaly. Chest: Clear to auscultation and percussion. Cardiac: Exam revealed a regular rhythm and rate with an aortic sclerosis, murmur. No gallops or ru bs. Abdomen: Benign. Extremities: Revealed no clubbing, cyanosis, or edema. She had a swollen right wrist that is erythe matous and tender. Diagnostic Data: White count was 17,000. Her creatinine is 2.9, glucose was 165. BNP was 7652. He r troponin is negative. Chest x-ray is unremarkable. EKG showed atrial fibrillation with rapid vent ricular response when she came in. Her last EKG is normal, nonspecific changes. Impression And Plan: 1.One episode of atrial fibrillation that converted with 2 doses of IV beta-maxwell. She is on meto prolol already and I would continue that. I would suggest aspirin. She is on Lovenox. I do not thi nk she is a candidate for poor anticoagulation. She is very weak, feeble. She is 84. She is a do n ot resuscitate. She has only had 1 episode of atrial fibrillation and I would treat her with beta bl ocker, aspirin, no anticoagulation. I would like her to get an echocardiogram tomorrow. 2.Elevated white count secondary to cellulitis of the right wrist. She is on antibiotics. 3.Elevated creatinine, chronic, stage 3. 4.Diabetes. 5.Elevated BNP secondary to renal insufficiency. 6.Hypertension, well controlled. 7.Depression. We will continue to follow her rhythm. Follow her cellulitis. BILLY/GO Voice ID: [id number] Report ID: [id number]
--- NOTE | 2019-07-11 13:57 | P.CNS ---
Date of Consult: 07/11/19 acute on chronic ckd. close to baseline. has not been eating well. had slight elevation in wbc. ? right wrist cellulitis (almost resolved); ? uti. on abx. patient feels much better today. more alert and eating better. bp on higher side. vs stable/reviewed lungs cta cvs rrr abd soft ext no edema/dry labs/meds reviewed. pmhx reviewed. ckd/frail elderly social: lives with . good support. a/p: ckd/katja/volume depletion/sodium ok/tsh ok/bp on higher side/encourage po intake. continue ivf with d5 ns at 65 ccs /hr and check cbc/bmp in am. fall precautions. ? cellulitis of right wrist/?uti; on abx and wrist looks resolved and check ua ordered. clinically much improved. more alert and taking po better. start amlodipine 2.5mg with holding parameters to hold for sbp less than 120. plan reviewed with patient's RN (ms adrian). also spoke with naga and updated him and questions answered. he was very appreciative.
[2019-07-11] MEDS ORDERED: D5W 1,000 ML IV SCH (14:00)
[2019-07-11] MEDS: D5 0.9 NS 1,000 ML IV SCH (15:00)
[2019-07-11 15:33] LABS: Urine Appearance CLOUDY; Urine Bilirubin NEGATIVE (NEG); Urine Blood NEGATIVE (NEG); Urine Color YELLOW; Urine Glucose NEGATIVE (NEG); Urine Protein 1+ (NEG); Urine Specific Gravity 1.015 (1.005-1.030); Urine Urobilinogen 0.2 mg/dL (0.2-1.0); Urine pH 5.5 (5.0-7.0)
[2019-07-11 15:34] LABS: Urine Microscopic Reflex ORDER UMIC
[2019-07-11 15:51] LABS: Urine Amorphous Sediment 1+ /HPF (NONE SEEN); Urine Bacteria 20-50 /HPF (<20); Urine Culture Reflex Order REFLEXED; Urine RBC <5 /HPF (NONE SEEN)
[2019-07-11] MEDS: AMLODIPINE 2.5 MG TAB PO SCH (16:17)
[2019-07-11] MEDS: PANTOPRAZOLE 40MG TABLET PO SCH (16:19)
[2019-07-11] MEDS: ENOXAPARIN 40 MG/0.4 ML SQ SCH (16:21)
[2019-07-11] MEDS: DIVALPROEX ER 250 MG TAB PO SCH (20:53)
[2019-07-11] MEDS: MONTELUKAST 10 MG TAB PO SCH (20:53)
[2019-07-11] MEDS: CETIRIZINE HCL 5 MG TABLET PO SCH (20:53)
[2019-07-12] MEDS: D5 0.9 NS 1,000 ML IV SCH ×2 (05:37→14:06)
[2019-07-12] MEDS: METOPROLOL TAR 25 MG TAB PO SCH ×2 (05:45→17:15)
[2019-07-12] MEDS: LEVOTHYROXINE SOD 0.112 MG TAB PO SCH (05:45)
[2019-07-12 07:02] LABS: Uric Acid 11.9 mg/dL (2.6-6.0)
[2019-07-12 07:27] LABS: Absolute Lymphocytes (CBC) 0.9 K/uL (0.7-4.9); Basophils % 0.3 % (0-1.3); Lymphocytes % 5.4 % (15.3-44.8); MPV 8.1 fL (7.6-11.3); RBC Red Blood Cell Count 3.25 M/uL (3.86-4.86)
[2019-07-12] MEDS: CEFTRIAXONE/SWI 1gm 1 GM/10 ML SYR IV SCH (08:16)
[2019-07-12] MEDS: AMLODIPINE 2.5 MG TAB PO SCH (08:16)
[2019-07-12] MEDS: CALCITROL 0.25 MCG CAP PO SCH (08:16)
[2019-07-12] MEDS: VITAMIN D 5,000 UNIT CAP PO SCH (08:17)
[2019-07-12] MEDS: PANTOPRAZOLE 40MG TABLET PO SCH ×2 (08:17→17:12)
[2019-07-12] MEDS: GABAPENTIN 300 MG CAP PO SCH ×2 (08:17→20:18)
[2019-07-12] MEDS: HYDRALAZINE HCL 25 MG TABLET PO SCH ×3 (08:17→20:19)
--- NOTE | 2019-07-12 10:30 | PN ---
Date of Progress Note: 07/12/2019 Ms. Rosario came in yesterday with 1 episode of atrial fibrillation, shortness of breath, was treate d with IV beta-maxwell. She was put on p.o. beta-maxwell for her atrial fibrillation. Patient has a do not resuscitate status. She has not had any more atrial fibrillation. She has been in normal rh ythm since admission, on low-dose beta maxwell. She is on Lovenox. She is on aspirin. An echocardi ogram is pending today. She has improved from the day she came in. Overall, she is really asymptoma tic. We will see what the echo shows, but again I suggest rate control, aspirin, low-dose beta block er. No anticoagulation at this point. BILLY/GO Voice ID: [id number] Report ID: [id number]
--- NOTE | 2019-07-12 12:08 | P.PN ---
Subjective Date of Service: 07/12/19 Chief Complaint: "I want to go home" Denies any new complaints. PT working with patient. Physical Examination - Vital Signs Temperature: 97.2 F Blood Pressure: 213/95 Pulse: 88 Respirations: 15 Pulse Ox (%): 96 - Physical Exam General: Alert, In no apparent distress HEENT: Atraumatic, PERRLA, Other (alopecia), EOMI Neck: Supple, JVD not distended Respiratory: Clear to auscultation bilaterally, Normal air movement Cardiovascular: Regular rate/rhythm, Normal S1 S2 Gastrointestinal: Normal bowel sounds, No tenderness Musculoskeletal: No tenderness Integumentary: No rashes Neurological: Normal speech, Normal tone, Normal affect Lymphatics: No axilla or inguinal lymphadenopathy - Studies Laboratory Tests 07/12/19 07/12/19 06:02 06:35 WBC 16.7 H RBC 3.25 L Hgb 9.9 L Hct 31.0 L Neutrophils % 88.6 H Lymphocytes % 5.4 L Sodium 141 Potassium 4.0 Chloride 111 H Carbon Dioxide 20 L BUN 81 H Creatinine 2.80 H Estimated GFR 16 L Uric Acid 11.9 H Medications List Reviewed: Yes Assessment & Plan Physician Review: Patient Assessed, Agree with Above Assessment and Plan Physician Review Additional Text: Ms Rosario is 84-year-old female presented with cellulitis. #R wrist Cellulitis-leukocytosis worsened. -deescalated abx to ceftriaxone yesterday, consider switching back to vanc if leukocytosis continues to worsen. for now clinically improved. -monitor blood pressure closely -culture sent. -rule out septic joint. #CKD 3-Cr close to baseline. pt wass hypovolemic clinically. on IVF -Elevated BUN. -avoid nephrotoxins. -trend creatinine #Afib with RVR- unclear if any prior history. EKG noted. - rate controlled. -TSH wnl. echo pending. -cardio consulted -high fall risk for oac. #Primary alopecia. #Chronic hyponatremia-Na was 141. Hold salt tabs. -Fish Cleaner Machine Tender on consult. #Dementia-resumed home medications - geodon prn for agitation #Chronic pruritis- resumed hydroxyzine. #Seasonal allergies- resumed montelukast #Failure to thrive- encourage po intake. PT/OT -consult CM for SNF or placement. DVT prophylaxis-SCD. Patient is a DNR/DNI; Spouse is NOK
[2019-07-12] MEDS ORDERED: CEFTRIAXONE/SWI 1gm 1 GM/10 ML SYR IV SCH (13:00)
[2019-07-12] MEDS: ENSURE ENLIVE 237 ML CAN PO SCH ×2 (14:08→20:19)
[2019-07-12] MEDS: VANCOMYCIN/NS 1 gm 1 GM/250 ML BAG IVPB SCH (14:12)
[2019-07-12] MEDS: ENOXAPARIN 40 MG/0.4 ML SQ SCH (17:13)
[2019-07-12] MEDS: CETIRIZINE HCL 5 MG TABLET PO SCH (20:18)
[2019-07-12] MEDS: MONTELUKAST 10 MG TAB PO SCH (20:18)
[2019-07-12] MEDS: DIVALPROEX ER 250 MG TAB PO SCH (20:18)
--- NOTE | 2019-07-12 21:26 | P.PN ---
Date of Service: 07/12/19 Vital Signs Temp Pulse Resp BP Pulse Ox 97.0 F 115 H 15 162/91 H 100 07/12/19 16:00 07/12/19 17:15 07/12/19 16:00 07/12/19 17:15 07/12/19 16:00 Medications Acetaminophen (Tylenol -Extra Strength) 500 mg PO Q6H PRN PRN Reason: TEMP > 100' F Stop: 08/09/19 18:21 Amlodipine Besylate (Norvasc) 5 mg PO DAILY LUZ Stop: 08/12/19 09:01 Calcitriol (Rocaltrol) 0.5 mcg PO DAILY LUZ Stop: 08/10/19 09:01 Last Admin: 07/12/19 08:16 Dose: 0.5 mcg Cetirizine HCl (Zyrtec) 10 mg PO BEDTIME LUZ Stop: 08/09/19 21:01 Last Admin: 07/12/19 20:18 Dose: 10 mg Cholecalciferol (Vitamin D 5,000 Iu Cap) 5,000 unit PO DAILY LUZ Stop: 08/10/19 09:01 Last Admin: 07/12/19 08:17 Dose: 5,000 unit Divalproex Sodium (Depakote *Er*) 250 mg PO BEDTIME LUZ Stop: 08/10/19 21:01 Last Admin: 07/12/19 20:18 Dose: 250 mg Enoxaparin Sodium (Lovenox 40 Mg Inj) 40 mg SQ DAILY 5 PM LUZ Stop: 08/10/19 17:01 Last Admin: 07/12/19 17:13 Dose: 40 mg Gabapentin (Neurontin) 300 mg PO BID LUZ Stop: 08/09/19 21:01 Last Admin: 07/12/19 20:18 Dose: 300 mg Hydralazine HCl (Apresoline) 25 mg PO TID LUZ Stop: 08/10/19 09:01 Last Admin: 07/12/19 20:19 Dose: 25 mg Hydroxyzine HCl (Atarax Syrup) 10 mg PO TID PRN PRN Reason: ALLERGIES Stop: 08/09/19 18:39 Pharmacy Consult (Pharmacy Consult) 1 mls @ 1 mls/hr XX DAILYPRN PRN; Protocol PRN Reason: Vancomycin dose by pharmacy Stop: 08/09/19 21:00 Dextrose/Sodium Chloride (D5w Ns 1-Liter Bag) 1,000 mls @ 65 mls/hr IV .[id number] LUZ Stop: 08/10/19 15:01 Last Admin: 07/12/19 14:06 Dose: 1,000 mls Ceftriaxone Sodium/Sodium Chloride (Rocephin 1 Gm/10 Ml Swi Ivp) 1 gm in 10 mls @ 600 mls/hr IV DAILY LUZ; Protocol Stop: 08/12/19 09:01 Vancomycin HCl (Vancomycin 1 Gm/250 Ml Ns Ivpb) 1 gm in 250 mls @ 150 mls/hr IVPB Q48H LUZ Stop: 08/11/19 14:01 Last Admin: 07/12/19 14:12 Dose: 250 mls Levothyroxine Sodium (Synthroid) 0.112 mg PO DAILYAC LUZ Stop: 08/10/19 06:31 Last Admin: 07/12/19 05:45 Dose: 0.112 mg Metoprolol Tartrate (Lopressor) 25 mg PO BID 6AM 6PM LUZ Stop: 08/10/19 06:01 Last Admin: 07/12/19 17:15 Dose: 25 mg Montelukast Sodium (Singulair) 10 mg PO BEDTIME LUZ Stop: 08/09/19 21:01 Last Admin: 07/12/19 20:18 Dose: 10 mg Nutritional Formula (Ensure Enlive) 237 ml PO BID LUZ Stop: 08/11/19 09:01 Last Admin: 07/12/19 20:19 Dose: 237 ml Pantoprazole Sodium (Protonix Tab) 20 mg PO BIDAC LUZ Stop: 08/10/19 16:31 Last Admin: 07/12/19 17:12 Dose: 20 mg Sodium Chloride (Normal Saline Flush) 10 ml IV BID LUZ Stop: 08/09/19 21:01 Last Admin: 07/12/19 20:19 Dose: 10 ml Microbiology Results 07/10/19 18:15 Blood - Blood Aerobic Blood Culture - Preliminary No growth in 24 hours. 07/10/19 18:15 Blood - Blood Anaerobic Blood Culture - Preliminary No growth in 24 hours. 07/10/19 18:00 Nasopharnyx Influenza Type A Antigen Screen - Final 07/10/19 18:00 Nasopharnyx Influenza Type B Antigen Screen - Final Assessment/ Plan: Nephrology CPS stable without CP or SOB. Mild confusion. No acute events overnight. Vitals, medications, blood work and imaging reviewed in the chart. NAD. MMM. Neck supple. CTA. RRR. Soft Abd. No C/C/E. No rash. Confused. Normal Speech. A/ CKD IV with proteinuria. Acidosis. DM II with CKD. HTN with CKD/ CHF. Diastolic CHF, chronic. Moderate manlutrition. Anemia in chronic illness. P/ Continue current POC and Medications. Change IVF 1/2NS. Monitor sodium. Start oral bicarb. AM labs. Daily weight. No NSAIDs. EXAM DESCRIPTION: CT - Chest Abd Pelvis Wo Con - 07/10/2019 6:[address] scans are performed using dose optimization technique as appropriate and may include automated exposure control or mA/KV adjustment according to patient size. FINDINGS: The lungs appear mildly emphysematous. Benign calcified granuloma noted right lung.No focal infiltrate detected.No pleural or pericardial effusion.Small hiatal hernia.No intrathoracic adenopathy. The liver, spleen, pancreas, adrenal glands and kidneys are within normal limits. Aortic atherosclerosis. No bowel obstruction, free air, free fluid or abscess. Sigmoid diverticulosis coli is present without diverticulitis. Moderate stool is present in the rectum. The appendix is not identified as a discrete structure, however, no secondary findings of appendicitis are identified. No pathologic lymphadenopathy in the abdomen or pelvis. Postsurgical changes are present lumbar spine. Chronic anterolisthesis of L5 on S1 is seen. IMPRESSION: No acute finding is demonstrated. EXAM DESCRIPTION: RAD - Chest Single View - 07/10/2019 6:04 pm CLINICAL HISTORY: COUGH Chest pain. COMPARISON: Chest Single View dated 07/08/2019; Chest Single View dated 2019; Chest Single View dated 05/17/2019; Chest Single View dated 04/23/2019 FINDINGS: Portable technique limits examination quality. The lungs are emphysematous but grossly clear. The heart is normal in size. No displaced fractures.Cervical spine hardware is present. IMPRESSION: No acute intrathoracic process suspected.
[2019-07-12] MEDS: NACHLORIDE 0.45% 1,000 ML IV SCH (21:48)
[2019-07-13] MEDS: LEVOTHYROXINE SOD 0.112 MG TAB PO SCH (05:33)
[2019-07-13] MEDS: METOPROLOL TAR 25 MG TAB PO SCH ×2 (05:33→18:33)
[2019-07-13] MEDS: NACHLORIDE 0.45% 1,000 ML IV SCH ×2 (05:33→15:57)
[2019-07-13] MEDS: PANTOPRAZOLE 40MG TABLET PO SCH ×4 (07:30→18:33)
[2019-07-13] MEDS: GABAPENTIN 300 MG CAP PO SCH ×2 (08:09→20:24)
[2019-07-13] MEDS: SODIUM BICARB 325 MG TAB PO SCH ×2 (08:10→20:24)
[2019-07-13] MEDS: CALCITROL 0.25 MCG CAP PO SCH (08:10)
[2019-07-13] MEDS: VITAMIN D 5,000 UNIT CAP PO SCH (08:10)
[2019-07-13] MEDS: AMLODIPINE 5 MG TAB PO SCH (08:10)
[2019-07-13] MEDS: CEFTRIAXONE/SWI 1gm 1 GM/10 ML SYR IV SCH (08:11)
[2019-07-13] MEDS: ENSURE ENLIVE 237 ML CAN PO SCH ×2 (08:11→20:25)
[2019-07-13] MEDS: HYDRALAZINE HCL 25 MG TABLET PO SCH ×3 (08:11→20:23)
--- NOTE | 2019-07-13 10:10 | ECHO ---
HEIGHT: 4 ft 11 in WEIGHT: 105 lb 0 oz DATE OF STUDY: 07/12/[address]: Arnaldo Link MD 2-DIMENSIONAL: YES M.MODE: YES DOPPLER: YES COLOR FLOW: YES TDS: YES PORTABLE: NO DEFINITY: NO BUBBLE STUDY: NO DIAGNOSIS: ATRIAL FIBRILLATION CARDIAC HISTORY: CATHERIZATION: SURGERY: PROSTHETIC VALVE: PACEMAKER: MEASUREMENTS (cm) DIASTOLIC (NORMALS) SYSTOLIC (NORMALS) IVSd 0.9 (0.6-1.2) LA Diam (1.9-4.0) LVEF 76% LVIDd 2.9 (3.5-5.7) LVIDs 1.7 (2.0-3.5) %FS 43% LVPWd 0.9 (0.6-1.2) Ao Diam 2.8 (2.0-3.7) 2 DIMENSIONAL ASSESSMENT: RIGHT ATRIUM: NORMAL LEFT ATRIUM: NORMAL RIGHT VENTRICLE: NORMAL LEFT VENTRICLE: NORMAL TRICUSPID VALVE: NORMAL MITRAL VALVE: MITRAL ANNULAR CALCIFICATION PULMONIC VALVE: NORMAL AORTIC VALVE: SCLEROSIS PERICARDIAL EFFUSION: NONE AORTIC ROOT: NORMAL LEFT VENTRICULAR WALL MOTION: NORMAL DOPPLER/COLOR FLOW: MILD TRICUSPID REGURGITATION. COMMENTS: NORMAL LEFT VENTRICULAR SIZE AND FUNCTION. MITRAL ANNULAR CALCIFICATION. AORTIC SCLEROSIS WITH NO STENOSIS. MILD TRICUSPID REGURGITATION. TECHNOLOGIST: Verna RAMACHANDRAN
--- NOTE | 2019-07-13 10:40 | P.PN ---
Subjective Date of Service: 07/13/19 Chief Complaint: "I want to go home" Subjective: Improving Patient seen and examined chart reviewed and case discussed with RN. Patient still has erythema and pain to the right arm wrist Review of Systems 10-point ROS is otherwise unremarkable Musculoskeletal: As per HPI Physical Examination - Vital Signs Temperature: 98.2 F Blood Pressure: 160/90 Pulse: 70 Respirations: 18 Pulse Ox (%): 98 - Physical Exam General: Alert, Oriented x3, Mild distress, Other (Elderly ill-appearing female) HEENT: Atraumatic, PERRLA, EOMI Neck: Supple, JVD not distended Respiratory: Clear to auscultation bilaterally, Normal air movement Cardiovascular: Normal pulses, Regular rate/rhythm, Normal S1 S2 Gastrointestinal: Normal bowel sounds, Soft and benign, Non-distended, No tenderness Musculoskeletal: Tenderness (Right arm and wrist) Integumentary: Erythema (Right upper extremity) Neurological: Normal speech, Normal strength at 5/5 x4 extr, Normal tone, Cranial nerves 3-12 intact, Normal affect - Studies Laboratory Last Values WBC 16.7 K/uL (4.3-10.9) H 07/12/19 06:35 RBC 3.25 M/uL (3.86-4.86) L 07/12/19 06:35 Hgb 9.9 g/dL (12.0-15.0) L 07/12/19 06:35 Hct 31.0 % (36.0-45.0) L 07/12/19 06:35 MCV 95.6 fL (80-100) 07/12/19 06:35 MCH 30.6 pg (27.0-35.0) 07/12/19 06:35 MCHC 32.0 g/dL (32.0-36.0) 07/12/19 06:35 RDW 13.9 % (12.1-15.2) 07/12/19 06:35 Plt Count 397 K/uL (152-406) 07/12/19 06:35 MPV 8.1 fL (7.6-11.3) 07/12/19 06:35 Neutrophils % 88.6 % (41.7-73.7) H 07/12/19 06:35 Lymphocytes % 5.4 % (15.3-44.8) L 07/12/19 06:35 Monocytes % 5.7 % (3.3-12.3) 07/12/19 06:35 Eosinophils % 0.0 % (0-4.4) 07/12/19 06:35 Basophils % 0.3 % (0-1.3) 07/12/19 06:35 Absolute Neutrophils 14.8 K/uL (1.8-8.0) H 07/12/19 06:35 Absolute Lymphocytes 0.9 K/uL (0.7-4.9) 07/12/19 06:35 Absolute Monocytes 1.0 K/uL (0.1-1.3) 07/12/19 06:35 Absolute Eosinophils 0.0 K/uL (0-0.5) 07/12/19 06:35 Absolute Basophils 0.1 K/uL (0-0.5) 07/12/19 06:35 Morphology Comment Not seen (NOT SEEN) 07/11/19 05:24 PT 11.6 SECONDS (9.5-12.5) 07/10/19 18:15 INR 0.98 07/10/19 18:15 pH 7.48 (7.35-7.45) H 07/10/19 18:08 pCO2 32.5 mmHG (35-45) L 07/10/19 18:08 pO2 83.5 mmHG (75-100) 07/10/19 18:08 HCO3 24.1 mmol/L (22-28) 07/10/19 18:08 Base Excess 1.0 mmol/L 07/10/19 18:08 Oxyhemoglobin 94.2 % (94-97) 07/10/19 18:08 ABG O2 Sat (Measured) 96.6 % (92-98.5) 07/10/19 18:08 ABG Carboxyhemoglobin 1.6 % (0-1.5) H 07/10/19 18:08 ABG Methemoglobin 0.9 % (0-1.5) 07/10/19 18:08 Other Total Hgb 11.7 g/dl (12-18) L 07/10/19 18:08 Inspired O2 21.0 % 07/10/19 18:08 Sodium 141 mmol/L (136-145) 07/12/19 06:02 Potassium 4.0 mmol/L (3.5-5.1) 07/12/19 06:02 Chloride 111 mmol/L (98-107) H 07/12/19 06:02 Carbon Dioxide 20 mmol/L (21-32) L 07/12/19 06:02 BUN 81 mg/dL (7-18) H 07/12/19 06:02 Creatinine 2.80 mg/dL (0.55-1.3) H 07/12/19 06:02 Estimated GFR 16 mL/min (=/>90) L 07/12/19 06:02 Glucose 134 mg/dL (74-106) H 07/12/19 06:02 Lactic Acid 1.5 mmol/L (0.4-2.0) 07/10/19 18:15 Uric Acid 11.9 mg/dL (2.6-6.0) H 07/12/19 06:02 Calcium 8.5 mg/dL (8.5-10.1) 07/12/19 06:02 Magnesium 2.5 mg/dL (1.8-2.4) H D 07/10/19 18:15 Total Bilirubin 0.5 mg/dL (0.2-1.0) 07/10/19 18:15 Direct Bilirubin 0.2 mg/dL (0-0.2) 07/10/19 18:15 AST 24 U/L (15-37) 07/10/19 18:15 ALT 15 U/L (12-78) 07/10/19 18:15 Alkaline Phosphatase 112 U/L (45-117) 07/10/19 18:15 Rapid Troponin I < 0.02 ng/mL (0.0-0.045) 07/10/19 18:15 NT-Pro-B Natriuret Pep 7652 pg/mL (<450) H 07/10/19 18:15 Serum Total Protein 8.4 g/dL (6.4-8.2) H 07/10/19 18:15 Albumin 2.9 g/dL (3.4-5.0) L 07/10/19 18:15 Globulin 5.5 g/dL (2.3-3.5) H 07/10/19 18:15 Albumin/Globulin Ratio 0.5 (1.1-1.8) L 07/10/19 18:15 Procalcitonin 0.43 ng/mL (<0.50) 07/12/19 11:13 TSH 2.920 uIU/mL (0.360-3.740) 07/11/19 05:24 Urine Color Yellow 07/11/19 15:10 Urine Appearance Cloudy 07/11/19 15:10 Urine pH 5.5 (5.0-7.0) 07/11/19 15:10 Ur Specific [place] 1.015 (1.005-1.030) 07/11/19 15:10 Glucose (UA)(Auto) Negative (NEG) 07/11/19 15:10 Urine Ketones Negative (NEG) 07/11/19 15:10 Urine Blood Negative (NEG) 07/11/19 15:10 Urine Nitrite Negative (NEG) 07/11/19 15:10 Urine Bilirubin Negative (NEG) 07/11/19 15:10 Urine Urobilinogen 0.2 mg/dL (0.2-1.0) 07/11/19 15:10 Ur Leukocyte Esterase 1+ (NEG) H 07/11/19 15:10 Urine RBC <5 /HPF (NONE SEEN) 07/11/19 15:10 Urine WBC 5-10 /HPF (<5) H 07/11/19 15:10 Ur Squamous Epith Cells <5 /HPF (NONE SEEN) 07/11/19 15:10 Amorphous Sediment 1+ /HPF (NONE SEEN) 07/11/19 15:10 Urine Bacteria 20-50 /HPF (<20) H 07/11/19 15:10 Hyaline Casts 0-5 /LPF (NONE SEEN) 07/11/19 15:10 Urine Culture Reflexed Reflexed 07/11/19 15:10 Urine Total Protein 1+ (NEG) H 07/11/19 15:10 Vancomycin Trough 13.0 ug/mL (5.0-20.0) 07/12/19 12:30 Microbiology Data (last 24 hrs): No growth to date Medications List Reviewed: Yes Assessment And Plan Discharge Plan: Home Plan to discharge in: 24 Hours - Code Status/Comfort Care Code Status Assessed: Yes Physician Review: Patient Assessed, Agree with Above Assessment and Plan Physician Review Additional Text: Ms Rosario is 84-year-old female presented with cellulitis. #R wrist Cellulitis-leukocytosis worsened. -continue vanc and Rocephin. Patient still has erythema tenderness. Elevate -monitor blood pressure closely -culture sent. -rule out septic joint. Consult Dr. Onofre #CKD 3-Cr close to baseline. pt was hypovolemic clinically. on IVF -Elevated BUN. -avoid nephrotoxins. -trend creatinine. Improved slightly from yesterday. -Appreciate Nephrology input #Afib with RVR- unclear if any prior history. EKG noted. - rate controlled. Now back in sinus rhythm -TSH wnl. echo shows 76% EF -cardio consulted. Recommend aspirin -high fall risk for oac. #Primary alopecia. #Chronic hyponatremia-Na was 141. Hold salt tabs. -Sample Cutter on consult. 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 #Seasonal allergies- resumed montelukast #Failure to thrive- encourage po intake. PT/OT -consult CM for SNF or placement. DVT prophylaxis-Lovenox. Patient is a DNR/DNI; Spouse is NOK
[2019-07-13] MEDS ORDERED: ASPIRIN EC 81 MG TAB PO ONE (10:42)
[2019-07-13 11:16] LABS: Absolute Lymphocytes (CBC) 2.2 K/uL (0.7-4.9); Basophils % 0.5 % (0-1.3); Hematocrit 30.4 % (36.0-45.0); Lymphocytes % 13.8 % (15.3-44.8)
[2019-07-13 11:36] LABS: Blood Morphology Comment NOT SEEN (NOT SEEN); Platelet Estimate ADEQ; Urine White Blood Cell Casts OK
[2019-07-13] MEDS ORDERED: ENOXAPARIN 30 MG/0.3 ML SQ SCH (17:00)
[2019-07-13] MEDS: ENOXAPARIN 40 MG/0.4 ML SQ SCH (18:34)
[2019-07-13] MEDS: CETIRIZINE HCL 5 MG TABLET PO SCH (20:24)
[2019-07-13] MEDS: DIVALPROEX ER 250 MG TAB PO SCH (20:24)
[2019-07-13] MEDS: MONTELUKAST 10 MG TAB PO SCH (20:24)
[2019-07-14] MEDS: NACHLORIDE 0.45% 1,000 ML IV SCH ×3 (04:00→11:11)
[2019-07-14 05:55] LABS: Phosphorus 2.5 mg/dL (2.5-4.9); Potassium 3.9 mmol/L (3.5-5.1); Uric Acid 9.3 mg/dL (2.6-6.0)
[2019-07-14] MEDS: METOPROLOL TAR 25 MG TAB PO SCH (06:09)
[2019-07-14] MEDS: LEVOTHYROXINE SOD 0.112 MG TAB PO SCH (06:09)
[2019-07-14 06:33] LABS: Absolute Lymphocytes (CBC) 1.4 K/uL (0.7-4.9); Basophils % 0.6 % (0-1.3); Hematocrit 29.6 % (36.0-45.0); Lymphocytes % 12.3 % (15.3-44.8); MPV 8.3 fL (7.6-11.3); RBC Red Blood Cell Count 3.12 M/uL (3.86-4.86)
--- NOTE | 2019-07-14 08:20 | CON ---
Patient is an 84-year-old female who was brought into the ER for history of dementia and right wrist swelling and redness. She lives with her in the home. He cannot take care of himself. She is on multiple medications, see her list. She has multiple previous medical problems as well, see the list. She does not smoke. Does not drink. No drugs. On physical examination, the patient has ecchymosis over her extremites. The skin was quite thin. She has full range of motion of hand. YAMILET/GO Voice ID: [id number] Report ID: [id number] ELI
--- NOTE | 2019-07-14 08:27 | P.PN ---
Date of Service: 07/14/19 Vital Signs Temp Pulse Resp BP Pulse Ox 97.8 F 96 H 12 130/68 93 07/14/19 05:36 07/14/19 06:09 07/14/19 04:00 07/14/19 06:09 07/14/19 04:00 Medications Acetaminophen (Tylenol -Extra Strength) 500 mg PO Q6H PRN PRN Reason: TEMP > 100' F Stop: 08/09/19 18:21 Last Admin: 07/14/19 04:36 Dose: 500 mg Amlodipine Besylate (Norvasc) 5 mg PO DAILY LUZ Stop: 08/12/19 09:01 Last Admin: 07/13/19 08:10 Dose: 5 mg Aspirin (Aspirin Ec) 81 mg PO DAILY LUZ Stop: 08/13/19 09:01 Calcitriol (Rocaltrol) 0.5 mcg PO DAILY LUZ Stop: 08/10/19 09:01 Last Admin: 07/13/19 08:10 Dose: 0.5 mcg Cetirizine HCl (Zyrtec) 10 mg PO BEDTIME LUZ Stop: 08/09/19 21:01 Last Admin: 07/13/19 20:24 Dose: 10 mg Cholecalciferol (Vitamin D 5,000 Iu Cap) 5,000 unit PO DAILY LUZ Stop: 08/10/19 09:01 Last Admin: 07/13/19 08:10 Dose: 5,000 unit Divalproex Sodium (Depakote *Er*) 250 mg PO BEDTIME LUZ Stop: 08/10/19 21:01 Last Admin: 07/13/19 20:24 Dose: 250 mg Enoxaparin Sodium (Lovenox 40 Mg Inj) 40 mg SQ DAILY 5 PM LUZ Stop: 08/10/19 17:01 Last Admin: 07/13/19 18:34 Dose: 40 mg Gabapentin (Neurontin) 300 mg PO BID LUZ Stop: 08/09/19 21:01 Last Admin: 07/13/19 20:24 Dose: 300 mg Hydralazine HCl (Apresoline) 25 mg PO TID LUZ Stop: 08/10/19 09:01 Last Admin: 07/13/19 20:23 Dose: 25 mg Hydroxyzine HCl (Atarax Syrup) 10 mg PO TID PRN PRN Reason: ALLERGIES Stop: 08/09/19 18:39 Pharmacy Consult (Pharmacy Consult) 1 mls @ 1 mls/hr XX DAILYPRN PRN; Protocol PRN Reason: Vancomycin dose by pharmacy Stop: 08/09/19 21:00 Ceftriaxone Sodium/Sodium Chloride (Rocephin 1 Gm/10 Ml Swi Ivp) 1 gm in 10 mls @ 600 mls/hr IV DAILY LUZ; Protocol Stop: 08/12/19 09:01 Last Admin: 07/13/19 08:11 Dose: 10 mls Vancomycin HCl (Vancomycin 1 Gm/250 Ml Ns Ivpb) 1 gm in 250 mls @ 150 mls/hr IVPB Q48H LUZ Stop: 08/11/19 14:01 Last Admin: 07/12/19 14:12 Dose: 250 mls Levothyroxine Sodium (Synthroid) 0.112 mg PO DAILYAC LUZ Stop: 08/10/19 06:31 Last Admin: 07/14/19 06:09 Dose: 0.112 mg Metoprolol Tartrate (Lopressor) 25 mg PO BID 6AM 6PM LUZ Stop: 08/10/19 06:01 Last Admin: 07/14/19 06:09 Dose: 25 mg Montelukast Sodium (Singulair) 10 mg PO BEDTIME LUZ Stop: 08/09/19 21:01 Last Admin: 07/13/19 20:24 Dose: 10 mg Nutritional Formula (Ensure Enlive) 237 ml PO BID LUZ Stop: 08/11/19 09:01 Last Admin: 07/13/19 20:25 Dose: 237 ml Pantoprazole Sodium (Protonix Tab) 40 mg PO BIDAC LUZ Stop: 08/12/19 08:11 Last Admin: 07/13/19 18:33 Dose: 40 mg Sodium Bicarbonate (Sodium Bicarb 325 Mg) 325 mg PO BID LUZ Stop: 08/12/19 09:01 Last Admin: 07/13/19 20:24 Dose: 325 mg Sodium Chloride (Normal Saline Flush) 10 ml IV BID LUZ Stop: 08/09/19 21:01 Last Admin: 07/13/19 20:25 Dose: 10 ml Microbiology Results 07/10/19 18:15 Blood - Blood Aerobic Blood Culture - Preliminary No growth in 24 hours. 07/10/19 18:15 Blood - Blood Anaerobic Blood Culture - Preliminary No growth in 24 hours. 07/10/19 18:00 Nasopharnyx Influenza Type A Antigen Screen - Final 07/10/19 18:00 Nasopharnyx Influenza Type B Antigen Screen - Final Assessment/ Plan: Nephrology CPS stable without CP or SOB. Mild confusion. No acute events overnight. Vitals, medications, blood work and imaging reviewed in the chart. NAD. MMM. Neck supple. CTA. RRR. Soft Abd. No C/C/E. No rash. Confused. Normal Speech. Valdovinos with light urine. A/ CKD IV with proteinuria. Acidosis. DM II with CKD. HTN with CKD/ CHF. Diastolic CHF, chronic. Moderate manlutrition. Anemia in chronic illness. P/ Continue current POC and Medications. Reduce IVF 75ml/hr. Continue abx for wrist cellulitis. Encourage nutrition. AM labs. Daily weight. No NSAIDs. EXAM DESCRIPTION: CT - Chest Abd Pelvis Wo Con - 07/10/2019 6:[address] scans are performed using dose optimization technique as appropriate and may include automated exposure control or mA/KV adjustment according to patient size. FINDINGS: The lungs appear mildly emphysematous. Benign calcified granuloma noted right lung.No focal infiltrate detected.No pleural or pericardial effusion.Small hiatal hernia.No intrathoracic adenopathy. The liver, spleen, pancreas, adrenal glands and kidneys are within normal limits. Aortic atherosclerosis. No bowel obstruction, free air, free fluid or abscess. Sigmoid diverticulosis coli is present without diverticulitis. Moderate stool is present in the rectum. The appendix is not identified as a discrete structure, however, no secondary findings of appendicitis are identified. No pathologic lymphadenopathy in the abdomen or pelvis. Postsurgical changes are present lumbar spine. Chronic anterolisthesis of L5 on S1 is seen. IMPRESSION: No acute finding is demonstrated. EXAM DESCRIPTION: RAD - Chest Single View - 07/10/2019 6:04 pm CLINICAL HISTORY: COUGH Chest pain. COMPARISON: Chest Single View dated 07/08/2019; Chest Single View dated 2019; Chest Single View dated 05/17/2019; Chest Single View dated 04/23/2019 FINDINGS: Portable technique limits examination quality. The lungs are emphysematous but grossly clear. The heart is normal in size. No displaced fractures.Cervical spine hardware is present. IMPRESSION: No acute intrathoracic process suspected.
[2019-07-14] MEDS ORDERED: ASPIRIN EC 81 MG TAB PO SCH (09:00)
[2019-07-14] MEDS: CEFTRIAXONE/SWI 1gm 1 GM/10 ML SYR IV SCH (09:36)
[2019-07-14] MEDS: AMLODIPINE 5 MG TAB PO SCH (09:37)
[2019-07-14] MEDS: GABAPENTIN 300 MG CAP PO SCH (09:37)
[2019-07-14] MEDS: HYDRALAZINE HCL 25 MG TABLET PO SCH ×2 (09:37→13:27)
[2019-07-14] MEDS: SODIUM BICARB 325 MG TAB PO SCH (09:37)
[2019-07-14] MEDS: CALCITROL 0.25 MCG CAP PO SCH (09:37)
[2019-07-14] MEDS: VITAMIN D 5,000 UNIT CAP PO SCH (09:37)
[2019-07-14] MEDS: PANTOPRAZOLE 40MG TABLET PO SCH (09:37)
[2019-07-14] MEDS: ENSURE ENLIVE 237 ML CAN PO SCH (09:39)
--- NOTE | 2019-07-14 09:42 | P.PN ---
Subjective Date of Service: 07/14/19 Chief Complaint: "I want to go home" Patient seen and examined chart reviewed and case discussed with RN. Patient still has erythema and pain to the right arm wrist. had fever last night 101.7 Review of Systems 10-point ROS is otherwise unremarkable Musculoskeletal: As per HPI Physical Examination - Vital Signs Temperature: 97.8 F Blood Pressure: 120/77 Pulse: 88 Respirations: 20 Pulse Ox (%): 97 - Physical Exam General: Alert, In no apparent distress, Oriented x3, Other (ill appearing elderly female) HEENT: Atraumatic, PERRLA, EOMI Neck: Supple, JVD not distended Respiratory: Clear to auscultation bilaterally, Normal air movement Cardiovascular: Regular rate/rhythm, Normal S1 S2 Gastrointestinal: Normal bowel sounds, Soft and benign, Non-distended, No tenderness Musculoskeletal: Erythema (right arm), Tenderness, Other (pain w wrist flexion) Integumentary: No rashes Neurological: Normal speech, Normal tone, Cranial nerves 3-12 intact, Normal affect - Studies Laboratory Tests 07/10/19 07/10/19 07/10/19 18:08 18:15 18:15 WBC 17.8 H RBC 4.02 Hgb 12.6 Hct 38.4 MCV 95.5 MCH 31.4 MCHC 32.8 RDW 13.9 Plt Count 410 H MPV 8.1 Neutrophils % 83.0 H Lymphocytes % 6.2 L Monocytes % 10.3 Eosinophils % 0.2 Basophils % 0.3 Absolute Neutrophils 14.8 H Absolute Lymphocytes 1.1 Absolute Monocytes 1.8 H Absolute Eosinophils 0.0 Absolute Basophils 0.1 PT INR pH 7.48 H pCO2 32.5 L pO2 83.5 HCO3 24.1 Base Excess 1.0 Oxyhemoglobin 94.2 ABG O2 Sat (Measured) 96.6 ABG Carboxyhemoglobin 1.6 H ABG Methemoglobin 0.9 Other Total Hgb 11.7 L Inspired O2 21.0 Sodium 140 Potassium 3.9 Chloride 104 Carbon Dioxide 26 BUN 69 H Creatinine 2.90 H Estimated GFR 15 L Glucose 144 H Lactic Acid Calcium 10.0 Magnesium 2.5 H D Total Bilirubin 0.5 Direct Bilirubin 0.2 AST 24 ALT 15 Alkaline Phosphatase 112 Rapid Troponin I < 0.02 NT-Pro-B Natriuret Pep 7652 H Serum Total Protein 8.4 H Albumin 2.9 L Globulin 5.5 H Albumin/Globulin Ratio 0.5 L 07/10/19 07/10/19 18:15 18:15 WBC RBC Hgb Hct MCV MCH MCHC RDW Plt Count MPV Neutrophils % Lymphocytes % Monocytes % Eosinophils % Basophils % Absolute Neutrophils Absolute Lymphocytes Absolute Monocytes Absolute Eosinophils Absolute Basophils PT 11.6 INR 0.98 pH pCO2 pO2 HCO3 Base Excess Oxyhemoglobin ABG O2 Sat (Measured) ABG Carboxyhemoglobin ABG Methemoglobin Other Total Hgb Inspired O2 Sodium Potassium Chloride Carbon Dioxide BUN Creatinine Estimated GFR Glucose Lactic Acid 1.5 Calcium Magnesium Total Bilirubin Direct Bilirubin AST ALT Alkaline Phosphatase Rapid Troponin I NT-Pro-B Natriuret Pep Serum Total Protein Albumin Globulin Albumin/Globulin Ratio Medications List Reviewed: Yes Assessment And Plan Physician Review: Patient Assessed, Agree with Above Assessment and Plan Physician Review Additional Text: Ms Rosario is 84-year-old female presented with cellulitis. #R wrist Cellulitis-leukocytosis improved today however patient has fever 101.7 -continue vanc and Rocephin. Patient still has erythema tenderness. Elevate -monitor blood pressure closely -culture sent. -rule out septic joint. Consult Dr. Onofre. no surgery planned. #CKD 3-Cr close to baseline. pt was hypovolemic clinically. on IVF -Elevated BUN. -avoid nephrotoxins. -trend creatinine. Improved slightly from yesterday. -Appreciate Nephrology input #Afib with RVR- unclear if any prior history. EKG noted. - rate controlled. Now back in sinus rhythm -TSH wnl. echo shows 76% EF -cardio consulted. Recommend aspirin -high fall risk for oac. #Primary alopecia. #Chronic hyponatremia- normalized -Finding Fastener on consult. 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 #Seasonal allergies- resumed montelukast #Failure to thrive- encourage po intake. PT/OT -consult CM for SNF or placement. DVT prophylaxis-Lovenox. Patient is a DNR/DNI; Spouse is NOK Patient wants to go to care home facility. Maybe even inpatient rehab. Will discuss with case management. Okay to Dc in the next 24 hr if remains afebrile
[2019-07-14 10:47] VITALS: O2SAT 97
--- NOTE | 2019-07-14 13:30 | P.DS ---
Admission Date: 07/10/19 Discharge Date: 07/14/19 Disposition: TRANSFER TO SNF - MEDICAL Discharge Condition: FAIR Reason for Admission: "I want to go home" Consultations: Nephrology Dr. Dillard, Dr. Duran Cardiology Dr. Link Plastic surgery Dr. Onofre Procedures: None Brief History of Present Illness: From H and P Ms Rosario is 84-year-old female with history of dementia and CKD who was brought to the ER with complaints of right wrist swelling and redness. She was unable to tell me when the symptoms started. Patient was seen in emergency room yesterday for cough or shortness of breath, diagnosis of bronchitis. She is a poor historian unable to provide much history. I called her spouse who reported that patient's R wrist redness started prior to presentation to the hospital 48 hours ago; however, worsened since dc She has had significant decline in her health in the last 3 days, unable to eat. Patient lives alone with her spouse at home, whom she is totally dependent on with minimal hours of caregivers. He feels like he cannot take care of her alone at home. Patient has limited hours of caregivers a week. Hospital Course: Patient is an 84-year-old female with past medical history of chronic kidney disease atrial fibrillation not on any anticoagulation and dementia comes in with redness swelling of her right upper extremity. Patient denies any trauma. X-ray was negative for any fractures. Patient was started on IV antibiotics. He responded well. Patient did have consistently elevated white blood cell count however no signs of sepsis. Patient's white blood cell count eventually did come down to 11.2. She had fever 101.7 however did not have any other symptoms such as shortness of breath cough myalgias chills or any known contacts for the novel virus. Her fever is thought to be due to her cellulitis. Her temperature normalized and her pain and redness was significantly better. Patient was also seen by Dr. Onofre who did not feel that there was any septic joint. Patient had negative cultures. Patient seen by nephrology for her chronic kidney disease. Her kidney function improved slightly and was back to baseline. Patient was also seen by cardiology echocardiogram looked normal. Patient does have history of atrial fibrillation but is not on any chronic anticoagulation due to the risk of fall and dementia. She was started on aspirin. Patient was then cleared for discharge from consultants standpoint and sent to senior care facility. #R wrist Cellulitis-leukocytosis improved today however patient has fever 101.7 -continue vanc and Rocephin. Patient still has erythema tenderness. Elevate -monitor blood pressure closely -culture sent. -rule out septic joint. Consult Dr. Onofre. no surgery planned. #CKD 3-Cr close to baseline. pt was hypovolemic clinically. on IVF -Elevated BUN. -avoid nephrotoxins. -trend creatinine. Improved slightly from yesterday. -Appreciate Nephrology input #Afib with RVR- unclear if any prior history. EKG noted. - rate controlled. Now back in sinus rhythm -TSH wnl. echo shows 76% EF -cardio consulted. Recommend aspirin -high fall risk for oac. #Primary alopecia. #Chronic hyponatremia- normalized -Metal Trim Erector on consult. 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 #Seasonal allergies- resumed montelukast #Failure to thrive- encourage po intake. PT/OT -consult CM for SNF or placement. Vital Signs/Physical Exam: Temp Pulse Resp BP Pulse Ox 97.8 F 88 20 120/77 97 07/14/19 09:42 07/14/19 09:42 07/14/19 09:42 07/14/19 09:42 07/14/19 09:42 Other Physical/Emotional Findings: FOR PHYSICAL EXAM FINDINGS PLEASE SEE PROGRESS NOTE FROM THE DATE OF DISCHARGE Laboratory Data at Discharge: WBC 11.2 K/uL (4.3-10.9) H D 07/14/19 05:15 Hgb 9.6 g/dL (12.0-15.0) L 07/14/19 05:15 Hct 29.6 % (36.0-45.0) L 07/14/19 05:15 Plt Count 396 K/uL (152-406) 07/14/19 05:15 PT 11.6 SECONDS (9.5-12.5) 07/10/19 18:15 INR 0.98 07/10/19 18:15 Sodium 138 mmol/L (136-145) 07/14/19 05:15 Potassium 3.9 mmol/L (3.5-5.1) 07/14/19 05:15 BUN 65 mg/dL (7-18) H 07/14/19 05:15 Creatinine 1.95 mg/dL (0.55-1.3) H 07/14/19 05:15 Glucose 91 mg/dL (74-106) 07/14/19 05:15 Uric Acid 9.3 mg/dL (2.6-6.0) H 07/14/19 05:15 Phosphorus 2.5 mg/dL (2.5-4.9) 07/14/19 05:15 Magnesium 2.5 mg/dL (1.8-2.4) H D 07/10/19 18:15 Total Bilirubin 0.5 mg/dL (0.2-1.0) 07/10/19 18:15 AST 24 U/L (15-37) 07/10/19 18:15 ALT 15 U/L (12-78) 07/10/19 18:15 Alkaline Phosphatase 112 U/L (45-117) 07/10/19 18:15 Home Medications: Divalproex Sodium [Divalproex Sodium ER] 250 mg PO BEDTIME 10/15/18 Gabapentin 1 cap PO BID 10/15/18 Levocetirizine Dihydrochloride [24Hr Allergy Relief] 1 tab PO BEDTIME 10/15/18 Levothyroxine Sodium 1 tab PO DAILY 10/15/18 atenoloL [Atenolol] 1 tab PO DAILY 10/15/18 Galantamine HBr [Razadyne] 4 mg PO BID 04/23/19 Hydralazine HCl 25 tab PO BID 04/23/19 Montelukast [Singulair*] 1 tab PO BEDTIME 04/23/19 Calcitrol [Rocaltrol*] 0.5 mcg PO DAILY #30 cap 04/25/19 Cholecalciferol (Vitamin D3) [Vitamin D 5,000 IU Cap*] 5,000 unit PO DAILY #30 cap 04/25/19 Sodium Chloride Tab [Sodium Chloride*] 1 gm PO TIDWM #90 tab 04/25/19 Amlodipine [Norvasc] 5 mg PO DAILY 07/10/19 Omeprazole 1 tab PO BID 07/10/19 Patient Discharge Instructions: Follow up with primary care physician in 2-3 days. Return to ER for worsening condition Diet: Renal Activity: Fall precautions
[2019-07-14 13:56] VITALS: BP 100/59; TEMP 97.7
[2019-07-14] MEDS: VANCOMYCIN/NS 1 gm 1 GM/250 ML BAG IVPB SCH (14:15)
== END 2019-07-14 15:42 ==
LOC: ER 17:26 → ERHOLD 18:20 → 2ND 20:09 → 4TH 20:59 → 2ND 07-13 17:59
PROVIDERS: ADMIT Hospitalist; ATTEND Family Medicine
DX: L03.113 Cellulitis of right upper limb (principal); N17.9 Acute kidney failure, unspecified; I13.0 Hypertensive heart and chronic kidney disease with heart failure and stage 1 through stage 4 chronic kidney disease, or unspecified chronic kidney disease; E11.22 Type 2 diabetes mellitus with diabetic chronic kidney disease; N18.4 Chronic kidney disease, stage 4 (severe); I50.32 Chronic diastolic (congestive) heart failure; D63.8 Anemia in other chronic diseases classified elsewhere; E87.1 Hypo-osmolality and hyponatremia; I48.91 Unspecified atrial fibrillation; D72.829 Elevated white blood cell count, unspecified; L65.8 Other specified nonscarring hair loss; F03.90 Unspecified dementia, unspecified severity, without behavioral disturbance, psychotic disturbance, mood disturbance, and anxiety; E03.9 Hypothyroidism, unspecified; L29.9 Pruritus, unspecified; E86.9 Volume depletion, unspecified; R62.7 Adult failure to thrive; Z68.21 Body mass index [BMI] 21.0-21.9, adult; E44.0 Moderate protein-calorie malnutrition; J45.909 Unspecified asthma, uncomplicated; G40.909 Epilepsy, unspecified, not intractable, without status epilepticus; F32.9 Major depressive disorder, single episode, unspecified; J30.2 Other seasonal allergic rhinitis; Z88.6 Allergy status to analgesic agent; Z88.3 Allergy status to other anti-infective agents; Z82.49 Family history of ischemic heart disease and other diseases of the circulatory system
CPT/HCPCS: 96365; 96367; 93005; 93306; 87040 ×2; 87088; 85025 ×5; 80048 ×4; 36415 ×4; 83735; 84100; 85610; 80076; 84550 ×2; 83605; 84443; 81003; 80202 ×2; 84484; 84145; 83880; 87804 ×2; 71250; 74176; 71045; 73110; 97110; 97112; 97116; 97161; 97530 ×5; 82805; 51702; 96375; 96372; 99285; J1650 ×4; J3486 ×2; J3370 ×3; J0696 ×4; G0378 ×7; J7042 ×3; J7030; J2930; 81015; 87086; J1940